=== PATIENT | female | born 1930 | race Caucasian/White ===

== ENCOUNTER 2016-08-14 09:23 | Inpatient (IN) | payer OTHER ==
--- NOTE | 2016-08-14 09:54 | PDOC ---
History of Present Illness - General History Source: Family, Old Records - History of Present Illness Initial Comments: 08/14/16 11:13 The patient is an 86 year old female, from home, with a significant past medical history of advanced alzheimer's, hypothyroidism, NIDDM, HLD, who is arrived to the Emergency Department along with her daughter via EMS with complaints of generalized weakness. Pt is non-verbal due to her advanced dementia so history is limited and provided through her daughter who is the primary day care center director. As per her daughter, the patient has been not herself since approximately 4: 30pm yesterday, she seemed more stiff and was not able to get out of bed even with assistance. She states that she called EMS this morning since the patient appeared to be very unsteady and stiff. She states that the patient usually walks slowly with assistance, but she had difficulty getting her to walk yesterday. She also reports mild cough, congestion, and 1 episode of loose stool this morning. She denies fever, chills, nausea, vomiting, SOB. She denies any fall or trauma. Pt lives at home with her daughter. PCP: Dr. Demetrice Lock <Darshana Dick - Last Filed: 08/14/16 11:46> <Alex Dorsey - Last Filed: 08/15/16 07:17> - General Chief Complaint: Weakness Stated Complaint: GENERALIZED WEAKNESS Time Seen by Provider: 08/14/16 09:31 Past History <Darshana Dick - Last Filed: 08/14/16 11:46> - Past Medical History Dementia: Yes Diabetes: Yes (NIDDM) Hypercholesterolemia: Yes Thyroid Disease: Yes - Psycho/Social/Smoking Cessation Hx Anxiety: No Suicidal Ideation: No Smoking Status: No Smoking History: Former smoker Have you smoked in the past 12 months: No Number of Cigarettes Smoked Daily: 0 Hx Alcohol Use: No Drug/Substance Use Hx: No Substance Use Type: None Hx Substance Use Treatment: No <Alex Dorsey - Last Filed: 08/15/16 07:17> - Past Medical History Allergies/Adverse Reactions: Allergies Allergy/AdvReac Type Severity Reaction Status Date / Time No Known Allergies Allergy Verified 04/07/16 17:50 Home Medications: Ambulatory Orders Memantine HCl [Namenda -] 10 mg PO DAILY 10/01/13 Levothyroxine [Synthroid -] 88 mcg PO DAILY 04/08/16 Review of Systems - Review of Systems Able to Perform ROS?: No Comments:: 08/14/16 11:14 Unable to obtain due to severe dementia. <Darshana Dick - Last Filed: 08/14/16 11:46> *Physical Exam - Vital Signs Last Vital Signs Temp Pulse Resp BP Pulse Ox 97.6 F 106 H 16 162/76 97 08/14/16 10:06 08/14/16 10:06 08/14/16 10:06 08/14/16 10:06 08/14/16 10:09 - Physical Exam Comments: 08/14/16 11:14 GENERAL:+ minimally reactive, cachtectic HEAD: Normocephalic, atraumatic. EYES: extraocular movements intact, sclera anicteric, conjunctiva clear. ENT: +dry mucous membranes . NECK: Normal range of motion, supple LUNGS: mild rales at L base HEART: Regular rate and rhythm, without murmur, rub or gallop. ABDOMEN: Soft, nontender, normoactive bowel sounds. No guarding, no rebound.No CVA tenderness EXTREMITIES: Normal range of motion, no edema. NEUROLOGICAL: No facial assymetry, PSYCH: unable to assess SKIN: + 2x3 cm stage 4 decubitus ulcer with stool present, no active discharge, sournding erythema without induration/fluctuance <Darshana Dick - Last Filed: 08/14/16 11:46> Heart Score/ECG Review - ECG Impressions Comment:: 08/14/16 09:54 Twelve-lead EKG was performed and reviewed by me. There is normal sinus rhythm with a normal rate. Rate of 99 The axis is normal. The intervals are normal. There is normal R wave progression There are no ST or T wave abnormalities. Impression: Normal twelve-lead EKG <Alex Dorsey - Last Filed: 08/15/16 07:17> ED Treatment Course - LABORATORY CBC & Chemistry Diagram: 08/14/16 09:39 08/14/16 09:39 - ADDITIONAL ORDERS Additional order review: Laboratory Results 08/14/16 08/14/16 08/14/16 10:22 09:40 09:39 INR Lactic Acid 1.548 Creatine Kinase 156 D CK-MB (CK-2) 1.683 Troponin I < 0.02 TSH Cancelled Urine Color Urine Appearance Urine pH Ur Specific [place] Urine Protein Urine Glucose (UA) Urine Ketones Urine Blood Urine Nitrite Urine Bilirubin Urine Urobilinogen Ur Leukocyte Esterase 08/14/16 08/14/16 09:39 09:25 INR 1.05 Lactic Acid Creatine Kinase CK-MB (CK-2) Troponin I TSH Urine Color Zaira Urine Appearance Cloudy Urine pH 8.0 D Ur Specific [place] 1.009 Urine Protein 2+ H Urine Glucose (UA) Negative Urine Ketones Negative Urine Blood 2+ H Urine Nitrite Negative Urine Bilirubin Negative Urine Urobilinogen Negative Ur Leukocyte Esterase 2+ H 08/14/16 09:39 RBC 3.48 L MCV 83.2 MCHC 32.9 RDW 14.5 MPV 7.0 L Neutrophils % 78.1 Lymphocytes % 13.9 Monocytes % 7.7 Eosinophils % 0.0 D Basophils % 0.3 - Medications Given in the ED: ED Medications Discontinued Medications Generic Name Dose Route Start Last Admin Trade Name Freq PRN Reason Stop Dose Admin Sodium Chloride 1,000 mls @ 1,000 mls/hr 08/14/16 09:59 08/14/16 09:55 Normal Saline - IV 08/14/16 10:58 1,000 mls/hr .Q1H ONE Administration <Darshana Dick - Last Filed: 08/14/16 11:46> - LABORATORY CBC & Chemistry Diagram: 08/14/16 09:39 08/14/16 09:39 <Alex Dorsey - Last Filed: 08/15/16 07:17> Medical Decision Making - Medical Decision Making 08/14/16 11:40 Case was discussed with Dr. Lock. <Darshana Dick - Last Filed: 08/14/16 11:46> - Medical Decision Making 08/14/16 11:39 86y F hx of advanced dementia, hypothyroidism, borought in by family for evaluation of generalized weakness differential includes occult infection, anemia, metabolic derangement will ck labs, ua, cxr, ekg will give fluisd for hydration will raessess 08/14/16 11:43 labs reviewed cr elevated to 4, with elevated BUN ua shows +protein, wbcs, - possible uti will treat with ctx will admit for further mangaement of dehydration/uti case d/w dr. Lock - agreed with mangement stable for med/surg A portion of this note was documented by scribe services under my direction. I have reviewed the details of the note, within reason, and agree with the documentation with the following case summary and management plan written by me Case discussed in detail with admitting physician including history, physical exam and ancillary studies. Admitting physician has assumed care for the patient, will follow all pending diagnostics and will complete the evaluation and treatment. <Alex Dorsey - Last Filed: 08/15/16 07:17> *DC/Admit/Observation/Transfer - Attestations Scribe Attestion: 08/14/16 11:15 Documentation prepared by Darshana Dick, acting as rn medical surgical for Alex Dorsye MD. <Darshana Dick - Last Filed: 08/14/16 11:46> - Discharge Dispostion Admit: Yes <Alex Dorsey - Last Filed: 08/15/16 07:17> Diagnosis at time of Disposition: Hyperkalemia UTI (urinary tract infection) Qualifiers: Urinary tract infection type: site unspecified Hematuria presence: with hematuria Qualified Code(s): N39.0 - Urinary tract infection, site not specified Acute renal failure Qualifiers: Acute renal failure type: unspecified Qualified Code(s): N17.9 - Acute kidney failure, unspecified - Referrals
[2016-08-14] MEDS ORDERED: SODIUM CHLORIDE 1,000 ML IV ONE (09:59)
[2016-08-14 10:09] VITALS: BMI 21.2
[2016-08-14 10:11] LABS: BASOPHIL 0.3 % (0-2.0); MCH 27.4 pg (25.7-33.7); MCHC 32.9 g/dl (32.0-36.0); MEAN CELL VOLUME 83.2 fl (80-96); NEUTROPHILS 78.1 % (42.8-82.8); PLATELET COUNT 303 K/MM3 (134-434); RDW 14.5 % (11.6-15.6)
[2016-08-14 10:30] LABS: INR 1.05 (0.82-1.09); PROTHROMBIN TIME (PATIENT) 11.6 SEC (9.98-11.88)
[2016-08-14 10:47] LABS: TROPONIN I < 0.02 ng/ml (0.00-0.05)
[2016-08-14 10:54] LABS: URINE APPEARANCE CLOUDY; URINE BILIRUBIN NEGATIVE (NEGATIVE); URINE COLOR AMBER; URINE GLUCOSE (UA) NEGATIVE (NEGATIVE); URINE KETONE NEGATIVE (NEGATIVE); URINE NITRITE NEGATIVE (NEGATIVE); URINE UROBILINOGEN NEGATIVE E.U./dl (0.2-1.0)
[2016-08-14 10:55] LABS: URINE BLOOD 2+ (NEGATIVE); URINE LEUK ESTERASE 2+ (NEGATIVE); URINE PROTEIN 2+ (NEGATIVE)
[2016-08-14 11:12] LABS: URINE BACTERIA FEW /hpf (NONE SEEN); URINE RBC 4 /hpf (0-3); URINE WBC 23 /hpf (3-5)
[2016-08-14 11:12] LABS: THYROID STIMULATING HORMONE 2.67 uIU/ml (0.358-3.74)
[2016-08-14 11:19] LABS: ANION GAP 14 (8-16); BILIRUBIN,TOTAL 0.5 mg/dL (0.2-1.0); CO2 18 mmol/L (21-32); CREATININE 4.3 mg/dL (0.55-1.02); GLUCOSE,RANDOM 126 mg/dL (74-106); SGOT/AST 39 U/L (15-37); SGPT/ALT 19 U/L (12-78)
[2016-08-14 11:28] LABS: ALK PHOS 130 U/L (45-117)
[2016-08-14] MEDS ORDERED: CEFTRIAXONE 1 GM in DEXTROSE 5%-WATER - 50 ML IVPB ONE (11:32)
[2016-08-14] MEDS ORDERED: CEFTRIAXONE 50 ML ONE (11:38)
[2016-08-14] MEDS: SODIUM CHLORIDE 1,000 ML IV SCH (16:10)
--- NOTE | 2016-08-14 17:15 | EKG ---
Test Reason : Blood Pressure : / mmHG Vent. Rate : 099 BPM Atrial Rate : 099 BPM P-R Int : 136 ms QRS Dur : 072 ms QT Int : 336 ms P-R-T Axes : 066 069 075 degrees QTc Int : 431 ms NORMAL SINUS RHYTHM NORMAL ECG WHEN COMPARED WITH ECG OF 07-APR-2016 19:38, NO SIGNIFICANT CHANGE WAS FOUND Confirmed by JONATHAN HALL MD ([id number]) on 08/14/2016 5:15:18 PM Referred By: Overread By: JONATHAN HALL MD
[2016-08-14] MEDS ORDERED: ACETAMINOPHEN 650 MG SUPP.RECT PR PRN (17:53)
--- NOTE | 2016-08-14 19:32 | HP ---
Admitting History and Physical - Primary Care Physician PCP: Demetrice Lock - Admission Chief Complaint: weakness, lethargy History of Present Illness: Family noted pt to get weaker since yesterday evening, this am, they were unable to get her out of bed, her knees would buckle under her. As baseline patient has advanced dementia, mostly non-verbal, able to walk with assistance. Needs help in all daily activities. 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 ...: No Endocrine: Yes: Diabetes Mellitus, Hypothyroidism - Advance Directives Advance Directives: Yes: Living Will, Health Care Proxy, DNR - Smoking History Smoking history: Never smoked Have you smoked in the past 12 months: No Aproximately how many cigarettes per day: 0 - Alcohol/Substance Use Hx Alcohol Use: No - Social History Usual Living Arrangement: Yes: With Child ADL: Family Assistance History of Recent Travel: No Home Medications - Allergies Allergies/Adverse Reactions: Allergies Allergy/AdvReac Type Severity Reaction Status Date / Time No Known Allergies Allergy Verified 04/07/16 17:50 - Home Medications Home Medications: Ambulatory Orders Memantine HCl [Namenda -] 10 mg PO DAILY 10/01/13 Levothyroxine [Synthroid -] 88 mcg PO DAILY 04/08/16 Family Disease History - Family Disease History Family History: Unable to Obtain Review of Systems Unable to obtain ROS, reason: dementia Physical Examination Vital Signs: Vital Signs Temperature 98.5 F 08/14/16 19:15 Pulse Rate 95 H 08/14/16 19:15 Respiratory Rate 18 08/14/16 19:15 Blood Pressure 138/95 08/14/16 19:15 O2 Sat by Pulse Oximetry (%) 95 08/14/16 16:44 Constitutional: Yes: Calm, Thin Eyes: Yes: Conjunctiva Clear HENT: Yes: Atraumatic, Normocephalic Neck: Yes: Trachea Midline Cardiovascular: Yes: Regular Rate and Rhythm Respiratory: Yes: CTA Bilaterally Gastrointestinal: Yes: Normal Bowel Sounds, Distention ...Rectal Exam: Yes: Deferred Breast(s): Yes: WNL Edema: No Integumentary: Yes: Other (unstageable sacral ulcer) Neurological: Yes: Other (keeps her eyes closed, appears slightly contracted in elbows and knees, does not follow commands) Labs: Laboratory Results - last 24 hr 08/14/16 08/14/16 08/14/16 09:25 09:39 09:39 WBC 8.0 RBC 3.48 L Hgb 9.5 L Hct 28.9 L MCV 83.2 MCHC 32.9 RDW 14.5 Plt Count 303 MPV 7.0 L Neutrophils % 78.1 Lymphocytes % 13.9 Monocytes % 7.7 Eosinophils % 0.0 D Basophils % 0.3 INR 1.05 Urine Color Zaira Urine Appearance Cloudy Urine pH 8.0 D Ur Specific [place] 1.009 Urine Protein 2+ H Urine Glucose (UA) Negative Urine Ketones Negative Urine Blood 2+ H Urine Nitrite Negative Urine Bilirubin Negative Urine Urobilinogen Negative Ur Leukocyte Esterase 2+ H Urine RBC 4 Urine WBC 23 Ur Epithelial Cells Rare Urine Bacteria Few 08/14/16 08/14/16 08/14/16 09:39 09:40 10:22 Sodium 129 L Potassium 5.2 H D Chloride 97 L Carbon Dioxide 18 L D Anion Gap 14 BUN 68 H D Creatinine 4.3 H D Creat Clearance w eGFR 9.79 Random Glucose 126 H Lactic Acid 1.548 Calcium 9.0 Total Bilirubin 0.5 D AST 39 H D ALT 19 Alkaline Phosphatase 130 H Creatine Kinase 156 D CK-MB (CK-2) 1.683 Troponin I < 0.02 Total Protein 8.0 Albumin 3.0 L TSH 2.67 D Cancelled Imaging - Results Chest X-ray: Report Reviewed Problem List - Problems (1) Acute renal failure Code(s): N17.9 - ACUTE KIDNEY FAILURE, UNSPECIFIED Qualifiers: Acute renal failure type: unspecified Qualified Code(s): N17.9 - Acute kidney failure, unspecified (2) Hyperkalemia Code(s): E87.5 - HYPERKALEMIA (3) UTI (urinary tract infection) Code(s): N39.0 - URINARY TRACT INFECTION, SITE NOT SPECIFIED Qualifiers: Urinary tract infection type: site unspecified Hematuria presence: with hematuria Qualified Code(s): N39.0 - Urinary tract infection, site not specified (4) Hyponatremia Code(s): E87.1 - HYPO-OSMOLALITY AND HYPONATREMIA (5) Alzheimer's dementia Code(s): G30.9 - ALZHEIMER'S DISEASE, UNSPECIFIED Qualifiers: Alzheimer's disease onset: unspecified onset Dementia behavioral disturbance: without behavioral disturbance Qualified Code(s): G30.9 - Alzheimer's disease, unspecified; F02.80 - Dementia in other diseases classified elsewhere without behavioral disturbance Assessment/Plan iv hydration will likely need Mccrary, however daughter does not want it placed, agreed to monitor overnight and re-evaluate in am iv abx for UTI wound care and swallow evaluation requested advanced directives d/w daughter/HCP Stephie well known to me-she requested DNR, hopes she will be able to take mom home, but to minimize suffering is her main goal at this point.
[2016-08-14] MEDS: COLLAGENASE CLOSTRIDIUM HIST. 30 GRAMS TUBE TP SCH (23:05)
[2016-08-15 07:24] LABS: BASOPHIL 0.3 % (0-2.0); MCH 27.6 pg (25.7-33.7); MEAN CELL VOLUME 83.4 fl (80-96); NEUTROPHILS 72.2 % (42.8-82.8); PLATELET COUNT 262 K/MM3 (134-434); RDW 14.3 % (11.6-15.6); WHITE BLOOD COUNT 5.9 K/mm3 (4.0-10.0)
[2016-08-15 07:47] LABS: ALBUMIN 2.4 g/dl (3.4-5.0); CALCIUM 8.1 mg/dL (8.5-10.1); CREATININE 3.4 mg/dL (0.55-1.02)
[2016-08-15 07:48] LABS: BILIRUBIN,TOTAL 0.3 mg/dL (0.2-1.0); TOT PROT 6.6 g/dl (6.4-8.2)
--- NOTE | 2016-08-15 08:24 | PN ---
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, Physician History of Present Illness: admitted for weakness due to UTI/Dehydration. - Current Medication List Current Medications: Active Medications Acetaminophen (Tylenol Suppository -) 650 mg [place] Q6H PRN PRN Reason: FEVER OR PAIN Collagenase (Santyl -) 1 applic TP BID [facility] Last Admin: 08/14/16 23:05 Dose: 1 applic Sodium Chloride (Normal Saline -) 1,000 mls @ 100 mls/hr IV ASDIR [facility] Last Admin: 08/14/16 16:10 Dose: 100 mls/hr Ceftriaxone Sodium (Rocephin 1gm Ivpb (Pre-Docked)) 50 mls @ 100 mls/hr IVPB DAILY [facility] Levothyroxine Sodium (Synthroid -) 88 mcg PO DAILY [facility] Memantine (Namenda -) 10 mg PO DAILY [facility] - Objective Vital Signs: Vital Signs Temperature 98.1 F 08/15/16 05:53 Pulse Rate 88 08/15/16 05:53 Respiratory Rate 18 08/15/16 05:53 Blood Pressure 125/58 08/15/16 05:53 O2 Sat by Pulse Oximetry (%) 95 08/14/16 16:44 Constitutional: Yes: Thin Eyes: Yes: EOM Intact HENT: Yes: Normocephalic, Other (dry oral mucosa) Neck: Yes: Trachea Midline Cardiovascular: Yes: Regular Rate and Rhythm Respiratory: Yes: CTA Bilaterally Gastrointestinal: Yes: Normal Bowel Sounds, Distention Edema: No Peripheral Pulses WNL: Yes Integumentary: Yes: Other (sacral ulcer) Neurological: Yes: Other (awake, looks at me, does not follow commands, but mumbles when spoken to. Contracted in knees and hips.) Labs: CBC, BMP 08/15/16 06:30 08/15/16 06:30 INR, PTT INR 1.05 (0.82-1.09) 08/14/16 09:39 Problem List - Problems (1) Acute renal failure Code(s): N17.9 - ACUTE KIDNEY FAILURE, UNSPECIFIED Qualifiers: Acute renal failure type: unspecified Qualified Code(s): N17.9 - Acute kidney failure, unspecified (2) Hyperkalemia Assessment/Plan: resolved Code(s): E87.5 - HYPERKALEMIA (3) UTI (urinary tract infection) Code(s): N39.0 - URINARY TRACT INFECTION, SITE NOT SPECIFIED Qualifiers: Urinary tract infection type: site unspecified Hematuria presence: with hematuria Qualified Code(s): N39.0 - Urinary tract infection, site not specified (4) Hyponatremia Code(s): E87.1 - HYPO-OSMOLALITY AND HYPONATREMIA (5) Alzheimer's dementia Code(s): G30.9 - ALZHEIMER'S DISEASE, UNSPECIFIED Qualifiers: Alzheimer's disease onset: unspecified onset Dementia behavioral disturbance: without behavioral disturbance Qualified Code(s): G30.9 - Alzheimer's disease, unspecified; F02.80 - Dementia in other diseases classified elsewhere without behavioral disturbance Assessment/Plan iv hydration iv abx for UTI f/up cultures US renal/bladder r/o obstruction with ARF wound care and swallow evaluation requested DNR
[2016-08-15] MEDS: LEVOTHYROXINE NA 88 MCG TABLET (FP) PO SCH (10:52)
[2016-08-15] MEDS: MEMANTINE HCL 10 MG TABLET (FP) PO SCH (10:52)
[2016-08-15] MEDS: CEFTRIAXONE 50 ML IVPB SCH (10:52)
[2016-08-15] MEDS: COLLAGENASE CLOSTRIDIUM HIST. 30 GRAMS TUBE TP SCH ×2 (11:00→23:50)
--- NOTE | 2016-08-15 11:20 | CONSULT ---
Admitting History and Physical - Primary Care Physician PCP: Marion Reich - Admission History of Present Illness: Per EMR: "08/14/16 11:13 The patient is an 86 year old female, from home, with a significant past medical history of advanced alzheimer's, hypothyroidism, NIDDM, HLD, who is arrived to the Emergency Department along with her daughter via EMS with complaints of generalized weakness. Pt is non-verbal due to her advanced dementia so history is limited and provided through her daughter who is the primary child care supervisor. As per her daughter, the patient has been not herself since approximately 4: 30pm yesterday, she seemed more stiff and was not able to get out of bed even with assistance. She states that she called EMS this morning since the patient appeared to be very unsteady and stiff. She states that the patient usually walks slowly with assistance, but she had difficulty getting her to walk yesterday. She also reports mild cough, congestion, and 1 episode of loose stool this morning. She denies fever, chills, nausea, vomiting, SOB. She denies any fall or trauma. Pt lives at home with her daughter. " History Source: Family Member (Per pt's son, pt receives "baby food" and thin liquid on a tsp at home. 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 ...: No Endocrine: Yes: Diabetes Mellitus, Hypothyroidism - Advance Directives Advance Directives: Yes: Living Will, Health Care Proxy, DNR - Smoking History Smoking history: Former smoker Have you smoked in the past 12 months: No Aproximately how many cigarettes per day: 0 - Alcohol/Substance Use Hx Alcohol Use: No - Social History ADL: Family Assistance History of Recent Travel: No History - Admission Reason For Visit: UTI,ARF,HYPERKALEMIA - Diagnostics X-ray: Report Reviewed - General Mental Status: Confused, Lethargic (slightly responsive, eyes remain closed, seems comfortable, respiration easy.Pt does not follow any commands.) Attention: Profound Impairment Ability to Follow Directions: Poor - Hearing Hearing: Normal Hearing Aide: No Speech Evaluation - Communication Primary Language: [place]IZ[place] Communication: Yes: Non-Communicable Oral Expression Ability: Yes: Non-Verbal, Non-Vocal - Language/Auditory Comprehension Observation: Able to respond to yes/no queries: No - Language/Verbal Expression Functional Communication Status: Yes: Severely Impaired - Memory/Perception custodial Memory: Yes: Severely Impaired Short Term Memory: Yes: Severely Impaired - Swallow Evaluation/Bedside Assessment Current Nutritional Intake: Dysphagia Pureed, Thin Liquids Dentition: Yes: Edentulous Facial Symmetry at Rest: Symmetrical Rate of Intake: Slow/Holding Labial Seal: WFL Timing of Swallow: Delayed Coughing/Throat Clear: No Recommendations - Speech Evaluation, Impression/Plan Impression: Pt with severe dementia, admitted with dehydration/UTI, with impaired ABEL. Lightens a little with tactile stimulation. Rare, very delayed swallow. Swallow itself fairly functional, if triggered. However, due to lethargy, risk of aspiration is present. - Disposition Discharge to: To be Determined - Dysphagia Impressions/Plan Swallowing Skills: Impaired Dysphagia Impressions: Risk of Aspiration *Silent aspiration: cannot be R/O at bedside Recommendations: Palliative Care (Pt's wishes), Other (Feed only if arousable. TELL pt to swallow and palpate larynx for reflex. NPO if not sufficiently responsive) - Recommendations Diet Consistency: Dysphagia Pureed Medication Administration: Crushed with applesauce Liquids: Refugio Thick (on tsp)
--- NOTE | 2016-08-15 15:34 | PN ---
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 (short form) - Note 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: Vascular surgery, wound consult Went to see patient with daughter at bedside. Patient has severe baseline dementia. Daughter refusing to have patient evaluated at this time because she had a "traumatic day". Daughter states she takes care of her mother's coccyx ulcer and states it is not infected, she changes the dressings, and gets her mother out of bed to chair. Daughter states the wound currently has Optifoam in place.
[2016-08-15] MEDS ORDERED: LORAZEPAM CARPU-JECT 2 MG/ML DISP.SYRIN IVPUSH ONE (17:04)
[2016-08-15] MEDS ORDERED: LORAZEPAM CARPU-JECT 2 MG/ML DISP.SYRIN ONE (17:07)
--- NOTE | 2016-08-15 17:29 | CONSULT ---
Consult - History of Present Illness History of Present Illness: 86 yo female admitted with weakness. Sono shows bilateral hydronephrosis secondary to a very distended bladder. Toribio could not be placed by nursing staff. Pt is contracted and has dementia. 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 ...: No Endocrine: Yes: Diabetes Mellitus, Hypothyroidism - Alcohol/Substance Use Hx Alcohol Use: No - Smoking History Smoking history: Former smoker Have you smoked in the past 12 months: No Aproximately how many cigarettes per day: 0 - Social History Usual Living Arrangement: With Child ADL: Family Assistance History of Recent Travel: No Home Medications - Allergies Allergies/Adverse Reactions: Allergies Allergy/AdvReac Type Severity Reaction Status Date / Time No Known Allergies Allergy Verified 04/07/16 17:50 - Home Medications Home Medications: Ambulatory Orders Memantine HCl [Namenda -] 10 mg PO DAILY 10/01/13 Levothyroxine [Synthroid -] 88 mcg PO DAILY 04/08/16 Physical Exam- Vital Signs: Vital Signs Temperature 98.1 F 08/15/16 15:00 Pulse Rate 78 08/15/16 15:00 Respiratory Rate 18 08/15/16 15:00 Blood Pressure 114/60 08/15/16 15:00 O2 Sat by Pulse Oximetry (%) 95 08/14/16 16:44 Labs: CBC, BMP 08/15/16 06:30 08/15/16 06:30 Imaging - Results Ultrasound: Report Reviewed Problem List - Problems (1) Urinary retention Assessment/Plan: 14 fr toribio placed at bedside with dark yellow urine retrieved. Would start flomax and urecholine. May remove toribio cath in 2-3 days when infection has resolved and renal function stabilized. Code(s): R33.9 - RETENTION OF URINE, UNSPECIFIED
[2016-08-15] MEDS: SODIUM CHLORIDE 1,000 ML IV SCH (17:40)
[2016-08-15] MEDS: BETHANECHOL CHLORIDE 25 MG TABLET PO SCH (23:50)
[2016-08-16] MEDS: BETHANECHOL CHLORIDE 25 MG TABLET PO SCH ×3 (05:58→21:54)
[2016-08-16 07:36] LABS: BASOPHIL 0.2 % (0-2.0); EOSINOPHIL 0.2 % (0-4.5); MCH 27.6 pg (25.7-33.7); MEAN CELL VOLUME 83.8 fl (80-96); NEUTROPHILS 71.9 % (42.8-82.8); PLATELET COUNT 252 K/MM3 (134-434); RDW 14.9 % (11.6-15.6)
[2016-08-16 08:14] LABS: ALBUMIN 2.3 g/dl (3.4-5.0); CALCIUM 7.9 mg/dL (8.5-10.1)
[2016-08-16 08:18] LABS: BILIRUBIN,TOTAL 0.6 mg/dL (0.2-1.0); CREATININE 3.1 mg/dL (0.55-1.02); TOT PROT 6.4 g/dl (6.4-8.2)
[2016-08-16] MEDS: TAMSULOSIN HCL 0.4 MG CAP.ER.24H (FP) PO SCH (12:09)
[2016-08-16] MEDS: COLLAGENASE CLOSTRIDIUM HIST. 30 GRAMS TUBE TP SCH ×2 (12:10→21:54)
[2016-08-16] MEDS: LEVOTHYROXINE NA 88 MCG TABLET (FP) PO SCH (12:10)
[2016-08-16] MEDS: MEMANTINE HCL 10 MG TABLET (FP) PO SCH (12:10)
[2016-08-16] MEDS: CEFTRIAXONE 50 ML IVPB SCH (12:43)
--- NOTE | 2016-08-16 15:38 | PN ---
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, Physician Chief Complaint: No new complaints - Current Medication List Current Medications: Active Medications Acetaminophen (Tylenol Suppository -) 650 mg [place] Q6H PRN PRN Reason: FEVER OR PAIN Last Admin: 08/16/16 00:14 Dose: 650 mg Bethanechol Chloride (Urecholine -) 25 mg PO TID [facility] Last Admin: 08/16/16 05:58 Dose: 25 mg Collagenase (Santyl -) 1 applic TP BID [facility] Last Admin: 08/16/16 12:10 Dose: 1 applic Sodium Chloride (Normal Saline -) 1,000 mls @ 100 mls/hr IV ASDIR [facility] Last Admin: 08/15/16 17:40 Dose: 100 mls/hr Ceftriaxone Sodium (Rocephin 1gm Ivpb (Pre-Docked)) 50 mls @ 100 mls/hr IVPB DAILY [facility] Last Admin: 08/16/16 12:43 Dose: 100 mls/hr Levothyroxine Sodium (Synthroid -) 88 mcg PO DAILY [facility] Last Admin: 08/16/16 12:10 Dose: Not Given Memantine (Namenda -) 10 mg PO DAILY [facility] Last Admin: 08/16/16 12:10 Dose: Not Given Tamsulosin HCl (Flomax -) 0.4 mg PO DAILY@0830 [facility] Last Admin: 08/16/16 12:09 Dose: Not Given - Objective Vital Signs: Vital Signs Temperature 98.5 F 08/16/16 06:55 Pulse Rate 108 H 08/15/16 18:00 Respiratory Rate 20 08/16/16 06:55 Blood Pressure 124/61 08/16/16 06:55 O2 Sat by Pulse Oximetry (%) 96 08/15/16 21:00 Constitutional: Yes: No Distress Neck: Yes: Supple, Tenderness Respiratory: Yes: CTA Bilaterally Gastrointestinal: Yes: Normal Bowel Sounds, Soft Neurological: Yes: Other (Does not respond to verbal commands but has spontaneous eye opening and eye contact, unchanged rom baseline). No: Loss of Sensation ...Motor Strength: WNL Labs: CBC, BMP 08/16/16 06:30 08/16/16 06:30 INR, PTT INR 1.05 (0.82-1.09) 08/14/16 09:39 Problem List - Problems (1) Alzheimer's dementia Assessment/Plan: Supportive care Code(s): G30.9 - ALZHEIMER'S DISEASE, UNSPECIFIED Qualifiers: Alzheimer's disease onset: unspecified onset Dementia behavioral disturbance: without behavioral disturbance Qualified Code(s): G30.9 - Alzheimer's disease, unspecified; F02.80 - Dementia in other diseases classified elsewhere without behavioral disturbance (2) UTI (urinary tract infection) Assessment/Plan: Abx Code(s): N39.0 - URINARY TRACT INFECTION, SITE NOT SPECIFIED Qualifiers: Urinary tract infection type: site unspecified Hematuria presence: with hematuria Qualified Code(s): N39.0 - Urinary tract infection, site not specified (3) Urinary retention Assessment/Plan: Seen by urology Mccrary placed, Cr improving Code(s): R33.9 - RETENTION OF URINE, UNSPECIFIED (4) Hyponatremia Assessment/Plan: Na normal today Code(s): E87.1 - HYPO-OSMOLALITY AND HYPONATREMIA
[2016-08-16] MEDS: SODIUM CHLORIDE 1,000 ML IV SCH ×2 (18:12→22:54)
[2016-08-17] MEDS: BETHANECHOL CHLORIDE 25 MG TABLET PO SCH ×3 (05:51→21:06)
[2016-08-17] MEDS: TAMSULOSIN HCL 0.4 MG CAP.ER.24H (FP) PO SCH (10:26)
[2016-08-17] MEDS: MEMANTINE HCL 10 MG TABLET (FP) PO SCH (10:26)
[2016-08-17] MEDS: LEVOTHYROXINE NA 88 MCG TABLET (FP) PO SCH (10:27)
[2016-08-17] MEDS: CEFTRIAXONE 50 ML IVPB SCH (10:28)
[2016-08-17] MEDS: COLLAGENASE CLOSTRIDIUM HIST. 30 GRAMS TUBE TP SCH ×2 (14:37→21:06)
--- NOTE | 2016-08-17 17:10 | PN ---
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, Physician Chief Complaint: No new complaints - Current Medication List Current Medications: Active Medications Acetaminophen (Tylenol Suppository -) 650 mg GA Q6H PRN PRN Reason: FEVER OR PAIN Last Admin: 08/16/16 00:14 Dose: 650 mg Bethanechol Chloride (Urecholine -) 25 mg PO TID [facility]ENDING S[facility] TO [facility] Last Admin: 08/17/16 14:46 Dose: 25 mg Collagenase (Santyl -) 1 applic TP BID [facility] TO [facility] Last Admin: 08/17/16 14:37 Dose: 1 applic Sodium Chloride (Normal Saline -) 1,000 mls @ 100 mls/hr IV ASDIR PENDING SALE TO [facility] Last Admin: 08/16/16 22:54 Dose: 100 mls/hr Ceftriaxone Sodium (Rocephin 1gm Ivpb (Pre-Docked)) 50 mls @ 100 mls/hr IVPB DAILY [facility] TO [facility] Last Admin: 08/17/16 10:28 Dose: 100 mls/hr Levothyroxine Sodium (Synthroid -) 88 mcg PO DAILY [facility] TO [facility] Last Admin: 08/17/16 10:27 Dose: 88 mcg Memantine (Namenda -) 10 mg PO DAILY [facility] Last Admin: 08/17/16 10:26 Dose: 10 mg Tamsulosin HCl (Flomax -) 0.4 mg PO DAILY@0830 [facility]END[facility] TO [facility] Last Admin: 08/17/16 10:26 Dose: 0.4 mg - Objective Vital Signs: Vital Signs Temperature 97.3 F L 08/17/16 14:14 Pulse Rate 107 H 08/17/16 14:14 Respiratory Rate 20 08/17/16 14:14 Blood Pressure 134/82 08/17/16 14:14 O2 Sat by Pulse Oximetry (%) 97 08/17/16 09:00 Constitutional: Yes: No Distress Neck: Yes: Supple Respiratory: Yes: CTA Bilaterally Gastrointestinal: Yes: Normal Bowel Sounds, Soft Neurological: Yes: Other (No change) Labs: CBC, BMP 08/16/16 06:30 08/16/16 06:30 INR, PTT INR 1.05 (0.82-1.09) 08/14/16 09:39 Problem List - Problems (1) Alzheimer's dementia Assessment/Plan: Supportive care Code(s): G30.9 - ALZHEIMER'S DISEASE, UNSPECIFIED Qualifiers: Alzheimer's disease onset: unspecified onset Dementia behavioral disturbance: without behavioral disturbance Qualified Code(s): G30.9 - Alzheimer's disease, unspecified; F02.80 - Dementia in other diseases classified elsewhere without behavioral disturbance (2) UTI (urinary tract infection) Assessment/Plan: Abx Code(s): N39.0 - URINARY TRACT INFECTION, SITE NOT SPECIFIED Qualifiers: Urinary tract infection type: site unspecified Hematuria presence: with hematuria Qualified Code(s): N39.0 - Urinary tract infection, site not specified
[2016-08-17] MEDS: SODIUM CHLORIDE 1,000 ML IV SCH (19:30)
[2016-08-18] MEDS: BETHANECHOL CHLORIDE 25 MG TABLET PO SCH ×3 (06:00→21:46)
[2016-08-18] MEDS: LEVOTHYROXINE NA 88 MCG TABLET (FP) PO SCH (10:40)
[2016-08-18] MEDS: CEFTRIAXONE 50 ML IVPB SCH (10:40)
[2016-08-18] MEDS: MEMANTINE HCL 10 MG TABLET (FP) PO SCH (10:40)
[2016-08-18] MEDS: TAMSULOSIN HCL 0.4 MG CAP.ER.24H (FP) PO SCH (10:40)
[2016-08-18] MEDS: SODIUM CHLORIDE 1,000 ML IV SCH (16:17)
--- NOTE | 2016-08-18 16:24 | PN ---
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, Physician Chief Complaint: No new complaints - Current Medication List Current Medications: Active Medications Acetaminophen (Tylenol Suppository -) 650 mg OK Q6H PRN PRN Reason: FEVER OR PAIN Last Admin: 08/16/16 00:14 Dose: 650 mg Bethanechol Chloride (Urecholine -) 25 mg PO TID [facility] Last Admin: 08/18/16 16:11 Dose: 25 mg Collagenase (Santyl -) 1 applic TP BID [facility] Last Admin: 08/17/16 21:06 Dose: 1 applic Sodium Chloride (Normal Saline -) 1,000 mls @ 100 mls/hr IV ASDIR [facility] Last Admin: 08/18/16 16:17 Dose: 100 mls/hr Ceftriaxone Sodium (Rocephin 1gm Ivpb (Pre-Docked)) 50 mls @ 100 mls/hr IVPB DAILY [facility] Last Admin: 08/18/16 10:40 Dose: 100 mls/hr Levothyroxine Sodium (Synthroid -) 88 mcg PO DAILY [facility] Last Admin: 08/18/16 10:40 Dose: 88 mcg Memantine (Namenda -) 10 mg PO DAILY [facility] Last Admin: 08/18/16 10:40 Dose: 10 mg Tamsulosin HCl (Flomax -) 0.4 mg PO DAILY@0830 [facility] Last Admin: 08/18/16 10:40 Dose: 0.4 mg - Objective Vital Signs: Vital Signs Temperature 97.9 F 08/18/16 15:07 Pulse Rate 87 08/18/16 15:07 Respiratory Rate 20 08/18/16 15:07 Blood Pressure 127/52 08/18/16 15:07 O2 Sat by Pulse Oximetry (%) 98 08/18/16 09:00 Constitutional: Yes: No Distress Neck: Yes: Supple Cardiovascular: Yes: Regular Rate and Rhythm Respiratory: Yes: CTA Bilaterally Gastrointestinal: Yes: Normal Bowel Sounds, Soft Neurological: Yes: Other (No chnage) Labs: CBC, BMP 08/16/16 06:30 08/16/16 06:30 INR, PTT INR 1.05 (0.82-1.09) 08/14/16 09:39 Problem List - Problems (1) Alzheimer's dementia Assessment/Plan: Supportive care Code(s): G30.9 - ALZHEIMER'S DISEASE, UNSPECIFIED Qualifiers: Alzheimer's disease onset: unspecified onset Dementia behavioral disturbance: without behavioral disturbance Qualified Code(s): G30.9 - Alzheimer's disease, unspecified; F02.80 - Dementia in other diseases classified elsewhere without behavioral disturbance (2) UTI (urinary tract infection) Assessment/Plan: Abx Code(s): N39.0 - URINARY TRACT INFECTION, SITE NOT SPECIFIED Qualifiers: Urinary tract infection type: site unspecified Hematuria presence: with hematuria Qualified Code(s): N39.0 - Urinary tract infection, site not specified
[2016-08-18] MEDS: COLLAGENASE CLOSTRIDIUM HIST. 30 GRAMS TUBE TP SCH ×2 (20:17→21:50)
[2016-08-19] MEDS: SODIUM CHLORIDE 1,000 ML IV SCH ×3 (04:05→18:17)
[2016-08-19] MEDS: BETHANECHOL CHLORIDE 25 MG TABLET PO SCH ×3 (05:39→22:11)
--- NOTE | 2016-08-19 08:19 | PN ---
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 (short form) - Note 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: No significant events over the weekend Vital Signs Period Temp Pulse Resp BP Sys/Correia Pulse Ox Last 24 Hr 97.9 F-98.7 F 70-95 20-20 119-133/52-71 98-98 S1S2 rrr Lugs cta Abd soft Mccrary draining clear urine Opens eyes, follows movements, but is non verbal Imp Dementia-advanced Severe dehydration DALJIT due to retention and dehydration UTI Urinary retention Plan dc Mccrary pending results PT for transfer Problem List - Problems (1) Acute renal failure Code(s): N17.9 - ACUTE KIDNEY FAILURE, UNSPECIFIED Qualifiers: Acute renal failure type: unspecified Qualified Code(s): N17.9 - Acute kidney failure, unspecified (2) Hyperkalemia Code(s): E87.5 - HYPERKALEMIA (3) UTI (urinary tract infection) Code(s): N39.0 - URINARY TRACT INFECTION, SITE NOT SPECIFIED Qualifiers: Urinary tract infection type: site unspecified Hematuria presence: with hematuria Qualified Code(s): N39.0 - Urinary tract infection, site not specified (4) Hyponatremia Code(s): E87.1 - HYPO-OSMOLALITY AND HYPONATREMIA (5) Alzheimer's dementia Code(s): G30.9 - ALZHEIMER'S DISEASE, UNSPECIFIED Qualifiers: Alzheimer's disease onset: unspecified onset Dementia behavioral disturbance: without behavioral disturbance Qualified Code(s): G30.9 - Alzheimer's disease, unspecified; F02.80 - Dementia in other diseases classified elsewhere without behavioral disturbance
[2016-08-19 08:30] LABS: BASOPHIL 0.3 % (0-2.0); EOSINOPHIL 0.6 % (0-4.5); MCH 27.2 pg (25.7-33.7); MEAN CELL VOLUME 85.1 fl (80-96); MEAN PLT VOLUME 7.3 fl (7.5-11.1); NEUTROPHILS 74.6 % (42.8-82.8); PLATELET COUNT 260 K/MM3 (134-434); RDW 15.2 % (11.6-15.6); WHITE BLOOD COUNT 7.1 K/mm3 (4.0-10.0)
[2016-08-19 08:56] LABS: BILIRUBIN,TOTAL 0.3 mg/dL (0.2-1.0); CALCIUM 7.5 mg/dL (8.5-10.1); TOT PROT 6.2 g/dl (6.4-8.2)
[2016-08-19] MEDS: LEVOTHYROXINE NA 88 MCG TABLET (FP) PO SCH (10:12)
[2016-08-19] MEDS: TAMSULOSIN HCL 0.4 MG CAP.ER.24H (FP) PO SCH (10:12)
[2016-08-19] MEDS: MEMANTINE HCL 10 MG TABLET (FP) PO SCH (10:12)
[2016-08-19] MEDS: CEFTRIAXONE 50 ML IVPB SCH (10:13)
[2016-08-19] MEDS: COLLAGENASE CLOSTRIDIUM HIST. 30 GRAMS TUBE TP SCH ×2 (10:13→22:11)
[2016-08-20] MEDS: BETHANECHOL CHLORIDE 25 MG TABLET PO SCH ×3 (05:04→22:09)
[2016-08-20 07:12] LABS: BASOPHIL 0.3 % (0-2.0); EOSINOPHIL 0.7 % (0-4.5); MCH 27.8 pg (25.7-33.7); MCHC 33.2 g/dl (32.0-36.0); MEAN CELL VOLUME 83.8 fl (80-96); MEAN PLT VOLUME 7.4 fl (7.5-11.1); NEUTROPHILS 80.4 % (42.8-82.8); PLATELET COUNT 305 K/MM3 (134-434); RDW 14.8 % (11.6-15.6); WHITE BLOOD COUNT 11.3 K/mm3 (4.0-10.0)
[2016-08-20 07:53] LABS: ALBUMIN 2.1 g/dl (3.4-5.0)
[2016-08-20 07:56] LABS: BILIRUBIN,TOTAL 0.8 mg/dL (0.2-1.0); CALCIUM 7.3 mg/dL (8.5-10.1); TOT PROT 6.3 g/dl (6.4-8.2)
--- NOTE | 2016-08-20 08:47 | PN ---
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 (short form) - Note 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: Received 2 U nits of PRBC yesterday CBC, BMP 08/20/16 06:00 08/20/16 06:00 Vital Signs Period Temp Pulse Resp BP Sys/Correia Pulse Ox Last 24 Hr 98.2 F-99 F 66-81 18-18 109-136/51-69 98-98 Intake & Output 08/17/16 08/18/16 08/19/16 08/20/16 23:59 23:59 23:59 23:59 Intake Total 4373 526 8672 900 Output Total 2100 1300 1200 400 Balance -463 -360 1962 500 S1S2 rrr Lugs cta Abd soft Mccrary draining clear urine Opens eyes, follows movements, but is non verbal ate ok yesterday Imp Dementia-advanced Severe dehydration DALJIT due to retention and dehydration UTI Urinary retention Plan dc Mccrary decrease iv fluids, change to 1/2 NS PT for transfer STR to [facility]? Problem List - Problems (1) Acute renal failure Code(s): N17.9 - ACUTE KIDNEY FAILURE, UNSPECIFIED Qualifiers: Acute renal failure type: unspecified Qualified Code(s): N17.9 - Acute kidney failure, unspecified (2) Hyperkalemia Code(s): E87.5 - HYPERKALEMIA (3) UTI (urinary tract infection) Code(s): N39.0 - URINARY TRACT INFECTION, SITE NOT SPECIFIED Qualifiers: Urinary tract infection type: site unspecified Hematuria presence: with hematuria Qualified Code(s): N39.0 - Urinary tract infection, site not specified (4) Hyponatremia Code(s): E87.1 - HYPO-OSMOLALITY AND HYPONATREMIA (5) Alzheimer's dementia Code(s): G30.9 - ALZHEIMER'S DISEASE, UNSPECIFIED Qualifiers: Alzheimer's disease onset: unspecified onset Dementia behavioral disturbance: without behavioral disturbance Qualified Code(s): G30.9 - Alzheimer's disease, unspecified; F02.80 - Dementia in other diseases classified elsewhere without behavioral disturbance
--- NOTE | 2016-08-20 09:38 | PN ---
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 (short form) - Note 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: Vascular surgery wound care consult for Dr. Zavala 86 yo F with dementia admitted for weakness. Patient seen and examined this morning for sacral wound. 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 Zavala
[2016-08-20] MEDS: LEVOTHYROXINE NA 88 MCG TABLET (FP) PO SCH (10:07)
[2016-08-20] MEDS: MEMANTINE HCL 10 MG TABLET (FP) PO SCH (10:07)
[2016-08-20] MEDS: CEFTRIAXONE 50 ML IVPB SCH (10:08)
[2016-08-20] MEDS: TAMSULOSIN HCL 0.4 MG CAP.ER.24H (FP) PO SCH (10:08)
[2016-08-20] MEDS: COLLAGENASE CLOSTRIDIUM HIST. 30 GRAMS TUBE TP SCH ×2 (10:40→22:08)
[2016-08-20] MEDS: POTASSIUM CHLORIDE 10 MEQ in SODIUM CHLORIDE 0.45% 1,000 ML IVPB SCH ×2 (10:44→22:09)
[2016-08-20] MEDS ORDERED: PT OWN MED DRAWER 7, Y5N ONE (21:22)
[2016-08-21] MEDS: BETHANECHOL CHLORIDE 25 MG TABLET PO SCH ×3 (06:00→23:23)
[2016-08-21 07:29] LABS: BASOPHIL 0.5 % (0-2.0); EOSINOPHIL 2.2 % (0-4.5); MCH 28.3 pg (25.7-33.7); MCHC 33.7 g/dl (32.0-36.0); MEAN CELL VOLUME 83.9 fl (80-96); MEAN PLT VOLUME 7.9 fl (7.5-11.1); NEUTROPHILS 77.1 % (42.8-82.8); PLATELET COUNT 338 K/MM3 (134-434); RDW 14.8 % (11.6-15.6); WHITE BLOOD COUNT 9.4 K/mm3 (4.0-10.0)
[2016-08-21 07:45] LABS: BILIRUBIN,TOTAL 0.6 mg/dL (0.2-1.0); CALCIUM 7.5 mg/dL (8.5-10.1); CREATININE 1.8 mg/dL (0.55-1.02); TOT PROT 6.4 g/dl (6.4-8.2)
[2016-08-21] MEDS: COLLAGENASE CLOSTRIDIUM HIST. 30 GRAMS TUBE TP SCH ×2 (10:25→23:23)
[2016-08-21] MEDS: TAMSULOSIN HCL 0.4 MG CAP.ER.24H (FP) PO SCH (10:29)
[2016-08-21] MEDS: CEFTRIAXONE 50 ML IVPB SCH (10:29)
[2016-08-21] MEDS: LEVOTHYROXINE NA 88 MCG TABLET (FP) PO SCH (10:29)
[2016-08-21] MEDS: MEMANTINE HCL 10 MG TABLET (FP) PO SCH (10:29)
--- NOTE | 2016-08-21 11:51 | PN ---
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 (short form) - Note 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: Demetra was dcd yesterday CBC, BMP 08/21/16 06:00 08/21/16 06:00 Vital Signs Period Temp Pulse Resp BP Sys/Correia Pulse Ox Last 24 Hr 98.2 F-98.5 F 76-88 19-20 143-145/67-72 98 S1S2 rrr Lugs cta-pt has wet cough Abd soft sitting at the side of the bed with her daughter looks alert non-verbal, does not follow commands Imp Dementia-advanced Severe dehydration DALJIT due to retention and dehydration UTI Urinary retention Plan repeat bladder scan may have to put toribio back PT to continue check CXR r/o fluid overload, aspiration continue iv fluids long discussion with daughter she does not want DNR for her mom anymore, though about it whole day yesterday " I want to keep her as long as possible" explained that successful resuscitation usually means that pt will be on respirator, daughter says she will cross that bridge when she gets there. ultimately wants to take her home Problem List - Problems (1) Acute renal failure Code(s): N17.9 - ACUTE KIDNEY FAILURE, UNSPECIFIED Qualifiers: Acute renal failure type: unspecified Qualified Code(s): N17.9 - Acute kidney failure, unspecified (2) Hyperkalemia Code(s): E87.5 - HYPERKALEMIA (3) UTI (urinary tract infection) Code(s): N39.0 - URINARY TRACT INFECTION, SITE NOT SPECIFIED Qualifiers: Urinary tract infection type: site unspecified Hematuria presence: with hematuria Qualified Code(s): N39.0 - Urinary tract infection, site not specified (4) Hyponatremia Code(s): E87.1 - HYPO-OSMOLALITY AND HYPONATREMIA (5) Alzheimer's dementia Code(s): G30.9 - ALZHEIMER'S DISEASE, UNSPECIFIED Qualifiers: Alzheimer's disease onset: unspecified onset Dementia behavioral disturbance: without behavioral disturbance Qualified Code(s): G30.9 - Alzheimer's disease, unspecified; F02.80 - Dementia in other diseases classified elsewhere without behavioral disturbance
[2016-08-21] MEDS: ACETAMINOPHEN 650 MG/20.3 ML ORAL SOLUTION (CUPS) PO PRN (13:07)
[2016-08-21] MEDS: POTASSIUM CHLORIDE 10 MEQ in SODIUM CHLORIDE 0.45% 1,000 ML IVPB SCH (14:07)
[2016-08-22] MEDS: POTASSIUM CHLORIDE 10 MEQ in SODIUM CHLORIDE 0.45% 1,000 ML IVPB SCH ×3 (01:06→19:00)
[2016-08-22] MEDS: BETHANECHOL CHLORIDE 25 MG TABLET PO SCH ×3 (06:00→22:59)
[2016-08-22 08:04] LABS: CALCIUM 7.6 mg/dL (8.5-10.1)
[2016-08-22 08:07] LABS: BILIRUBIN,TOTAL 0.5 mg/dL (0.2-1.0); CREATININE 1.8 mg/dL (0.55-1.02)
--- NOTE | 2016-08-22 08:23 | PN ---
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 (short form) - Note 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: CMP Sodium 145 mmol/L (136-145) 08/22/16 06:30 Potassium 4.2 mmol/L (3.5-5.1) 08/22/16 06:30 Chloride 117 mmol/L (98-107) H 08/22/16 06:30 Carbon Dioxide 23 mmol/L (21-32) 08/22/16 06:30 Anion Gap 5 (8-16) L 08/22/16 06:30 BUN 30 mg/dL (7-18) H 08/22/16 06:30 Creatinine 1.8 mg/dL (0.55-1.02) H 08/22/16 06:30 Creat Clearance w eGFR 26.74 (>60) 08/22/16 06:30 POC Glucometer 163 UNITS (()) 08/17/16 12:06 Random Glucose 105 mg/dL (74-106) 08/22/16 06:30 Lactic Acid 1.548 mmol/L (0.4-2.0) 08/14/16 09:40 Calcium 7.6 mg/dL (8.5-10.1) L 08/22/16 06:30 Total Bilirubin 0.5 mg/dL (0.2-1.0) 08/22/16 06:30 AST 41 U/L (15-37) H 08/22/16 06:30 ALT 41 U/L (12-78) 08/22/16 06:30 Alkaline Phosphatase 85 U/L (45-117) 08/22/16 06:30 Creatine Kinase 156 IU/L (26-192) D 08/14/16 09:39 CK-MB (CK-2) 1.683 ng/ml (0.5-3.6) 08/14/16 09:39 Troponin I < 0.02 ng/ml (0.00-0.05) 08/14/16 09:39 Total Protein 6.0 g/dl (6.4-8.2) L 08/22/16 06:30 Albumin 2.0 g/dl (3.4-5.0) L 08/22/16 06:30 TSH Cancelled 08/14/16 10:22 S1S2 rrr Lugs cta-pt has wet cough, no significant suctioning Abd soft, bladder distended No edema Opens eyes on command CXR no infiltrate Imp Dementia-advanced Severe dehydration DALJIT due to retention and dehydration slowly improving UTI-resolved Urinary retention again, will request Mccrary-tried at bedside unsuccessfully Plan PT to continue Mccrary decrease iv fluids full code Problem List - Problems (1) Acute renal failure Code(s): N17.9 - ACUTE KIDNEY FAILURE, UNSPECIFIED Qualifiers: Acute renal failure type: unspecified Qualified Code(s): N17.9 - Acute kidney failure, unspecified (2) Hyperkalemia Code(s): E87.5 - HYPERKALEMIA (3) UTI (urinary tract infection) Code(s): N39.0 - URINARY TRACT INFECTION, SITE NOT SPECIFIED Qualifiers: Urinary tract infection type: site unspecified Hematuria presence: with hematuria Qualified Code(s): N39.0 - Urinary tract infection, site not specified (4) Hyponatremia Code(s): E87.1 - HYPO-OSMOLALITY AND HYPONATREMIA (5) Alzheimer's dementia Code(s): G30.9 - ALZHEIMER'S DISEASE, UNSPECIFIED Qualifiers: Alzheimer's disease onset: unspecified onset Dementia behavioral disturbance: without behavioral disturbance Qualified Code(s): G30.9 - Alzheimer's disease, unspecified; F02.80 - Dementia in other diseases classified elsewhere without behavioral disturbance
[2016-08-22] MEDS: LEVOTHYROXINE NA 88 MCG TABLET (FP) PO SCH ×2 (13:00→13:10)
[2016-08-22] MEDS: ACETAMINOPHEN 650 MG/20.3 ML ORAL SOLUTION (CUPS) PO PRN (13:04)
[2016-08-22] MEDS: COLLAGENASE CLOSTRIDIUM HIST. 30 GRAMS TUBE TP SCH ×2 (13:10→22:00)
[2016-08-22] MEDS: TAMSULOSIN HCL 0.4 MG CAP.ER.24H (FP) PO SCH (13:10)
[2016-08-22] MEDS: MEMANTINE HCL 10 MG TABLET (FP) PO SCH (13:10)
--- NOTE | 2016-08-22 14:43 | PROC ---
Procedure Note Procedure: staff unable to pass a toribio bladder scan >999ml 16 micronesian toribio placed with clear urine return
[2016-08-23] MEDS: POTASSIUM CHLORIDE 10 MEQ in SODIUM CHLORIDE 0.45% 1,000 ML IVPB SCH ×2 (04:44→15:41)
[2016-08-23] MEDS: BETHANECHOL CHLORIDE 25 MG TABLET PO SCH ×3 (06:31→21:44)
[2016-08-23] MEDS: LEVOTHYROXINE NA 88 MCG TABLET (FP) PO SCH (06:32)
--- NOTE | 2016-08-23 08:13 | PN ---
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 (short form) - Note 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: Vital Signs Period Temp Pulse Resp BP Sys/Correia Pulse Ox Last 24 Hr 97.1 F-98.5 F 66-85 16-18 117-134/59-68 99-99 S1S2 rrr Lugs cta-pt has wet cough, able to expectorate Abd soft, bladder distended No edema Quite alert today, answering questions with mumbling and occasional yes, ok, good. Very rigid with tremors and shaking CXR no infiltrate Mccrary had to be reinserted with over 1000cc urinary retention. Imp Dementia-advanced Myoclonic jerks? Severe dehydration resolved DALJIT due to retention and dehydration improving UTI-resolved Urinary retention keep Mccrary Plan PT to continue Mccrary neurology requested for tremors, daughter concerned about anxiety?, dementia related full code Problem List - Problems (1) Acute renal failure Code(s): N17.9 - ACUTE KIDNEY FAILURE, UNSPECIFIED Qualifiers: Acute renal failure type: unspecified Qualified Code(s): N17.9 - Acute kidney failure, unspecified (2) Hyperkalemia Code(s): E87.5 - HYPERKALEMIA (3) UTI (urinary tract infection) Code(s): N39.0 - URINARY TRACT INFECTION, SITE NOT SPECIFIED Qualifiers: Urinary tract infection type: site unspecified Hematuria presence: with hematuria Qualified Code(s): N39.0 - Urinary tract infection, site not specified (4) Hyponatremia Code(s): E87.1 - HYPO-OSMOLALITY AND HYPONATREMIA (5) Alzheimer's dementia Code(s): G30.9 - ALZHEIMER'S DISEASE, UNSPECIFIED Qualifiers: Alzheimer's disease onset: unspecified onset Dementia behavioral disturbance: without behavioral disturbance Qualified Code(s): G30.9 - Alzheimer's disease, unspecified; F02.80 - Dementia in other diseases classified elsewhere without behavioral disturbance
[2016-08-23] MEDS: MEMANTINE HCL 10 MG TABLET (FP) PO SCH (11:27)
[2016-08-23] MEDS: TAMSULOSIN HCL 0.4 MG CAP.ER.24H (FP) PO SCH (11:27)
[2016-08-23] MEDS: COLLAGENASE CLOSTRIDIUM HIST. 30 GRAMS TUBE TP SCH ×2 (11:27→21:45)
[2016-08-23] MEDS: ACETAMINOPHEN 650 MG/20.3 ML ORAL SOLUTION (CUPS) PO PRN ×2 (11:30→21:45)
--- NOTE | 2016-08-23 14:21 | CONSULT ---
Consult Consult Specialty:: NEUROLOGY Reason for Consultation:: altered mental status, tremor - History of Present Illness History of Present Illness: 86 year old female, from home, with pmh.of advanced alzheimer's, hypothyroidism , NIDDM, HLD, was admitted few days ago for generalized weakness. Pt is non- verbal due to her advanced dementia. In the hospital she was found to have DALJIT , urinary retention, hyperkalemia, hyponatremia. The patient has altered mental status, increased lethargy and the family noticed tremor in her hands. - History Source History Provided By: Medical Record Limitations to Obtaining History: Dementia - Past Medical History PRODUCTION SCHEDULER: Yes: Alzheimer's, Dementia ...: No Endocrine: Yes: Diabetes Mellitus, Hypothyroidism - Alcohol/Substance Use Hx Alcohol Use: No - Smoking History Smoking history: Former smoker Have you smoked in the past 12 months: No Aproximately how many cigarettes per day: 0 - Social History Usual Living Arrangement: With Child ADL: Family Assistance History of Recent Travel: No Home Medications - Allergies Allergies/Adverse Reactions: Allergies Allergy/AdvReac Type Severity Reaction Status Date / Time No Known Allergies Allergy Verified 04/07/16 17:50 - Home Medications Home Medications: Ambulatory Orders Memantine HCl [Namenda -] 10 mg PO DAILY 10/01/13 Levothyroxine [Synthroid -] 88 mcg PO DAILY 04/08/16 Review of Systems - Review of Systems Constitutional: reports: No Symptoms Eyes: reports: No Symptoms HENT: reports: No Symptoms Neck: reports: No Symptoms Cardiovascular: reports: No Symptoms Respiratory: reports: No Symptoms Gastrointestinal: reports: No Symptoms Musculoskeletal: reports: No Symptoms Neurological: reports: Change in LOC, Change in Speech, Confusion, Pre-Existing Deficit, Unsteady Gait Hematology/Lymphatic: reports: No Symptoms Psychiatric: reports: No Symptoms Physical Exam-Neuro Vital Signs: Vital Signs Temperature 97.5 F L 08/23/16 05:56 Pulse Rate 66 08/23/16 05:56 Respiratory Rate 18 08/23/16 05:56 Blood Pressure 117/59 08/23/16 05:56 O2 Sat by Pulse Oximetry (%) 99 08/22/16 21:00 Constitutional: Yes: No Distress Neck: Yes: Supple, Trachea Midline Cardiovascular: Yes: Regular Rate and Rhythm, S1, S2 Respiratory: Yes: Regular, CTA Bilaterally Gastrointestinal: Yes: Normal Bowel Sounds, Soft Renal/: Yes: WNL Musculoskeletal: Yes: WNL, Joint Stiffness Edema: No Psychiatric: Yes: Alert (noninteligible sounds, follows intermittent commands. ) Labs: CBC, BMP 08/21/16 06:00 08/22/16 06:30 INR, PTT INR 1.05 (0.82-1.09) 08/14/16 09:39 - Neuro Exam Eyes: Yes: PERRLA Speech: Global Aphasia Cranial Nerves II-XII Intact: Yes Gag: Present DTR's: 1+ Left Bicep, 1+ Right Bicep, 1+ Left Tricep, 1+ Right Tricep, 1+ Left Brachioradialis, 1+ Right Brachioradialis, 1+ Left Achilles, 1+ Right Achilles Babinski: Absent Response to light touch: Normal Response to pain prick: Normal Response to temperature: Normal Movement Disorders: Asterixis, Dystonia, Spasticity Motor Strength: 3/5: Left Leg, Right Leg (spasticity and flexion LE bilaterally) , 5/5: Left Arm, Right Arm Gait: Deferred Problem List - Problems (1) Alzheimer's dementia Code(s): G30.9 - ALZHEIMER'S DISEASE, UNSPECIFIED Qualifiers: Alzheimer's disease onset: unspecified onset Dementia behavioral disturbance: without behavioral disturbance Qualified Code(s): G30.9 - Alzheimer's disease, unspecified; F02.80 - Dementia in other diseases classified elsewhere without behavioral disturbance (2) Hyperkalemia Code(s): E87.5 - HYPERKALEMIA (3) Acute renal failure Code(s): N17.9 - ACUTE KIDNEY FAILURE, UNSPECIFIED Qualifiers: Acute renal failure type: unspecified Qualified Code(s): N17.9 - Acute kidney failure, unspecified (4) Hyponatremia Code(s): E87.1 - HYPO-OSMOLALITY AND HYPONATREMIA (5) Spasticity Code(s): R25.2 - CRAMP AND SPASM (6) Parkinsonism Code(s): G20 - PARKINSON'S DISEASE Assessment/Plan 86 year old female, from home, with pmh.of advanced alzheimer's, hypothyroidism , NIDDM, HLD, was admitted few days ago for generalized weakness. Pt is non- verbal due to her advanced dementia . In the hospital she was found to have DALJIT , urinary retention, hyperkalemia, hyponatremia. The patient has altered mental status, increased lethargy and the family noticed tremor in her hands. Neurological exam: pt. makes some sounds, severe aphasia, spasticity and contractions /flexions in both legs. Repaus tremor in both hands + Rigidity. Impression: metabolic encephalopathy with worsening asterixis, tremor. severe dementia, asterixis. spasticity- LE weakness - this is chronic. parkinsonism Plan: - correct electrolytes and treat DALJIT per medical team. - EEG to rule out seizures- this can be done as outpatient. - correct hypothyroidism. - PT/OT evaluation. Thank you for this consult.
[2016-08-24] MEDS: POTASSIUM CHLORIDE 10 MEQ in SODIUM CHLORIDE 0.45% 1,000 ML IVPB SCH ×3 (00:58→23:01)
[2016-08-24] MEDS: ACETAMINOPHEN 650 MG/20.3 ML ORAL SOLUTION (CUPS) PO PRN ×2 (06:32→17:43)
[2016-08-24] MEDS: LEVOTHYROXINE NA 88 MCG TABLET (FP) PO SCH (06:32)
[2016-08-24] MEDS: BETHANECHOL CHLORIDE 25 MG TABLET PO SCH ×3 (06:32→23:02)
--- NOTE | 2016-08-24 07:28 | PN ---
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 (short form) - Note 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: Vital Signs Period Temp Pulse Resp BP Sys/Correia Pulse Ox Last 24 Hr 97.8 F-98.7 F 75-82 20-20 100-138/47-60 99-99 S1S2 rrr Lugs cta Abd soft, bladder distended No edema Quite alert today, answering questions as expected. Mccrary draining clear urine stage 4 sacral decubitus with some slough, no active infection Imp Dementia-advanced Severe dehydration resolved DALJIT due to retention and dehydration improving UTI-resolved Urinary retention keep Mccrary Plan PT to continue Mccrary dc planning tomorrow full code Problem List - Problems (1) Acute renal failure Code(s): N17.9 - ACUTE KIDNEY FAILURE, UNSPECIFIED Qualifiers: Acute renal failure type: unspecified Qualified Code(s): N17.9 - Acute kidney failure, unspecified (2) Hyperkalemia Code(s): E87.5 - HYPERKALEMIA (3) UTI (urinary tract infection) Code(s): N39.0 - URINARY TRACT INFECTION, SITE NOT SPECIFIED Qualifiers: Urinary tract infection type: site unspecified Hematuria presence: with hematuria Qualified Code(s): N39.0 - Urinary tract infection, site not specified (4) Hyponatremia Code(s): E87.1 - HYPO-OSMOLALITY AND HYPONATREMIA (5) Alzheimer's dementia Code(s): G30.9 - ALZHEIMER'S DISEASE, UNSPECIFIED Qualifiers: Alzheimer's disease onset: unspecified onset Dementia behavioral disturbance: without behavioral disturbance Qualified Code(s): G30.9 - Alzheimer's disease, unspecified; F02.80 - Dementia in other diseases classified elsewhere without behavioral disturbance
[2016-08-24] MEDS: COLLAGENASE CLOSTRIDIUM HIST. 30 GRAMS TUBE TP SCH ×2 (09:27→23:02)
[2016-08-24] MEDS: MEMANTINE HCL 10 MG TABLET (FP) PO SCH (09:27)
[2016-08-24] MEDS: TAMSULOSIN HCL 0.4 MG CAP.ER.24H (FP) PO SCH (09:27)
[2016-08-24] MEDS ORDERED: PT OWN MED DRAWER 7, Y5N ONE (21:48)
[2016-08-25] MEDS: BETHANECHOL CHLORIDE 25 MG TABLET PO SCH ×3 (06:16→22:12)
[2016-08-25] MEDS: LEVOTHYROXINE NA 88 MCG TABLET (FP) PO SCH (06:16)
[2016-08-25] MEDS: POTASSIUM CHLORIDE 10 MEQ in SODIUM CHLORIDE 0.45% 1,000 ML IVPB SCH (06:18)
--- NOTE | 2016-08-25 07:17 | PN ---
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 (short form) - Note 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: S1S2 rrr Lugs cta Abd soft, NT No edema Quite alert today, answering questions. Mccrary draining clear urine stage 4 sacral decubitus with some slough, no active infection Imp Dementia-advanced Severe dehydration resolved DALJIT due to retention and dehydration improving UTI-resolved Urinary retention keep Mccrary Sacral decubitus stage 4 Plan PT to continue Mccrary Wound care f/up requested dc planning tomorrow to [place] full code Problem List - Problems (1) Acute renal failure Code(s): N17.9 - ACUTE KIDNEY FAILURE, UNSPECIFIED Qualifiers: Acute renal failure type: unspecified Qualified Code(s): N17.9 - Acute kidney failure, unspecified (2) Hyperkalemia Code(s): E87.5 - HYPERKALEMIA (3) UTI (urinary tract infection) Code(s): N39.0 - URINARY TRACT INFECTION, SITE NOT SPECIFIED Qualifiers: Urinary tract infection type: site unspecified Hematuria presence: with hematuria Qualified Code(s): N39.0 - Urinary tract infection, site not specified (4) Hyponatremia Code(s): E87.1 - HYPO-OSMOLALITY AND HYPONATREMIA (5) Alzheimer's dementia Code(s): G30.9 - ALZHEIMER'S DISEASE, UNSPECIFIED Qualifiers: Alzheimer's disease onset: unspecified onset Dementia behavioral disturbance: without behavioral disturbance Qualified Code(s): G30.9 - Alzheimer's disease, unspecified; F02.80 - Dementia in other diseases classified elsewhere without behavioral disturbance
[2016-08-25 07:39] LABS: BASOPHIL 1.2 % (0-2.0); EOSINOPHIL 2.8 % (0-4.5); MCH 28.2 pg (25.7-33.7); MCHC 32.6 g/dl (32.0-36.0); MEAN CELL VOLUME 86.3 fl (80-96); MEAN PLT VOLUME 8.2 fl (7.5-11.1); PLATELET COUNT 409 K/MM3 (134-434); RDW 15.7 % (11.6-15.6); WHITE BLOOD COUNT 6.9 K/mm3 (4.0-10.0)
[2016-08-25 08:07] LABS: ALBUMIN 2.1 g/dl (3.4-5.0); BILIRUBIN,TOTAL 0.5 mg/dL (0.2-1.0); CALCIUM 7.8 mg/dL (8.5-10.1); CREATININE 1.5 mg/dL (0.55-1.02); TOT PROT 5.7 g/dl (6.4-8.2)
[2016-08-25] MEDS: TAMSULOSIN HCL 0.4 MG CAP.ER.24H (FP) PO SCH (09:40)
[2016-08-25] MEDS: MEMANTINE HCL 10 MG TABLET (FP) PO SCH (09:40)
[2016-08-25] MEDS: COLLAGENASE CLOSTRIDIUM HIST. 30 GRAMS TUBE TP SCH ×2 (09:40→22:12)
--- NOTE | 2016-08-25 15:44 | PN ---
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, LPN - Note 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: Selected Entries 08/23/16 08/23/16 08/24/16 12:32 14:46 10:39 Breakfast 75% 75% Diet Tolerated Fair Fair Fair Lunch 50% 08/24/16 08/25/16 08/25/16 15:16 12:05 14:48 Breakfast 25% Diet Tolerated Fair Poor Poor Lunch 25% 25% Laboratory Tests 08/25/16 06:20 WBC 6.9 On pureed diet.Pending d/c to [place].
[2016-08-25] MEDS: ACETAMINOPHEN 650 MG/20.3 ML ORAL SOLUTION (CUPS) PO PRN (22:35)
[2016-08-26] MEDS: BETHANECHOL CHLORIDE 25 MG TABLET PO SCH ×3 (06:05→21:57)
[2016-08-26] MEDS: LEVOTHYROXINE NA 88 MCG TABLET (FP) PO SCH (06:05)
[2016-08-26] MEDS: TAMSULOSIN HCL 0.4 MG CAP.ER.24H (FP) PO SCH (08:24)
--- NOTE | 2016-08-26 08:39 | PN ---
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 (short form) - Note 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: CBC, BMP 08/25/16 06:20 08/25/16 06:20 Vital Signs Period Temp Pulse Resp BP Sys/Correia Pulse Ox Last 24 Hr 97.3 F-98.6 F 70-84 18-18 114-134/52-75 97-97 S1S2 rrr Lugs cta Abd soft, NT No edema Asleep. Mccrary draining clear urine stage 4 sacral decubitus with some yellow slough Imp Dementia-advanced Severe dehydration resolved DALJIT due to retention and dehydration resolved UTI-resolved Urinary retention keep Mccrary Sacral decubitus stage 4 Plan Awaiting wound care f/up PT to continue Mccrary dc planning to [place] full code Problem List - Problems (1) Acute renal failure Code(s): N17.9 - ACUTE KIDNEY FAILURE, UNSPECIFIED Qualifiers: Acute renal failure type: unspecified Qualified Code(s): N17.9 - Acute kidney failure, unspecified (2) Hyperkalemia Code(s): E87.5 - HYPERKALEMIA (3) UTI (urinary tract infection) Code(s): N39.0 - URINARY TRACT INFECTION, SITE NOT SPECIFIED Qualifiers: Urinary tract infection type: site unspecified Hematuria presence: with hematuria Qualified Code(s): N39.0 - Urinary tract infection, site not specified (4) Hyponatremia Code(s): E87.1 - HYPO-OSMOLALITY AND HYPONATREMIA (5) Alzheimer's dementia Code(s): G30.9 - ALZHEIMER'S DISEASE, UNSPECIFIED Qualifiers: Alzheimer's disease onset: unspecified onset Dementia behavioral disturbance: without behavioral disturbance Qualified Code(s): G30.9 - Alzheimer's disease, unspecified; F02.80 - Dementia in other diseases classified elsewhere without behavioral disturbance
[2016-08-26] MEDS ORDERED: PT OWN MED DRAWER 7, Y5N ONE ×2 (10:27→20:49)
[2016-08-26] MEDS: MEMANTINE HCL 10 MG TABLET (FP) PO SCH (10:36)
--- NOTE | 2016-08-26 12:35 | PN ---
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 (short form) - Note 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: Vascular surgery Pt seen and examined. Sacral ulcer stage 3. Some slough on edges. Cont santyl daily. Turn and position. offload. No need for debridement right now. Juan Zavala DO
[2016-08-26] MEDS: COLLAGENASE CLOSTRIDIUM HIST. 30 GRAMS TUBE TP SCH ×2 (12:41→21:57)
--- NOTE | 2016-08-26 14:37 | PN ---
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, Physician History of Present Illness: Alert, smiling with unintelligible speech and moving all four extremities. - Current Medication List Current Medications: Active Medications Acetaminophen (Tylenol Suppository -) 650 mg HI Q6H PRN PRN Reason: FEVER OR PAIN Last Admin: 08/16/16 00:14 Dose: 650 mg Acetaminophen (Tylenol Oral Solution -) 650 mg PO Q4H PRN PRN Reason: FEVER OR PAIN Last Admin: 08/25/16 22:35 Dose: 650 mg Bethanechol Chloride (Urecholine -) 25 mg PO TID [facility] Last Admin: 08/26/16 06:05 Dose: 25 mg Collagenase (Santyl -) 1 applic TP BID [facility] Last Admin: 08/26/16 12:41 Dose: 1 applic Levothyroxine Sodium (Synthroid -) 88 mcg PO DAILY@0700 [facility] Last Admin: 08/26/16 06:05 Dose: 88 mcg Memantine (Namenda -) 10 mg PO DAILY [facility] Last Admin: 08/26/16 10:36 Dose: 10 mg Tamsulosin HCl (Flomax -) 0.4 mg PO DAILY@0830 [facility] Last Admin: 08/26/16 08:24 Dose: 0.4 mg - Objective Vital Signs: Vital Signs Temperature 97.4 F L 08/26/16 10:00 Pulse Rate 77 08/26/16 10:00 Respiratory Rate 20 08/26/16 10:00 Blood Pressure 134/69 08/26/16 10:00 O2 Sat by Pulse Oximetry (%) 98 08/26/16 09:00 Constitutional: Yes: Well Nourished, No Distress, Calm Eyes: Yes: EOM Intact, PERRL. No: Ptosis HENT: Yes: Atraumatic Neck: Yes: Supple Cardiovascular: Yes: Regular Rate and Rhythm Gastrointestinal: Yes: Soft Neurological: Yes: Alert, Aphasia, Cran Nerves II-XII Intact. No: Oriented, Facial Droop, Numbness, Seizure, Weakness Labs: CBC, BMP 08/25/16 06:20 08/25/16 06:20 INR, PTT INR 1.05 (0.82-1.09) 08/14/16 09:39 Assessment/Plan AMS improving with management of fluid and electrolyte with no evidence of focal neurological deficits and no observed clinical seizures since admission P: EEG pending.
[2016-08-27] MEDS: BETHANECHOL CHLORIDE 25 MG TABLET PO SCH ×2 (06:10→14:14)
[2016-08-27] MEDS: LEVOTHYROXINE NA 88 MCG TABLET (FP) PO SCH (06:10)
--- NOTE | 2016-08-27 08:33 | DS ---
Physical Examination Vital Signs: Vital Signs Temperature -97.6 F L 08/27/16 06:50 Pulse Rate 79 08/27/16 06:50 Respiratory Rate 18 08/27/16 06:50 Blood Pressure 115/49 08/27/16 06:50 O2 Sat by Pulse Oximetry (%) 99 08/26/16 21:00 Constitutional: Yes: No Distress Eyes: Yes: EOM Intact HENT: Yes: Normocephalic Neck: Yes: Trachea Midline Cardiovascular: Yes: Regular Rate and Rhythm Respiratory: Yes: CTA Bilaterally Gastrointestinal: Yes: Normal Bowel Sounds, Soft Edema: No Peripheral Pulses WNL: Yes Integumentary: Yes: Other (stage 4 sacral ulcer with some slough) Neurological: Yes: Other (no focal deficit, verbal this am) Labs: CBC, BMP 08/25/16 06:20 08/25/16 06:20 Discharge Summary Reason For Visit: UTI,ARF,HYPERKALEMIA Current Active Problems Acute renal failure (Acute) Alzheimer's dementia (Acute) Hyperkalemia (Acute) Parkinsonism (Acute) Spasticity (Acute) UTI (urinary tract infection) (Acute) Urinary retention (Acute) Hospital Course: Admitted for acute renal failure and severe dehydration, hypernatremia and urinary retention with mild UTI was given iv fluids, iv abx toribio was placed hospital stay was complicated by anemia, required 2 unit RBC transfusion toribio was removed but pt developed recurrent retention, currently has toribio to gravity medically stable to dc to rehab can consider removing toribio again in 1-2 weeks if she is mobilized, but may need permanent cath if fails again Condition: Guarded - Instructions Referrals: Demetrice Lock MD [Primary Care Provider] - Disposition: CARE HOME FACILITY - Home Medications Comprehensive Discharge Medication List: Ambulatory Orders Memantine HCl [Namenda -] 10 mg PO DAILY 10/01/13 Levothyroxine [Synthroid -] 88 mcg PO DAILY 04/08/16 Acetaminophen Suppository [Tylenol .Suppository -] [address] Q6H PRN #0 supp.rect 08/27/16 Bethanechol Chloride [Bethanechol Chloride -] 25 mg PO TID tablet 08/27/16 Collagenase Clostridium Hist. [Santyl -] 1 applic TP BID tube 08/27/16 Multivitamins [Multivit ([facility] Formulary)] 1 tab PO DAILY tab 08/27/16 Tamsulosin HCl [Flomax -] 0.4 mg PO DAILY@0830 cap.er.24h 08/27/16
[2016-08-27] MEDS: TAMSULOSIN HCL 0.4 MG CAP.ER.24H (FP) PO SCH (08:39)
[2016-08-27] MEDS ORDERED: MULTIVITAMINS (DAILY MVI) TABLET (FP) PO SCH (10:00)
[2016-08-27] MEDS: MEMANTINE HCL 10 MG TABLET (FP) PO SCH (10:52)
[2016-08-27] MEDS: ACETAMINOPHEN 650 MG/20.3 ML ORAL SOLUTION (CUPS) PO PRN (12:37)
[2016-08-27 15:09] VITALS: TEMP 97.7
[2016-08-27] MEDS: COLLAGENASE CLOSTRIDIUM HIST. 30 GRAMS TUBE TP SCH (16:30)
[2016-08-27 16:54] VITALS: BP 116/56; PULSE 81
[2016-08-27] MEDS ORDERED: PT OWN MED DRAWER 7, Y5N ONE (16:55)
== END 2016-08-27 18:12 | DRG 682 ==
LOC: JER 09:23 → JERBED 11:50 → J7W 14:53
PROVIDERS: ADMIT Internal Medicine; ATTEND Internal Medicine
PROC: 30233N1 Transfusion of Nonautologous Red Blood Cells into Peripheral Vein, Percutaneous Approach (ICD-10-PCS; principal; 2016-08-19)
PROC: 0T2BX0Z Change Drainage Device in Bladder, External Approach (ICD-10-PCS; 2016-08-22)
DX: N17.9 Acute kidney failure, unspecified (principal); G93.41 Metabolic encephalopathy; L89.154 Pressure ulcer of sacral region, stage 4; R64 Cachexia; N39.0 Urinary tract infection, site not specified; E87.1 Hypo-osmolality and hyponatremia; G30.8 Other Alzheimer's disease; N13.39 Other hydronephrosis; F02.80 Dementia in other diseases classified elsewhere, unspecified severity, without behavioral disturbance, psychotic disturbance, mood disturbance, and anxiety; E03.9 Hypothyroidism, unspecified; E11.9 Type 2 diabetes mellitus without complications; E78.5 Hyperlipidemia, unspecified; Z68.21 Body mass index [BMI] 21.0-21.9, adult; E87.5 Hyperkalemia; R33.9 Retention of urine, unspecified; N32.89 Other specified disorders of bladder; E86.0 Dehydration; R27.8 Other lack of coordination; G20 Parkinson's disease; Z87.891 Personal history of nicotine dependence
CPT/HCPCS: 36415; 36430; 71010-TC; 76775-TC; 76856-TC; 80053; 81003; 81015; 82550; 82553; 83605; 84443; 84484; 85025; 85027; 85610; 86850; 86900; 86901; 86922; 87040; 87070; 87077; 87086; 87186; 87205; 93005; 93010; 97001-GP; 97116-GP; 99285-25; P9058

== ENCOUNTER 2016-10-26 09:41 | Inpatient (IN) | payer OTHER ==
--- NOTE | 2016-10-26 10:15 | PDOC ---
History of Present Illness <Angela Holliday - Last Filed: 10/26/16 14:08> - History of Present Illness Initial Comments: 10/26/16 10:10 86-year-old female with a history of dementia, who is nonverbal, lives with her daughter She was recently admitted in August for acute renal failure and severe dehydration, hypernatremia, and urinary retention with mild UTI Her recent hospital stay was complicated by anemia requiring 2 units of PRBC transfusion The Mccrary was removed, but she developed recurrent retention, and the Mccrary was replaced She was discharged to rehabilitation Daughter states that she came home from rehabilitation about a month ago, initially she was doing well She was urinating on her own without difficulty, and continues to do so This week the daughter noted that she had a runny nose, and a little cold, as well as a cold sore, and seemed "off" The cough was nonproductive Yesterday, and she seemed a little more "off", and became progressively weak, and stopped eating Today she developed diarrhea, which was nonbloody, and not black or tarry She had a few episodes of diarrhea, and then tried to stand and became weak, and collapsed Her daughter lowered her to the floor and she did not bang her head There were no reports of fever The cough was nonproductive She is not eating or drinking She is continuing to pass her urine No further history or review of systems is available from the patient All history was obtained from the patient's daughter who accompanied her, and old records which were reviewed <Lili Durham - Last Filed: 10/27/16 17:51> - General Chief Complaint: Weakness Stated Complaint: WEAKNESS Time Seen by Provider: 10/26/16 09:44 Past History <Angela Holliday - Last Filed: 10/26/16 14:08> - Past Medical History Dementia: Yes Diabetes: Yes (NIDDM) Hypercholesterolemia: Yes Thyroid Disease: Yes - Psycho/Social/Smoking Cessation Hx Anxiety: No Suicidal Ideation: No Smoking Status: No Smoking History: Former smoker Have you smoked in the past 12 months: No Number of Cigarettes Smoked Daily: 0 Hx Alcohol Use: No Drug/Substance Use Hx: No Substance Use Type: None Hx Substance Use Treatment: No <Lili Durham - Last Filed: 10/27/16 17:51> - Past Medical History Allergies/Adverse Reactions: Allergies Allergy/AdvReac Type Severity Reaction Status Date / Time No Known Allergies Allergy Verified 10/26/16 10:30 Home Medications: Ambulatory Orders Memantine HCl [Namenda -] 10 mg PO DAILY 10/01/13 Levothyroxine [Synthroid -] 88 mcg PO DAILY 04/08/16 Review of Systems - Review of Systems Able to Perform ROS?: No (nonverbal) <Lili Durham - Last Filed: 10/27/16 17:51> *Physical Exam - Vital Signs Last Vital Signs Temp Pulse Resp BP Pulse Ox 84 18 92/56 88 L 10/26/16 10:12 10/26/16 10:12 10/26/16 10:12 10/26/16 10:12 <Angela Holliday - Last Filed: 10/26/16 14:08> - Physical Exam Comments: 10/26/16 10:14 Physical exam GENERAL: The patient is, but arousable to intermittently follow simple commands HEAD: Normal with no signs of trauma. EYES: Sclera anicteric ENT: Mucous membranes dry, the patient has a cold sore below her nose NECK: Normal range of motion, supple LUNGS: Breath sounds equal, clear to auscultation bilaterally. No wheezes, and no crackles. HEART: Regular rate and rhythm, normal S1 and S2 without murmur, rub or gallop. ABDOMEN: Soft, nontender, normoactive bowel sounds. No guarding, no rebound. No masses appreciated. BACK: There is a right sacral ulcer, with some drainage, but no surrounding cellulitis EXTREMITIES: Normal range of motion, no edema. No clubbing or cyanosis. No cords, erythema, or tenderness. NEUROLOGICAL: Has dementia, and is nonverbal, but spontaneously moves all extremities, and intermittently follow simple commands PSYCH: Normal mood, normal affect. SKIN: Warm, Dry, some bruising is noted diffusely, which daughter states is chronic Patient is not on any blood thinners <Lili Durham - Last Filed: 10/27/16 17:51> ED Treatment Course - LABORATORY CBC & Chemistry Diagram: 10/26/16 10:35 10/26/16 10:35 - ADDITIONAL ORDERS Additional order review: Laboratory Results 10/26/16 10/26/16 10:35 10:35 Sodium 130 L Potassium 6.4 H* D Chloride 93 L D Carbon Dioxide 16 L D Anion Gap 21 H BUN 167 H* D Creatinine 10.2 H* D Creat Clearance w eGFR 3.61 Random Glucose 266 H D Lactic Acid 3.815 H* Calcium 9.4 D Magnesium 4.2 H Total Bilirubin 0.4 AST 21 ALT 35 D Alkaline Phosphatase 171 H D Creatine Kinase 43 Troponin I < 0.02 B-Natriuretic Peptide 98120.35 H Total Protein 8.3 H D Albumin 2.9 L D Lipase 1736 H 10/26/16 10:35 Influenza Types A,B Antigen (JORGE) - Final Nasopharyngeal Swab - Final 10/26/16 10:35 RBC 3.39 L MCV 89.8 MCHC 32.8 RDW 16.1 H MPV 7.7 - RADIOLOGY Radiograph Interpretation: 10/26/16 12:39 EXAM: RAD/CHEST X-RAY PORTABLE IMPRESSION: A single view of the chest reveals slight change since 08/21/2016. There is rotation to the left, sclerotic knob, prominent left hilum and normal heart. There is no sign of infiltrate or failure at this time and the left base is now better aerated. There are some coarse base changes. The angles are sharp and the soft tissues are intact. An acute process is not seen. <Angela Holliday - Last Filed: 10/26/16 14:08> - LABORATORY CBC & Chemistry Diagram: 10/27/16 05:00 10/27/16 05:00 - RADIOLOGY Radiology Studies Ordered: Category Date Time Status HEAD CT WITHOUT CONTRAST [CT] Stat CT Scan 10/26/16 09:57 Ordered CHEST X-RAY PORTABLE* [RAD] Stat Radiology 10/26/16 09:58 Ordered <Lili Durham - Last Filed: 10/27/16 17:51> Medical Decision Making - Medical Decision Making 10/26/16 13:[address] Pierce. Dr. Lock front desk attendant. Case discussed with Dr. Lock 10/26/16 13:16 Page sent out to [facility], Dr. Kimball. Immediate connection. Spoke to Dr. Kimball. Case was discussed. 10/26/16 13:26 Spoke to [employer] [employer], Dr. Lin. Case was discussed. 10/26/16 14:[address] Gomez of ID. Left voicemail. 10/26/16 14:[address] Gomez of ID to his answering service. Immediate connection. Case was discussed. <Angela Holliday - Last Filed: 10/26/16 14:08> - Critical Care Time Total Critical Care Time (minutes): 45 Critical Care Statement: The care of this patient involved high complexity decision making to prevent further life threatening deterioration of the patient 's condition and/or to evalute & treat vital organ system(s) failure or risk of failure. - Medical Decision Making 10/26/16 10:31 EKG Normal sinus rhythm 80, normal axis Normal AV and IV conduction time Normal QTC T waves appear slightly peaked Essentially normal EKG Dehydration, altered mental status, rule out UTI, rule out pneumonia 10/26/16 12:40 EKG scan of the head without Generalized volume loss and chronic microvascular changes No gross acute intracranial pathology is seen Chest x-ray- No acute pathology Improvement in aeration at the left base Blood work is significant for a white count of 20.9 with a left shift Acute renal failure with a BUN of 162 and a creatinine of 10.2 Elevated anion gap Potassium 6.4 Lactic acid 3.8 Lipase 1736 All labwork reviewed Laboratory Results - last 24 hr 10/26/16 10/26/16 10/26/16 10:35 10:35 10:35 WBC 20.8 H D RBC 3.39 L Hgb 10.0 L D Hct 30.4 L MCV 89.8 MCHC 32.8 RDW 16.1 H Plt Count 633 H D MPV 7.7 Sodium 130 L Potassium 6.4 H* D Chloride 93 L D Carbon Dioxide 16 L D Anion Gap 21 H BUN 167 H* D Creatinine 10.2 H* D Creat Clearance w eGFR 3.61 Random Glucose 266 H D Lactic Acid 3.815 H* Calcium 9.4 D Magnesium 4.2 H Total Bilirubin 0.4 AST 21 ALT 35 D Alkaline Phosphatase 171 H D Creatine Kinase 43 Troponin I < 0.02 B-Natriuretic Peptide 74120.35 H Total Protein 8.3 H D Albumin 2.9 L D Lipase 1736 H EKG just shows very mildly peaked T waves, but otherwise normal EKG Mccrary inserted, with infected looking urine Will start with vancomycin and Zosyn Will give Kayexalate, but we'll hold off glucose insulin bicarbonate calcium because the EKG is essentially normal except for very mildly peaked T waves 10/26/16 13:[address] [id number]-pwtw admit case discussed with Dr. KimballBahhcfngyt-qmoknslnxfi-vpgnbhhd ICU bed Nephrology paged, 10/26/16 13:[address] Curtis-nephrology 10/26/16 14:[address] Gomez-infectious disease-agrees with initial antibiotic choice will also check CT scan of the abdomen due to elevated lipase 10/26/16 16:28 Repeat lactic acid 2.6 <Lili Durham - Last Filed: 10/27/16 17:51> *DC/Admit/Observation/Transfer - Attestations Scribe Attestion: 10/26/16 12:40 Documentation prepared by Angela Holliday, acting as medical device for Lili Durham MD. <Angela Holliday - Last Filed: 10/26/16 14:08> - Discharge Dispostion Admit: Yes <Lili Durham - Last Filed: 10/27/16 17:51> Diagnosis at time of Disposition: Sepsis syndrome, Acute hyperkalemia, Hyponatremia, Infected decubitus ulcer, Increased serum lipase level Acute renal failure Qualifiers: Acute renal failure type: unspecified Qualified Code(s): N17.9 - Acute kidney failure, unspecified UTI (urinary tract infection) Qualifiers: Urinary tract infection type: site unspecified Hematuria presence: without hematuria Qualified Code(s): N39.0 - Urinary tract infection, site not specified Diarrhea Qualifiers: Diarrhea type: unspecified type Qualified Code(s): R19.7 - Diarrhea, unspecified - Discharge Dispostion Condition at time of disposition: Guarded - Referrals
[2016-10-26 10:30] VITALS: BMI 20.3
[2016-10-26] MEDS: SODIUM CHLORIDE 1,000 ML IV SCH (11:02)
[2016-10-26 11:17] LABS: MCH 29.4 pg (25.7-33.7); MCHC 32.8 g/dl (32.0-36.0); MEAN CELL VOLUME 89.8 fl (80-96); MEAN PLT VOLUME 7.7 fl (7.5-11.1); PLATELET COUNT 633 K/MM3 (134-434); RDW 16.1 % (11.6-15.6); WHITE BLOOD COUNT 20.8 K/mm3 (4.0-10.0)
[2016-10-26 11:40] LABS: ALBUMIN 2.9 g/dl (3.4-5.0); ANION GAP 21 (8-16); BILIRUBIN,TOTAL 0.4 mg/dL (0.2-1.0); CALCIUM 9.4 mg/dL (8.5-10.1); CO2 16 mmol/L (21-32); GLUCOSE,RANDOM 266 mg/dL (74-106); MAGNESIUM 4.2 mg/dL (1.8-2.4); SGOT/AST 21 U/L (15-37); SGPT/ALT 35 U/L (12-78); TOT PROT 8.3 g/dl (6.4-8.2)
[2016-10-26 11:43] LABS: ALK PHOS 171 U/L (45-117); TROPONIN I < 0.02 ng/ml (0.00-0.05)
[2016-10-26 11:58] LABS: CREATININE 10.2 mg/dL (0.55-1.02)
[2016-10-26] MEDS ORDERED: SODIUM POLYSTYRENE SULFONATE 15 GM/60 ML BOTTLE PO ONE (12:44)
[2016-10-26] MEDS ORDERED: VANCOMYCIN 1,000 MG in DEXTROSE 5%-WATER - 250 ML IVPB ONE (12:51)
[2016-10-26] MEDS ORDERED: PIPERACILLIN/TAZOB 3.375 GM 3.375 GM in DEXTROSE 5%-WATER - 50 ML IVPB ONE (12:53)
[2016-10-26] MEDS ORDERED: SODIUM CHLORIDE 1,000 ML IV STA (12:54)
[2016-10-26 13:29] LABS: URINE APPEARANCE TURBID; URINE BILIRUBIN NEGATIVE (NEGATIVE); URINE GLUCOSE (UA) NEGATIVE (NEGATIVE); URINE KETONE NEGATIVE (NEGATIVE); URINE NITRITE NEGATIVE (NEGATIVE); URINE UROBILINOGEN NEGATIVE E.U./dl (0.2-1.0)
[2016-10-26 13:30] LABS: URINE BLOOD 3+ (NEGATIVE); URINE LEUK ESTERASE 3+ (NEGATIVE); URINE PROTEIN 3+ (NEGATIVE)
[2016-10-26 13:31] LABS: URINE COLOR AMBER
[2016-10-26 13:34] LABS: URINE BACTERIA MODERATE /hpf (NONE SEEN); URINE MUCUS MANY; URINE RBC 213 /hpf (0-3); URINE WBC 92 /hpf (3-5)
[2016-10-26] MEDS ORDERED: PIPERACILLIN/TAZOB 3.375 GM 50 ML IVPB ONE (13:34)
[2016-10-26] MEDS ORDERED: VANCOMYCIN 1 GRAM (PRE-DOCKED) 250 ML IVPB ONE (14:13)
[2016-10-26] MEDS ORDERED: SODIUM POLYSTYRENE SULFONATE 15 GM/60 ML BOTTLE ONE (14:13)
--- NOTE | 2016-10-26 14:58 | CON.NEP ---
Consult Consult Specialty:: nephrology Reason for Consultation:: daljit - History of Present Illness History of Present Illness: This is an 86 year old woman with a history alzheimers who was recently admitted with DALJIT and UTI. She did well with antibiotics and fluids and was discharged but she now presents with DALJIT and nephrology is called to evaluate. She was brought in by her daughter who cares for her. Apparently has been weak and almost fell today. She wears a diaper and has been making urine. Lost about 50 pounds in 6 months. 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 Endocrine: Yes: Diabetes Mellitus, Hypothyroidism - Alcohol/Substance Use Hx Alcohol Use: No - Smoking History Smoking history: Former smoker Have you smoked in the past 12 months: No Aproximately how many cigarettes per day: 0 - Social History Usual Living Arrangement: With Child ADL: Family Assistance History of Recent Travel: No Home Medications - Allergies Allergies/Adverse Reactions: Allergies Allergy/AdvReac Type Severity Reaction Status Date / Time No Known Allergies Allergy Verified 10/26/16 10:30 - Home Medications Home Medications: Ambulatory Orders Memantine HCl [Namenda -] 10 mg PO DAILY 10/01/13 Levothyroxine [Synthroid -] 88 mcg PO DAILY 04/08/16 Review of Systems Unable to obtain ROS, reason: altered mental status Nephrology Consult - Height Height: 5 ft 3 in - Weight Weight: 115 lb - BMI Body Mass Index (BMI): 20.3 - Lab Results CBC,BMP: CBC, BMP 10/26/16 10:35 10/26/16 10:35 Anion Gap: Anion Gap Anion Gap 21 (8-16) H 10/26/16 10:35 - Imaging Chest X-ray: Report Reviewed Cat Scan: Report Reviewed - Physical Examination Vital Signs: Vital Signs Temperature Pulse Rate 84 10/26/16 10:12 Respiratory Rate 18 10/26/16 10:12 Blood Pressure 92/56 10/26/16 10:12 O2 Sat by Pulse Oximetry (%) 88 L 10/26/16 10:12 Constitutional: Yes: Cachectic Eyes: Yes: Conjunctiva Clear HENT: Yes: Atraumatic, Normocephalic Neck: Yes: Supple, Trachea Midline Cardiovascular: Yes: Regular Rate and Rhythm. No: Rub Respiratory: Yes: Regular, CTA Bilaterally Gastrointestinal: Yes: Normal Bowel Sounds, Soft Renal/: Yes: Toribio Present. No: Bladder Distention Musculoskeletal: Yes: WNL Extremities: Yes: WNL Edema: No Neurological: Yes: Confusion, Lethargy Psychiatric: Yes: Other (pt is asleep and not responding) Assessment/Plan IMPRESSION Pt appears to have acute kidney injury in addition to ckd probable daljit from volume depletion in addition to urinary retention significant weight loss may be a uremic symptom though it can also be that she is very demented and is unable to handle food hyperkalemia from retention UTI PLAN admit hydrate antibiotics as ordered keep toribio in place follow urine culture agree with adonis but follow level I had a long discussion with her daughter. She does not want her mother to have hemodialysis will follow MV
--- NOTE | 2016-10-26 17:37 | CONSULT ---
Consult Consult Specialty:: infectious diseases Reason for Consultation:: sepsis - History of Present Illness Chief Complaint: weak and lethargic History of Present Illness: patient non verbal with severe alzimers, history taken from the daughter 86-year-old female with a history of dementia, who is nonverbal, lives with her daughter She was recently admitted in August for acute renal failure and severe dehydration, hypernatremia, and urinary retention with mild UTI Her recent hospital stay was complicated by anemia requiring 2 units of PRBC transfusion The Mccrary was removed, but she developed recurrent retention, and the Mccrary was replaced She was discharged to rehabilitation Daughter states that she came home from rehabilitation about a month ago, initially she was doing well She was urinating on her own without difficulty, and continues to do so This week the daughter noted that she had a runny nose, and a little cold, as well as a cold sore, and seemed "off" The cough was nonproductive Yesterday, and she seemed a little more "off", and became progressively weak, and stopped eating Today she developed diarrhea, which was nonbloody, and not black or tarry She had a few episodes of diarrhea, and then tried to stand and became weak, and collapsed Her daughter lowered her to the floor and she did not bang her head There were no reports of fever The cough was nonproductive She is not eating or drinking She is continuing to pass her urine No further history or review of systems is available from the patient All history was obtained from the patient's daughter who accompanied her, and old records which were reviewed the above was the hsitory taken from the daughter as patient cannot give history - History Source History Provided By: Family Member Limitations to Obtaining History: Clinical Condition - 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, 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 Endocrine: Yes: Diabetes Mellitus, Hypothyroidism - Alcohol/Substance Use Hx Alcohol Use: No - Smoking History Smoking history: Former smoker Have you smoked in the past 12 months: No Aproximately how many cigarettes per day: 0 - Social History Usual Living Arrangement: With Child ADL: Family Assistance History of Recent Travel: No Home Medications - Allergies Allergies/Adverse Reactions: Allergies Allergy/AdvReac Type Severity Reaction Status Date / Time No Known Allergies Allergy Verified 10/26/16 10:30 - Home Medications Home Medications: Ambulatory Orders Memantine HCl [Namenda -] 10 mg PO DAILY 10/01/13 Levothyroxine [Synthroid -] 88 mcg PO DAILY 04/08/16 Review of Systems Unable to obtain ROS, reason: unable to obtain Physical Exam Vital Signs: Vital Signs Temperature Pulse Rate 72 10/26/16 15:05 Respiratory Rate 18 10/26/16 15:05 Blood Pressure 116/67 10/26/16 15:05 O2 Sat by Pulse Oximetry (%) 100 10/26/16 15:05 Constitutional: Yes: Calm, Poor Hygeine Eyes: Yes: Conjunctiva Clear HENT: Yes: Atraumatic Neck: Yes: Supple Cardiovascular: Yes: Regular Rate and Rhythm Respiratory: Yes: Regular, Poor Air Entry Gastrointestinal: Yes: Soft, Hypoactive Bowel Sounds, Tenderness (mild) Neurological: Yes: Confusion, Lethargy, Other (non verbal) Psychiatric: Yes: Alert, Other Imaging - Results Chest X-ray: Report Reviewed, Image Reviewed Cat Scan: Image Reviewed Assessment/Plan patient evaluated ct scan of the abdomen and labs noted also labs noted from previously patient has probably couple of process going on one she looks like she is in chf,also in arf superimposed on crf also i see some changes in the pancreas and she has constipation associated with diverticuli i suspect she also might be having colitis because of her history of recent dirrhoea and he abd symptoms colitis pancreatitis dirrhoea leukocytosis arf lethargy chf sepsis plan npo hydration renal on board close monitoring abx started monitor for fevers await for official read on ct scan and await for cx re[port cc time 50 min
[2016-10-26] MEDS: PIPERACILLIN/TAZOB 2.25 GM/50 ML PRE-DOCKED BAG IVPB SCH (18:56)
--- NOTE | 2016-10-26 19:07 | EKG ---
Test Reason : Blood Pressure : / mmHG Vent. Rate : 080 BPM Atrial Rate : 080 BPM P-R Int : 196 ms QRS Dur : 088 ms QT Int : 378 ms P-R-T Axes : 080 052 073 degrees QTc Int : 435 ms NORMAL SINUS RHYTHM NORMAL ECG WHEN COMPARED WITH ECG OF 14-AUG-2016 09:41, NO SIGNIFICANT CHANGE WAS FOUND Confirmed by ROBERT KAMARA MD ([id number]) on 10/26/2016 7:06:59 PM Referred By: Confirmed By:ROBERT KAMARA MD
--- NOTE | 2016-10-26 20:13 | CONSULT ---
Consult Consult Specialty:: Pulm/CC - History of Present Illness History of Present Illness: Pt is an 86yr old woman with PMHx of CKD, dementia and hypothyroidism. Pt recently admitted for astrid secondary to hypovolemia and urinary retention. Pt presents to the ER with CC of nonbloody diarrhea, weakness and collapsed with denies head injury. In the ER found to have WBC 20.8, Na/Ch 130/93, BUN/Cr 167/ 10.2, lactic acid 3.815, K 6.4, BNP 80899, lipase 1736, Mag 4.2 and +UA. Web Content Specialist saw pt and per report, [place], daughter refuses HD. Pt admitted to the ICU for further management. Upon assessment is is awake, non verbal, contracted, hypotensive with MAP in 50s, red purulent urine in toribio. HR 70s, hypothermic to 92 on lavern hugger. 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, Dementia Endocrine: Yes: Diabetes Mellitus, Hypothyroidism - Alcohol/Substance Use Hx Alcohol Use: No - Smoking History Smoking history: Former smoker Have you smoked in the past 12 months: No Aproximately how many cigarettes per day: 0 - Social History Usual Living Arrangement: With Child ADL: Family Assistance History of Recent Travel: No Home Medications - Allergies Allergies/Adverse Reactions: Allergies Allergy/AdvReac Type Severity Reaction Status Date / Time No Known Allergies Allergy Verified 10/26/16 10:30 - Home Medications Home Medications: Ambulatory Orders Memantine HCl [Namenda -] 10 mg PO DAILY 10/01/13 Levothyroxine [Synthroid -] 88 mcg PO DAILY 04/08/16 Physical Exam Vital Signs: Vital Signs Period Temp Pulse Resp BP Sys/Correia Pulse Ox Last 24 Hr 92.0 F 71-84 18-19 92-116/52-67 88-100 Intake & Output 10/23/16 10/24/16 10/25/16 10/26/16 23:59 23:59 23:59 23:59 Intake Total 250 Output Total 500 Balance -250 Weight 115 lb Constitutional: Yes: Cachectic HENT: Yes: Atraumatic Cardiovascular: Yes: Pulse Irregular, S1, S2 Respiratory: Yes: Other (limited exam due to mental status, no adventitious breath sounds appreciated) Gastrointestinal: Yes: Normal Bowel Sounds ...Rectal Exam: Yes: Deferred Renal/: Yes: Toribio Present (deep red, purulent, viscious urine) Musculoskeletal: Yes: Other (contracted) Edema: No Peripheral Pulses WNL: (+1 bilateral pedal pulses) Integumentary: Yes: Tenting Neurological: Yes: Other (nonverbal, awake) Labs: Abnormal Lab Results 10/26/16 10/26/16 10/26/16 10:35 10:35 10:35 WBC 20.8 H D RBC 3.39 L Hgb 10.0 L D Hct 30.4 L RDW 16.1 H Plt Count 633 H D Sodium 130 L Potassium 6.4 H* D Chloride 93 L D Carbon Dioxide 16 L D Anion Gap 21 H BUN 167 H* D Creatinine 10.2 H* D Random Glucose 266 H D Lactic Acid 3.815 H* Magnesium 4.2 H Alkaline Phosphatase 171 H D B-Natriuretic Peptide 23388.35 H Total Protein 8.3 H D Albumin 2.9 L D Lipase 1736 H Urine Protein Urine Blood Ur Leukocyte Esterase 10/26/16 10/26/16 13:15 14:50 WBC RBC Hgb Hct RDW Plt Count Sodium Potassium Chloride Carbon Dioxide Anion Gap BUN Creatinine Random Glucose Lactic Acid 2.617 H* Magnesium Alkaline Phosphatase B-Natriuretic Peptide Total Protein Albumin Lipase Urine Protein 3+ H Urine Blood 3+ H Ur Leukocyte Esterase 3+ H Assessment/Plan Pt is an 86yr old woman with PMHx of CKD, dementia and hypothyroidism. Now in the ICU for management of acute on chronic renal failure in the setting of urosepsis. Pulm: -O2 support prn for sat >94% -f/u abg -Aspiration precautions ID: -ID following -Antibiotics per ID Renal -Nephrology following -IVF as tolerated -Monitor electrolytes -I/Os -Urine electrolytes/creatinine for FeNa -Consider renal ultrasound -Renal dose medication Cardiology -Pressors for MAP 65-75 Neuro -Pain management prn Endo: -Continue home synthroid, will convert to IV Prophylactic -Speech/swallow eval, npo for now -DVT
[2016-10-26] MEDS ORDERED: SODIUM CHLORIDE 500 ML IV STA ×3 (20:15→21:45)
[2016-10-26] MEDS ORDERED: SODIUM CHLORIDE 250 ML IV STA (20:33)
[2016-10-26] MEDS ORDERED: DOPAMINE 400 MG/D5W - 250 ML IVPB ONE (20:51)
[2016-10-26] MEDS: DOPAMINE 400 MG/D5W - 250 ML IVPB SCH (21:15)
[2016-10-26 21:34] LABS: MCH 29.4 pg (25.7-33.7); MCHC 32.9 g/dl (32.0-36.0); MEAN CELL VOLUME 89.2 fl (80-96); MEAN PLT VOLUME 7.4 fl (7.5-11.1); PLATELET COUNT 424 K/MM3 (134-434)
[2016-10-26 21:48] LABS: INR 1.12 (0.82-1.09); PROTHROMBIN TIME (PATIENT) 12.3 SEC (9.98-11.88)
[2016-10-26 21:51] LABS: ACTIVATED PTT 29.7 SECONDS (26.9-34.4)
[2016-10-26 21:57] LABS: AMYLASE 115 U/L (25-115)
[2016-10-26 22:00] LABS: ALBUMIN 2.3 g/dl (3.4-5.0); ANION GAP 18 (8-16); BILIRUBIN,TOTAL 0.4 mg/dL (0.2-1.0); CO2 15 mmol/L (21-32); GLUCOSE,RANDOM 154 mg/dL (74-106); MAGNESIUM 3.6 mg/dL (1.8-2.4); PHOSPHOROUS 4.2 mg/dL (2.5-4.9); SGOT/AST 16 U/L (15-37); SGPT/ALT 25 U/L (12-78); TOT PROT 6.4 g/dl (6.4-8.2)
[2016-10-26 22:02] LABS: ANISOCYTOSIS 1+; PLATELET ESTIMATE INCREASED (NORMAL)
[2016-10-26 22:03] LABS: HYPOCHROMIA 1+; TOXIC GRANULATION FEW
[2016-10-26 22:13] LABS: ALK PHOS 133 U/L (45-117)
[2016-10-26 22:14] LABS: CREATININE 8.8 mg/dL (0.55-1.02)
[2016-10-26] MEDS ORDERED: INSULIN REGULAR HUMAN 100 UNITS/ML *VIAL IVPUSH ONE (22:28)
[2016-10-26] MEDS ORDERED: DEXTROSE 50%-WATER 50 ML VIAL IVPUSH ONE (22:29)
[2016-10-26] MEDS ORDERED: DEXTROSE 50%-WATER 50 ML DISP.SYRIN ONE (22:43)
[2016-10-27] MEDS ORDERED: SODIUM CHLORIDE 1,000 ML IV STA
[2016-10-27 00:01] LABS: TROPONIN I < 0.02 ng/ml (0.00-0.05)
[2016-10-27] MEDS ORDERED: SODIUM CHLORIDE 500 ML IV STA ×2 (00:26→06:03)
[2016-10-27] MEDS: SODIUM CHLORIDE 1,000 ML IV SCH (01:02)
[2016-10-27] MEDS: PIPERACILLIN/TAZOB 2.25 GM/50 ML PRE-DOCKED BAG IVPB SCH ×3 (01:15→17:32)
[2016-10-27] MEDS ORDERED: LEVOTHYROXINE SODIUM 100 MCG VIAL IVPUSH ONE (02:00)
[2016-10-27] MEDS ORDERED: VASOPRESSIN 20 UNITS/ML VIAL IV ONE ×2 (02:24→16:57)
[2016-10-27] MEDS ORDERED: VASOPRESSIN 50 UNITS in SODIUM CHLORIDE 97.5 ML IVPB SCH (02:30)
[2016-10-27] MEDS ORDERED: SODIUM CHLORIDE 1,000 ML IV SCH (03:09)
[2016-10-27] MEDS: VASOPRESSIN 50 UNITS in SODIUM CHLORIDE 97.5 ML IVPB SCH ×2 (03:22→17:33)
[2016-10-27 06:12] LABS: BASOPHIL 0.1 % (0-2.0); EOSINOPHIL 0.2 % (0-4.5); MCH 30.2 pg (25.7-33.7); MCHC 33.6 g/dl (32.0-36.0); MEAN CELL VOLUME 89.7 fl (80-96); MEAN PLT VOLUME 7.2 fl (7.5-11.1); NEUTROPHILS 93.2 % (42.8-82.8); PLATELET COUNT 419 K/MM3 (134-434); RDW 15.4 % (11.6-15.6); WHITE BLOOD COUNT 15.3 K/mm3 (4.0-10.0)
[2016-10-27 06:32] LABS: CALCIUM 7.6 mg/dL (8.5-10.1); MAGNESIUM 3.1 mg/dL (1.8-2.4); PHOSPHOROUS 4.3 mg/dL (2.5-4.9)
[2016-10-27 06:38] LABS: BILIRUBIN,TOTAL 0.8 mg/dL (0.2-1.0); TOT PROT 5.7 g/dl (6.4-8.2)
[2016-10-27 08:08] LABS: CREATININE 7.7 mg/dL (0.55-1.02)
--- NOTE | 2016-10-27 09:05 | HP ---
Admitting History and Physical - Primary Care Physician PCP: Demetrice Lock - Admission Chief Complaint: weakness History of Present Illness: developed what sounds like acute uri earlier last week, seemed to be getting better, but over the weekend became more weak and lethargic, couldn't get up so daughter brought her in. last admission in July for UTI, dehydration and urinary retention, she went to rehab for two weeks afterwards and toribio was dcd there. she lives with family, able to walk with 1 assist as per daughter, incontinent, non-verbal, needs to be fed, but has decreased oral intake. 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 Renal/: Yes: Renal Inusuff (in past due to dehydration), UTI (recurrent) Endocrine: Yes: Diabetes Mellitus (diet controlled in past), Hypothyroidism - Smoking History Smoking history: Former smoker Have you smoked in the past 12 months: No Aproximately how many cigarettes per day: 0 - Alcohol/Substance Use Hx Alcohol Use: No - Social History ADL: Family Assistance History of Recent Travel: No Home Medications - Allergies Allergies/Adverse Reactions: Allergies Allergy/AdvReac Type Severity Reaction Status Date / Time No Known Allergies Allergy Verified 10/26/16 10:30 - Home Medications Home Medications: Ambulatory Orders Memantine HCl [Namenda -] 10 mg PO DAILY 10/01/13 Levothyroxine [Synthroid -] 88 mcg PO DAILY 04/08/16 Family Disease History - Family Disease History Family History: Unable to Obtain Review of Systems Unable to obtain ROS, reason: dementia Physical Examination Vital Signs: Vital Signs Temperature 97.9 F 10/27/16 08:00 Pulse Rate 83 10/27/16 08:00 Respiratory Rate 21 10/27/16 08:00 Blood Pressure 95/65 10/27/16 08:00 O2 Sat by Pulse Oximetry (%) 100 10/26/16 22:00 Constitutional: Yes: Calm, Cachectic Eyes: Yes: Conjunctiva Clear HENT: Yes: Atraumatic Neck: Yes: Trachea Midline Cardiovascular: Yes: Regular Rate and Rhythm Respiratory: Yes: CTA Bilaterally Gastrointestinal: Yes: Normal Bowel Sounds, Soft Musculoskeletal: Yes: Joint Stiffness (contracted at hips, knees, elbows) Edema: No Peripheral Pulses WNL: Yes Integumentary: Yes: Venous Stasis Changes (4 sacral decubitus, 3x5 cm with 5 cm tunneling, with purulent discharge right hip stage 2? decubitus 1cm), Other Neurological: Yes: Other (moves ext minimally, awake, follows with eyes to some degree, non-verbal, moans occasionally) Labs: CBC, BMP 10/27/16 05:00 10/27/16 05:00 Imaging - Results Chest X-ray: Report Reviewed Cat Scan: Report Reviewed Problem List - Problems (1) Acute hyperkalemia Code(s): E87.5 - HYPERKALEMIA (2) Acute renal failure Code(s): N17.9 - ACUTE KIDNEY FAILURE, UNSPECIFIED Qualifiers: Acute renal failure type: unspecified Qualified Code(s): N17.9 - Acute kidney failure, unspecified (3) Diarrhea Code(s): R19.7 - DIARRHEA, UNSPECIFIED Qualifiers: Diarrhea type: unspecified type Qualified Code(s): R19.7 - Diarrhea , unspecified (4) Sepsis syndrome Code(s): [id number] - (5) UTI (urinary tract infection) Code(s): N39.0 - URINARY TRACT INFECTION, SITE NOT SPECIFIED Qualifiers: Urinary tract infection type: site unspecified Hematuria presence: without hematuria Qualified Code(s): N39.0 - Urinary tract infection, site not specified (6) Alzheimer's dementia Code(s): G30.9 - ALZHEIMER'S DISEASE, UNSPECIFIED Qualifiers: Alzheimer's disease onset: unspecified onset Dementia behavioral disturbance: without behavioral disturbance Qualified Code(s): G30.9 - Alzheimer's disease, unspecified; F02.80 - Dementia in other diseases classified elsewhere without behavioral disturbance (7) Hypotension Code(s): I95.9 - HYPOTENSION, UNSPECIFIED Qualifiers: Hypotension type: other hypotension type Qualified Code(s): I95.89 - Other hypotension Assessment/Plan 86 y/o lady with h/o advanced dementia admitted for sepsis syndrome hypotension massive dehydration acute renal insufficiency UTI stage 4 sacral decubitus with 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 r/o C.diff plan iv fluids pressors iv abx consults appreciated wound eval DVT prophylaxis TLC for pressors d/w daughter Stephie at length-she is not ready to sign DNR, however does not want HD and she does want her mom to be comfortable above all explained that she is critically ill and very well may during this admission , she is hopeful that mom will get better will continue to talk to her.
--- NOTE | 2016-10-27 11:17 | EKG ---
Test Reason : Blood Pressure : / mmHG Vent. Rate : 081 BPM Atrial Rate : 081 BPM P-R Int : 158 ms QRS Dur : 074 ms QT Int : 402 ms P-R-T Axes : 080 069 075 degrees QTc Int : 466 ms POOR DATA QUALITY, INTERPRETATION MAY BE ADVERSELY AFFECTED SINUS RHYTHM WITH PREMATURE SUPRAVENTRICULAR COMPLEXES OTHERWISE NORMAL ECG WHEN COMPARED WITH ECG OF 26-OCT-2016 10:25, PREMATURE SUPRAVENTRICULAR COMPLEXES ARE NOW PRESENT Confirmed by LEOLA BRYANT MD ([id number]) on 10/27/2016 11:17:07 AM Referred By: Confirmed By:LEOLA BRYANT MD
[2016-10-27] MEDS: DOPAMINE 400 MG/D5W - 250 ML IVPB SCH (13:00)
--- NOTE | 2016-10-27 13:10 | PN ---
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, Physician History of Present Illness: Pt seen and examined at bedside. Pt remains lethargic and in ICU. She is hypotensive and requires pressor agents. - Current Medication List Current Medications: Active Medications Heparin Sodium (Porcine) (Heparin -) 5,000 unit SQ BID TAYE Dopamine HCl/Dextrose (Dopamine 400 Mg/D5w -) 250 mls @ 3.912 mls/hr IVPB TITR TAYE; 2 MCG/KG/MIN PRN Reason: Protocol Last Titration: 10/27/16 00:00 Dose: 10 mcg/kg/min Sodium Chloride (Normal Saline -) 1,000 mls @ 125 mls/hr IV ASDIR TAYE Last Admin: 10/27/16 03:22 Dose: 125 mls/hr Vasopressin 50 units/ Sodium (Chloride) 100 mls @ 6 mls/hr IVPB ASDIR TAYE PRN Reason: 3 UNITS/HR Last Admin: 10/27/16 03:22 Dose: 6 mls/hr Pantoprazole Sodium (Protonix 40mg Ivpb (Pre-Docked)) 100 mls @ 200 mls/hr IVPB DAILY TAYE Piperacillin Sod/Tazobactam Sod (Zosyn 2.25gm Ivpb (Pre-Docked)) 2.25 gm IVPB Q8H-IV TAYE Last Admin: 10/27/16 09:48 Dose: 2.25 gm - Objective Vital Signs: Vital Signs Temperature 96.9 F L 10/27/16 11:00 Pulse Rate 86 10/27/16 11:16 Respiratory Rate 16 10/27/16 11:00 Blood Pressure 100/73 10/27/16 11:00 O2 Sat by Pulse Oximetry (%) 100 10/27/16 11:16 Constitutional: Yes: Calm Eyes: Yes: Conjunctiva Clear HENT: Yes: Atraumatic Cardiovascular: Yes: S1, S2 Respiratory: Yes: On Nasal O2 Gastrointestinal: Yes: Soft Genitourinary: Yes: Mccrary Present Extremities: Yes: Other (contracted legs) Edema: No Neurological: Yes: Lethargy Labs: CBC, BMP 10/27/16 05:00 10/27/16 05:00 INR, PTT INR 1.12 (0.82-1.09) 10/26/16 21:00 - ....Imaging Chest X-ray: Report Reviewed Problem List - Problems (1) Acute hyperkalemia Code(s): E87.5 - HYPERKALEMIA (2) Acute renal failure Code(s): N17.9 - ACUTE KIDNEY FAILURE, UNSPECIFIED Qualifiers: Acute renal failure type: unspecified Qualified Code(s): N17.9 - Acute kidney failure, unspecified (3) UTI (urinary tract infection) Code(s): N39.0 - URINARY TRACT INFECTION, SITE NOT SPECIFIED Qualifiers: Urinary tract infection type: site unspecified Hematuria presence: without hematuria Qualified Code(s): N39.0 - Urinary tract infection, site not specified (4) Alzheimer's dementia Code(s): G30.9 - ALZHEIMER'S DISEASE, UNSPECIFIED Qualifiers: Alzheimer's disease onset: unspecified onset Dementia behavioral disturbance: without behavioral disturbance Qualified Code(s): G30.9 - Alzheimer's disease, unspecified; F02.80 - Dementia in other diseases classified elsewhere without behavioral disturbance Assessment/Plan Current Medications Generic Name Dose Route Start Last Admin Trade Name Freq PRN Reason Stop Dose Admin Heparin Sodium (Porcine) 5,000 unit 10/27/16 22:00 Heparin - SQ BID TAYE Dopamine HCl/Dextrose 250 mls @ 3.912 mls/hr 10/26/16 21:15 10/27/16 00:00 Dopamine 400 Mg/D5w - IVPB 10 mcg/kg/min TITR TAYE Titration Protocol 2 MCG/KG/MIN Sodium Chloride 1,000 mls @ 125 mls/hr 10/27/16 03:09 10/27/16 03:22 Normal Saline - IV 125 mls/hr ASDIR TAYE Administration Vasopressin 50 units/ Sodium 100 mls @ 6 mls/hr 10/27/16 03:16 10/27/16 03:22 Chloride IVPB 6 mls/hr ASDIR TAYE Administration 3 UNITS/HR Pantoprazole Sodium 100 mls @ 200 mls/hr 10/28/16 10:00 Protonix 40mg Ivpb (Pre-Docked) IVPB DAILY TAYE Piperacillin Sod/Tazobactam Sod 2.25 gm 10/26/16 18:00 10/27/16 09:48 Zosyn 2.25gm Ivpb (Pre-Docked) IVPB 2.25 gm Q8H-IV TAYE Administration chart reviewed labs reviewed meds reviewed Impression 1. DALJIT 2. hx CKD 3. metabolic acidosis 4. hyperkalemia 5. dementia 6. sepsis 7. UTI Plan - renal function is improving - will adjust fluids to 1/2ns with bicarb - HD was discussed yesterday with family however pt is recovering with medical management - cont current meds - monitor vanco levels - follow up cultures - cont pressors and monitor blood pressure - cont to monitor bloodwork - discussed with ICU team - monitor in ICU - will follow Dr Greene
[2016-10-27] MEDS: SODIUM CHLORIDE 0.45% 1,000 ML with SODIUM BICARBONATE 8.4% - 75 MEQ IV SCH ×2 (13:54→23:28)
--- NOTE | 2016-10-27 14:02 | PN ---
Teaching Attending Note Name of Resident: Celestino Zhu ATTENDING PHYSICIAN STATEMENT I saw and evaluated the patient. I reviewed the resident's note and discussed the case with the resident. I agree with the resident's findings and plan as documented. SUBJECTIVE: Pt seen and examined in the ICU. Remains on dopamine and vasopressin gtts. Pt nonverbal. Adequate urine output. OBJECTIVE: Last Vital Signs Temp Pulse Resp BP Pulse Ox 96.1 F L 86 21 96/79 100 10/27/16 13:00 10/27/16 13:00 10/27/16 13:00 10/27/16 13:00 10/27/16 11:16 Intake & Output 10/24/16 10/25/16 10/26/16 10/27/16 23:59 23:59 23:59 23:59 Intake Total 250 5691 Output Total 600 700 Balance -350 4991 Weight 115 lb 101 lb 6.602 oz Gen: mildly tachypneic at rest HEENT: dry mucous membranes Heart: RRR Lung: decreased breath sounds at the bases Abd: soft, nontender Ext: no edema CBC, BMP 10/27/16 05:00 10/27/16 05:00 Active Medications Heparin Sodium (Porcine) (Heparin -) 5,000 unit SQ BID TAYE Dopamine HCl/Dextrose (Dopamine 400 Mg/D5w -) 250 mls @ 3.912 mls/hr IVPB TITR TAYE; 2 MCG/KG/MIN PRN Reason: Protocol Last Admin: 10/27/16 13:00 Dose: 19.561 mls/hr Vasopressin 50 units/ Sodium (Chloride) 100 mls @ 6 mls/hr IVPB ASDIR TAYE PRN Reason: 3 UNITS/HR Last Admin: 10/27/16 03:22 Dose: 6 mls/hr Pantoprazole Sodium (Protonix 40mg Ivpb (Pre-Docked)) 100 mls @ 200 mls/hr IVPB DAILY TAYE Sodium Bicarbonate 75 meq/ (Sodium Chloride) 1,075 mls @ 100 mls/hr IV ASDIR TAYE Last Admin: 10/27/16 13:54 Dose: 100 mls/hr Piperacillin Sod/Tazobactam Sod (Zosyn 2.25gm Ivpb (Pre-Docked)) 2.25 gm IVPB Q8H-IV TAYE Last Admin: 10/27/16 09:48 Dose: 2.25 gm ASSESSMENT AND PLAN: UTI Septic Shock Hypernatremia/Dehydration Acute on Chronic Renal Failure Hyperkalemia Lactic Acidosis Hypothyroidism - continue antibiotics - f/u cultures - IVF - monitor urine output, creatinine - taper pressors to maintain MAP >65 - aspiration precautions - monitor lytes - DVT/GI prophylaxis - continue ICU monitoring
--- NOTE | 2016-10-27 14:16 | PN ---
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, Physician History of Present Illness: patient septic on 2 pressors hypothermic on warming blanket - Current Medication List Current Medications: Active Medications Heparin Sodium (Porcine) (Heparin -) 5,000 unit SQ BID TAYE Dopamine HCl/Dextrose (Dopamine 400 Mg/D5w -) 250 mls @ 3.912 mls/hr IVPB TITR TAYE; 2 MCG/KG/MIN PRN Reason: Protocol Last Admin: 10/27/16 13:00 Dose: 19.561 mls/hr Vasopressin 50 units/ Sodium (Chloride) 100 mls @ 6 mls/hr IVPB ASDIR TAYE PRN Reason: 3 UNITS/HR Last Admin: 10/27/16 03:22 Dose: 6 mls/hr Pantoprazole Sodium (Protonix 40mg Ivpb (Pre-Docked)) 100 mls @ 200 mls/hr IVPB DAILY TAYE Sodium Bicarbonate 75 meq/ (Sodium Chloride) 1,075 mls @ 100 mls/hr IV ASDIR TAYE Last Admin: 10/27/16 13:54 Dose: 100 mls/hr Metronidazole (Flagyl 500mg Premixed Ivpb -) 100 mls @ 100 mls/hr IVPB Q8H-IV TAYE Piperacillin Sod/Tazobactam Sod (Zosyn 2.25gm Ivpb (Pre-Docked)) 2.25 gm IVPB Q8H-IV TAYE Last Admin: 10/27/16 09:48 Dose: 2.25 gm - Objective Vital Signs: Vital Signs Temperature 96.1 F L 10/27/16 13:00 Pulse Rate 86 10/27/16 13:00 Respiratory Rate 21 10/27/16 13:00 Blood Pressure 96/79 10/27/16 13:00 O2 Sat by Pulse Oximetry (%) 100 10/27/16 11:16 Constitutional: Yes: Calm, Other Cardiovascular: Yes: Regular Rate and Rhythm, Other (hypotensive) Respiratory: Yes: Regular, Poor Air Entry, Rhonchi Gastrointestinal: Yes: Normal Bowel Sounds, Soft Extremities: Yes: Other (contracted) Wound/Incision: Yes: Other (stage 4 decubitus/unstagebale ulcer) Neurological: Yes: Other Labs: CBC, BMP 10/27/16 05:00 10/27/16 05:00 INR, PTT INR 1.12 (0.82-1.09) 10/26/16 21:00 Assessment/Plan Problem List - Problems (1) Acute hyperkalemia Code(s): E87.5 - HYPERKALEMIA (2) Acute renal failure Code(s): N17.9 - ACUTE KIDNEY FAILURE, UNSPECIFIED Qualifiers: Acute renal failure type: unspecified Qualified Code(s): N17.9 - Acute kidney failure, unspecified (3) UTI (urinary tract infection) Code(s): N39.0 - URINARY TRACT INFECTION, SITE NOT SPECIFIED Qualifiers: Urinary tract infection type: site unspecified Hematuria presence: without hematuria Qualified Code(s): N39.0 - Urinary tract infection, site not specified (4) Alzheimer's dementia Code(s): G30.9 - ALZHEIMER'S DISEASE, UNSPECIFIED Qualifiers: Alzheimer's disease onset: unspecified onset Dementia behavioral disturbance: without behavioral disturbance Qualified Code(s): G30.9 - Alzheimer's disease, unspecified; F02.80 - Dementia in other diseases classified elsewhere without behavioral disturbance leukocytosis colitis lactic acidosis sepsis patient has profuse dirrhoea,results of cdiff noted wbc trending down creatinine improving lactic acidosis resolved plan continue hydration as per renal added flagyl to abx regimen urine clearing up close monitoring pressors as required cc time 40 min
[2016-10-27 14:36] LABS: URINE CREATININE 25.1 mg/dL
[2016-10-27] MEDS: METRONIDAZOLE 500 MG PREMIXED 100 ML IVPB SCH ×2 (17:32)
--- NOTE | 2016-10-27 18:18 | PN ---
Physical Exam: SUBJECTIVE: Patient seen and examined at bedside in the ICU. She's non-verbal and does not follow command. Per nurse, patient remains hypotensive with good urine output overnight. OBJECTIVE: On Dopamine 10 mcg and vasopressin 3 mcg Vital Signs Period Temp Pulse Resp BP Sys/Correia Pulse Ox Last 24 Hr 92.0 F-97.9 F 70-93 11-22 62-116/27-100 100-100 GENERAL: non-verbal, awake, non-interactive does not follow command, responsive to pain stimuli. LUNGS: Decreased breath sounds HEART: RRR normal S1, S2 without murmur, rub or gallop. ABDOMEN: Soft, non-tender, normoactive bs, no rebound/guarding EXTREMITIES: no edema SKIN: Stage 1 decub. ulcer on L lateral hip, no erythema or draining; Stage 4 decub. ulcer posterior to occycx 3 by 5 cm, purulent discharge, foul smelling, tunneling CBCD WBC 15.3 K/mm3 (4.0-10.0) H 10/27/16 05:00 RBC 3.05 M/mm3 (3.60-5.2) L D 10/27/16 05:00 Hgb 9.2 GM/dL (10.7-15.3) L D 10/27/16 05:00 Hct 27.4 % (32.4-45.2) L D 10/27/16 05:00 MCV 89.7 fl (80-96) 10/27/16 05:00 MCHC 33.6 g/dl (32.0-36.0) 10/27/16 05:00 RDW 15.4 % (11.6-15.6) 10/27/16 05:00 Plt Count 419 K/MM3 (134-434) 10/27/16 05:00 MPV 7.2 fl (7.5-11.1) L 10/27/16 05:00 CMP Sodium 141 mmol/L (136-145) 10/27/16 05:00 Potassium 5.5 mmol/L (3.5-5.1) H 10/27/16 05:00 Chloride 112 mmol/L (98-107) H 10/27/16 05:00 Carbon Dioxide 13 mmol/L (21-32) L 10/27/16 05:00 Anion Gap 16 (8-16) 10/27/16 05:00 BUN 144 mg/dL (7-18) H* 10/27/16 05:00 Creatinine 7.7 mg/dL (0.55-1.02) H* 10/27/16 05:00 Creat Clearance w eGFR 5.00 (>60) 10/27/16 05:00 Calcium 7.6 mg/dL (8.5-10.1) L 10/27/16 05:00 Total Bilirubin 0.8 mg/dL (0.2-1.0) D 10/27/16 05:00 AST 24 U/L (15-37) D 10/27/16 05:00 ALT 27 U/L (12-78) 10/27/16 05:00 Alkaline Phosphatase 120 U/L (45-117) H 10/27/16 05:00 Total Protein 5.7 g/dl (6.4-8.2) L 10/27/16 05:00 Albumin 2.0 g/dl (3.4-5.0) L 10/27/16 05:00 Intake & Output 10/24/16 10/25/16 10/26/16 10/27/16 23:59 23:59 23:59 23:59 Intake Total 250 5751 Output Total 600 700 Balance -350 5051 Weight 52.163 kg 46 kg Urine Test Results Urine Color Zaira 10/26/16 13:15 Urine Appearance Turbid 10/26/16 13:15 Urine pH 8.0 (5.0-8.0) 10/26/16 13:15 Ur Specific [place] 1.013 (1.001-1.035) 10/26/16 13:15 Urine Protein 3+ (NEGATIVE) H 10/26/16 13:15 Urine Glucose (UA) Negative (NEGATIVE) 10/26/16 13:15 Urine Ketones Negative (NEGATIVE) 10/26/16 13:15 Urine Blood 3+ (NEGATIVE) H 10/26/16 13:15 Urine Nitrite Negative (NEGATIVE) 10/26/16 13:15 Urine Bilirubin Negative (NEGATIVE) 10/26/16 13:15 Ur Leukocyte Esterase 3+ (NEGATIVE) H 10/26/16 13:15 Urine RBC 213 /hpf (0-3) 10/26/16 13:15 Urine WBC 92 /hpf (3-5) 10/26/16 13:15 Ur Epithelial Cells Few /hpf (FEW) 10/26/16 13:15 Urine Bacteria Moderate /hpf (NONE SEEN) 10/26/16 13:15 Urine Mucus Many 10/26/16 13:15 Active Medications Generic Name Dose Route Start Last Admin Trade Name Abundioq PRN Reason Stop Dose Admin Heparin Sodium (Porcine) 5,000 unit 10/27/16 22:00 Heparin - SQ BID TAYE Dopamine HCl/Dextrose 250 mls @ 3.912 mls/hr 10/26/16 21:15 10/27/16 15:06 Dopamine 400 Mg/D5w - IVPB 12 mcg/kg/min TITR TAYE Titration Protocol 2 MCG/KG/MIN Vasopressin 50 units/ Sodium 100 mls @ 6 mls/hr 10/27/16 03:16 10/27/16 03:22 Chloride IVPB 6 mls/hr ASDIR TAYE Administration 3 UNITS/HR Pantoprazole Sodium 100 mls @ 200 mls/hr 10/28/16 10:00 Protonix 40mg Ivpb (Pre-Docked) IVPB DAILY ATYE Sodium Bicarbonate 75 meq/ 1,075 mls @ 100 mls/hr 10/27/16 13:15 10/27/16 13:54 Sodium Chloride IV 100 mls/hr ASDIR TAYE Administration Metronidazole 100 mls @ 100 mls/hr 10/27/16 15:15 Flagyl 500mg Premixed Ivpb - IVPB Q8H-IV TAYE Piperacillin Sod/Tazobactam Sod 2.25 gm 10/26/16 18:00 10/27/16 09:48 Zosyn 2.25gm Ivpb (Pre-Docked) IVPB 2.25 gm Q8H-IV TAYE Administration Microbiology 10/26/16 10:35 Nasopharyngeal Swab Respiratory Virus Panel - Preliminary 10/27/16 10:00 Stool Clostridium difficile Antigen (JORGE) - Final 10/27/16 10:00 Stool Clostridium difficile Toxin Assay - Final 10/26/16 10:08 Urine - Urine - Catheterized Urine Culture - Preliminary Non Lactose Fermenting Gnb 10/26/16 10:35 Blood - Peripheral Venous Blood Culture - Preliminary NO GROWTH OBTAINED AFTER 24 HOURS, INCUBATION TO CONTINUE FOR 4 DAYS. 10/26/16 10:35 Blood - Peripheral Venous Blood Culture - Preliminary NO GROWTH OBTAINED AFTER 24 HOURS, INCUBATION TO CONTINUE FOR 4 DAYS. Imaging CXR on 3/6: Since 10/26/2016, there is slight increase in central markings with prominent sclerotic knob, degenerative changes and prominent heart. Follow-up recommended. CT Abd and Pelvis on 10/26: Marked dilation of the rectum with rectal wall thickening up to 10 cm luminal distention with findings suspicious for stercoral colitis, no emphysematous change in the wall, perirectal fat infiltration Decubitus ulcer with subcutaneous emphysema and associated cellulitis with possible development of a small subcutaneous abscess up to 2 x 2 centimeters in the soft tissues posterior to the coccyx with suspicion of small area of cortical erosion raising suspicion for associated osteomyelitis at the level of the coccyx CT head on 10/26: Generalized volume loss with moderate ventricular dilatation and chronic microvascular ischemic changes. No gross acute intracranial pathology is identified. Correlate clinically to determine further evaluation and follow-up. ASSESSMENT/PLAN: 86 yo F h/o CKD, dementia and hypothyroidism admitted to the ICU for DALJIT on CKD and severe sepsis. Renal: DALJIT on CKD (Stage 5) - Baseline 1.5 to 4.3 since 12/2015 - Lactic acidosis improving - Await urine sodium for FeNa calculation - Cont. toribio, monitor I/O - Daughter refused HD - Dose all meds renally ID: Severe sepsis 2/2 UTI vs. Decub. ulcers vs. osteomyelitis - WBC trending down, afrebile, lactic acid normalized - Pending cultures - h/o UTI with positive urine cultures for group B and D strep, lactobacillus - h/o positive blood and wound cultures grew multiple organisms - (+) UA with 292 WBC - Stage 1 and stage 4 decub ulcers * wound care - CT abd shows possible osteomyelitis * Hip and pelvis X-ray * get ESR - On flagyl day 1 and zosyn day 2 Cardiac: hypotension - Taper pressors to maintain MAP > 65% Heme: Normacytic anemia, chronic in the setting of CKD - 2/2 CKD - HGB at baseline - Cont. monitor, transfuse if HGB < 7 Endo: Hypothyroidism - Cont. synthroid FEN - 1/2NS + bicarb - hyperkalemia with no EKG change, s/p D50+R-insulin, cont. to monitor - NPO, dietary and S&S consults Prophylaxis - DVT: Heparin 5000 units SQ - GI: PPI gtt Disposition - cont. to monitor in ICU Code status - Full code Visit type - Emergency Visit Emergency Visit: No - New Patient This patient is new to me today: Yes Date on this admission: 10/27/16 - Critical Care Critical Care patient: Yes Total Critical Care Time (in minutes): 45 Critical Care Statement: The care of this patient involved high complexity decision making to prevent further life threatening deterioration of the patient 's condition and/or to evalute & treat vital organ system(s) failure or risk of failure.
[2016-10-27] MEDS: HEPARIN NA (PORCINE) 5,000 UNITS/ML 1ML VIAL SQ SCH (22:13)
[2016-10-28] MEDS: PIPERACILLIN/TAZOB 2.25 GM/50 ML PRE-DOCKED BAG IVPB SCH ×3 (01:09→17:29)
[2016-10-28] MEDS: METRONIDAZOLE 500 MG PREMIXED 100 ML IVPB SCH ×3 (01:09→17:29)
[2016-10-28] MEDS: DOPAMINE 400 MG/D5W - 250 ML IVPB SCH (01:10)
[2016-10-28 06:36] LABS: MCH 29.7 pg (25.7-33.7); MEAN CELL VOLUME 89.9 fl (80-96); MEAN PLT VOLUME 7.2 fl (7.5-11.1); PLATELET COUNT 392 K/MM3 (134-434); RDW 16.3 % (11.6-15.6)
[2016-10-28 07:15] LABS: ALBUMIN 2.1 g/dl (3.4-5.0); CALCIUM 8.2 mg/dL (8.5-10.1); MAGNESIUM 3.2 mg/dL (1.8-2.4)
[2016-10-28 07:19] LABS: BILIRUBIN,TOTAL 0.5 mg/dL (0.2-1.0); CREATININE 7.3 mg/dL (0.55-1.02); PHOSPHOROUS 5.9 mg/dL (2.5-4.9)
[2016-10-28 08:34] LABS: PLATELET ESTIMATE ADEQUATE (NORMAL)
--- NOTE | 2016-10-28 08:35 | PN ---
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 (short form) - Note 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: C.diff Ag pos, toxin neg. with diarrhea -rectal tube inserted, on isolation on vasopressin/dopamine/NSbicarb/protonix/zosyn/metroniudazole/low dose heparin CBC, BMP 10/28/16 05:00 10/28/16 05:00 Vital Signs Period Temp Pulse Resp BP Sys/Correia Pulse Ox Last 24 Hr 95.6 F-97.5 F 79-99 10-22 81-139/43-107 100-100 Intake & Output 10/25/16 10/26/16 10/27/16 10/28/16 23:59 23:59 23:59 23:59 Intake Total 250 7518 1374 Output Total 600 1950 650 Balance -350 5568 724 Weight 115 lb 101 lb 6.602 oz 106 lb 0.677 oz S1S2 RRR lungs cta ant abd soft NT urine cloudy, toribio in place rectal tube dark liquid stool stage 4 sacral decub. stage 2 left hip decubitus awake, non-verbal, does not follow commands IMP sepsis/hypotension UTI C.diff possible sacral osteomyelitis acute renal failure due to dehydration chronic anemia advanced dementia Plan will try to taper off pressors fluids abx supportive care consults appreciated swallow eval prior to feeding attempt wound care GI/DVT prophylaxis Problem List - Problems (1) Acute hyperkalemia Code(s): E87.5 - HYPERKALEMIA (2) Acute renal failure Code(s): N17.9 - ACUTE KIDNEY FAILURE, UNSPECIFIED Qualifiers: Acute renal failure type: unspecified Qualified Code(s): N17.9 - Acute kidney failure, unspecified (3) Diarrhea Code(s): R19.7 - DIARRHEA, UNSPECIFIED Qualifiers: Diarrhea type: unspecified type Qualified Code(s): R19.7 - Diarrhea , unspecified (4) Sepsis syndrome Code(s): TFR9347 - (5) UTI (urinary tract infection) Code(s): N39.0 - URINARY TRACT INFECTION, SITE NOT SPECIFIED Qualifiers: Urinary tract infection type: site unspecified Hematuria presence: without hematuria Qualified Code(s): N39.0 - Urinary tract infection, site not specified (6) Alzheimer's dementia Code(s): G30.9 - ALZHEIMER'S DISEASE, UNSPECIFIED Qualifiers: Alzheimer's disease onset: unspecified onset Dementia behavioral disturbance: without behavioral disturbance Qualified Code(s): G30.9 - Alzheimer's disease, unspecified; F02.80 - Dementia in other diseases classified elsewhere without behavioral disturbance (7) Hypotension Code(s): I95.9 - HYPOTENSION, UNSPECIFIED Qualifiers: Hypotension type: other hypotension type Qualified Code(s): I95.89 - Other hypotension
--- NOTE | 2016-10-28 08:57 | CONSULT ---
- Consultation REQUESTING PROVIDER: Dr. Juan Zavala (Wound Care) CONSULT REQUEST: We have been asked to surgically evaluate this patient for sacral ulcer. Informed by pt's RN that she is C.diff Ag pos, toxin neg. A rectal tube was inserted. On isolation. PCP: Demetrice Lock History Source: Family Member and medical record HPI: Called to candis 86 yo female with PMHx noted below. Patient has multiple decubitus ulcers. PMHx: DM (diet controlled in past), Hypothyroidism, Renal Inusuff (in past due to dehydration), UTI (recurrent), Alzheimer's, Dementia PSHx: HOME MEDS: Memantine HCl [Namenda -] 10 mg PO DAILY 10/01/13 Levothyroxine [Synthroid -] 88 mcg PO DAILY 04/08/16 ALLERGY: NKDA ROS: Unable to obtain due to her medical condition (dementia). PE: GENERAL: Awake, alert, no acute distress. HEAD: Normal with no signs of trauma. EYES: PERRL, sclera anicteric, conjunctiva clear. NECK: Normal ROM, supple without lymphadenopathy, JVD, or masses. LUNGS: cta b/l anteriorly. HEART: rrr ABDOMEN: Soft, nontender, not distended BACK: Stage 4 sacral ulcer with signs of wound contracture. Bone exposed. Minimal undermining. No signs of infection. Left Hip with superficial abrasion. No signs of infection. Last Vital Signs Temp Pulse Resp BP Pulse Ox 97.4 F L 87 18 119/72 100 10/28/16 08:00 10/28/16 08:00 10/28/16 08:00 10/28/16 08:00 10/27/16 22:00 LABS CBC, BMP 10/28/16 05:00 10/28/16 05:00 Blood Type Blood Type A POSITIVE 10/26/16 23:20 INR, PTT INR 1.12 (0.82-1.09) 10/26/16 21:00 Microbiology 10/26/16 10:08 Urine - Urine - Catheterized Urine Culture - Preliminary Providencia Stuartii 10/26/16 10:35 Nasopharyngeal Swab Respiratory Virus Panel - Preliminary 10/27/16 10:00 Stool Clostridium difficile Antigen (JORGE) - Final C.Diff+ 10/27/16 10:00 Stool Clostridium difficile Toxin Assay - Final 10/26/16 10:35 Blood - Peripheral Venous Blood Culture - Preliminary NO GROWTH AFTER 24hrs, INCUBATION TO CONT FOR 4 DAYS. Problem List - Problems (1) Stage 4 skin ulcer of sacral region Assessment/Plan: No surgical intervention needed. Frequent repositioning. Offload all pressure sensitive areas. Optifoam to sacrum. Cont care per ICU Code(s): L89.154 - PRESSURE ULCER OF SACRAL REGION, STAGE 4 (2) Alzheimer's dementia Code(s): G30.9 - ALZHEIMER'S DISEASE, UNSPECIFIED Qualifiers: Alzheimer's disease onset: unspecified onset Dementia behavioral disturbance: without behavioral disturbance Qualified Code(s): G30.9 - Alzheimer's disease, unspecified; F02.80 - Dementia in other diseases classified elsewhere without behavioral disturbance Visit type - Case Type Case Type: ED Admission - Emergency Emergency Visit: Yes ED Registration Date: 10/26/16 Care time: The patient presented to the Emergency Department on the above date and was hospitalized for further evaluation of their emergent condition. - New patient This patient is new to me today: Yes Date on this admission: 10/28/16
[2016-10-28] MEDS: SODIUM CHLORIDE 0.45% 1,000 ML with SODIUM BICARBONATE 8.4% - 75 MEQ IV SCH ×2 (09:14→13:15)
[2016-10-28] MEDS: VASOPRESSIN 50 UNITS in SODIUM CHLORIDE 97.5 ML IVPB SCH ×2 (09:14→12:20)
[2016-10-28] MEDS: HEPARIN NA (PORCINE) 5,000 UNITS/ML 1ML VIAL SQ SCH ×2 (09:14→22:27)
[2016-10-28] MEDS: PANTOPRAZOLE SODIUM 100 ML IVPB SCH (09:20)
--- NOTE | 2016-10-28 09:54 | CONSULT ---
Admitting History and Physical - Primary Care Physician PCP: Marion Reich - Admission History of Present Illness: 86 yo F h/o CKD, dementia and hypothyroidism admitted to the ICU for severe sepsis. PER PMD emr note, "History of Present Illness: developed what sounds like acute uri earlier last week, seemed to be getting better, but over the weekend became more weak and lethargic, couldn't get up so daughter brought her in. Last admission in July for UTI, dehydration and urinary retention, she went to rehab for two weeks afterwards and toribio was dcd there. she lives with family, able to walk with 1 assist as per daughter, incontinent, non-verbal, needs to be fed, but has decreased oral intake." NPO pending swallowing evaluation. Known to me from previous admissions: "08/15/16 Sp path Recommendations - Speech Evaluation, Impression/Plan Impression: Pt with severe dementia, admitted with dehydration/UTI, with impaired ABEL. Lightens a little with tactile stimulation. Rare, very delayed swallow. Swallow itself fairly functional, if triggered. However, due to lethargy, risk of aspiration is present. - Disposition Discharge to: To be Determined - Dysphagia Impressions/Plan Swallowing Skills: Impaired Dysphagia Impressions: Risk of Aspiration *Silent aspiration: cannot be R/O at bedside Recommendations: Palliative Care (Pt's wishes), Other (Feed only if arousable. TELL pt to swallow and palpate larynx for reflex. NPO if not sufficiently responsive) - Recommendations Diet Consistency: Dysphagia Pureed Medication Administration: Crushed with applesauce Liquids: Jewett Thick (on tsp)" Pt actually looks better than previous admissions. Awake, establishes eye contact, nods yes to some questions, unintelligible jargon. 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: Alzheimer's, Dementia Renal/: Yes: Renal Inusuff (in past due to dehydration), UTI (recurrent) Endocrine: Yes: Diabetes Mellitus (diet controlled in past), Hypothyroidism - Smoking History Smoking history: Former smoker Have you smoked in the past 12 months: No Aproximately how many cigarettes per day: 0 - Alcohol/Substance Use Hx Alcohol Use: No - Social History ADL: Family Assistance History of Recent Travel: No History - Admission Reason For Visit: SEPSIS SYNDROME UTI RENAL FAILURE - Diagnostics X-ray: Report Reviewed CT Scan: Report Reviewed - General Mental Status: Awake and Alert, Confused Attention: Distractible, Mild Impairment Ability to Follow Directions: Poor Head/Neck Control: Needs Assist - Hearing Hearing: Normal Speech Evaluation - Communication Primary Language: MOLDOVAN Communication: Yes: Non-Communicable Oral Expression Ability: Yes: Severe Impairment ( unintelligible jargon.) - Speech Production Able to Make Needs Known: Yes: Severely Impaired Intelligibility: Yes: Severely Impaired - Speech Characteristics Voice Loudness: Moderately Soft/Quiet Voice Pitch: Yes: Normal Voice Phonatory-based Quality: Yes: Normal Speech Pattern: Impaired Nasal Resonance: Normal Articulation: Yes: Imprecise Rate of Speech: Too Fast - Language/Auditory Comprehension Observation: Able to respond to yes/no queries: Yes (some), Yes/No Confusion: Yes (likely), Benefits from Slow Speech: Yes, Benefits from Repetiton: Yes - Language/Verbal Expression Able to Respond to Simple Queries: Yes: Severely Impaired Able to Communicate Wants and Needs: Yes: Severely Impaired Functional Communication Status: Yes: Severely Impaired - Memory/Perception FCI Memory: Yes: Severely Impaired Short Term Memory: Yes: Severely Impaired - Swallow Evaluation/Bedside Assessment Current Nutritional Intake: NPO Oral Secretions: Yes: WFL Dentition: Yes: Adequate Facial Symmetry at Rest: Symmetrical Velopharyngeal Movement: Normal Laryngeal Movement: Labored,delay initiation, Reduced Velocity Rate of Intake: Slow/Holding (Delayed bolus formation, transfer with lingual pumping) Labial Seal: Impaired Bilaterally (Open mouth posture. Poor ability to strip food off of spoon or close mouth when swallowing) Oral Prep Time: Increased A-P Transit: Impaired Timing of Swallow: Delayed Coughing/Throat Clear: No Change in Voice: No Recommendations - Speech Evaluation, Impression/Plan Impression: Alert. Aphasic. confused. Unintelligible jargon. Y/N confusion suspected. Nods head when offered food.Open mouth posture. Poor ability to strip food off of spoon or close mouth when swallowing. Swallow is delayed, with reduced excursion with risk of aspiration. Can likely tolerate Po with modified diet, with compensatory swallowing techniques used. - Dysphagia Impressions/Plan Dysphagia Impressions: Mild Impairment, Moderate Impairment *Silent aspiration: cannot be R/O at bedside Dysphagia Treatment Plan: Small Bites, Chin Tuck/Down, Clear Pocket Food, Safe Rate, 1/2 tsp. at a time, Elevate HOB during feed - Recommendations Diet Consistency: Dysphagia Pureed, Other (Magic cup to provide increased density of nutritional intake.) Medication Administration: Crushed with applesauce Liquids: Honey Thick (on a tsp)
--- NOTE | 2016-10-28 12:04 | PN ---
Teaching Attending Note Name of Resident: Celestino Zhu ATTENDING PHYSICIAN STATEMENT I saw and evaluated the patient. I reviewed the resident's note and discussed the case with the resident. I agree with the resident's findings and plan as documented. SUBJECTIVE: Pt seen and examined in the ICU. Remains on dopamine gtt, vasopressin gtt tapered off. Family discussions ongoing regarding goals of care. Pt nonverbal. OBJECTIVE: Last Vital Signs Temp Pulse Resp BP Pulse Ox 97.9 F 94 H 18 100/73 97 10/28/16 10:00 10/28/16 10:00 10/28/16 10:00 10/28/16 10:00 10/28/16 08:00 Intake & Output 10/25/16 10/26/16 10/27/16 10/28/16 23:59 23:59 23:59 23:59 Intake Total 250 7518 1374 Output Total 600 1950 650 Balance -350 5568 724 Weight 115 lb 101 lb 6.602 oz 106 lb 0.677 oz Gen: mildly tachypneic at rest Heart: RRR Lung: scattered rhonchi Abd: soft, nontender Ext: no edema CBC, BMP 10/28/16 05:00 10/28/16 05:00 Active Medications Heparin Sodium (Porcine) (Heparin -) 5,000 unit SQ BID TAYE Last Admin: 10/28/16 09:14 Dose: Not Given Dopamine HCl/Dextrose (Dopamine 400 Mg/D5w -) 250 mls @ 3.912 mls/hr IVPB TITR TAYE; 2 MCG/KG/MIN PRN Reason: Protocol Last Titration: 10/28/16 02:00 Dose: 9 mcg/kg/min Vasopressin 50 units/ Sodium (Chloride) 100 mls @ 6 mls/hr IVPB ASDIR TAYE PRN Reason: 3 UNITS/HR Last Admin: 10/28/16 09:14 Dose: Not Given Pantoprazole Sodium (Protonix 40mg Ivpb (Pre-Docked)) 100 mls @ 200 mls/hr IVPB DAILY [facility] Last Admin: 10/28/16 09:20 Dose: 200 mls/hr Sodium Bicarbonate 75 meq/ (Sodium Chloride) 1,075 mls @ 100 mls/hr IV ASDIR TAYE Last Admin: 10/28/16 09:14 Dose: 100 mls/hr Metronidazole (Flagyl 500mg Premixed Ivpb -) 100 mls @ 100 mls/hr IVPB Q8H-IV TAYE Last Admin: 10/28/16 09:13 Dose: 100 mls/hr Piperacillin Sod/Tazobactam Sod (Zosyn 2.25gm Ivpb (Pre-Docked)) 2.25 gm IVPB Q8H-IV TAYE Last Admin: 10/28/16 09:13 Dose: 2.25 gm ASSESSMENT AND PLAN: UTI Septic Shock Hypernatremia/Dehydration Acute on Chronic Renal Failure Hyperkalemia Lactic Acidosis Hypothyroidism - continue antibiotics - IVF with bicarb - monitor urine output, creatinine - taper pressors to maintain MAP >65 - aspiration precautions - monitor lytes - start pureed PO diet - DVT/GI prophylaxis - continue discussions regarding advanced directives and goals of care - continue ICU monitoring
[2016-10-28] MEDS ORDERED: ACETAMINOPHEN 1000 MG/100 ML VIAL (NON FORMULARY) IVPB ONE (12:09)
[2016-10-28] MEDS ORDERED: VASOPRESSIN 20 UNITS/ML VIAL IV ONE (12:22)
--- NOTE | 2016-10-28 13:01 | PN ---
Physical Exam: SUBJECTIVE: Patient seen and examined at bedside in the ICU. She's non-verbal and does not follow command, however, responsive to pain stimuli. Per nurse, MAP remains >65 % with good urine output overnight. OBJECTIVE: On Dopamine 9 mcg and vasopressin 2 mcg Vital Signs Period Temp Pulse Resp BP Sys/Correia Pulse Ox Last 24 Hr 95.6 F-97.9 F 78-99 10-22 81-139/33-107 97-100 GENERAL: non-verbal, awake, open eyes, tracks objects, but non-interactive and does not follow command, responsive to pain stimuli. LUNGS: Decreased breath sounds HEART: RRR normal S1, S2 without murmur, rub or gallop. ABDOMEN: Soft, non-tender, normoactive bs, no rebound/guarding EXTREMITIES: no edema SKIN: Stage 1 decub. ulcer on L lateral hip, no erythema or draining; Stage 4 decub. ulcer posterior to occycx 3 by 5 cm, purulent discharge, foul smelling, tunneling CBCD WBC 21.0 K/mm3 (4.0-10.0) H D 10/28/16 05:00 RBC 2.95 M/mm3 (3.60-5.2) L 10/28/16 05:00 Hgb 8.8 GM/dL (10.7-15.3) L 10/28/16 05:00 Hct 26.6 % (32.4-45.2) L 10/28/16 05:00 MCV 89.9 fl (80-96) 10/28/16 05:00 MCHC 33.0 g/dl (32.0-36.0) 10/28/16 05:00 RDW 16.3 % (11.6-15.6) H 10/28/16 05:00 Plt Count 392 K/MM3 (134-434) 10/28/16 05:00 MPV 7.2 fl (7.5-11.1) L 10/28/16 05:00 CMP Sodium 147 mmol/L (136-145) H 10/28/16 05:00 Potassium 5.2 mmol/L (3.5-5.1) H 10/28/16 05:00 Chloride 116 mmol/L (98-107) H 10/28/16 05:00 Carbon Dioxide 11 mmol/L (21-32) L 10/28/16 05:00 Anion Gap 20 (8-16) H 10/28/16 05:00 BUN 123 mg/dL (7-18) H* 10/28/16 05:00 Creatinine 7.3 mg/dL (0.55-1.02) H 10/28/16 05:00 Creat Clearance w eGFR 5.31 (>60) 10/28/16 05:00 Calcium 8.2 mg/dL (8.5-10.1) L 10/28/16 05:00 Total Bilirubin 0.5 mg/dL (0.2-1.0) D 10/28/16 05:00 AST 19 U/L (15-37) D 10/28/16 05:00 ALT 25 U/L (12-78) 10/28/16 05:00 Alkaline Phosphatase 111 U/L (45-117) 10/28/16 05:00 Total Protein 6.0 g/dl (6.4-8.2) L 10/28/16 05:00 Albumin 2.1 g/dl (3.4-5.0) L 10/28/16 05:00 Intake & Output 10/25/16 10/26/16 10/27/16 10/28/16 23:59 23:59 23:59 23:59 Intake Total 250 7518 1374 Output Total 600 1950 650 Balance -350 5568 724 Weight 52.163 kg 46 kg 48.1 kg Active Medications Generic Name Dose Route Start Last Admin Trade Name Freq PRN Reason Stop Dose Admin Heparin Sodium (Porcine) 5,000 unit 10/27/16 22:00 10/28/16 09:14 Heparin - SQ Not Given BID TAYE Dopamine HCl/Dextrose 250 mls @ 3.912 mls/hr 10/26/16 21:15 10/28/16 02:00 Dopamine 400 Mg/D5w - IVPB 9 mcg/kg/min TITR TAYE Titration Protocol 2 MCG/KG/MIN Vasopressin 50 units/ Sodium 100 mls @ 6 mls/hr 10/27/16 03:16 10/28/16 12:20 Chloride IVPB 6 mls/hr ASDIR TAYE Administration 3 UNITS/HR Pantoprazole Sodium 100 mls @ 200 mls/hr 10/28/16 10:00 03/07/17 09:20 Protonix 40mg Ivpb (Pre-Docked) IVPB 200 mls/hr DAILY TAYE Administration Sodium Bicarbonate 75 meq/ 1,075 mls @ 100 mls/hr 10/27/16 13:15 10/28/16 09:14 Sodium Chloride IV 100 mls/hr ASDIR TAYE Administration Metronidazole 100 mls @ 100 mls/hr 10/27/16 15:15 10/28/16 09:13 Flagyl 500mg Premixed Ivpb - IVPB 100 mls/hr Q8H-IV TAYE Administration Piperacillin Sod/Tazobactam Sod 2.25 gm 10/26/16 18:00 10/28/16 09:13 Zosyn 2.25gm Ivpb (Pre-Docked) IVPB 2.25 gm Q8H-IV TAYE Administration Microbiology 10/26/16 10:08 Urine - Urine - Catheterized Urine Culture - Preliminary Providencia Stuartii Imaging CXR of hip 10/27: Osteomyelitits not mentioned in report CXR on 10/28: No acute infiltrate CXR on 10/27: Since 10/26/2016, there is slight increase in central markings with prominent sclerotic knob, degenerative changes and prominent heart. Follow-up recommended. CT Abd and Pelvis on 10/26: Marked dilation of the rectum with rectal wall thickening up to 10 cm luminal distention with findings suspicious for stercoral colitis, no emphysematous change in the wall, perirectal fat infiltration Decubitus ulcer with subcutaneous emphysema and associated cellulitis with possible development of a small subcutaneous abscess up to 2 x 2 centimeters in the soft tissues posterior to the coccyx with suspicion of small area of cortical erosion raising suspicion for associated osteomyelitis at the level of the coccyx CT head on 10/26: Generalized volume loss with moderate ventricular dilatation and chronic microvascular ischemic changes. No gross acute intracranial pathology is identified. Correlate clinically to determine further evaluation and follow-up. ASSESSMENT/PLAN: 86 yo F h/o CKD, dementia and hypothyroidism admitted to the ICU for DALJIT on CKD and severe sepsis. Renal: DALJIT on CKD (Stage 5) - Baseline 1.5 to 4.3 since 12/2015 - BUN/Cr improving with good urine output overnight - Cont. toribio, monitor I/O - Daughter refused HD - Dose all meds renally ID: Severe sepsis 2/2 UTI vs. Decub. ulcers vs. osteomyelitis - WBC went up, afrebile, lactic acid normal - Urine culture grew Providencia sturatii sensitive to zosyn - h/o UTI with positive urine cultures for group B and D strep, lactobacillus - h/o positive blood and wound cultures grew multiple organisms - (+) UA with 292 WBC - Stage 1 and stage 4 decub ulcers * wound care * no surgical intervention per surgery - CT abd shows possible osteomyelitis * Hip and pelvis X-ray -ve - On flagyl day 2 and zosyn day 3 Cardiac: hypotension - Taper pressors to maintain MAP > 65% Heme: Normacytic anemia, chronic in the setting of CKD - 2/2 CKD - HGB at baseline - Cont. monitor, transfuse if HGB < 7 Endo: Hypothyroidism - Cont. synthroid FEN - 1/2NS + bicarb - hyperkalemia, hypernatremia with no EKG change, cont. to hydrate and monitor - Puree with magic cup Prophylaxis - DVT: Heparin held due to dark stool - GI: PPI gtt Disposition - cont. to monitor in ICU Code status - Full code Visit type - Emergency Visit Emergency Visit: No - New Patient This patient is new to me today: No - Critical Care Critical Care patient: Yes Total Critical Care Time (in minutes): 45 Critical Care Statement: The care of this patient involved high complexity decision making to prevent further life threatening deterioration of the patient 's condition and/or to evalute & treat vital organ system(s) failure or risk of failure.
--- NOTE | 2016-10-28 14:22 | PN ---
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, Physician History of Present Illness: patient still on pressors vaso had to be readded non verbal temp maintaining with bear hugger - Current Medication List Current Medications: Active Medications Heparin Sodium (Porcine) (Heparin -) 5,000 unit SQ BID [facility] Last Admin: 10/28/16 09:14 Dose: Not Given Dopamine HCl/Dextrose (Dopamine 400 Mg/D5w -) 250 mls @ 3.912 mls/hr IVPB TITR TAYE; 2 MCG/KG/MIN PRN Reason: Protocol Last Titration: 10/28/16 02:00 Dose: 9 mcg/kg/min Vasopressin 50 units/ Sodium (Chloride) 100 mls @ 6 mls/hr IVPB ASDIR TAYE PRN Reason: 3 UNITS/HR Last Admin: 10/28/16 12:20 Dose: 6 mls/hr Pantoprazole Sodium (Protonix 40mg Ivpb (Pre-Docked)) 100 mls @ 200 mls/hr IVPB DAILY [facility] Last Admin: 10/28/16 09:20 Dose: 200 mls/hr Sodium Bicarbonate 75 meq/ (Sodium Chloride) 1,075 mls @ 100 mls/hr IV ASDIR TAYE Last Admin: 10/28/16 09:14 Dose: 100 mls/hr Metronidazole (Flagyl 500mg Premixed Ivpb -) 100 mls @ 100 mls/hr IVPB Q8H-IV [facility] Last Admin: 10/28/16 09:13 Dose: 100 mls/hr Piperacillin Sod/Tazobactam Sod (Zosyn 2.25gm Ivpb (Pre-Docked)) 2.25 gm IVPB Q8H-IV TAYE Last Admin: 10/28/16 09:13 Dose: 2.25 gm - Objective Vital Signs: Vital Signs Temperature 97.6 F 10/28/16 14:00 Pulse Rate 77 10/28/16 14:00 Respiratory Rate 18 10/28/16 14:00 Blood Pressure 131/60 10/28/16 14:00 O2 Sat by Pulse Oximetry (%) 97 10/28/16 08:00 Constitutional: Yes: No Distress, Calm Cardiovascular: Yes: Regular Rate and Rhythm, Other (on pressors) Respiratory: Yes: Regular, On Nasal O2, Poor Air Entry Gastrointestinal: Yes: Normal Bowel Sounds, Soft Musculoskeletal: Yes: Other Extremities: Yes: Other Wound/Incision: Yes: Other (decubitus ulcer) Neurological: Yes: Confusion, Lethargy, Other Psychiatric: Yes: Alert Labs: CBC, BMP 10/28/16 05:00 10/28/16 05:00 INR, PTT INR 1.12 (0.82-1.09) 10/26/16 21:00 - ....Imaging Chest X-ray: Report Reviewed, Image Reviewed Assessment/Plan Problem List - Problems (1) Acute hyperkalemia Code(s): E87.5 - HYPERKALEMIA (2) Acute renal failure Code(s): N17.9 - ACUTE KIDNEY FAILURE, UNSPECIFIED Qualifiers: Acute renal failure type: unspecified Qualified Code(s): N17.9 - Acute kidney failure, unspecified (3) UTI (urinary tract infection) Code(s): N39.0 - URINARY TRACT INFECTION, SITE NOT SPECIFIED Qualifiers: Urinary tract infection type: site unspecified Hematuria presence: without hematuria Qualified Code(s): N39.0 - Urinary tract infection, site not specified (4) Alzheimer's dementia Code(s): G30.9 - ALZHEIMER'S DISEASE, UNSPECIFIED Qualifiers: Alzheimer's disease onset: unspecified onset Dementia behavioral disturbance: without behavioral disturbance Qualified Code(s): G30.9 - Alzheimer's disease, unspecified; F02.80 - Dementia in other diseases classified elsewhere without behavioral disturbance leukocytosis colitis lactic acidosis sepsis patient has profuse dirrhoea,results of cdiff noted wbc trending down creatinine improving plan continue hydration as per renal continue current abx urine clearing up close monitoring pressors as required vanco orally cc time 40 min
[2016-10-28] MEDS ORDERED: SODIUM BICARBONATE 8.4% 50 MEQ/50 ML VIAL ONE (14:50)
[2016-10-28] MEDS: DEXTROSE 5%-WATER - 1,000 ML with SODIUM BICARBONATE 8.4% - 100 MEQ IV SCH (15:00)
[2016-10-28] MEDS: VANCOMYCIN 250 MG/5 ML ORAL SOLUTION PO SCH ×2 (15:00→17:44)
[2016-10-28] MEDS ORDERED: SODIUM BICARBONATE IV ONE (15:15)
[2016-10-28] MEDS ORDERED: WATER IV ONE (15:15)
[2016-10-28] MEDS ORDERED: DEXTROSE IV ONE (15:15)
[2016-10-28] MEDS ORDERED: SODIUM BICARBONATE 8.4% - 50 ML ONE (15:16)
--- NOTE | 2016-10-28 15:56 | PN ---
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, Physician History of Present Illness: Pt seen and examined at bedside. She remains in the ICU. Pt remains on pressor agents. - Current Medication List Current Medications: Active Medications Heparin Sodium (Porcine) (Heparin -) 5,000 unit SQ BID [facility] Last Admin: 10/28/16 09:14 Dose: Not Given Dopamine HCl/Dextrose (Dopamine 400 Mg/D5w -) 250 mls @ 3.912 mls/hr IVPB TITR TAYE; 2 MCG/KG/MIN PRN Reason: Protocol Last Titration: 10/28/16 02:00 Dose: 9 mcg/kg/min Vasopressin 50 units/ Sodium (Chloride) 100 mls @ 6 mls/hr IVPB ASDIR TAYE PRN Reason: 3 UNITS/HR Last Admin: 10/28/16 12:20 Dose: 6 mls/hr Pantoprazole Sodium (Protonix 40mg Ivpb (Pre-Docked)) 100 mls @ 200 mls/hr IVPB DAILY TAYE Last Admin: 10/28/16 09:20 Dose: 200 mls/hr Metronidazole (Flagyl 500mg Premixed Ivpb -) 100 mls @ 100 mls/hr IVPB Q8H-IV TAYE Last Admin: 10/28/16 09:13 Dose: 100 mls/hr Sodium Bicarbonate 100 meq/ (Dextrose) 1,100 mls @ 83 mls/hr IV Q13H [facility] Last Admin: 10/28/16 15:00 Dose: 83 mls/hr Sodium Bicarbonate 50 meq/ (Dextrose) 300 mls @ 250 mls/hr IV .[id number] [facility] Piperacillin Sod/Tazobactam Sod (Zosyn 2.25gm Ivpb (Pre-Docked)) 2.25 gm IVPB Q8H-IV TAYE Last Admin: 10/28/16 09:13 Dose: 2.25 gm Vancomycin HCl (Vancomycin Oral Solution) 125 mg PO Q6HPO [facility] Last Admin: 10/28/16 15:00 Dose: Not Given - Objective Vital Signs: Vital Signs Temperature 97.6 F 10/28/16 14:00 Pulse Rate 77 10/28/16 14:00 Respiratory Rate 18 10/28/16 14:00 Blood Pressure 131/60 10/28/16 14:00 O2 Sat by Pulse Oximetry (%) 97 10/28/16 08:00 Constitutional: Yes: Calm Eyes: Yes: Conjunctiva Clear HENT: Yes: Atraumatic Neck: Yes: Supple Cardiovascular: Yes: S1, S2 Respiratory: Yes: On Nasal O2 Gastrointestinal: Yes: Soft Genitourinary: Yes: Mccrary Present Musculoskeletal: Yes: Muscle Weakness Edema: No Neurological: Yes: Lethargy Labs: CBC, BMP 10/28/16 05:00 10/28/16 05:00 INR, PTT INR 1.12 (0.82-1.09) 10/26/16 21:00 - ....Imaging Chest X-ray: Report Reviewed Problem List - Problems (1) Acute hyperkalemia Code(s): E87.5 - HYPERKALEMIA (2) Acute renal failure Code(s): N17.9 - ACUTE KIDNEY FAILURE, UNSPECIFIED Qualifiers: Acute renal failure type: unspecified Qualified Code(s): N17.9 - Acute kidney failure, unspecified (3) UTI (urinary tract infection) Code(s): N39.0 - URINARY TRACT INFECTION, SITE NOT SPECIFIED Qualifiers: Urinary tract infection type: site unspecified Hematuria presence: without hematuria Qualified Code(s): N39.0 - Urinary tract infection, site not specified (4) Alzheimer's dementia Code(s): G30.9 - ALZHEIMER'S DISEASE, UNSPECIFIED Qualifiers: Alzheimer's disease onset: unspecified onset Dementia behavioral disturbance: without behavioral disturbance Qualified Code(s): G30.9 - Alzheimer's disease, unspecified; F02.80 - Dementia in other diseases classified elsewhere without behavioral disturbance Assessment/Plan Current Medications Generic Name Dose Route Start Last Admin Trade Name Freq PRN Reason Stop Dose Admin Heparin Sodium (Porcine) 5,000 unit 10/27/16 22:00 10/28/16 09:14 Heparin - SQ Not Given BID TAYE Dopamine HCl/Dextrose 250 mls @ 3.912 mls/hr 10/26/16 21:15 10/28/16 02:00 Dopamine 400 Mg/D5w - IVPB 9 mcg/kg/min TITR TAYE Titration Protocol 2 MCG/KG/MIN Vasopressin 50 units/ Sodium 100 mls @ 6 mls/hr 10/27/16 03:16 10/28/16 12:20 Chloride IVPB 6 mls/hr ASDIR TAYE Administration 3 UNITS/HR Pantoprazole Sodium 100 mls @ 200 mls/hr 10/28/16 10:00 10/28/16 09:20 Protonix 40mg Ivpb (Pre-Docked) IVPB 200 mls/hr DAILY TAYE Administration Metronidazole 100 mls @ 100 mls/hr 10/27/16 15:15 10/28/16 09:13 Flagyl 500mg Premixed Ivpb - IVPB 100 mls/hr Q8H-IV TAYE Administration Sodium Bicarbonate 100 meq/ 1,100 mls @ 83 mls/hr 10/28/16 14:45 10/28/16 15:00 Dextrose IV 83 mls/hr Q13H TAYE Administration Sodium Bicarbonate 50 meq/ 300 mls @ 250 mls/hr 10/28/16 15:15 Dextrose IV .[id number] TAYE Piperacillin Sod/Tazobactam Sod 2.25 gm 10/26/16 18:00 10/28/16 09:13 Zosyn 2.25gm Ivpb (Pre-Docked) IVPB 2.25 gm Q8H-IV TAYE Administration Vancomycin HCl 125 mg 10/28/16 15:00 10/28/16 15:00 Vancomycin Oral Solution PO Not Given Q6HPO TAYE Laboratory Tests 10/27/16 05:00 Random Vancomycin 12.046 chart reviewed labs reviewed meds reviewed Impression 1. DALJIT 2. hx CKD 3. metabolic acidosis 4. hyperkalemia 5. dementia 6. sepsis 7. UTI 8. hypernatremia Plan - renal function continues to improve - fluids were adjusted yesterday however she did not get any bicarb - will give am amb of bicarb now and start d5w with 2 amps of bicarb - monitor renal function and potassium - consider checking an ABG - pt still requires pressors - discussed with ICU resident - discussed with ICU nursing staff - follow up cultures - cont pressors and monitor blood pressure - cont to monitor bloodwork - monitor in ICU - prognosis guarded - keep on tele monitor until lytes improve further - will give hypotonic fluids as pt is hypernatremic - speech and swallow eval - will follow Dr Greene
[2016-10-29] MEDS: PIPERACILLIN/TAZOB 2.25 GM/50 ML PRE-DOCKED BAG IVPB SCH ×3 (01:16→17:16)
[2016-10-29] MEDS: DOPAMINE 400 MG/D5W - 250 ML IVPB SCH ×3 (01:16→21:33)
[2016-10-29] MEDS: METRONIDAZOLE 500 MG PREMIXED 100 ML IVPB SCH ×3 (01:16→17:16)
[2016-10-29] MEDS: VANCOMYCIN 250 MG/5 ML ORAL SOLUTION PO SCH ×4 (01:16→17:11)
[2016-10-29] MEDS ORDERED: SODIUM BICARBONATE 8.4% 50 MEQ/50 ML VIAL ONE (05:06)
[2016-10-29 06:00] LABS: MCH 29.3 pg (25.7-33.7); MCHC 32.7 g/dl (32.0-36.0); MEAN CELL VOLUME 89.6 fl (80-96); MEAN PLT VOLUME 6.9 fl (7.5-11.1); PLATELET COUNT 285 K/MM3 (134-434); RDW 16.3 % (11.6-15.6); WHITE BLOOD COUNT 19.6 K/mm3 (4.0-10.0)
[2016-10-29] MEDS ORDERED: PT OWN MED DRAWER 7, Y5N ONE (06:01)
[2016-10-29] MEDS: DEXTROSE 5%-WATER - 1,000 ML with SODIUM BICARBONATE 8.4% - 100 MEQ IV SCH ×3 (07:01→18:07)
[2016-10-29] MEDS: VASOPRESSIN 50 UNITS in SODIUM CHLORIDE 97.5 ML IVPB SCH (07:01)
[2016-10-29 07:05] LABS: ALBUMIN 1.8 g/dl (3.4-5.0); CALCIUM 7.7 mg/dL (8.5-10.1); MAGNESIUM 2.6 mg/dL (1.8-2.4)
[2016-10-29 07:08] LABS: BILIRUBIN,TOTAL 0.4 mg/dL (0.2-1.0); CREATININE 6.8 mg/dL (0.55-1.02); PHOSPHOROUS 4.4 mg/dL (2.5-4.9); TOT PROT 5.3 g/dl (6.4-8.2)
--- NOTE | 2016-10-29 08:40 | PN ---
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 (short form) - Note 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: Vasopressin was stopped this am CXR with congestion CBC, BMP 10/29/16 05:15 10/29/16 05:15 Vital Signs Period Temp Pulse Resp BP Sys/Correia Pulse Ox Last 24 Hr 96.6 F-98.1 F 57-94 16-18 67-144/33-77 100 S1S2 RRR lungs cta ant abd soft NT urine cloudy, toribio in place rectal tube dark liquid stool opens eyes on tactile stimuli IMP sepsis/hypotension UTI C.diff possible sacral osteomyelitis acute renal failure due to dehydration chronic anemia advanced dementia Plan taper dopamine fluids abx supportive care consults appreciated hold heparin with renal failure and anemia feeding cautiously wound care GI/DVT prophylaxis Problem List - Problems (1) Acute hyperkalemia Code(s): E87.5 - HYPERKALEMIA (2) Acute renal failure Code(s): N17.9 - ACUTE KIDNEY FAILURE, UNSPECIFIED Qualifiers: Acute renal failure type: unspecified Qualified Code(s): N17.9 - Acute kidney failure, unspecified (3) Diarrhea Code(s): R19.7 - DIARRHEA, UNSPECIFIED Qualifiers: Diarrhea type: unspecified type Qualified Code(s): R19.7 - Diarrhea , unspecified (4) Sepsis syndrome Code(s): [id number] - (5) UTI (urinary tract infection) Code(s): N39.0 - URINARY TRACT INFECTION, SITE NOT SPECIFIED Qualifiers: Urinary tract infection type: site unspecified Hematuria presence: without hematuria Qualified Code(s): N39.0 - Urinary tract infection, site not specified (6) Alzheimer's dementia Code(s): G30.9 - ALZHEIMER'S DISEASE, UNSPECIFIED Qualifiers: Alzheimer's disease onset: unspecified onset Dementia behavioral disturbance: without behavioral disturbance Qualified Code(s): G30.9 - Alzheimer's disease, unspecified; F02.80 - Dementia in other diseases classified elsewhere without behavioral disturbance (7) Hypotension Code(s): I95.9 - HYPOTENSION, UNSPECIFIED Qualifiers: Hypotension type: other hypotension type Qualified Code(s): I95.89 - Other hypotension
[2016-10-29] MEDS ORDERED: ACETAMINOPHEN 1000 MG/100 ML VIAL (NON FORMULARY) IVPB ONE (09:35)
[2016-10-29] MEDS: PANTOPRAZOLE SODIUM 100 ML IVPB SCH (12:08)
--- NOTE | 2016-10-29 12:25 | PN ---
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: Selected Entries 10/28/16 10/28/16 10/28/16 00:00 01:00 02:00 Breakfast Temperature 96.6 F L 96.5 F L Pulse Rate 99 H 86 88 10/28/16 10/28/16 10/28/16 03:00 04:00 05:00 Breakfast Temperature 96.8 F L 96.5 F L 96.6 F L Pulse Rate 85 80 82 10/28/16 10/28/16 10/28/16 06:00 08:00 10:00 Breakfast NPO Temperature 95.6 F L 97.4 F L 97.9 F Pulse Rate 82 87 94 H 10/28/16 10/28/16 10/28/16 12:00 12:20 14:00 Breakfast Temperature 97.2 F L 97.6 F Pulse Rate 94 H 78 77 10/28/16 10/28/16 10/28/16 16:00 18:00 20:00 Breakfast Temperature 98.1 F 96.6 F L Pulse Rate 57 L 60 68 10/28/16 10/29/16 10/29/16 21:24 00:00 02:00 Breakfast Temperature 97.3 F L Pulse Rate 63 59 L 59 L 10/29/16 10/29/16 10/29/16 04:00 06:00 08:00 Breakfast Temperature 95.5 F L Pulse Rate 61 68 94 H 10/29/16 10/29/16 11:06 11:17 Breakfast Temperature 97.5 F L Pulse Rate 75 Laboratory Tests 10/27/16 10/28/16 10/29/16 05:00 05:00 05:15 WBC 15.3 H 21.0 H D 19.6 H Pt too lethargic for PO trials today. Daughter counseled on swallowing function and lethargy.
--- NOTE | 2016-10-29 12:39 | PN ---
Teaching Attending Note Name of Resident: Celestino Zhu ATTENDING PHYSICIAN STATEMENT I saw and evaluated the patient. I reviewed the resident's note and discussed the case with the resident. I agree with the resident's findings and plan as documented. SUBJECTIVE: Pt seen and examined in the ICU. Lethargic but arousable. Remains on dopamine gtt. Family still undecided on goals of care. OBJECTIVE: Last Vital Signs Temp Pulse Resp BP Pulse Ox 97.5 F L 75 78 H 132/73 95 10/29/16 11:17 10/29/16 11:06 10/29/16 11:17 10/29/16 11:17 10/29/16 09:00 Intake & Output 10/26/16 10/27/16 10/28/16 10/29/16 23:59 23:59 23:59 23:59 Intake Total 250 7518 3334.4 1128 Output Total 600 1950 1950 500 Balance -350 5568 1384.4 628 Weight 115 lb 101 lb 6.602 oz 106 lb 0.677 oz 103 lb Gen: lethargic Heart: RRR Lung: scattered rhonchi Abd: soft, nontender Ext: trace edema CBC, BMP 10/29/16 05:15 10/29/16 05:15 Active Medications Dopamine HCl/Dextrose (Dopamine 400 Mg/D5w -) 250 mls @ 3.912 mls/hr IVPB TITR TAYE; 2 MCG/KG/MIN PRN Reason: Protocol Last Titration: 10/29/16 11:06 Dose: 7 mcg/kg/min Vasopressin 50 units/ Sodium (Chloride) 100 mls @ 6 mls/hr IVPB ASDIR TAYE PRN Reason: 3 UNITS/HR Last Admin: 10/29/16 07:01 Dose: Not Given Pantoprazole Sodium (Protonix 40mg Ivpb (Pre-Docked)) 100 mls @ 200 mls/hr IVPB DAILY [facility] Last Admin: 10/29/16 12:08 Dose: 200 mls/hr Metronidazole (Flagyl 500mg Premixed Ivpb -) 100 mls @ 100 mls/hr IVPB Q8H-IV [facility] Last Admin: 10/29/16 10:53 Dose: 100 mls/hr Sodium Bicarbonate 100 meq/ (Dextrose) 1,100 mls @ 83 mls/hr IV Q13H [facility] Last Admin: 10/29/16 07:01 Dose: 83 mls/hr Insulin Aspart (Novolog Vial Sliding Scale -) 1 vial SQ BIDAC [facility] PRN Reason: Protocol Piperacillin Sod/Tazobactam Sod (Zosyn 2.25gm Ivpb (Pre-Docked)) 2.25 gm IVPB Q8H-IV [facility] Last Admin: 10/29/16 09:47 Dose: 2.25 gm Vancomycin HCl (Vancomycin Oral Solution) 125 mg PO Q6HPO [facility] Last Admin: 10/29/16 12:07 Dose: Not Given ASSESSMENT AND PLAN: UTI Septic Shock Hypernatremia/Dehydration Acute on Chronic Renal Failure Hyperkalemia Lactic Acidosis Hypothyroidism - continue antibiotics - IVF with bicarb - monitor urine output, creatinine - taper pressors to maintain MAP >65 - aspiration precautions - replete lytes - PO as tolerated - DVT/GI prophylaxis - continue discussions regarding advanced directives and goals of care - continue ICU monitoring
--- NOTE | 2016-10-29 14:58 | PN ---
Physical Exam: SUBJECTIVE: Patient seen and examined at bedside in the ICU. She's rousable today but does not respond to verbal command, remains lethargic. OBJECTIVE: On Dopamine 9 mcg and vasopressin 2 mcg Vital Signs Period Temp Pulse Resp BP Sys/Correia Pulse Ox Last 24 Hr 95.5 F-98.1 F 57-94 16-78 67-144/42-77 95-100 GENERAL: non-verbal, sleeping, open eyes when called, tracks objects, but non- interactive and appears sleepy LUNGS: Decreased breath sounds HEART: RRR normal S1, S2 without murmur, rub or gallop. EXTREMITIES: no edema SKIN: decub ulcers not examined CBCD WBC 19.6 K/mm3 (4.0-10.0) H 10/29/16 05:15 RBC 2.85 M/mm3 (3.60-5.2) L 10/29/16 05:15 Hgb 8.3 GM/dL (10.7-15.3) L 10/29/16 05:15 Hct 25.5 % (32.4-45.2) L 10/29/16 05:15 MCV 89.6 fl (80-96) 10/29/16 05:15 MCHC 32.7 g/dl (32.0-36.0) 10/29/16 05:15 RDW 16.3 % (11.6-15.6) H 10/29/16 05:15 Plt Count 285 K/MM3 (134-434) D 10/29/16 05:15 MPV 6.9 fl (7.5-11.1) L 10/29/16 05:15 CMP Sodium 146 mmol/L (136-145) H 10/29/16 05:15 Potassium 3.3 mmol/L (3.5-5.1) L D 10/29/16 05:15 Chloride 113 mmol/L (98-107) H 10/29/16 05:15 Carbon Dioxide 18 mmol/L (21-32) L D 10/29/16 05:15 Anion Gap 15 (8-16) 10/29/16 05:15 BUN 117 mg/dL (7-18) H* 10/29/16 05:15 Creatinine 6.8 mg/dL (0.55-1.02) H 10/29/16 05:15 Creat Clearance w eGFR 5.77 (>60) 10/29/16 05:15 Calcium 7.7 mg/dL (8.5-10.1) L 10/29/16 05:15 Total Bilirubin 0.4 mg/dL (0.2-1.0) 10/29/16 05:15 AST 16 U/L (15-37) 10/29/16 05:15 ALT 20 U/L (12-78) 10/29/16 05:15 Alkaline Phosphatase 99 U/L (45-117) 10/29/16 05:15 Total Protein 5.3 g/dl (6.4-8.2) L 10/29/16 05:15 Albumin 1.8 g/dl (3.4-5.0) L 10/29/16 05:15 Intake & Output 10/26/16 10/27/16 10/28/16 10/29/16 23:59 23:59 23:59 23:59 Intake Total 250 7518 3334.4 1128 Output Total 600 1950 1950 500 Balance -350 5568 1384.4 628 Weight 52.163 kg 46 kg 48.1 kg 46.72 kg Active Medications Generic Name Dose Route Start Last Admin Trade Name Freq PRN Reason Stop Dose Admin Dopamine HCl/Dextrose 250 mls @ 3.912 mls/hr 10/26/16 21:15 10/29/16 11:06 Dopamine 400 Mg/D5w - IVPB 7 mcg/kg/min TITR TAYE Titration Protocol 2 MCG/KG/MIN Vasopressin 50 units/ Sodium 100 mls @ 6 mls/hr 10/27/16 03:16 10/29/16 07:01 Chloride IVPB Not Given ASDIR TAYE 3 UNITS/HR Pantoprazole Sodium 100 mls @ 200 mls/hr 10/28/16 10:00 10/29/16 12:08 Protonix 40mg Ivpb (Pre-Docked) IVPB 200 mls/hr DAILY TAYE Administration Metronidazole 100 mls @ 100 mls/hr 10/27/16 15:15 10/29/16 10:53 Flagyl 500mg Premixed Ivpb - IVPB 100 mls/hr Q8H-IV TAYE Administration Sodium Bicarbonate 100 meq/ 1,100 mls @ 83 mls/hr 10/28/16 14:45 10/29/16 07:01 Dextrose IV 83 mls/hr Q13H TAYE Administration Insulin Aspart 1 vial 10/29/16 16:30 Novolog Vial Sliding Scale - SQ BIDAC [facility] Protocol Piperacillin Sod/Tazobactam Sod 2.25 gm 10/26/16 18:00 10/29/16 09:47 Zosyn 2.25gm Ivpb (Pre-Docked) IVPB 2.25 gm Q8H-IV TAYE Administration Vancomycin HCl 125 mg 10/28/16 15:00 10/29/16 12:07 Vancomycin Oral Solution PO Not Given Q6HPO [facility] Microbiology 10/26/16 10:08 Urine - Urine - Catheterized Urine Culture - Preliminary Providencia Stuartii Imaging CXR of hip 10/27: Osteomyelitits not mentioned in report CXR on 10/29: Congestive changes CXR on 10/28: No acute infiltrate CXR on 10/27: Since 10/26/2016, there is slight increase in central markings with prominent sclerotic knob, degenerative changes and prominent heart. Follow-up recommended. CT Abd and Pelvis on 10/26: Marked dilation of the rectum with rectal wall thickening up to 10 cm luminal distention with findings suspicious for stercoral colitis, no emphysematous change in the wall, perirectal fat infiltration Decubitus ulcer with subcutaneous emphysema and associated cellulitis with possible development of a small subcutaneous abscess up to 2 x 2 centimeters in the soft tissues posterior to the coccyx with suspicion of small area of cortical erosion raising suspicion for associated osteomyelitis at the level of the coccyx CT head on 10/26: Generalized volume loss with moderate ventricular dilatation and chronic microvascular ischemic changes. No gross acute intracranial pathology is identified. Correlate clinically to determine further evaluation and follow-up. ASSESSMENT/PLAN: 86 yo F h/o CKD, dementia and hypothyroidism admitted to the ICU for DALJIT on CKD and severe sepsis. 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 to improve with good urine output overnight - Acidosis improving - Cont. toribio, monitor I/O - Dose all meds renally ID: Severe sepsis 2/2 UTI - WBC remains same, afrebile, lactic acid normal - Urine culture grew Providencia sturatii sensitive to zosyn - Stage 1 and stage 4 decub ulcers * wound care * no surgical intervention per surgery - On flagyl day 3 and zosyn day 4 - Started vanco oral solution to day 2 Cardiac: hypotension - Taper pressors to maintain MAP > 65% Heme: Normacytic anemia, chronic in the setting of CKD - 2/2 CKD - HGB at baseline - Cont. monitor, transfuse if HGB < 7 Endo: Hypothyroidism - Cont. synthroid FEN - D5 + bicarb - slight hypokalemia, hypernatremia, replete as needed and cont. to hydrate and monitor - Puree with magic cup Prophylaxis - DVT: Heparin held - GI: PPI gtt Disposition - cont. to monitor in ICU Code status - Full code Visit type - Emergency Visit Emergency Visit: No - New Patient This patient is new to me today: No - Critical Care Critical Care patient: Yes Total Critical Care Time (in minutes): 35 Critical Care Statement: The care of this patient involved high complexity decision making to prevent further life threatening deterioration of the patient 's condition and/or to evalute & treat vital organ system(s) failure or risk of failure.
--- NOTE | 2016-10-29 15:29 | PN ---
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, Physician History of Present Illness: patient stable no new issues blood pressure still labile - Current Medication List Current Medications: Active Medications Dopamine HCl/Dextrose (Dopamine 400 Mg/D5w -) 250 mls @ 3.912 mls/hr IVPB TITR TAYE; 2 MCG/KG/MIN PRN Reason: Protocol Last Titration: 10/29/16 15:09 Dose: 9 mcg/kg/min Vasopressin 50 units/ Sodium (Chloride) 100 mls @ 6 mls/hr IVPB ASDIR TAYE PRN Reason: 3 UNITS/HR Last Admin: 10/29/16 07:01 Dose: Not Given Pantoprazole Sodium (Protonix 40mg Ivpb (Pre-Docked)) 100 mls @ 200 mls/hr IVPB DAILY TAYE Last Admin: 10/29/16 12:08 Dose: 200 mls/hr Metronidazole (Flagyl 500mg Premixed Ivpb -) 100 mls @ 100 mls/hr IVPB Q8H-IV TAYE Last Admin: 10/29/16 10:53 Dose: 100 mls/hr Sodium Bicarbonate 100 meq/ (Dextrose) 1,100 mls @ 83 mls/hr IV Q13H TAYE Last Admin: 10/29/16 07:01 Dose: 83 mls/hr Insulin Aspart (Novolog Vial Sliding Scale -) 1 vial SQ BIDAC TAYE PRN Reason: Protocol Piperacillin Sod/Tazobactam Sod (Zosyn 2.25gm Ivpb (Pre-Docked)) 2.25 gm IVPB Q8H-IV TAYE Last Admin: 10/29/16 09:47 Dose: 2.25 gm Vancomycin HCl (Vancomycin Oral Solution) 125 mg PO Q6HPO [facility] Last Admin: 10/29/16 12:07 Dose: Not Given - Objective Vital Signs: Vital Signs Temperature 97.6 F 10/29/16 14:15 Pulse Rate 72 10/29/16 15:14 Respiratory Rate 14 10/29/16 15:14 Blood Pressure 94/45 10/29/16 15:14 O2 Sat by Pulse Oximetry (%) 95 10/29/16 09:00 Constitutional: Yes: No Distress, Calm Respiratory: Yes: Regular, Poor Air Entry, Rhonchi Gastrointestinal: Yes: Soft Musculoskeletal: Yes: Other Integumentary: Yes: WNL Neurological: Yes: Confusion, Lethargy, Other Psychiatric: Yes: Other Labs: CBC, BMP 03/08/17 05:15 10/29/16 05:15 INR, PTT INR 1.12 (0.82-1.09) 10/26/16 21:00 Assessment/Plan Problem List - Problems (1) Acute hyperkalemia Code(s): E87.5 - HYPERKALEMIA (2) Acute renal failure Code(s): N17.9 - ACUTE KIDNEY FAILURE, UNSPECIFIED Qualifiers: Acute renal failure type: unspecified Qualified Code(s): N17.9 - Acute kidney failure, unspecified (3) UTI (urinary tract infection) Code(s): N39.0 - URINARY TRACT INFECTION, SITE NOT SPECIFIED Qualifiers: Urinary tract infection type: site unspecified Hematuria presence: without hematuria Qualified Code(s): N39.0 - Urinary tract infection, site not specified (4) Alzheimer's dementia Code(s): G30.9 - ALZHEIMER'S DISEASE, UNSPECIFIED Qualifiers: Alzheimer's disease onset: unspecified onset Dementia behavioral disturbance: without behavioral disturbance Qualified Code(s): G30.9 - Alzheimer's disease, unspecified; F02.80 - Dementia in other diseases classified elsewhere without behavioral disturbance leukocytosis colitis lactic acidosis sepsis wbc trending down no gross changes patient only on dopamine now plan continue hydration as per renal continue current abx urine clearing up close monitoring pressors as required vanco orally cc time 40 min
[2016-10-29] MEDS: INSULIN SLIDING SCALE (NOVOLOG) 1 VIAL SQ SCH (17:27)
--- NOTE | 2016-10-29 19:34 | PN ---
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, Physician History of Present Illness: Pt seen and examined at bedside. She remains in the ICU. She remains lethargic. - Current Medication List Current Medications: Active Medications Dopamine HCl/Dextrose (Dopamine 400 Mg/D5w -) 250 mls @ 3.912 mls/hr IVPB TITR TAYE; 2 MCG/KG/MIN PRN Reason: Protocol Last Admin: 10/29/16 18:08 Dose: 17.605 mls/hr Vasopressin 50 units/ Sodium (Chloride) 100 mls @ 6 mls/hr IVPB ASDIR TAYE PRN Reason: 3 UNITS/HR Last Admin: 10/29/16 07:01 Dose: Not Given Pantoprazole Sodium (Protonix 40mg Ivpb (Pre-Docked)) 100 mls @ 200 mls/hr IVPB DAILY TAYE Last Admin: 10/29/16 12:08 Dose: 200 mls/hr Metronidazole (Flagyl 500mg Premixed Ivpb -) 100 mls @ 100 mls/hr IVPB Q8H-IV TAYE Last Admin: 10/29/16 17:16 Dose: 100 mls/hr Sodium Bicarbonate 100 meq/ (Dextrose) 1,100 mls @ 83 mls/hr IV Q13H TAYE Last Admin: 10/29/16 18:07 Dose: 83 mls/hr Insulin Aspart (Novolog Vial Sliding Scale -) 1 vial SQ BIDAC TAYE PRN Reason: Protocol Last Admin: 10/29/16 17:27 Dose: 2 units Piperacillin Sod/Tazobactam Sod (Zosyn 2.25gm Ivpb (Pre-Docked)) 2.25 gm IVPB Q8H-IV TAYE Last Admin: 10/29/16 17:16 Dose: 2.25 gm Vancomycin HCl (Vancomycin Oral Solution) 125 mg PO Q6HPO TAYE Last Admin: 10/29/16 17:11 Dose: Not Given - Objective Vital Signs: Vital Signs Temperature 97.6 F 10/29/16 14:15 Pulse Rate 65 10/29/16 18:08 Respiratory Rate 14 10/29/16 15:14 Blood Pressure 103/56 10/29/16 18:08 O2 Sat by Pulse Oximetry (%) 95 10/29/16 09:00 Constitutional: Yes: Calm Eyes: Yes: Conjunctiva Clear HENT: Yes: Atraumatic Neck: Yes: Supple Cardiovascular: Yes: S1, S2 Respiratory: Yes: On Nasal O2 Gastrointestinal: Yes: Soft Genitourinary: Yes: Mccrary Present Musculoskeletal: Yes: Muscle Weakness, Other (contracted) Edema: No Neurological: Yes: Pre-Existing Deficit Labs: CBC, BMP 10/29/16 05:15 10/29/16 05:15 INR, PTT INR 1.12 (0.82-1.09) 10/26/16 21:00 - ....Imaging Chest X-ray: Report Reviewed Problem List - Problems (1) Acute hyperkalemia Code(s): E87.5 - HYPERKALEMIA (2) Acute renal failure Code(s): N17.9 - ACUTE KIDNEY FAILURE, UNSPECIFIED Qualifiers: Acute renal failure type: unspecified Qualified Code(s): N17.9 - Acute kidney failure, unspecified (3) UTI (urinary tract infection) Code(s): N39.0 - URINARY TRACT INFECTION, SITE NOT SPECIFIED Qualifiers: Urinary tract infection type: site unspecified Hematuria presence: without hematuria Qualified Code(s): N39.0 - Urinary tract infection, site not specified (4) Alzheimer's dementia Code(s): G30.9 - ALZHEIMER'S DISEASE, UNSPECIFIED Qualifiers: Alzheimer's disease onset: unspecified onset Dementia behavioral disturbance: without behavioral disturbance Qualified Code(s): G30.9 - Alzheimer's disease, unspecified; F02.80 - Dementia in other diseases classified elsewhere without behavioral disturbance Assessment/Plan Current Medications Generic Name Dose Route Start Last Admin Trade Name Freq PRN Reason Stop Dose Admin Dopamine HCl/Dextrose 250 mls @ 3.912 mls/hr 10/26/16 21:15 10/29/16 18:08 Dopamine 400 Mg/D5w - IVPB 17.605 mls/hr TITR TAYE Administration Protocol 2 MCG/KG/MIN Vasopressin 50 units/ Sodium 100 mls @ 6 mls/hr 10/27/16 03:16 10/29/16 07:01 Chloride IVPB Not Given ASDIR TAYE 3 UNITS/HR Pantoprazole Sodium 100 mls @ 200 mls/hr 10/28/16 10:00 10/29/16 12:08 Protonix 40mg Ivpb (Pre-Docked) IVPB 200 mls/hr DAILY TAYE Administration Metronidazole 100 mls @ 100 mls/hr 10/27/16 15:15 10/29/16 17:16 Flagyl 500mg Premixed Ivpb - IVPB 100 mls/hr Q8H-IV TAYE Administration Sodium Bicarbonate 100 meq/ 1,100 mls @ 83 mls/hr 10/28/16 14:45 10/29/16 18:07 Dextrose IV 83 mls/hr Q13H TAYE Administration Insulin Aspart 1 vial 10/29/16 16:30 10/29/16 17:27 Novolog Vial Sliding Scale - SQ 2 units BIDAC TAYE Administration Protocol Piperacillin Sod/Tazobactam Sod 2.25 gm 10/26/16 18:00 10/29/16 17:16 Zosyn 2.25gm Ivpb (Pre-Docked) IVPB 2.25 gm Q8H-IV TAYE Administration Vancomycin HCl 125 mg 10/28/16 15:00 10/29/16 17:11 Vancomycin Oral Solution PO Not Given Q6HPO TAYE chart reviewed labs reviewed meds reviewed Impression 1. DALJIT 2. hx CKD 3. metabolic acidosis 4. hyperkalemia 5. dementia 6. sepsis 7. UTI 8. hypernatremia Plan - will decrease rate of fluids - will decrease amount of bicarb in fluids - pressor requirements are improved - renal function is improved - cont to monitor bloodwork - monitor in ICU - prognosis guarded - speech and swallow eval - will follow Dr Greene
[2016-10-29] MEDS ORDERED: POTASSIUM CHLORIDE TABS 10 MEQ TABLET.ER (FP) PO ONE (20:00)
[2016-10-29] MEDS: DEXTROSE 5%-WATER - 1,000 ML with SODIUM BICARBONATE 8.4% - 75 MEQ IV SCH (21:32)
[2016-10-30] MEDS: PIPERACILLIN/TAZOB 2.25 GM/50 ML PRE-DOCKED BAG IVPB SCH ×3 (02:00→17:30)
[2016-10-30] MEDS: METRONIDAZOLE 500 MG PREMIXED 100 ML IVPB SCH ×3 (02:00→17:31)
[2016-10-30 06:20] LABS: BASOPHIL 0.2 % (0-2.0); EOSINOPHIL 1.3 % (0-4.5); MCH 28.6 pg (25.7-33.7); MCHC 32.7 g/dl (32.0-36.0); MEAN CELL VOLUME 87.5 fl (80-96); NEUTROPHILS 88.1 % (42.8-82.8); PLATELET COUNT 294 K/MM3 (134-434); WHITE BLOOD COUNT 19.9 K/mm3 (4.0-10.0)
[2016-10-30] MEDS: VANCOMYCIN 250 MG/5 ML ORAL SOLUTION PO SCH ×4 (06:42→17:38)
[2016-10-30] MEDS: VASOPRESSIN 50 UNITS in SODIUM CHLORIDE 97.5 ML IVPB SCH (06:45)
[2016-10-30] MEDS: INSULIN SLIDING SCALE (NOVOLOG) 1 VIAL SQ SCH ×2 (06:45→18:01)
[2016-10-30 06:46] LABS: ALBUMIN 1.7 g/dl (3.4-5.0); BILIRUBIN,TOTAL 0.6 mg/dL (0.2-1.0); CALCIUM 7.5 mg/dL (8.5-10.1); CREATININE 6.1 mg/dL (0.55-1.02); MAGNESIUM 2.1 mg/dL (1.8-2.4); PHOSPHOROUS 3.8 mg/dL (2.5-4.9); TOT PROT 5.2 g/dl (6.4-8.2)
[2016-10-30 07:29] LABS: ARTERIAL BLD GAS O2 SATURATION 99.3 % (90-98.9); ARTERIAL BLOOD GAS BASE EXCESS -2.5 meq/l (-2-2); ARTERIAL BLOOD GAS HCO3 20.4 meq/L (22-26); ARTERIAL BLOOD GAS pH 7.44 (7.35-7.45)
[2016-10-30 07:30] LABS: ALLENS TEST POSITIVE; ART PUNCT SITE RIGHT RADIAL; LPM/O2% 3 LPM; PT. ON O2? YES; TYPE OF O2 NASAL CANNULA
[2016-10-30] MEDS ORDERED: POTASSIUM CHLORIDE 20 MEQ PREMIX IVPB 100 ML IVPB ONE (07:57)
[2016-10-30] MEDS ORDERED: POTASSIUM ACETATE IVPB ONE (07:59)
[2016-10-30] MEDS ORDERED: DEXTROSE 5% IVPB ONE (07:59)
[2016-10-30] MEDS ORDERED: WATER IVPB ONE (07:59)
[2016-10-30] MEDS: DOPAMINE 400 MG/D5W - 250 ML IVPB SCH (08:00)
--- NOTE | 2016-10-30 08:56 | PN ---
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 (short form) - Note 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: CBC, BMP 10/30/16 05:20 10/30/16 05:20 Intake & Output 10/27/16 10/28/16 10/29/16 10/30/16 23:59 23:59 23:59 23:59 Intake Total 7518 3334.4 2561 1141 Output Total 1950 1950 800 Balance 5568 1384.4 1761 1141 Weight 101 lb 6.602 oz 106 lb 0.677 oz 103 lb 98 lb Vital Signs Period Temp Pulse Resp BP Sys/Correia Pulse Ox Last 24 Hr 95.3 F-97.6 F 60-115 11-78 70-144/35-78 95-100 S1S2 RRR lungs cta ant abd soft NT urine clearer, toribio in place rectal tube dark liquid stool not responsive to stimuli other than grimacing ++ pedal edema IMP sepsis/hypotension-still on dopamine, higher dose than yesterday UTI C.diff possible sacral osteomyelitis acute renal failure due to dehydration slowly resolving chronic anemia advanced dementia Plan still on dopamine TLC? fluids abx supportive care keep NPO for now with mentation GI/DVT prophylaxis Did talk to daughter Stephie this am, Mrs Pool overall is not improving, in fact on higher dose of dopamine and overall has a poor prognosis. She is not ready to sign DNR, and also does not want palliative care yet-has had a very bad experience with her father dying on hospice. Will come in today to spend time with her and think over the goals of care. Problem List - Problems (1) Acute hyperkalemia Code(s): E87.5 - HYPERKALEMIA (2) Acute renal failure Code(s): N17.9 - ACUTE KIDNEY FAILURE, UNSPECIFIED Qualifiers: Acute renal failure type: unspecified Qualified Code(s): N17.9 - Acute kidney failure, unspecified (3) Diarrhea Code(s): R19.7 - DIARRHEA, UNSPECIFIED Qualifiers: Diarrhea type: unspecified type Qualified Code(s): R19.7 - Diarrhea , unspecified (4) Sepsis syndrome Code(s): [id number] - (5) UTI (urinary tract infection) Code(s): N39.0 - URINARY TRACT INFECTION, SITE NOT SPECIFIED Qualifiers: Urinary tract infection type: site unspecified Hematuria presence: without hematuria Qualified Code(s): N39.0 - Urinary tract infection, site not specified (6) Alzheimer's dementia Code(s): G30.9 - ALZHEIMER'S DISEASE, UNSPECIFIED Qualifiers: Alzheimer's disease onset: unspecified onset Dementia behavioral disturbance: without behavioral disturbance Qualified Code(s): G30.9 - Alzheimer's disease, unspecified; F02.80 - Dementia in other diseases classified elsewhere without behavioral disturbance (7) Hypotension Code(s): I95.9 - HYPOTENSION, UNSPECIFIED Qualifiers: Hypotension type: other hypotension type Qualified Code(s): I95.89 - Other hypotension
[2016-10-30] MEDS: PANTOPRAZOLE SODIUM 100 ML IVPB SCH (10:09)
[2016-10-30] MEDS ORDERED: POTASSIUM CHLORIDE IVPB SCH (11:15)
[2016-10-30] MEDS ORDERED: SODIUM CHLORIDE 0.45%/POT 1,000 ML IV SCH (11:15)
[2016-10-30] MEDS ORDERED: [UNRECOGNIZED DRUG - OTHER] IVPB SCH (11:15)
[2016-10-30] MEDS ORDERED: SODIUM CHLORIDE IVPB SCH (11:15)
[2016-10-30] MEDS ORDERED: D5-NS + 40 MEQ KCL - 1,000 ML IV SCH (11:30)
--- NOTE | 2016-10-30 11:54 | PN ---
Teaching Attending Note Name of Resident: Celestino Zhu ATTENDING PHYSICIAN STATEMENT I saw and evaluated the patient. I reviewed the resident's note and discussed the case with the resident. I agree with the resident's findings and plan as documented. SUBJECTIVE: Pt seen and examined in the ICU. Lethargic. Remains on dopamine gtt. OBJECTIVE: Last Vital Signs Temp Pulse Resp BP Pulse Ox 96.8 F L 82 11 L 77/35 100 10/30/16 07:00 10/30/16 11:05 10/30/16 08:36 10/30/16 08:00 10/30/16 11:05 Intake & Output 10/27/16 10/28/16 10/29/16 10/30/16 23:59 23:59 23:59 23:59 Intake Total 7518 3334.4 2561 1141 Output Total 1950 1950 800 Balance 5568 1384.4 1761 1141 Weight 101 lb 6.602 oz 106 lb 0.677 oz 103 lb 98 lb Gen: lethargic, breathing nonlabored Heart: RRR Lung: decreased breath sounds at the bases Abd: soft, nontender Ext: + edema CBC, BMP 10/30/16 05:20 10/30/16 05:20 Active Medications Dopamine HCl/Dextrose (Dopamine 400 Mg/D5w -) 250 mls @ 3.912 mls/hr IVPB TITR TAYE; 2 MCG/KG/MIN PRN Reason: Protocol Last Admin: 10/30/16 08:00 Dose: 23.473 mls/hr Pantoprazole Sodium (Protonix 40mg Ivpb (Pre-Docked)) 100 mls @ 200 mls/hr IVPB DAILY TAYE Last Admin: 10/30/16 10:09 Dose: 200 mls/hr Metronidazole (Flagyl 500mg Premixed Ivpb -) 100 mls @ 100 mls/hr IVPB Q8H-IV TAYE Last Admin: 10/30/16 10:10 Dose: 100 mls/hr Potassium Chloride (Potassium Chloride 10 Meq Premix Ivpb -) 100 mls @ 100 mls/ hr IVPB Q60M TAYE Stop: 10/30/16 14:29 Dextrose/Sodium Chloride (Dextrose 5%-Normal Saline+40 Meq Kcl -) 1,000 mls @ 75 mls/hr IV ASDIR TAYE Insulin Aspart (Novolog Vial Sliding Scale -) 1 vial SQ BIDAC TAYE PRN Reason: Protocol Last Admin: 10/30/16 06:45 Dose: Not Given Piperacillin Sod/Tazobactam Sod (Zosyn 2.25gm Ivpb (Pre-Docked)) 2.25 gm IVPB Q8H-IV [facility] Last Admin: 10/30/16 10:09 Dose: 2.25 gm Vancomycin HCl (Vancomycin Oral Solution) 125 mg PO Q6HPO [facility] Last Admin: 10/30/16 06:42 Dose: Not Given ASSESSMENT AND PLAN: UTI Septic Shock Hypernatremia/Dehydration Acute on Chronic Renal Failure Hyperkalemia Lactic Acidosis Hypothyroidism - continue antibiotics - change IVF to 1/2NS with 40mEq KCl - monitor urine output, creatinine - taper pressors to maintain MAP >65 - aspiration precautions - replete lytes - PO as tolerated - DVT/GI prophylaxis - family to discuss advanced directives and goals of care - continue ICU monitoring for now
--- NOTE | 2016-10-30 11:56 | PN ---
Physical Exam: SUBJECTIVE: Patient seen and examined at bedside in the ICU. She's unarousable, not responsive to pain stimuli, very lethargic. Per nurse, dopamine had to be titrated up into the 20s to maintain her BP. However, no fever, chills, or any cardiopulm. distress. OBJECTIVE: On Dopamine 15 mcg Vital Signs Period Temp Pulse Resp BP Sys/Correia Pulse Ox Last 24 Hr 96.7 F-97.6 F 65-115 11-17 72-144/35-78 100-100 GENERAL: non-verbal, sleeping, not arousable LUNGS: Decreased breath sounds HEART: RRR normal S1, S2 without murmur, rub or gallop. EXTREMITIES: no edema CBCD WBC 19.9 K/mm3 (4.0-10.0) H 10/30/16 05:20 RBC 3.35 M/mm3 (3.60-5.2) L 10/30/16 05:20 Hgb 9.6 GM/dL (10.7-15.3) L D 10/30/16 05:20 Hct 29.3 % (32.4-45.2) L 10/30/16 05:20 MCV 87.5 fl (80-96) 10/30/16 05:20 MCHC 32.7 g/dl (32.0-36.0) 10/30/16 05:20 RDW 16.0 % (11.6-15.6) H 10/30/16 05:20 Plt Count 294 K/MM3 (134-434) 10/30/16 05:20 MPV 7.0 fl (7.5-11.1) L 10/30/16 05:20 CMP Sodium 144 mmol/L (136-145) 10/30/16 05:20 Potassium 2.9 mmol/L (3.5-5.1) L* 10/30/16 05:20 Chloride 108 mmol/L (98-107) H 10/30/16 05:20 Carbon Dioxide 22 mmol/L (21-32) D 10/30/16 05:20 Anion Gap 14 (8-16) 10/30/16 05:20 BUN 102 mg/dL (7-18) H 10/30/16 05:20 Creatinine 6.1 mg/dL (0.55-1.02) H 10/30/16 05:20 Creat Clearance w eGFR 6.54 (>60) 10/30/16 05:20 Calcium 7.5 mg/dL (8.5-10.1) L 10/30/16 05:20 Total Bilirubin 0.6 mg/dL (0.2-1.0) D 10/30/16 05:20 AST 17 U/L (15-37) 10/30/16 05:20 ALT 19 U/L (12-78) 10/30/16 05:20 Alkaline Phosphatase 99 U/L (45-117) 10/30/16 05:20 Total Protein 5.2 g/dl (6.4-8.2) L 10/30/16 05:20 Albumin 1.7 g/dl (3.4-5.0) L 10/30/16 05:20 Intake & Output 10/27/16 10/28/16 10/29/16 10/30/16 23:59 23:59 23:59 23:59 Intake Total 7518 3334.4 2561 1141 Output Total 1950 1950 800 Balance 5568 1384.4 1761 1141 Weight 46 kg 48.1 kg 46.72 kg 44.452 kg ABG Results ABG pH 7.44 (7.35-7.45) 10/30/16 07:20 ABG pCO2 at Pt Temp 30.2 mmHg (35-45) L 10/30/16 07:20 ABG pO2 at Pt Temp 152.0 mmHg (68-100) H* 10/30/16 07:20 ABG HCO3 20.4 meq/L (22-26) L 10/30/16 07:20 ABG O2 Sat (Measured) 99.3 % (90-98.9) H 10/30/16 07:20 ABG O2 Content 14.7 % vol (15-22) L 10/30/16 07:20 ABG Base Excess -2.5 meq/l (-2-2) L 10/30/16 07:20 Active Medications Generic Name Dose Route Start Last Admin Trade Name Freq PRN Reason Stop Dose Admin Dopamine HCl/Dextrose 250 mls @ 3.912 mls/hr 10/26/16 21:15 10/30/16 08:00 Dopamine 400 Mg/D5w - IVPB 23.473 mls/hr TITR TAYE Administration Protocol 2 MCG/KG/MIN Pantoprazole Sodium 100 mls @ 200 mls/hr 10/28/16 10:00 10/30/16 10:09 Protonix 40mg Ivpb (Pre-Docked) IVPB 200 mls/hr DAILY TAYE Administration Metronidazole 100 mls @ 100 mls/hr 10/27/16 15:15 10/30/16 10:10 Flagyl 500mg Premixed Ivpb - IVPB 100 mls/hr Q8H-IV TAYE Administration Potassium Chloride 100 mls @ 100 mls/hr 10/30/16 11:30 Potassium Chloride 10 Meq Premix Ivpb - IVPB 10/30/16 14:29 Q60M TAYE Dextrose/Sodium Chloride 1,000 mls @ 75 mls/hr 10/30/16 11:30 Dextrose 5%-Normal Saline+40 Meq Kcl - IV ASDIR TAYE Insulin Aspart 1 vial 10/29/16 16:30 10/30/16 06:45 Novolog Vial Sliding Scale - SQ Not Given BIDAC [facility] Protocol Piperacillin Sod/Tazobactam Sod 2.25 gm 10/26/16 18:00 10/30/16 10:09 Zosyn 2.25gm Ivpb (Pre-Docked) IVPB 2.25 gm Q8H-IV TAYE Administration Vancomycin HCl 125 mg 10/28/16 15:00 10/30/16 06:42 Vancomycin Oral Solution PO Not Given Q6HPO TAYE ASSESSMENT/PLAN: 86 yo F h/o CKD, dementia and hypothyroidism admitted to the ICU for DALJIT on CKD and severe sepsis. 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 improved marginally - Slight alkalemia per ABG * will d/c Na bicarb - Cont. toribio, monitor I/O - Dose all meds renally ID: Severe sepsis 2/2 UTI - WBC remains same, afrebile - Urine culture grew Providencia sturatii sensitive to zosyn - Stage 1 and stage 4 decub ulcers * wound care * no surgical intervention per surgery - On flagyl day 4 and zosyn day 5 - Started vanco oral solution to day 3 Cardiac: hypotension - Taper pressors to maintain MAP > 65% Heme: Normacytic anemia, chronic in the setting of CKD - 2/2 CKD - HGB at baseline - Cont. monitor, transfuse if HGB < 7 Endo: Hypothyroidism - Cont. synthroid FEN - D5 + NS @ 75ml/hr - Hypokalemia, replete with 3 runs of KCl and 40 mEq KCl added to fluid - NPO for now Prophylaxis - DVT: Heparin held - GI: PPI gtt Disposition - Dr. Reich talked to pt's daughter and family still wants to cont. supportive care and not ready to sign DNR - Cont. to monitor in ICU Visit type - Emergency Visit Emergency Visit: No - New Patient This patient is new to me today: No - Critical Care Critical Care patient: Yes Total Critical Care Time (in minutes): 35 Critical Care Statement: The care of this patient involved high complexity decision making to prevent further life threatening deterioration of the patient 's condition and/or to evalute & treat vital organ system(s) failure or risk of failure.
[2016-10-30] MEDS: KCL 10 MEQ IVPB 100 ML IVPB SCH ×3 (13:41→16:28)
[2016-10-30] MEDS ORDERED: D5-1/2NS+40 MEQ KCL - 1,000 ML IV SCH (14:00)
[2016-10-30] MEDS: D5-1/2NS+20 MEQ KCL - 1,000 ML IV SCH (14:00)
--- NOTE | 2016-10-30 15:38 | PN ---
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, Physician History of Present Illness: Pt seen and examined at bedside. She remains lethargic. - Current Medication List Current Medications: Active Medications Dopamine HCl/Dextrose (Dopamine 400 Mg/D5w -) 250 mls @ 3.912 mls/hr IVPB TITR TAYE; 2 MCG/KG/MIN PRN Reason: Protocol Last Admin: 10/30/16 08:00 Dose: 23.473 mls/hr Pantoprazole Sodium (Protonix 40mg Ivpb (Pre-Docked)) 100 mls @ 200 mls/hr IVPB DAILY TAYE Last Admin: 10/30/16 10:09 Dose: 200 mls/hr Metronidazole (Flagyl 500mg Premixed Ivpb -) 100 mls @ 100 mls/hr IVPB Q8H-IV TAYE Last Admin: 10/30/16 10:10 Dose: 100 mls/hr Potassium Chloride/Dextrose/Sod Cl (D5-1/2ns+20 Meq Kcl -) 1,000 mls @ 75 mls/ hr IV ASDIR TAYE Insulin Aspart (Novolog Vial Sliding Scale -) 1 vial SQ BIDAC TAYE PRN Reason: Protocol Last Admin: 10/30/16 06:45 Dose: Not Given Piperacillin Sod/Tazobactam Sod (Zosyn 2.25gm Ivpb (Pre-Docked)) 2.25 gm IVPB Q8H-IV TAYE Last Admin: 10/30/16 10:09 Dose: 2.25 gm Vancomycin HCl (Vancomycin Oral Solution) 125 mg PO Q6HPO TAYE Last Admin: 10/30/16 06:42 Dose: Not Given - Objective Vital Signs: Vital Signs Temperature 98.7 F 10/30/16 13:00 Pulse Rate 72 10/30/16 13:00 Respiratory Rate 16 10/30/16 13:00 Blood Pressure 65/35 10/30/16 13:00 O2 Sat by Pulse Oximetry (%) 100 10/30/16 11:05 Constitutional: Yes: Calm Eyes: Yes: Conjunctiva Clear HENT: Yes: Atraumatic Neck: Yes: Supple Cardiovascular: Yes: S1, S2 Respiratory: Yes: On Nasal O2 Gastrointestinal: Yes: Soft Genitourinary: Yes: WNL Musculoskeletal: Yes: Other (contracted) Edema: No Neurological: Yes: Lethargy Labs: CBC, BMP 10/30/16 05:20 10/30/16 05:20 INR, PTT INR 1.12 (0.82-1.09) 10/26/16 21:00 Problem List - Problems (1) Acute hyperkalemia Code(s): E87.5 - HYPERKALEMIA (2) Acute renal failure Code(s): N17.9 - ACUTE KIDNEY FAILURE, UNSPECIFIED Qualifiers: Acute renal failure type: unspecified Qualified Code(s): N17.9 - Acute kidney failure, unspecified (3) UTI (urinary tract infection) Code(s): N39.0 - URINARY TRACT INFECTION, SITE NOT SPECIFIED Qualifiers: Urinary tract infection type: site unspecified Hematuria presence: without hematuria Qualified Code(s): N39.0 - Urinary tract infection, site not specified (4) Alzheimer's dementia Code(s): G30.9 - ALZHEIMER'S DISEASE, UNSPECIFIED Qualifiers: Alzheimer's disease onset: unspecified onset Dementia behavioral disturbance: without behavioral disturbance Qualified Code(s): G30.9 - Alzheimer's disease, unspecified; F02.80 - Dementia in other diseases classified elsewhere without behavioral disturbance Assessment/Plan Current Medications Generic Name Dose Route Start Last Admin Trade Name Freq PRN Reason Stop Dose Admin Dopamine HCl/Dextrose 250 mls @ 3.912 mls/hr 10/26/16 21:15 10/30/16 08:00 Dopamine 400 Mg/D5w - IVPB 23.473 mls/hr TITR TAYE Administration Protocol 2 MCG/KG/MIN Pantoprazole Sodium 100 mls @ 200 mls/hr 10/28/16 10:00 10/30/16 10:09 Protonix 40mg Ivpb (Pre-Docked) IVPB 200 mls/hr DAILY TAYE Administration Metronidazole 100 mls @ 100 mls/hr 10/27/16 15:15 10/30/16 10:10 Flagyl 500mg Premixed Ivpb - IVPB 100 mls/hr Q8H-IV TAYE Administration Potassium Chloride/Dextrose/Sod Cl 1,000 mls @ 75 mls/hr 10/30/16 14:00 D5-1/2ns+20 Meq Kcl - IV ASDIR TAYE Insulin Aspart 1 vial 10/29/16 16:30 10/30/16 06:45 Novolog Vial Sliding Scale - SQ Not Given BIDAC TAYE Protocol Piperacillin Sod/Tazobactam Sod 2.25 gm 03/05/17 18:00 10/30/16 10:09 Zosyn 2.25gm Ivpb (Pre-Docked) IVPB 2.25 gm Q8H-IV TAYE Administration Vancomycin HCl 125 mg 10/28/16 15:00 10/30/16 06:42 Vancomycin Oral Solution PO Not Given Q6HPO TAYE chart reviewed labs reviewed meds reviewed Impression 1. DALJIT 2. hx CKD 3. metabolic acidosis 4. hyperkalemia 5. dementia 6. sepsis 7. UTI 8. hypernatremia Plan - discussed with ICU team, fluids adjusted to 1/2ns - replace potassium - monitor lytes - renal function improving - wean off pressors as tolerated - monitor in ICU - prognosis guarded - will follow Dr Greene
--- NOTE | 2016-10-30 16:46 | PN ---
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, Physician History of Present Illness: patient stable no events continues to be on dopamine in low doses patient maintaining bp on the lower side - Current Medication List Current Medications: Active Medications Dopamine HCl/Dextrose (Dopamine 400 Mg/D5w -) 250 mls @ 3.912 mls/hr IVPB TITR TAYE; 2 MCG/KG/MIN PRN Reason: Protocol Last Admin: 10/30/16 08:00 Dose: 23.473 mls/hr Pantoprazole Sodium (Protonix 40mg Ivpb (Pre-Docked)) 100 mls @ 200 mls/hr IVPB DAILY [facility] Last Admin: 10/30/16 10:09 Dose: 200 mls/hr Metronidazole (Flagyl 500mg Premixed Ivpb -) 100 mls @ 100 mls/hr IVPB Q8H-IV [facility] Last Admin: 10/30/16 10:10 Dose: 100 mls/hr Potassium Chloride/Dextrose/Sod Cl (D5-1/2ns+20 Meq Kcl -) 1,000 mls @ 75 mls/ hr IV ASDIR [facility] Last Admin: 10/30/16 14:00 Dose: 75 mls/hr Insulin Aspart (Novolog Vial Sliding Scale -) 1 vial SQ BIDAC TAYE PRN Reason: Protocol Last Admin: 10/30/16 06:45 Dose: Not Given Piperacillin Sod/Tazobactam Sod (Zosyn 2.25gm Ivpb (Pre-Docked)) 2.25 gm IVPB Q8H-IV TAYE Last Admin: 10/30/16 10:09 Dose: 2.25 gm Vancomycin HCl (Vancomycin Oral Solution) 125 mg PO Q6HPO [facility] Last Admin: 10/30/16 16:24 Dose: Not Given - Objective Vital Signs: Vital Signs Temperature 98.7 F 10/30/16 13:00 Pulse Rate 80 10/30/16 15:00 Respiratory Rate 16 10/30/16 15:00 Blood Pressure 86/48 10/30/16 15:00 O2 Sat by Pulse Oximetry (%) 100 10/30/16 11:05 Constitutional: Yes: No Distress, Calm Cardiovascular: Yes: Regular Rate and Rhythm Respiratory: Yes: Regular, Poor Air Entry Gastrointestinal: Yes: Normal Bowel Sounds, Soft Genitourinary: Yes: Mccrary Present, Other (urine still looking muddy) Musculoskeletal: Yes: Other Extremities: Yes: Other (contracted) Wound/Incision: Yes: Other (decubitus ulcer) Neurological: Yes: Alert, Other Labs: CBC, BMP 10/30/16 05:20 10/30/16 05:20 INR, PTT INR 1.12 (0.82-1.09) 10/26/16 21:00 - ....Imaging Chest X-ray: Report Reviewed, Image Reviewed Assessment/Plan Problem List - Problems (1) Acute hyperkalemia Code(s): E87.5 - HYPERKALEMIA (2) Acute renal failure Code(s): N17.9 - ACUTE KIDNEY FAILURE, UNSPECIFIED Qualifiers: Acute renal failure type: unspecified Qualified Code(s): N17.9 - Acute kidney failure, unspecified (3) UTI (urinary tract infection) Code(s): N39.0 - URINARY TRACT INFECTION, SITE NOT SPECIFIED Qualifiers: Urinary tract infection type: site unspecified Hematuria presence: without hematuria Qualified Code(s): N39.0 - Urinary tract infection, site not specified (4) Alzheimer's dementia Code(s): G30.9 - ALZHEIMER'S DISEASE, UNSPECIFIED Qualifiers: Alzheimer's disease onset: unspecified onset Dementia behavioral disturbance: without behavioral disturbance Qualified Code(s): G30.9 - Alzheimer's disease, unspecified; F02.80 - Dementia in other diseases classified elsewhere without behavioral disturbance leukocytosis colitis lactic acidosis sepsis wbc still on higher side creatinine trending down no gross changes patient still on dopamine dirrhoea has improved a lot plan continue hydration as per renal continue current abx creatinine trending down close monitoring pressors as required vanco orally cc time 40 min
[2016-10-30] MEDS ORDERED: PT OWN MED DRAWER 7, Y5N ONE (17:33)
[2016-10-30 18:29] LABS: CALCIUM 7.5 mg/dL (8.5-10.1); CREATININE 5.9 mg/dL (0.55-1.02)
[2016-10-31] MEDS: PIPERACILLIN/TAZOB 2.25 GM/50 ML PRE-DOCKED BAG IVPB SCH ×3 (02:09→17:12)
[2016-10-31] MEDS: METRONIDAZOLE 500 MG PREMIXED 100 ML IVPB SCH ×3 (02:10→17:00)
[2016-10-31] MEDS: DOPAMINE 400 MG/D5W - 250 ML IVPB SCH ×2 (02:11→22:00)
[2016-10-31 05:50] LABS: MCH 29.6 pg (25.7-33.7); MCHC 33.8 g/dl (32.0-36.0); MEAN CELL VOLUME 87.7 fl (80-96); PLATELET COUNT 274 K/MM3 (134-434); RDW 15.8 % (11.6-15.6)
[2016-10-31 06:15] LABS: ALBUMIN 1.8 g/dl (3.4-5.0); BILIRUBIN,TOTAL 0.7 mg/dL (0.2-1.0); CREATININE 5.6 mg/dL (0.55-1.02); TOT PROT 5.5 g/dl (6.4-8.2)
[2016-10-31] MEDS: VANCOMYCIN 250 MG/5 ML ORAL SOLUTION PO SCH ×4 (06:29→18:18)
[2016-10-31] MEDS: INSULIN SLIDING SCALE (NOVOLOG) 1 VIAL SQ SCH ×2 (06:29→17:00)
--- NOTE | 2016-10-31 08:44 | PN ---
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 (short form) - Note 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: CBC, BMP 10/31/16 05:00 10/31/16 05:00 Vital Signs Period Temp Pulse Resp BP Sys/Correia Pulse Ox Last 24 Hr 97.0 F-98.7 F 72-102 10-19 65-130/35-78 100-100 S1S2 RRR lungs basal rales abd soft NT urine clearing, toribio in place rectal tube continuous liquid stool not responsive to stimuli other than grimacing becoming edematous eyes closed chewing on her fingers contracted, stiff IMP sepsis/hypotension-still on dopamine, will continue to try to taper UTI C.diff possible sacral osteomyelitis acute renal failure due to dehydration slowly resolving chronic anemia advanced dementia Plan dopamine taper fluids abx supportive care feeding trials if mentation allows GI/DVT prophylaxis daughter is not ready to discuss further advanced care Problem List - Problems (1) Acute hyperkalemia Code(s): E87.5 - HYPERKALEMIA (2) Acute renal failure Code(s): N17.9 - ACUTE KIDNEY FAILURE, UNSPECIFIED Qualifiers: Acute renal failure type: unspecified Qualified Code(s): N17.9 - Acute kidney failure, unspecified (3) Diarrhea Code(s): R19.7 - DIARRHEA, UNSPECIFIED Qualifiers: Diarrhea type: unspecified type Qualified Code(s): R19.7 - Diarrhea , unspecified (4) Sepsis syndrome Code(s): [id number] - (5) UTI (urinary tract infection) Code(s): N39.0 - URINARY TRACT INFECTION, SITE NOT SPECIFIED Qualifiers: Urinary tract infection type: site unspecified Hematuria presence: without hematuria Qualified Code(s): N39.0 - Urinary tract infection, site not specified (6) Alzheimer's dementia Code(s): G30.9 - ALZHEIMER'S DISEASE, UNSPECIFIED Qualifiers: Alzheimer's disease onset: unspecified onset Dementia behavioral disturbance: without behavioral disturbance Qualified Code(s): G30.9 - Alzheimer's disease, unspecified; F02.80 - Dementia in other diseases classified elsewhere without behavioral disturbance (7) Hypotension Code(s): I95.9 - HYPOTENSION, UNSPECIFIED Qualifiers: Hypotension type: other hypotension type Qualified Code(s): I95.89 - Other hypotension
[2016-10-31] MEDS: PANTOPRAZOLE SODIUM 100 ML IVPB SCH (09:15)
--- NOTE | 2016-10-31 11:51 | PN ---
Teaching Attending Note Name of Resident: Celestino Zhu ATTENDING PHYSICIAN STATEMENT I saw and evaluated the patient. I reviewed the resident's note and discussed the case with the resident. I agree with the resident's findings and plan as documented. SUBJECTIVE: Patient seen and examined in the ICU. Lethargic and poorly arousable. Remains on dopamine drip. No acute events overnight. OBJECTIVE: Intake & Output 10/28/16 10/29/16 10/30/16 10/31/16 23:59 23:59 23:59 23:59 Intake Total 3334.4 2561 1961 150 Output Total 1174 977 7092 1250 Balance 1384.4 1761 -39 -1100 Weight 106 lb 0.677 oz 103 lb 98 lb 100 lb 12.02 oz Last Vital Signs Temp Pulse Resp BP Pulse Ox 97.5 F L 80 17 128/88 99 10/31/16 10:00 10/31/16 10:00 10/31/16 10:00 10/31/16 10:00 10/31/16 08:00 Active Medications Dopamine HCl/Dextrose (Dopamine 400 Mg/D5w -) 250 mls @ 3.912 mls/hr IVPB TITR TAYE; 2 MCG/KG/MIN PRN Reason: Protocol Last Titration: 10/31/16 09:16 Dose: 7 mcg/kg/min Pantoprazole Sodium (Protonix 40mg Ivpb (Pre-Docked)) 100 mls @ 200 mls/hr IVPB DAILY TAYE Last Admin: 10/31/16 09:15 Dose: 200 mls/hr Metronidazole (Flagyl 500mg Premixed Ivpb -) 100 mls @ 100 mls/hr IVPB Q8H-IV TAYE Last Admin: 10/31/16 09:15 Dose: 100 mls/hr Potassium Chloride/Dextrose/Sod Cl (D5-1/2ns+20 Meq Kcl -) 1,000 mls @ 75 mls/ hr IV ASDIR TAYE Last Admin: 10/30/16 14:00 Dose: 75 mls/hr Insulin Aspart (Novolog Vial Sliding Scale -) 1 vial SQ BIDAC TAYE PRN Reason: Protocol Last Admin: 10/31/16 06:29 Dose: Not Given Piperacillin Sod/Tazobactam Sod (Zosyn 2.25gm Ivpb (Pre-Docked)) 2.25 gm IVPB Q8H-IV TAYE Last Admin: 10/31/16 09:15 Dose: 2.25 gm Vancomycin HCl (Vancomycin Oral Solution) 125 mg PO Q6HPO [facility] Last Admin: 10/31/16 06:29 Dose: Not Given Gen: lethargic, breathing nonlabored Heart: RRR Lung: decreased breath sounds at the bases Abd: soft, nontender Ext: + edema Laboratory Results - last 24 hr 10/30/16 10/30/16 10/30/16 06:10 17:15 17:57 WBC RBC Hgb Hct MCV MCHC RDW Plt Count MPV Sodium 143 Potassium 3.4 L Chloride 108 H Carbon Dioxide 21 Anion Gap 14 BUN 94 H Creatinine 5.9 H Creat Clearance w eGFR POC Glucometer 180.20442 209.90712 Random Glucose 174 H Calcium 7.5 L Total Bilirubin AST ALT Alkaline Phosphatase Total Protein Albumin 10/31/16 10/31/16 10/31/16 05:00 05:00 05:30 WBC 16.0 H RBC 3.36 L Hgb 9.9 L Hct 29.4 L MCV 87.7 MCHC 33.8 RDW 15.8 H Plt Count 274 MPV 7.0 L Sodium 144 Potassium 3.9 Chloride 109 H Carbon Dioxide 23 Anion Gap 12 BUN 92 H Creatinine 5.6 H Creat Clearance w eGFR 7.22 POC Glucometer [phone] Random Glucose 141 H Calcium 8.0 L Total Bilirubin 0.7 AST 21 D ALT 19 Alkaline Phosphatase 99 Total Protein 5.5 L Albumin 1.8 L ASSESSMENT AND PLAN: UTI Septic Shock Hypernatremia/Dehydration Acute on Chronic Renal Failure Hyperkalemia Lactic Acidosis Hypothyroidism - ABX - Continue IVF - Apparently the family has deferred aggressive care such as HD - monitor urine output, creatinine - taper pressors to maintain MAP >65 - aspiration precautions - replete lytes - PO as tolerated - DVT/GI prophylaxis - family to discuss advanced directives and goals of care - Floor once off pressors Dr Kimball CCTime 35"
[2016-10-31] MEDS: D5-1/2NS+20 MEQ KCL - 1,000 ML IV SCH ×2 (14:00→15:05)
--- NOTE | 2016-10-31 14:05 | PN ---
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, Physician History of Present Illness: Pt seen and examined at bedside. She is sitting up in bed today. She is awake but not very interactive. - Current Medication List Current Medications: Active Medications Dopamine HCl/Dextrose (Dopamine 400 Mg/D5w -) 250 mls @ 3.912 mls/hr IVPB TITR TAYE; 2 MCG/KG/MIN PRN Reason: Protocol Last Titration: 10/31/16 09:16 Dose: 7 mcg/kg/min Pantoprazole Sodium (Protonix 40mg Ivpb (Pre-Docked)) 100 mls @ 200 mls/hr IVPB DAILY TAYE Last Admin: 10/31/16 09:15 Dose: 200 mls/hr Metronidazole (Flagyl 500mg Premixed Ivpb -) 100 mls @ 100 mls/hr IVPB Q8H-IV TAYE Last Admin: 10/31/16 09:15 Dose: 100 mls/hr Potassium Chloride/Dextrose/Sod Cl (D5-1/2ns+20 Meq Kcl -) 1,000 mls @ 75 mls/ hr IV ASDIR TAYE Last Admin: 10/30/16 14:00 Dose: 75 mls/hr Insulin Aspart (Novolog Vial Sliding Scale -) 1 vial SQ BIDAC TAYE PRN Reason: Protocol Last Admin: 10/31/16 06:29 Dose: Not Given Piperacillin Sod/Tazobactam Sod (Zosyn 2.25gm Ivpb (Pre-Docked)) 2.25 gm IVPB Q8H-IV TAYE Last Admin: 10/31/16 09:15 Dose: 2.25 gm Vancomycin HCl (Vancomycin Oral Solution) 125 mg PO Q6HPO TAYE Last Admin: 10/31/16 12:00 Dose: Not Given - Objective Vital Signs: Vital Signs Temperature 97.4 F L 10/31/16 12:00 Pulse Rate 85 10/31/16 12:00 Respiratory Rate 17 10/31/16 12:00 Blood Pressure 81/46 10/31/16 12:00 O2 Sat by Pulse Oximetry (%) 99 10/31/16 08:00 Constitutional: Yes: Calm Eyes: Yes: Conjunctiva Clear HENT: Yes: Atraumatic Neck: Yes: Supple Cardiovascular: Yes: S1, S2 Respiratory: Yes: CTA Bilaterally, On Nasal O2 Gastrointestinal: Yes: Soft Genitourinary: Yes: Mccrary Present Edema: No Neurological: Yes: Pre-Existing Deficit Labs: CBC, BMP 10/31/16 05:00 10/31/16 05:00 INR, PTT INR 1.12 (0.82-1.09) 10/26/16 21:00 Problem List - Problems (1) Acute hyperkalemia Code(s): E87.5 - HYPERKALEMIA (2) Acute renal failure Code(s): N17.9 - ACUTE KIDNEY FAILURE, UNSPECIFIED Qualifiers: Acute renal failure type: unspecified Qualified Code(s): N17.9 - Acute kidney failure, unspecified (3) UTI (urinary tract infection) Code(s): N39.0 - URINARY TRACT INFECTION, SITE NOT SPECIFIED Qualifiers: Urinary tract infection type: site unspecified Hematuria presence: without hematuria Qualified Code(s): N39.0 - Urinary tract infection, site not specified (4) Alzheimer's dementia Code(s): G30.9 - ALZHEIMER'S DISEASE, UNSPECIFIED Qualifiers: Alzheimer's disease onset: unspecified onset Dementia behavioral disturbance: without behavioral disturbance Qualified Code(s): G30.9 - Alzheimer's disease, unspecified; F02.80 - Dementia in other diseases classified elsewhere without behavioral disturbance Assessment/Plan Current Medications Generic Name Dose Route Start Last Admin Trade Name Freq PRN Reason Stop Dose Admin Dopamine HCl/Dextrose 250 mls @ 3.912 mls/hr 10/26/16 21:15 10/31/16 09:16 Dopamine 400 Mg/D5w - IVPB 7 mcg/kg/min TITR TAYE Titration Protocol 2 MCG/KG/MIN Pantoprazole Sodium 100 mls @ 200 mls/hr 10/28/16 10:00 10/31/16 09:15 Protonix 40mg Ivpb (Pre-Docked) IVPB 200 mls/hr DAILY TAYE Administration Metronidazole 100 mls @ 100 mls/hr 10/27/16 15:15 10/31/16 09:15 Flagyl 500mg Premixed Ivpb - IVPB 100 mls/hr Q8H-IV TAYE Administration Potassium Chloride/Dextrose/Sod Cl 1,000 mls @ 75 mls/hr 10/30/16 14:00 14:00 D5-1/2ns+20 Meq Kcl - IV 75 mls/hr ASDIR TAYE Administration Insulin Aspart 1 vial 10/29/16 16:30 10/31/16 06:29 Novolog Vial Sliding Scale - SQ Not Given BIDAC [facility] Protocol Piperacillin Sod/Tazobactam Sod 2.25 gm 10/26/16 18:00 10/31/16 09:15 Zosyn 2.25gm Ivpb (Pre-Docked) IVPB 2.25 gm Q8H-IV TAYE Administration Vancomycin HCl 125 mg 10/28/16 15:00 10/31/16 12:00 Vancomycin Oral Solution PO Not Given Q6HPO [facility] Impression 1. DALJIT 2. hx CKD 3. metabolic acidosis 4. hyperkalemia 5. dementia 6. sepsis 7. UTI 8. hypernatremia Plan - cont fluids - mental status appears better today - renal function is improving - monitor labs daily - recall speech and swallow - wean off pressors as tolerated, pt is still on dopamine - will follow Dr Greene
--- NOTE | 2016-10-31 14:17 | PN ---
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, Physician History of Present Illness: patient looking much more awake and alert much more calmer still on pressors but blood pressure stabilizing - Current Medication List Current Medications: Active Medications Dopamine HCl/Dextrose (Dopamine 400 Mg/D5w -) 250 mls @ 3.912 mls/hr IVPB TITR TAYE; 2 MCG/KG/MIN PRN Reason: Protocol Last Titration: 10/31/16 09:16 Dose: 7 mcg/kg/min Pantoprazole Sodium (Protonix 40mg Ivpb (Pre-Docked)) 100 mls @ 200 mls/hr IVPB DAILY [facility] Last Admin: 10/31/16 09:15 Dose: 200 mls/hr Metronidazole (Flagyl 500mg Premixed Ivpb -) 100 mls @ 100 mls/hr IVPB Q8H-IV [facility] Last Admin: 10/31/16 09:15 Dose: 100 mls/hr Potassium Chloride/Dextrose/Sod Cl (D5-1/2ns+20 Meq Kcl -) 1,000 mls @ 75 mls/ hr IV ASDIR [facility] Last Admin: 10/30/16 14:00 Dose: 75 mls/hr Insulin Aspart (Novolog Vial Sliding Scale -) 1 vial SQ BIDAC TAYE PRN Reason: Protocol Last Admin: 10/31/16 06:29 Dose: Not Given Piperacillin Sod/Tazobactam Sod (Zosyn 2.25gm Ivpb (Pre-Docked)) 2.25 gm IVPB Q8H-IV [facility] Last Admin: 10/31/16 09:15 Dose: 2.25 gm Vancomycin HCl (Vancomycin Oral Solution) 125 mg PO Q6HPO [facility] Last Admin: 10/31/16 12:00 Dose: Not Given - Objective Vital Signs: Vital Signs Temperature 97.2 F L 10/31/16 14:00 Pulse Rate 85 10/31/16 14:00 Respiratory Rate 14 10/31/16 14:00 Blood Pressure 101/51 10/31/16 14:00 O2 Sat by Pulse Oximetry (%) 99 10/31/16 08:00 Constitutional: Yes: No Distress, Calm Cardiovascular: Yes: Regular Rate and Rhythm Respiratory: Yes: Regular, Poor Air Entry Gastrointestinal: Yes: Normal Bowel Sounds, Soft Musculoskeletal: Yes: WNL Neurological: Yes: Alert, Confusion Psychiatric: Yes: Alert Labs: CBC, BMP 10/31/16 05:00 10/31/16 05:00 INR, PTT INR 1.12 (0.82-1.09) 10/26/16 21:00 - ....Imaging Chest X-ray: Report Reviewed, Image Reviewed Assessment/Plan Problem List - Problems (1) Acute hyperkalemia Code(s): E87.5 - HYPERKALEMIA (2) Acute renal failure Code(s): N17.9 - ACUTE KIDNEY FAILURE, UNSPECIFIED Qualifiers: Acute renal failure type: unspecified Qualified Code(s): N17.9 - Acute kidney failure, unspecified (3) UTI (urinary tract infection) Code(s): N39.0 - URINARY TRACT INFECTION, SITE NOT SPECIFIED Qualifiers: Urinary tract infection type: site unspecified Hematuria presence: without hematuria Qualified Code(s): N39.0 - Urinary tract infection, site not specified (4) Alzheimer's dementia Code(s): G30.9 - ALZHEIMER'S DISEASE, UNSPECIFIED Qualifiers: Alzheimer's disease onset: unspecified onset Dementia behavioral disturbance: without behavioral disturbance Qualified Code(s): G30.9 - Alzheimer's disease, unspecified; F02.80 - Dementia in other diseases classified elsewhere without behavioral disturbance leukocytosis colitis lactic acidosis sepsis wbc still on higher side creatinine trending down no gross changes patient still on dopamine dirrhoea resolving plan continue hydration as per renal continue current abx creatinine trending down close monitoring pressors as required vanco orally cc time 40 min
--- NOTE | 2016-10-31 14:56 | PN ---
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, BLOG WRITER - Note 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: Pt seen on 10/30, lethargic, PO held. Pt work up later for daughter and pt gave her applesauce. Selected Entries 10/29/16 10/29/16 10/29/16 02:00 08:00 09:15 Temperature 97.3 F L 95.5 F L 95.3 F L 10/29/16 10/29/16 10/29/16 10:00 11:00 11:17 Temperature 97 F L 97 F L 97.5 F L 10/29/16 10/29/16 10/29/16 12:00 14:00 14:15 Temperature 97.6 F 97.6 F 97.6 F 10/29/16 10/29/16 10/29/16 16:00 17:00 18:00 Temperature 97.2 F L 97.2 F L 97 F L 10/30/16 10/30/16 10/30/16 03:00 05:00 07:00 Temperature 96.7 F L 96.7 F L 96.8 F L 10/30/16 10/30/16 10/30/16 13:00 19:00 20:00 Temperature 98.7 F 97.0 F L 97.1 F L 10/31/16 10/31/16 10/31/16 00:00 04:00 06:00 Temperature 97.1 F L 97.1 F L 97.6 F 10/31/16 10/31/16 10/31/16 08:00 10:00 12:00 Temperature 97.5 F L 97.5 F L 97.4 F L 10/31/16 14:00 Temperature 97.2 F L Laboratory Tests 10/29/16 10/30/16 10/31/16 05:15 05:20 05:00 WBC 19.6 H 19.9 H 16.0 H On a/b tx. Today, pt was fed magic cup by daughter with RN observing with good tolerance. Continue trial of magic cup and ensure compact on a tsp. HOB fully elevated. Feed only when alert. Remind pt to "swallow" Consider clinimix, if not medically contraindicated.
--- NOTE | 2016-10-31 18:20 | PN ---
Physical Exam: SUBJECTIVE: Patient seen and examined at bedside in the ICU. She's still unarousable, but responded to pain stimuli, still lethargic, non-interactive, did not tolerate pressor weaning. OBJECTIVE: On Dopamine 7 mcg Vital Signs Period Temp Pulse Resp BP Sys/Correia Pulse Ox Last 24 Hr 97.0 F-97.8 F 80-91 10-19 80-130/40-88 99-100 GENERAL: non-verbal, lethargic, confused, not arousable LUNGS: Decreased breath sounds HEART: RRR normal S1, S2 without murmur, rub or gallop. EXTREMITIES: no edema CBCD WBC 16.0 K/mm3 (4.0-10.0) H 10/31/16 05:00 RBC 3.36 M/mm3 (3.60-5.2) L 10/31/16 05:00 Hgb 9.9 GM/dL (10.7-15.3) L 10/31/16 05:00 Hct 29.4 % (32.4-45.2) L 10/31/16 05:00 MCV 87.7 fl (80-96) 10/31/16 05:00 MCHC 33.8 g/dl (32.0-36.0) 10/31/16 05:00 RDW 15.8 % (11.6-15.6) H 10/31/16 05:00 Plt Count 274 K/MM3 (134-434) 10/31/16 05:00 MPV 7.0 fl (7.5-11.1) L 10/31/16 05:00 CMP Sodium 144 mmol/L (136-145) 10/31/16 05:00 Potassium 3.9 mmol/L (3.5-5.1) 10/31/16 05:00 Chloride 109 mmol/L (98-107) H 10/31/16 05:00 Carbon Dioxide 23 mmol/L (21-32) 10/31/16 05:00 Anion Gap 12 (8-16) 10/31/16 05:00 BUN 92 mg/dL (7-18) H 10/31/16 05:00 Creatinine 5.6 mg/dL (0.55-1.02) H 10/31/16 05:00 Creat Clearance w eGFR 7.22 (>60) 10/31/16 05:00 Calcium 8.0 mg/dL (8.5-10.1) L 10/31/16 05:00 Total Bilirubin 0.7 mg/dL (0.2-1.0) 10/31/16 05:00 AST 21 U/L (15-37) D 10/31/16 05:00 ALT 19 U/L (12-78) 10/31/16 05:00 Alkaline Phosphatase 99 U/L (45-117) 10/31/16 05:00 Total Protein 5.5 g/dl (6.4-8.2) L 10/31/16 05:00 Albumin 1.8 g/dl (3.4-5.0) L 10/31/16 05:00 Intake & Output 10/28/16 10/29/16 10/30/16 10/31/16 23:59 23:59 23:59 23:59 Intake Total 3334.4 2561 1961 1468.8 Output Total 3526 533 4918 1500 Balance 1384.4 1761 -39 -31.2 Weight 48.1 kg 46.72 kg 44.452 kg 45.7 kg Active Medications Generic Name Dose Route Start Last Admin Trade Name Freq PRN Reason Stop Dose Admin Dopamine HCl/Dextrose 250 mls @ 3.912 mls/hr 10/26/16 21:15 10/31/16 09:16 Dopamine 400 Mg/D5w - IVPB 7 mcg/kg/min TITR TAYE Titration Protocol 2 MCG/KG/MIN Pantoprazole Sodium 100 mls @ 200 mls/hr 10/28/16 10:00 10/31/16 09:15 Protonix 40mg Ivpb (Pre-Docked) IVPB 200 mls/hr DAILY TAYE Administration Metronidazole 100 mls @ 100 mls/hr 10/27/16 15:15 10/31/16 17:00 Flagyl 500mg Premixed Ivpb - IVPB 100 mls/hr Q8H-IV TAYE Administration Potassium Chloride/Dextrose/Sod Cl 1,000 mls @ 50 mls/hr 10/31/16 15:01 15:05 D5-1/2ns+20 Meq Kcl - IV 50 mls/hr ASDIR TAYE Administration Insulin Aspart 1 vial 10/29/16 16:30 10/31/16 17:00 Novolog Vial Sliding Scale - SQ 2 units BIDAC TAYE Administration Protocol Piperacillin Sod/Tazobactam Sod 2.25 gm 10/26/16 18:00 10/31/16 17:12 Zosyn 2.25gm Ivpb (Pre-Docked) IVPB 2.25 gm Q8H-IV TAYE Administration Vancomycin HCl 125 mg 10/28/16 15:00 10/31/16 12:00 Vancomycin Oral Solution PO Not Given Q6HPO TAYE ASSESSMENT/PLAN: 86 yo F h/o CKD, dementia and hypothyroidism admitted to the ICU for DALJIT on CKD and severe sepsis. 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 to improve - Cont. toribio, monitor I/O - Dose all meds renally ID: Severe sepsis 2/2 UTI - WBC slowly improving, afrebile - Stage 1 and stage 4 decub ulcers * wound care * no surgical intervention per surgery - On flagyl day 5 and zosyn day 6 - On vanco oral solution to day 4 Cardiac: hypotension - Cont. to taper pressors to maintain MAP > 65% Heme: Normacytic anemia, chronic in the setting of CKD - 2/2 CKD - HGB at baseline - Cont. monitor, transfuse if HGB < 7 Endo: Hypothyroidism - Cont. synthroid FEN - D5 + 1/2NS + 20 Meq KCl @ 50ml/hr - Cont. to monitor lytes - Puree diet with magic cup Prophylaxis - DVT: Heparin held - GI: PPI gtt Disposition - Still in active discussion with daughter regarding goal of care and DNR status - May need PICC line for pressor because TLC unable to be placed - Cont. to monitor in ICU Visit type - Emergency Visit Emergency Visit: No - New Patient This patient is new to me today: No - Critical Care Critical Care patient: Yes Total Critical Care Time (in minutes): 45 Critical Care Statement: The care of this patient involved high complexity decision making to prevent further life threatening deterioration of the patient 's condition and/or to evalute & treat vital organ system(s) failure or risk of failure.
[2016-11-01] MEDS: PIPERACILLIN/TAZOB 2.25 GM/50 ML PRE-DOCKED BAG IVPB SCH ×3 (02:00→17:20)
[2016-11-01] MEDS: METRONIDAZOLE 500 MG PREMIXED 100 ML IVPB SCH ×3 (02:00→18:05)
[2016-11-01 06:27] LABS: MCH 29.9 pg (25.7-33.7); MCHC 33.4 g/dl (32.0-36.0); MEAN CELL VOLUME 89.5 fl (80-96); MEAN PLT VOLUME 7.5 fl (7.5-11.1); PLATELET COUNT 189 K/MM3 (134-434); WHITE BLOOD COUNT 11.8 K/mm3 (4.0-10.0)
[2016-11-01 06:39] LABS: CALCIUM 7.3 mg/dL (8.5-10.1); CREATININE 5.1 mg/dL (0.55-1.02); MAGNESIUM 1.6 mg/dL (1.8-2.4); PHOSPHOROUS 2.9 mg/dL (2.5-4.9)
--- NOTE | 2016-11-01 06:49 | PN ---
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 (short form) - Note 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: PULM/CRITICAL CARE MEDICINE PROGRESS NOTE: Pt seen and examined in the ICU Events: remains on Dopamine but at lower dose (9 --> 6), mental status better, afebrile, adequate UOP Current Medications Dopamine HCl/Dextrose (Dopamine 400 Mg/D5w -) 250 mls @ 3.912 mls/hr IVPB TITR TAYE; 2 MCG/KG/MIN PRN Reason: Protocol Last Titration: 10/31/16 09:16 Dose: 7 mcg/kg/min Pantoprazole Sodium (Protonix 40mg Ivpb (Pre-Docked)) 100 mls @ 200 mls/hr IVPB DAILY TAYE Last Admin: 10/31/16 09:15 Dose: 200 mls/hr Metronidazole (Flagyl 500mg Premixed Ivpb -) 100 mls @ 100 mls/hr IVPB Q8H-IV TAYE Last Admin: 10/31/16 17:00 Dose: 100 mls/hr Potassium Chloride/Dextrose/Sod Cl (D5-1/2ns+20 Meq Kcl -) 1,000 mls @ 50 mls/ hr IV ASDIR TAYE Last Admin: 10/31/16 15:05 Dose: 50 mls/hr Insulin Aspart (Novolog Vial Sliding Scale -) 1 vial SQ BIDAC TAYE PRN Reason: Protocol Last Admin: 10/31/16 17:00 Dose: 2 units Piperacillin Sod/Tazobactam Sod (Zosyn 2.25gm Ivpb (Pre-Docked)) 2.25 gm IVPB Q8H-IV TAYE Last Admin: 10/31/16 17:12 Dose: 2.25 gm Vancomycin HCl (Vancomycin Oral Solution) 125 mg PO Q6HPO TAYE Last Admin: 10/31/16 18:18 Dose: Not Given Vital Signs Temp 98.1 F 11/01/16 04:00 Pulse 71 11/01/16 06:00 Resp 9 L 11/01/16 06:00 BP 103/54 11/01/16 06:00 Pulse Ox 100 10/31/16 20:31 Intake & Output 10/31/16 10/31/16 11/01/16 06:59 18:59 06:59 Intake Total 150 1318.8 962 Output Total 4099 379 4661 Balance -1100 1068.8 -713 Weight 45.7 kg Intake: IV 918.8 712 Dopamine 400 mg/D5w - 250 118.8 98 ml @ 2 MCG/KG/MIN 3.912 mls/hr IVPB TITR [facility] Rx#: [id number] D5-1/2Ns+20 Meq KCl - 1, 600 000 ml @ 75 mls/hr IV ASDIR TAYE Rx#:[id number] D5-1/2Ns+20 Meq KCl - 1, 200 614 000 ml @ 50 mls/hr IV ASDIR TAYE Rx#:[id number] IVPB 150 400 150 Oral 0 100 Output: Drainage 500 RECTAL TUBE 500 Urine 9622 212 0613 Mccrary 9461 278 6804 Other: Voiding Method Indwelling Catheter Indwelling Catheter Indwelling Catheter Bowel Movement Yes Yes Yes Weight Measurement Method [facility] Gen: awake, comfortable, does not follow Heart: RRR Lung: decreased breath sounds at the bases Abd: soft, nontender Ext: + edema CBC, BMP 11/01/16 05:20 11/01/16 05:20 ASSESSMENT AND PLAN: UTI Septic Shock Hypernatremia/Dehydration Acute on Chronic Renal Failure Hyperkalemia Lactic Acidosis Hypothyroidism - ABX - Continue IVF - Apparently the family has deferred aggressive care such as HD - monitor urine output, creatinine - taper pressors to maintain MAP >65 - aspiration precautions - replete lytes - PO as tolerated - DVT/GI prophylaxis - family to discuss advanced directives and goals of care - Floor once off pressors Sergio Giraldo Pulm/Critical Care FILLING SEPARATOR CCTime 35"
[2016-11-01] MEDS: VANCOMYCIN 250 MG/5 ML ORAL SOLUTION PO SCH ×4 (06:50→17:21)
[2016-11-01] MEDS: INSULIN SLIDING SCALE (NOVOLOG) 1 VIAL SQ SCH ×2 (06:52→17:20)
--- NOTE | 2016-11-01 07:48 | PN ---
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 (short form) - Note 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: CBC, BMP 11/01/16 05:20 11/01/16 05:20 Vital Signs Period Temp Pulse Resp BP Sys/Correia Pulse Ox Last 24 Hr 97.2 F-98.5 F 71-105 9-23 80-128/40-88 99-100 S1S2 RRR lungs basal rales abd soft NT urine clear rectal tube less liquid stool tracks movements with eyes, stiff joints, contracted hips and knees IMP sepsis/hypotension UTI C.diff possible sacral osteomyelitis acute renal failure due to dehydration slowly resolving chronic anemia advanced dementia Plan dopamine taper further fluids until po is established-doubt will ever be sufficient abx supportive care feeding trials as mentation allows can transfer to floor once off of dopamine replete K GI/DVT prophylaxis daughter is not ready to discuss further advanced care Problem List - Problems (1) Acute hyperkalemia Code(s): E87.5 - HYPERKALEMIA (2) Acute renal failure Code(s): N17.9 - ACUTE KIDNEY FAILURE, UNSPECIFIED Qualifiers: Acute renal failure type: unspecified Qualified Code(s): N17.9 - Acute kidney failure, unspecified (3) Diarrhea Code(s): R19.7 - DIARRHEA, UNSPECIFIED Qualifiers: Diarrhea type: unspecified type Qualified Code(s): R19.7 - Diarrhea , unspecified (4) Sepsis syndrome Code(s): [id number] - (5) UTI (urinary tract infection) Code(s): N39.0 - URINARY TRACT INFECTION, SITE NOT SPECIFIED Qualifiers: Urinary tract infection type: site unspecified Hematuria presence: without hematuria Qualified Code(s): N39.0 - Urinary tract infection, site not specified (6) Alzheimer's dementia Code(s): G30.9 - ALZHEIMER'S DISEASE, UNSPECIFIED Qualifiers: Alzheimer's disease onset: unspecified onset Dementia behavioral disturbance: without behavioral disturbance Qualified Code(s): G30.9 - Alzheimer's disease, unspecified; F02.80 - Dementia in other diseases classified elsewhere without behavioral disturbance (7) Hypotension Code(s): I95.9 - HYPOTENSION, UNSPECIFIED Qualifiers: Hypotension type: other hypotension type Qualified Code(s): I95.89 - Other hypotension
[2016-11-01] MEDS: POTASSIUM CHLORIDE 40 MEQ/30 ML UNIT DOSE CUP PO SCH (09:02)
[2016-11-01] MEDS: PANTOPRAZOLE SODIUM 100 ML IVPB SCH (09:52)
--- NOTE | 2016-11-01 13:35 | PN ---
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, Physician History of Present Illness: patient looks much better today talking mental status looks like at baseline blood pressure still on the lower side - Current Medication List Current Medications: Active Medications Dopamine HCl/Dextrose (Dopamine 400 Mg/D5w -) 250 mls @ 3.912 mls/hr IVPB TITR TAYE; 2 MCG/KG/MIN PRN Reason: Protocol Last Admin: 10/31/16 22:00 Dose: 9.781 mls/hr Pantoprazole Sodium (Protonix 40mg Ivpb (Pre-Docked)) 100 mls @ 200 mls/hr IVPB DAILY TAYE Last Admin: 11/01/16 09:52 Dose: 200 mls/hr Metronidazole (Flagyl 500mg Premixed Ivpb -) 100 mls @ 100 mls/hr IVPB Q8H-IV TAYE Last Admin: 11/01/16 11:00 Dose: 100 mls/hr Potassium Chloride/Dextrose/Sod Cl (D5-1/2ns+20 Meq Kcl -) 1,000 mls @ 50 mls/ hr IV ASDIR [facility] Last Admin: 10/31/16 15:05 Dose: 50 mls/hr Insulin Aspart (Novolog Vial Sliding Scale -) 1 vial SQ BIDAC TAYE PRN Reason: Protocol Last Admin: 11/01/16 06:52 Dose: Not Given Piperacillin Sod/Tazobactam Sod (Zosyn 2.25gm Ivpb (Pre-Docked)) 2.25 gm IVPB Q8H-IV TAYE Last Admin: 11/01/16 09:03 Dose: 2.25 gm Potassium Chloride (Kcl Oral Solution -) 20 meq PO DAILY [facility] Last Admin: 11/01/16 09:02 Dose: 20 meq Vancomycin HCl (Vancomycin Oral Solution) 125 mg PO Q6HPO [facility] Last Admin: 11/01/16 11:21 Dose: 125 mg - Objective Vital Signs: Vital Signs Temperature 97.6 F 11/01/16 11:00 Pulse Rate 72 11/01/16 12:00 Respiratory Rate 18 11/01/16 12:00 Blood Pressure 90/48 11/01/16 12:00 O2 Sat by Pulse Oximetry (%) 94 L 11/01/16 09:00 Constitutional: Yes: No Distress, Calm Cardiovascular: Yes: Regular Rate and Rhythm Respiratory: Yes: Regular, CTA Bilaterally Gastrointestinal: Yes: Normal Bowel Sounds, Soft Musculoskeletal: Yes: Other Extremities: Yes: Other Neurological: Yes: Alert, Confusion Psychiatric: Yes: Alert Labs: CBC, BMP 11/01/16 05:20 11/01/16 05:20 INR, PTT INR 1.12 (0.82-1.09) 10/26/16 21:00 - ....Imaging Chest X-ray: Report Reviewed, Image Reviewed Assessment/Plan Problem List - Problems (1) Acute hyperkalemia Code(s): E87.5 - HYPERKALEMIA (2) Acute renal failure Code(s): N17.9 - ACUTE KIDNEY FAILURE, UNSPECIFIED Qualifiers: Acute renal failure type: unspecified Qualified Code(s): N17.9 - Acute kidney failure, unspecified (3) UTI (urinary tract infection) Code(s): N39.0 - URINARY TRACT INFECTION, SITE NOT SPECIFIED Qualifiers: Urinary tract infection type: site unspecified Hematuria presence: without hematuria Qualified Code(s): N39.0 - Urinary tract infection, site not specified (4) Alzheimer's dementia Code(s): G30.9 - ALZHEIMER'S DISEASE, UNSPECIFIED Qualifiers: Alzheimer's disease onset: unspecified onset Dementia behavioral disturbance: without behavioral disturbance Qualified Code(s): G30.9 - Alzheimer's disease, unspecified; F02.80 - Dementia in other diseases classified elsewhere without behavioral disturbance leukocytosis colitis lactic acidosis sepsis wbc trending towards normal creatinine trending down no gross changes plan continue hydration as per renal continue current abx creatinine trending down close monitoring pressors as required vanco orally will stop abx probably tomorrow cc time 40 min
[2016-11-01] MEDS ORDERED: POTASSIUM CHLORIDE TABS 20 MEQ TABLET.ER (FP) PO ONE (16:59)
[2016-11-01] MEDS ORDERED: MAGNESIUM SULF 50% (8.12 MEQ/2 ML-1 GM VIAL) IVPB ONE (16:59)
[2016-11-01] MEDS: D5-1/2NS+20 MEQ KCL - 1,000 ML IV SCH (17:02)
--- NOTE | 2016-11-01 17:05 | PN ---
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, Physician History of Present Illness: Pt seen and examined at bedside. She is more awake and alert. Appetite is improving. - Current Medication List Current Medications: Active Medications Dopamine HCl/Dextrose (Dopamine 400 Mg/D5w -) 250 mls @ 3.912 mls/hr IVPB TITR TAYE; 2 MCG/KG/MIN PRN Reason: Protocol Last Titration: 11/01/16 14:00 Dose: 4 mcg/kg/min Pantoprazole Sodium (Protonix 40mg Ivpb (Pre-Docked)) 100 mls @ 200 mls/hr IVPB DAILY TAYE Last Admin: 11/01/16 09:52 Dose: 200 mls/hr Metronidazole (Flagyl 500mg Premixed Ivpb -) 100 mls @ 100 mls/hr IVPB Q8H-IV TAYE Last Admin: 11/01/16 11:00 Dose: 100 mls/hr Potassium Chloride/Dextrose/Sod Cl (D5-1/2ns+20 Meq Kcl -) 1,000 mls @ 50 mls/ hr IV ASDIR TAYE Last Admin: 10/31/16 15:05 Dose: 50 mls/hr Insulin Aspart (Novolog Vial Sliding Scale -) 1 vial SQ BIDAC TAYE PRN Reason: Protocol Last Admin: 11/01/16 06:52 Dose: Not Given Piperacillin Sod/Tazobactam Sod (Zosyn 2.25gm Ivpb (Pre-Docked)) 2.25 gm IVPB Q8H-IV TAYE Last Admin: 11/01/16 09:03 Dose: 2.25 gm Potassium Chloride (Kcl Oral Solution -) 20 meq PO DAILY TAYE Last Admin: 11/01/16 09:02 Dose: 20 meq Vancomycin HCl (Vancomycin Oral Solution) 125 mg PO Q6HPO TAYE Last Admin: 11/01/16 11:21 Dose: 125 mg - Objective Vital Signs: Vital Signs Temperature 97.5 F L 11/01/16 15:00 Pulse Rate 65 11/01/16 15:00 Respiratory Rate 19 11/01/16 15:00 Blood Pressure 99/50 11/01/16 15:00 O2 Sat by Pulse Oximetry (%) 94 L 11/01/16 09:00 Constitutional: Yes: Calm Eyes: Yes: Conjunctiva Clear HENT: Yes: Atraumatic Neck: Yes: Supple Cardiovascular: Yes: S1, S2 Respiratory: Yes: CTA Bilaterally, On Nasal O2 Gastrointestinal: Yes: Soft Genitourinary: Yes: Mccrary Present Musculoskeletal: Yes: Muscle Weakness Edema: No Neurological: Yes: Confusion Labs: CBC, BMP 11/01/16 05:20 11/01/16 05:20 INR, PTT INR 1.12 (0.82-1.09) 10/26/16 21:00 Problem List - Problems (1) Acute hyperkalemia Code(s): E87.5 - HYPERKALEMIA (2) Acute renal failure Code(s): N17.9 - ACUTE KIDNEY FAILURE, UNSPECIFIED Qualifiers: Acute renal failure type: unspecified Qualified Code(s): N17.9 - Acute kidney failure, unspecified (3) UTI (urinary tract infection) Code(s): N39.0 - URINARY TRACT INFECTION, SITE NOT SPECIFIED Qualifiers: Urinary tract infection type: site unspecified Hematuria presence: without hematuria Qualified Code(s): N39.0 - Urinary tract infection, site not specified (4) Alzheimer's dementia Code(s): G30.9 - ALZHEIMER'S DISEASE, UNSPECIFIED Qualifiers: Alzheimer's disease onset: unspecified onset Dementia behavioral disturbance: without behavioral disturbance Qualified Code(s): G30.9 - Alzheimer's disease, unspecified; F02.80 - Dementia in other diseases classified elsewhere without behavioral disturbance Assessment/Plan Current Medications Generic Name Dose Route Start Last Admin Trade Name Freq PRN Reason Stop Dose Admin Dopamine HCl/Dextrose 250 mls @ 3.912 mls/hr 10/26/16 21:15 11/01/16 14:00 Dopamine 400 Mg/D5w - IVPB 4 mcg/kg/min TITR TAYE Titration Protocol 2 MCG/KG/MIN Pantoprazole Sodium 100 mls @ 200 mls/hr 10/28/16 10:00 11/01/16 09:52 Protonix 40mg Ivpb (Pre-Docked) IVPB 200 mls/hr DAILY TAYE Administration Metronidazole 100 mls @ 100 mls/hr 10/27/16 15:15 11/01/16 11:00 Flagyl 500mg Premixed Ivpb - IVPB 100 mls/hr Q8H-IV TAYE Administration Potassium Chloride/Dextrose/Sod Cl 1,000 mls @ 50 mls/hr 10/31/16 15:01 17:02 D5-1/2ns+20 Meq Kcl - IV 50 mls/hr ASDIR TAYE Administration Insulin Aspart 1 vial 10/29/16 16:30 11/01/16 06:52 Novolog Vial Sliding Scale - SQ Not Given BIDAC TAYE Protocol Magnesium Sulfate 2 gm 11/01/16 16:59 Magnesium Sulfate IVPB 11/01/16 17:00 ONCE ONE Piperacillin Sod/Tazobactam Sod 2.25 gm 10/26/16 18:00 11/01/16 09:03 Zosyn 2.25gm Ivpb (Pre-Docked) IVPB 2.25 gm Q8H-IV TAYE Administration Potassium Chloride 20 meq 11/01/16 10:00 11/01/16 09:02 Kcl Oral Solution - PO 20 meq DAILY TAYE Administration Potassium Chloride 40 meq 11/01/16 16:59 K-Dur - PO 11/01/16 17:00 ONCE ONE Vancomycin HCl 125 mg 10/28/16 15:00 11/01/16 11:21 Vancomycin Oral Solution PO 125 mg Q6HPO TAYE Administration Impression 1. DALJIT 2. hx CKD 3. metabolic acidosis 4. hyperkalemia 5. dementia 6. sepsis 7. UTI 8. hypernatremia Plan - will remove dextrose from fluids - replace potassium and mag - repeat labs in am - mental status appears better today - renal function is improving - pt is still on dopamine - will follow Dr Greene
[2016-11-01] MEDS ORDERED: SODIUM CHLORIDE 0.45%/POT 1,000 ML IV SCH (17:15)
[2016-11-01] MEDS ORDERED: POTASSIUM CHLORIDE 40 MEQ/30 ML UNIT DOSE CUP PO ONE (18:15)
[2016-11-01] MEDS: DEXTROSE 5%-WATER - 1,000 ML with SODIUM BICARBONATE 8.4% - 75 MEQ IV SCH (19:21)
[2016-11-01] MEDS: DOPAMINE 400 MG/D5W - 250 ML IVPB SCH (21:48)
[2016-11-02] MEDS: VANCOMYCIN 250 MG/5 ML ORAL SOLUTION PO SCH ×4 (00:39→17:37)
[2016-11-02] MEDS: METRONIDAZOLE 500 MG PREMIXED 100 ML IVPB SCH ×3 (01:31→17:37)
[2016-11-02] MEDS: PIPERACILLIN/TAZOB 2.25 GM/50 ML PRE-DOCKED BAG IVPB SCH ×3 (03:31→17:37)
[2016-11-02] MEDS: LEVOTHYROXINE NA 88 MCG TABLET (FP) PO SCH (06:12)
[2016-11-02] MEDS: INSULIN SLIDING SCALE (NOVOLOG) 1 VIAL SQ SCH ×2 (06:15→17:38)
[2016-11-02 08:26] LABS: MCH 29.3 pg (25.7-33.7); MCHC 32.9 g/dl (32.0-36.0); MEAN CELL VOLUME 89.1 fl (80-96); MEAN PLT VOLUME 7.3 fl (7.5-11.1); PLATELET COUNT 182 K/MM3 (134-434); RDW 16.4 % (11.6-15.6); WHITE BLOOD COUNT 12.2 K/mm3 (4.0-10.0)
[2016-11-02 09:01] LABS: ALBUMIN 1.6 g/dl (3.4-5.0); BILIRUBIN,TOTAL 0.6 mg/dL (0.2-1.0); CALCIUM 7.6 mg/dL (8.5-10.1); CREATININE 4.5 mg/dL (0.55-1.02); TOT PROT 5.1 g/dl (6.4-8.2)
--- NOTE | 2016-11-02 09:20 | PN ---
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 (short form) - Note 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: CBC, BMP 11/02/16 08:20 11/02/16 08:20 Vital Signs Period Temp Pulse Resp BP Sys/Correia Pulse Ox Last 24 Hr 97 F-98.1 F 60-81 11-19 90-120/42-83 94-97 Intake & Output 10/30/16 10/31/16 11/01/16 11/03/16 23:59 23:59 23:59 00:59 Intake Total 1960 1568.8 3044 686 Output Total 1999 2250 2175 1250 Balance -39 -681.2 869 -564 Weight 98 lb 100 lb 12.02 oz 104 lb 0.931 oz 106 lb S1S2 RRR lungs cta ant abd soft NT urine clear rectal tube with stool awake, responds to greeting with hi and nodding, fidgeting with bedsheets IMP improving sepsis/hypotension UTI C.diff possible sacral osteomyelitis acute renal failure due to dehydration slowly resolving chronic anemia advanced dementia Plan dopamine taper to dc fluids to decrease abx supportive care oral nutrition can transfer to floor once off of dopamine GI/DVT prophylaxis daughter is not ready to discuss further advanced care, hopeful of recovery Problem List - Problems (1) Acute hyperkalemia Code(s): E87.5 - HYPERKALEMIA (2) Acute renal failure Code(s): N17.9 - ACUTE KIDNEY FAILURE, UNSPECIFIED Qualifiers: Acute renal failure type: unspecified Qualified Code(s): N17.9 - Acute kidney failure, unspecified (3) Diarrhea Code(s): R19.7 - DIARRHEA, UNSPECIFIED Qualifiers: Diarrhea type: unspecified type Qualified Code(s): R19.7 - Diarrhea , unspecified (4) Sepsis syndrome Code(s): [id number] - (5) UTI (urinary tract infection) Code(s): N39.0 - URINARY TRACT INFECTION, SITE NOT SPECIFIED Qualifiers: Urinary tract infection type: site unspecified Hematuria presence: without hematuria Qualified Code(s): N39.0 - Urinary tract infection, site not specified (6) Alzheimer's dementia Code(s): G30.9 - ALZHEIMER'S DISEASE, UNSPECIFIED Qualifiers: Alzheimer's disease onset: unspecified onset Dementia behavioral disturbance: without behavioral disturbance Qualified Code(s): G30.9 - Alzheimer's disease, unspecified; F02.80 - Dementia in other diseases classified elsewhere without behavioral disturbance (7) Hypotension Code(s): I95.9 - HYPOTENSION, UNSPECIFIED Qualifiers: Hypotension type: other hypotension type Qualified Code(s): I95.89 - Other hypotension
[2016-11-02] MEDS: POTASSIUM CHLORIDE 40 MEQ/30 ML UNIT DOSE CUP PO SCH (09:27)
[2016-11-02] MEDS: PANTOPRAZOLE SODIUM 100 ML IVPB SCH (09:28)
[2016-11-02] MEDS: MULTIVITAMINS (DAILY MVI) TABLET (FP) PO SCH (09:33)
--- NOTE | 2016-11-02 09:58 | PN ---
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 (short form) - Note 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: PULM/CRITICAL CARE MEDICINE PROGRESS NOTE: Pt seen and examined in the ICU Events: Cr downtrending slightly Dopamine being weaned, albeit slowly Stable resp status Active Medications Dopamine HCl/Dextrose (Dopamine 400 Mg/D5w -) 250 mls @ 3.912 mls/hr IVPB TITR TAYE; 2 MCG/KG/MIN PRN Reason: Protocol Last Titration: 11/01/16 21:48 Dose: 5 mcg/kg/min Pantoprazole Sodium (Protonix 40mg Ivpb (Pre-Docked)) 100 mls @ 200 mls/hr IVPB DAILY TAYE Last Admin: 11/02/16 09:28 Dose: 200 mls/hr Metronidazole (Flagyl 500mg Premixed Ivpb -) 100 mls @ 100 mls/hr IVPB Q8H-IV TAYE Last Admin: 11/02/16 09:27 Dose: 100 mls/hr Insulin Aspart (Novolog Vial Sliding Scale -) 1 vial SQ BIDAC TAYE PRN Reason: Protocol Last Admin: 11/02/16 06:15 Dose: 2 units Levothyroxine Sodium (Synthroid -) 88 mcg PO DAILY@0700 TAYE Last Admin: 11/02/16 06:12 Dose: 88 mcg Memantine (Namenda -) 10 mg PO DAILY [facility] Multivitamins/Minerals/Vitamin C (Tab-A-Vit -) 1 tab PO DAILY [facility] Last Admin: 11/02/16 09:33 Dose: 1 tab Piperacillin Sod/Tazobactam Sod (Zosyn 2.25gm Ivpb (Pre-Docked)) 2.25 gm IVPB Q8H-IV TAYE Last Admin: 11/02/16 09:28 Dose: 2.25 gm Potassium Chloride (Kcl Oral Solution -) 20 meq PO DAILY [facility]E Last Admin: 11/02/16 09:27 Dose: 20 meq Vancomycin HCl (Vancomycin Oral Solution) 125 mg PO Q6HPO TAYE Last Admin: 11/02/16 06:12 Dose: 125 mg Vital Signs Temp 97.9 F 11/02/16 03:00 Pulse 60 11/02/16 07:00 Resp 18 11/02/16 07:00 BP 120/66 11/02/16 07:00 Pulse Ox 94 L 11/02/16 08:45 Intake & Output 11/01/16 11/01/16 11/02/16 11:59 23:59 12:59 Intake Total 1492 1552 686 Output Total 925 1250 1250 Balance 567 302 -564 Weight 47.2 kg 48.081 kg Intake: IV 712 682 536 Dopamine 400 mg/D5w - 250 98 98 116 ml @ 2 MCG/KG/MIN 3.912 mls/hr IVPB TITR TAYE Rx#: [id number] D5-1/2Ns+20 Meq KCl - 1, 614 500 000 ml @ 50 mls/hr IV ASDIR [facility] Rx#:[id number] 1/2Ns+20Meq KCl 1,000 ml 84 420 @ 42 mls/hr IV ASDIR [facility]E Rx#:[id number] IVPB 430 280 150 Oral 350 590 Output: Drainage 500 800 RECTAL TUBE 500 800 Urine 425 1250 450 Toribio 425 1250 450 Other: Voiding Method Indwelling Catheter Indwelling Catheter Indwelling Catheter Bowel Movement Yes Weight Measurement Method [facility] Gen: awake, comfortable, does not follow but tracks and nods Heart: RRR Lung: decreased breath sounds at the bases Abd: soft, nontender Ext: + edema rectal toribio with loose water CBC, BMP 11/02/16 08:20 11/02/16 08:20 ASSESSMENT AND PLAN: UTI Septic Shock Hypernatremia/Dehydration Acute on Chronic Renal Failure Hyperkalemia Lactic Acidosis Hypothyroidism C.diff - ABX for provendencia - stopping IVF - Apparently the family has deferred aggressive care such as HD - monitor urine output, creatinine - taper pressors to maintain MAP >65 - aspiration precautions - replete lytes - PO as tolerated - DVT/GI prophylaxis - family to discuss advanced directives and goals of care - Floor once off pressors Danny Mccarthy ACNP Pulm/Critical Care CCTime 35"
[2016-11-02] MEDS: SODIUM CHLORIDE 0.45%/POT 1,000 ML IV SCH (10:56)
[2016-11-02] MEDS: MEMANTINE HCL 10 MG TABLET (FP) PO SCH (10:57)
--- NOTE | 2016-11-02 15:16 | PN ---
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, Physician History of Present Illness: stable on very low of dopamine - Current Medication List Current Medications: Active Medications Dopamine HCl/Dextrose (Dopamine 400 Mg/D5w -) 250 mls @ 3.912 mls/hr IVPB TITR TAYE; 2 MCG/KG/MIN PRN Reason: Protocol Last Titration: 11/01/16 21:48 Dose: 5 mcg/kg/min Pantoprazole Sodium (Protonix 40mg Ivpb (Pre-Docked)) 100 mls @ 200 mls/hr IVPB DAILY TAYE Last Admin: 11/02/16 09:28 Dose: 200 mls/hr Metronidazole (Flagyl 500mg Premixed Ivpb -) 100 mls @ 100 mls/hr IVPB Q8H-IV TAYE Last Admin: 11/02/16 09:27 Dose: 100 mls/hr Potassium Chloride/Sodium Chloride (1/2ns+20meq Kcl) 1,000 mls @ 42 mls/hr IV ASDIR TAYE Last Admin: 11/02/16 10:56 Dose: 42 mls/hr Insulin Aspart (Novolog Vial Sliding Scale -) 1 vial SQ BIDAC TAYE PRN Reason: Protocol Last Admin: 11/02/16 06:15 Dose: 2 units Levothyroxine Sodium (Synthroid -) 88 mcg PO DAILY@0700 [facility] Last Admin: 11/02/16 06:12 Dose: 88 mcg Memantine (Namenda -) 10 mg PO DAILY [facility] Last Admin: 11/02/16 10:57 Dose: 10 mg Multivitamins/Minerals/Vitamin C (Tab-A-Vit -) 1 tab PO DAILY [facility] Last Admin: 11/02/16 09:33 Dose: 1 tab Piperacillin Sod/Tazobactam Sod (Zosyn 2.25gm Ivpb (Pre-Docked)) 2.25 gm IVPB Q8H-IV TAYE Last Admin: 11/02/16 09:28 Dose: 2.25 gm Potassium Chloride (Kcl Oral Solution -) 20 meq PO DAILY [facility] Last Admin: 11/02/16 09:27 Dose: 20 meq Vancomycin HCl (Vancomycin Oral Solution) 125 mg PO Q6HPO [facility] Last Admin: 11/02/16 11:01 Dose: 125 mg - Objective Vital Signs: Vital Signs Temperature 98.1 F 11/02/16 13:00 Pulse Rate 79 03/12/17 15:00 Respiratory Rate 16 11/02/16 15:00 Blood Pressure 111/55 11/02/16 15:00 O2 Sat by Pulse Oximetry (%) 95 11/02/16 10:15 Constitutional: Yes: No Distress, Calm Cardiovascular: Yes: Regular Rate and Rhythm Respiratory: Yes: Regular, CTA Bilaterally Gastrointestinal: Yes: Normal Bowel Sounds, Soft Genitourinary: Yes: Mccrary Present Musculoskeletal: Yes: Other Extremities: Yes: Other Neurological: Yes: Alert, Other Psychiatric: Yes: Alert Labs: CBC, BMP 11/02/16 08:20 11/02/16 08:20 INR, PTT INR 1.12 (0.82-1.09) 10/26/16 21:00 Assessment/Plan Problem List - Problems (1) Acute hyperkalemia Code(s): E87.5 - HYPERKALEMIA (2) Acute renal failure Code(s): N17.9 - ACUTE KIDNEY FAILURE, UNSPECIFIED Qualifiers: Acute renal failure type: unspecified Qualified Code(s): N17.9 - Acute kidney failure, unspecified (3) UTI (urinary tract infection) Code(s): N39.0 - URINARY TRACT INFECTION, SITE NOT SPECIFIED Qualifiers: Urinary tract infection type: site unspecified Hematuria presence: without hematuria Qualified Code(s): N39.0 - Urinary tract infection, site not specified (4) Alzheimer's dementia Code(s): G30.9 - ALZHEIMER'S DISEASE, UNSPECIFIED Qualifiers: Alzheimer's disease onset: unspecified onset Dementia behavioral disturbance: without behavioral disturbance Qualified Code(s): G30.9 - Alzheimer's disease, unspecified; F02.80 - Dementia in other diseases classified elsewhere without behavioral disturbance leukocytosis colitis lactic acidosis sepsis wbc trending towards normal creatinine trending down no gross changes plan continue hydration as per renal continue current abx creatinine trending down close monitoring pressors as required vanco orally will stop abx cc time 40 min
--- NOTE | 2016-11-02 16:44 | PN ---
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, Physician History of Present Illness: Pt seen and examined at bedside. Her appetite is improved. She was taken off dopamine a few hours ago. - Current Medication List Current Medications: Active Medications Dopamine HCl/Dextrose (Dopamine 400 Mg/D5w -) 250 mls @ 3.912 mls/hr IVPB TITR TAYE; 2 MCG/KG/MIN PRN Reason: Protocol Last Titration: 11/01/16 21:48 Dose: 5 mcg/kg/min Pantoprazole Sodium (Protonix 40mg Ivpb (Pre-Docked)) 100 mls @ 200 mls/hr IVPB DAILY TAYE Last Admin: 11/02/16 09:28 Dose: 200 mls/hr Metronidazole (Flagyl 500mg Premixed Ivpb -) 100 mls @ 100 mls/hr IVPB Q8H-IV TAYE Last Admin: 11/02/16 09:27 Dose: 100 mls/hr Potassium Chloride/Sodium Chloride (1/2ns+20meq Kcl) 1,000 mls @ 42 mls/hr IV ASDIR TAYE Last Admin: 11/02/16 10:56 Dose: 42 mls/hr Insulin Aspart (Novolog Vial Sliding Scale -) 1 vial SQ BIDAC TAYE PRN Reason: Protocol Last Admin: 11/02/16 06:15 Dose: 2 units Levothyroxine Sodium (Synthroid -) 88 mcg PO DAILY@0700 [facility] Last Admin: 11/02/16 06:12 Dose: 88 mcg Memantine (Namenda -) 10 mg PO DAILY [facility]AYE Last Admin: 11/02/16 10:57 Dose: 10 mg Multivitamins/Minerals/Vitamin C (Tab-A-Vit -) 1 tab PO DAILY TAYE Last Admin: 11/02/16 09:33 Dose: 1 tab Piperacillin Sod/Tazobactam Sod (Zosyn 2.25gm Ivpb (Pre-Docked)) 2.25 gm IVPB Q8H-IV TAYE Last Admin: 11/02/16 09:28 Dose: 2.25 gm Potassium Chloride (Kcl Oral Solution -) 20 meq PO DAILY TAYE Last Admin: 11/02/16 09:27 Dose: 20 meq Vancomycin HCl (Vancomycin Oral Solution) 125 mg PO Q6HPO TAYE Last Admin: 11/02/16 11:01 Dose: 125 mg - Objective Vital Signs: Vital Signs Temperature 98.1 F 11/02/16 13:00 Pulse Rate 79 11/02/16 15:00 Respiratory Rate 16 11/02/16 15:00 Blood Pressure 111/55 11/02/16 15:00 O2 Sat by Pulse Oximetry (%) 95 11/02/16 10:15 Constitutional: Yes: Calm Eyes: Yes: Conjunctiva Clear HENT: Yes: Atraumatic Neck: Yes: Supple Cardiovascular: Yes: S1, S2 Respiratory: Yes: On Nasal O2 Gastrointestinal: Yes: Soft Genitourinary: Yes: Mccrary Present Musculoskeletal: Yes: Muscle Weakness Edema: Yes Neurological: Yes: Confusion Labs: CBC, BMP 11/02/16 08:20 11/02/16 08:20 INR, PTT INR 1.12 (0.82-1.09) 10/26/16 21:00 Problem List - Problems (1) Acute hyperkalemia Code(s): E87.5 - HYPERKALEMIA (2) Acute renal failure Code(s): N17.9 - ACUTE KIDNEY FAILURE, UNSPECIFIED Qualifiers: Acute renal failure type: unspecified Qualified Code(s): N17.9 - Acute kidney failure, unspecified (3) UTI (urinary tract infection) Code(s): N39.0 - URINARY TRACT INFECTION, SITE NOT SPECIFIED Qualifiers: Urinary tract infection type: site unspecified Hematuria presence: without hematuria Qualified Code(s): N39.0 - Urinary tract infection, site not specified (4) Alzheimer's dementia Code(s): G30.9 - ALZHEIMER'S DISEASE, UNSPECIFIED Qualifiers: Alzheimer's disease onset: unspecified onset Dementia behavioral disturbance: without behavioral disturbance Qualified Code(s): G30.9 - Alzheimer's disease, unspecified; F02.80 - Dementia in other diseases classified elsewhere without behavioral disturbance Assessment/Plan Current Medications Generic Name Dose Route Start Last Admin Trade Name Freq PRN Reason Stop Dose Admin Dopamine HCl/Dextrose 250 mls @ 3.912 mls/hr 10/26/16 21:15 11/01/16 21:48 Dopamine 400 Mg/D5w - IVPB 5 mcg/kg/min TITR TAYE Titration Protocol 2 MCG/KG/MIN Pantoprazole Sodium 100 mls @ 200 mls/hr 10/28/16 10:00 11/02/16 09:28 Protonix 40mg Ivpb (Pre-Docked) IVPB 200 mls/hr DAILY TAYE Administration Metronidazole 100 mls @ 100 mls/hr 10/27/16 15:15 11/02/16 09:27 Flagyl 500mg Premixed Ivpb - IVPB 100 mls/hr Q8H-IV TAYE Administration Potassium Chloride/Sodium Chloride 1,000 mls @ 42 mls/hr 11/02/16 10:00 10:56 1/2ns+20meq Kcl IV 42 mls/hr ASDIR TAYE Administration Insulin Aspart 1 vial 10/29/16 16:30 11/02/16 06:15 Novolog Vial Sliding Scale - SQ 2 units BIDAC TAYE Administration Protocol Levothyroxine Sodium 88 mcg 11/02/16 07:00 11/02/16 06:12 Synthroid - PO 88 mcg DAILY@0700 TAYE Administration Memantine 10 mg 11/02/16 10:00 11/02/16 10:57 Namenda - PO 10 mg DAILY TAYE Administration Multivitamins/Minerals/Vitamin C 1 tab 11/02/16 10:00 11/02/16 09:33 Tab-A-Vit - PO 1 tab DAILY TAYE Administration Piperacillin Sod/Tazobactam Sod 2.25 gm 10/26/16 18:00 11/02/16 09:28 Zosyn 2.25gm Ivpb (Pre-Docked) IVPB 2.25 gm Q8H-IV TAYE Administration Potassium Chloride 20 meq 11/01/16 10:00 11/02/16 09:27 Kcl Oral Solution - PO 20 meq DAILY TAYE Administration Vancomycin HCl 125 mg 10/28/16 15:00 11/02/16 11:01 Vancomycin Oral Solution PO 125 mg Q6HPO TAYE Administration Impression 1. DALJIT 2. hx CKD 3. metabolic acidosis 4. hyperkalemia 5. dementia 6. sepsis 7. UTI 8. hypernatremia Plan - renal function stabilizing - cont fluids for now - dopamine just stopped - repeat labs in am - encourage PO intake - will follow Dr Greene
[2016-11-02] MEDS: DOPAMINE 400 MG/D5W - 250 ML IVPB SCH (22:32)
[2016-11-03] MEDS: VANCOMYCIN 250 MG/5 ML ORAL SOLUTION PO SCH ×4 (00:01→17:22)
[2016-11-03] MEDS: SODIUM CHLORIDE 0.45%/POT 1,000 ML IV SCH ×2 (00:02→10:00)
[2016-11-03] MEDS: PIPERACILLIN/TAZOB 2.25 GM/50 ML PRE-DOCKED BAG IVPB SCH ×2 (02:52→09:03)
[2016-11-03] MEDS: METRONIDAZOLE 500 MG PREMIXED 100 ML IVPB SCH ×2 (02:53→09:02)
[2016-11-03] MEDS: LEVOTHYROXINE NA 88 MCG TABLET (FP) PO SCH (06:29)
[2016-11-03] MEDS: INSULIN SLIDING SCALE (NOVOLOG) 1 VIAL SQ SCH ×2 (06:31→17:21)
--- NOTE | 2016-11-03 08:52 | PN ---
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 acute renal failure due to dehydration slowly resolving chronic anemia advanced dementia Plan fluids to decrease abx supportive care oral nutrition can transfer to floor GI/DVT prophylaxis Problem List - Problems (1) Acute hyperkalemia Code(s): E87.5 - HYPERKALEMIA (2) Acute renal failure Code(s): N17.9 - ACUTE KIDNEY FAILURE, UNSPECIFIED Qualifiers: Acute renal failure type: unspecified Qualified Code(s): N17.9 - Acute kidney failure, unspecified (3) Diarrhea Code(s): R19.7 - DIARRHEA, UNSPECIFIED Qualifiers: Diarrhea type: unspecified type Qualified Code(s): R19.7 - Diarrhea , unspecified (4) Sepsis syndrome Code(s): [id number] - (5) UTI (urinary tract infection) Code(s): N39.0 - URINARY TRACT INFECTION, SITE NOT SPECIFIED Qualifiers: Urinary tract infection type: site unspecified Hematuria presence: without hematuria Qualified Code(s): N39.0 - Urinary tract infection, site not specified (6) Alzheimer's dementia Code(s): G30.9 - ALZHEIMER'S DISEASE, UNSPECIFIED Qualifiers: Alzheimer's disease onset: unspecified onset Dementia behavioral disturbance: without behavioral disturbance Qualified Code(s): G30.9 - Alzheimer's disease, unspecified; F02.80 - Dementia in other diseases classified elsewhere without behavioral disturbance (7) Hypotension Code(s): I95.9 - HYPOTENSION, UNSPECIFIED Qualifiers: Hypotension type: other hypotension type Qualified Code(s): I95.89 - Other hypotension
[2016-11-03] MEDS: MULTIVITAMINS (DAILY MVI) TABLET (FP) PO SCH (09:03)
[2016-11-03] MEDS: POTASSIUM CHLORIDE 40 MEQ/30 ML UNIT DOSE CUP PO SCH (09:03)
[2016-11-03] MEDS: PANTOPRAZOLE SODIUM 100 ML IVPB SCH (09:03)
[2016-11-03] MEDS: MEMANTINE HCL 10 MG TABLET (FP) PO SCH (09:04)
[2016-11-03 09:50] LABS: CALCIUM 7.5 mg/dL (8.5-10.1); MAGNESIUM 1.8 mg/dL (1.8-2.4); PHOSPHOROUS 2.3 mg/dL (2.5-4.9)
[2016-11-03 09:56] LABS: MCH 29.4 pg (25.7-33.7); MCHC 32.9 g/dl (32.0-36.0); MEAN CELL VOLUME 89.3 fl (80-96); MEAN PLT VOLUME 7.5 fl (7.5-11.1); PLATELET COUNT 202 K/MM3 (134-434); RDW 16.3 % (11.6-15.6); WHITE BLOOD COUNT 11.5 K/mm3 (4.0-10.0)
--- NOTE | 2016-11-03 10:35 | PN ---
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 Simple responses. Reassessed swallowing. Pt overtly tolerating puree and thin liquid. Swallow is delayed with risk of aspiration on thin liquid. Monitor tolerance. If increased congestion, nectar thick and mbs.
--- NOTE | 2016-11-03 11:55 | PN ---
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, Physician History of Present Illness: Pt seen and examined at bedside. She is more awake and alert today. She denies shortness of breath. - Current Medication List Current Medications: Active Medications Dopamine HCl/Dextrose (Dopamine 400 Mg/D5w -) 250 mls @ 3.912 mls/hr IVPB TITR TAYE; 2 MCG/KG/MIN PRN Reason: Protocol Last Admin: 11/02/16 22:32 Dose: Not Given Pantoprazole Sodium (Protonix 40mg Ivpb (Pre-Docked)) 100 mls @ 200 mls/hr IVPB DAILY TAYE Last Admin: 11/03/16 09:03 Dose: 200 mls/hr Metronidazole (Flagyl 500mg Premixed Ivpb -) 100 mls @ 100 mls/hr IVPB Q8H-IV TAYE Last Admin: 11/03/16 09:02 Dose: 100 mls/hr Potassium Chloride/Sodium Chloride (1/2ns+20meq Kcl) 1,000 mls @ 42 mls/hr IV ASDIR TAYE Last Admin: 11/03/16 00:02 Dose: 42 mls/hr Insulin Aspart (Novolog Vial Sliding Scale -) 1 vial SQ BIDAC TAYE PRN Reason: Protocol Last Admin: 11/03/16 06:31 Dose: Not Given Levothyroxine Sodium (Synthroid -) 88 mcg PO DAILY@0700 [facility] Last Admin: 11/03/16 06:29 Dose: 88 mcg Memantine (Namenda -) 10 mg PO DAILY [facility] Last Admin: 11/03/16 09:04 Dose: 10 mg Multivitamins/Minerals/Vitamin C (Tab-A-Vit -) 1 tab PO DAILY TAYE Last Admin: 11/03/16 09:03 Dose: 1 tab Piperacillin Sod/Tazobactam Sod (Zosyn 2.25gm Ivpb (Pre-Docked)) 2.25 gm IVPB Q8H-IV TAYE Last Admin: 11/03/16 09:03 Dose: 2.25 gm Potassium Chloride (Kcl Oral Solution -) 20 meq PO DAILY TAYE Last Admin: 11/03/16 09:03 Dose: 20 meq Vancomycin HCl (Vancomycin Oral Solution) 125 mg PO Q6HPO TAYE Last Admin: 11/03/16 06:30 Dose: 125 mg - Objective Vital Signs: Vital Signs Temperature 97.7 F 11/03/16 08:00 Pulse Rate 83 03/13/17 09:44 Respiratory Rate 18 11/03/16 08:00 Blood Pressure 102/57 11/03/16 08:00 O2 Sat by Pulse Oximetry (%) 97 11/03/16 09:44 Constitutional: Yes: Calm Eyes: Yes: Conjunctiva Clear HENT: Yes: Atraumatic Neck: Yes: Supple Cardiovascular: Yes: S1, S2 Respiratory: Yes: CTA Bilaterally Gastrointestinal: Yes: Soft Genitourinary: Yes: Toribio Present Musculoskeletal: Yes: Muscle Weakness Edema: No Neurological: Yes: Other (awake and more alert than yesterday) Labs: CBC, BMP 11/03/16 09:05 11/03/16 09:05 INR, PTT INR 1.12 (0.82-1.09) 10/26/16 21:00 Problem List - Problems (1) Acute hyperkalemia Code(s): E87.5 - HYPERKALEMIA (2) Acute renal failure Code(s): N17.9 - ACUTE KIDNEY FAILURE, UNSPECIFIED Qualifiers: Acute renal failure type: unspecified Qualified Code(s): N17.9 - Acute kidney failure, unspecified (3) UTI (urinary tract infection) Code(s): N39.0 - URINARY TRACT INFECTION, SITE NOT SPECIFIED Qualifiers: Urinary tract infection type: site unspecified Hematuria presence: without hematuria Qualified Code(s): N39.0 - Urinary tract infection, site not specified (4) Alzheimer's dementia Code(s): G30.9 - ALZHEIMER'S DISEASE, UNSPECIFIED Qualifiers: Alzheimer's disease onset: unspecified onset Dementia behavioral disturbance: without behavioral disturbance Qualified Code(s): G30.9 - Alzheimer's disease, unspecified; F02.80 - Dementia in other diseases classified elsewhere without behavioral disturbance Assessment/Plan Current Medications Generic Name Dose Route Start Last Admin Trade Name Freq PRN Reason Stop Dose Admin Dopamine HCl/Dextrose 250 mls @ 3.912 mls/hr 10/26/16 21:15 11/02/16 22:32 Dopamine 400 Mg/D5w - IVPB Not Given TITR TAYE Protocol 2 MCG/KG/MIN Pantoprazole Sodium 100 mls @ 200 mls/hr 10/28/16 10:00 11/03/16 09:03 Protonix 40mg Ivpb (Pre-Docked) IVPB 200 mls/hr DAILY TAYE Administration Metronidazole 100 mls @ 100 mls/hr 10/27/16 15:15 11/03/16 09:02 Flagyl 500mg Premixed Ivpb - IVPB 100 mls/hr Q8H-IV TAYE Administration Potassium Chloride/Sodium Chloride 1,000 mls @ 42 mls/hr 11/02/16 10:00 00:02 1/2ns+20meq Kcl IV 42 mls/hr ASDIR TAYE Administration Insulin Aspart 1 vial 10/29/16 16:30 11/03/16 06:31 Novolog Vial Sliding Scale - SQ Not Given BIDAC [facility] Protocol Levothyroxine Sodium 88 mcg 11/02/16 07:00 11/03/16 06:29 Synthroid - PO 88 mcg DAILY@0700 TAYE Administration Memantine 10 mg 11/02/16 10:00 11/03/16 09:04 Namenda - PO 10 mg DAILY TAYE Administration Multivitamins/Minerals/Vitamin C 1 tab 11/02/16 10:00 11/03/16 09:03 Tab-A-Vit - PO 1 tab DAILY TAYE Administration Piperacillin Sod/Tazobactam Sod 2.25 gm 10/26/16 18:00 11/03/16 09:03 Zosyn 2.25gm Ivpb (Pre-Docked) IVPB 2.25 gm Q8H-IV TAYE Administration Potassium Chloride 20 meq 11/01/16 10:00 11/03/16 09:03 Kcl Oral Solution - PO 20 meq DAILY TAYE Administration Vancomycin HCl 125 mg 10/28/16 15:00 11/03/16 06:30 Vancomycin Oral Solution PO 125 mg Q6HPO TAYE Administration Impression 1. DALJIT 2. hx CKD 3. metabolic acidosis 4. hyperkalemia 5. dementia 6. sepsis 7. UTI 8. hypernatremia Plan - creatinine is improving - sodium is rising, change fluids to d5w - discussed with ICU team - can remove toribio - blood pressure stabilizing - repeat labs in am - encourage PO intake - will follow Dr Greene
[2016-11-03] MEDS: DEXTROSE 5%-WATER - 1,000 ML IV SCH ×2 (12:00→23:52)
--- NOTE | 2016-11-03 12:50 | PN ---
Teaching Attending Note Name of Resident: Celestino Zhu ATTENDING PHYSICIAN STATEMENT I saw and evaluated the patient. I reviewed the resident's note and discussed the case with the resident. I agree with the resident's findings and plan as documented. SUBJECTIVE: Patient seen and examined in the ICU. Awake and interactive but confused. Not able to answer any questions appropriately. Currently off pressors. Still with diarrhea Intake & Output 10/31/16 11/01/16 11/02/16 11/03/16 22:59 22:59 23:59 23:59 Intake Total 1054 Output Total 500 Balance 554 Weight 95 lb 4 oz Last Vital Signs Temp Pulse Resp BP Pulse Ox 97.9 F 87 16 98/48 97 11/03/16 12:00 11/03/16 12:00 11/03/16 12:00 11/03/16 12:00 11/03/16 09:44 Active Medications Dopamine HCl/Dextrose (Dopamine 400 Mg/D5w -) 250 mls @ 3.912 mls/hr IVPB TITR TAYE; 2 MCG/KG/MIN PRN Reason: Protocol Last Admin: 11/02/16 22:32 Dose: Not Given Pantoprazole Sodium (Protonix 40mg Ivpb (Pre-Docked)) 100 mls @ 200 mls/hr IVPB DAILY [facility] Last Admin: 11/03/16 09:03 Dose: 200 mls/hr Metronidazole (Flagyl 500mg Premixed Ivpb -) 100 mls @ 100 mls/hr IVPB Q8H-IV TAYE Last Admin: 11/03/16 09:02 Dose: 100 mls/hr Dextrose (D5w -) 1,000 mls @ 42 mls/hr IV ASDIR TAYE Last Admin: 11/03/16 12:00 Dose: 42 mls/hr Insulin Aspart (Novolog Vial Sliding Scale -) 1 vial SQ BIDAC TAYE PRN Reason: Protocol Last Admin: 11/03/16 06:31 Dose: Not Given Levothyroxine Sodium (Synthroid -) 88 mcg PO DAILY@0700 [facility] Last Admin: 11/03/16 06:29 Dose: 88 mcg Memantine (Namenda -) 10 mg PO DAILY [facility] Last Admin: 11/03/16 09:04 Dose: 10 mg Multivitamins/Minerals/Vitamin C (Tab-A-Vit -) 1 tab PO DAILY [facility] Last Admin: 11/03/16 09:03 Dose: 1 tab Piperacillin Sod/Tazobactam Sod (Zosyn 2.25gm Ivpb (Pre-Docked)) 2.25 gm IVPB Q8H-IV TAYE Last Admin: 11/03/16 09:03 Dose: 2.25 gm Potassium Chloride (Kcl Oral Solution -) 20 meq PO DAILY TAYE Last Admin: 11/03/16 09:03 Dose: 20 meq Vancomycin HCl (Vancomycin Oral Solution) 125 mg PO Q6HPO TAYE Last Admin: 11/03/16 12:24 Dose: 125 mg Gen: awake, NAD, confused Heart: RRR Lung: decreased breath sounds at the bases Abd: soft, nontender Ext: (+) edema Laboratory Results - last 24 hr 11/03/16 11/03/16 09:05 09:05 WBC 11.5 H RBC 2.95 L Hgb 8.7 L Hct 26.4 L MCV 89.3 MCHC 32.9 RDW 16.3 H Plt Count 202 MPV 7.5 Sodium 149 H Potassium 4.4 D Chloride 121 H Carbon Dioxide 19 L Anion Gap 9 BUN 65 H Creatinine 4.0 H Random Glucose 139 H Calcium 7.5 L Phosphorus 2.3 L D Magnesium 1.8 ASSESSMENT AND PLAN: UTI Septic Shock Hypernatremia/Dehydration Acute on Chronic Renal Failure Hyperkalemia Lactic Acidosis Hypothyroidism C.diff - ABX for provendencia - Apparently the family has deferred aggressive care such as HD - monitor urine output, creatinine - aspiration precautions - PO as tolerated - DVT/GI prophylaxis - family to discuss further advanced directives and goals of care Dr Kimball CCTime 35"
--- NOTE | 2016-11-03 14:30 | PN ---
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, Physician History of Present Illness: patient doing much better no complaints looks like she is at baseline off of pressors and marinating bp no fevers - Current Medication List Current Medications: Active Medications Dopamine HCl/Dextrose (Dopamine 400 Mg/D5w -) 250 mls @ 3.912 mls/hr IVPB TITR TAYE; 2 MCG/KG/MIN PRN Reason: Protocol Last Admin: 11/02/16 22:32 Dose: Not Given Pantoprazole Sodium (Protonix 40mg Ivpb (Pre-Docked)) 100 mls @ 200 mls/hr IVPB DAILY [facility] Last Admin: 11/03/16 09:03 Dose: 200 mls/hr Metronidazole (Flagyl 500mg Premixed Ivpb -) 100 mls @ 100 mls/hr IVPB Q8H-IV [facility] Last Admin: 11/03/16 09:02 Dose: 100 mls/hr Dextrose (D5w -) 1,000 mls @ 42 mls/hr IV ASDIR [facility] Last Admin: 11/03/16 12:00 Dose: 42 mls/hr Insulin Aspart (Novolog Vial Sliding Scale -) 1 vial SQ BIDAC TAYE PRN Reason: Protocol Last Admin: 11/03/16 06:31 Dose: Not Given Levothyroxine Sodium (Synthroid -) 88 mcg PO DAILY@0700 [facility] Last Admin: 11/03/16 06:29 Dose: 88 mcg Memantine (Namenda -) 10 mg PO DAILY [facility] Last Admin: 11/03/16 09:04 Dose: 10 mg Multivitamins/Minerals/Vitamin C (Tab-A-Vit -) 1 tab PO DAILY [facility] Last Admin: 11/03/16 09:03 Dose: 1 tab Piperacillin Sod/Tazobactam Sod (Zosyn 2.25gm Ivpb (Pre-Docked)) 2.25 gm IVPB Q8H-IV [facility] Last Admin: 11/03/16 09:03 Dose: 2.25 gm Potassium Chloride (Kcl Oral Solution -) 20 meq PO DAILY [facility] Last Admin: 11/03/16 09:03 Dose: 20 meq Vancomycin HCl (Vancomycin Oral Solution) 125 mg PO Q6HPO [facility] Last Admin: 11/03/16 12:24 Dose: 125 mg - Objective Vital Signs: Vital Signs Temperature 97.9 F 11/03/16 12:00 Pulse Rate 87 11/03/16 12:00 Respiratory Rate 16 11/03/16 12:00 Blood Pressure 98/48 11/03/16 12:00 O2 Sat by Pulse Oximetry (%) 97 11/03/16 09:44 Constitutional: Yes: No Distress, Calm Cardiovascular: Yes: Regular Rate and Rhythm Respiratory: Yes: Regular, CTA Bilaterally Gastrointestinal: Yes: Normal Bowel Sounds, Soft Musculoskeletal: Yes: Other Extremities: Yes: Other Neurological: Yes: Alert, Other Psychiatric: Yes: Alert Labs: CBC, BMP 11/03/16 09:05 11/03/16 09:05 INR, PTT INR 1.12 (0.82-1.09) 10/26/16 21:00 Assessment/Plan Problem List - Problems (1) Acute hyperkalemia Code(s): E87.5 - HYPERKALEMIA (2) Acute renal failure Code(s): N17.9 - ACUTE KIDNEY FAILURE, UNSPECIFIED Qualifiers: Acute renal failure type: unspecified Qualified Code(s): N17.9 - Acute kidney failure, unspecified (3) UTI (urinary tract infection) Code(s): N39.0 - URINARY TRACT INFECTION, SITE NOT SPECIFIED Qualifiers: Urinary tract infection type: site unspecified Hematuria presence: without hematuria Qualified Code(s): N39.0 - Urinary tract infection, site not specified (4) Alzheimer's dementia Code(s): G30.9 - ALZHEIMER'S DISEASE, UNSPECIFIED Qualifiers: Alzheimer's disease onset: unspecified onset Dementia behavioral disturbance: without behavioral disturbance Qualified Code(s): G30.9 - Alzheimer's disease, unspecified; F02.80 - Dementia in other diseases classified elsewhere without behavioral disturbance leukocytosis colitis lactic acidosis sepsis wbc trending towards normal creatinine trending down no gross changes plan continue hydration as per renal will stop abx except oral vanco patient much more awake and alert continue to monitor cc time 40 min
--- NOTE | 2016-11-03 14:36 | PN ---
Physical Exam: SUBJECTIVE: Patient seen and examined at bedside in the ICU. She's appearing much better, follows commands, interactive, nearly back to her baseline. Per nurse, her MAP has been in 70s since off pressor on Thursday. OBJECTIVE: Vital Signs Period Temp Pulse Resp BP Sys/Correia Pulse Ox Last 24 Hr 97.6 F-98.5 F 64-98 14-20 83-137/44-71 95-97 GENERAL: awake alert, demented at baseline, interactive, answer some simple questions LUNGS: Decreased breath sounds HEART: RRR normal S1, S2 without murmur, rub or gallop. EXTREMITIES: no edema Laboratory Results - last 24 hr 11/03/16 11/03/16 09:05 09:05 WBC 11.5 H RBC 2.95 L Hgb 8.7 L Hct 26.4 L MCV 89.3 MCHC 32.9 RDW 16.3 H Plt Count 202 MPV 7.5 Sodium 149 H Potassium 4.4 D Chloride 121 H Carbon Dioxide 19 L Anion Gap 9 BUN 65 H Creatinine 4.0 H Random Glucose 139 H Calcium 7.5 L Phosphorus 2.3 L D Magnesium 1.8 Active Medications Generic Name Dose Route Start Last Admin Trade Name Freq PRN Reason Stop Dose Admin Dopamine HCl/Dextrose 250 mls @ 3.912 mls/hr 10/26/16 21:15 11/02/16 22:32 Dopamine 400 Mg/D5w - IVPB Not Given TITR TAYE Protocol 2 MCG/KG/MIN Pantoprazole Sodium 100 mls @ 200 mls/hr 10/28/16 10:00 11/03/16 09:03 Protonix 40mg Ivpb (Pre-Docked) IVPB 200 mls/hr DAILY TAYE Administration Metronidazole 100 mls @ 100 mls/hr 10/27/16 15:15 11/03/16 09:02 Flagyl 500mg Premixed Ivpb - IVPB 100 mls/hr Q8H-IV TAYE Administration Dextrose 1,000 mls @ 42 mls/hr 11/03/16 12:00 11/03/16 12:00 D5w - IV 42 mls/hr ASDIR TAYE Administration Insulin Aspart 1 vial 10/29/16 16:30 11/03/16 06:31 Novolog Vial Sliding Scale - SQ Not Given BIDAC TAYE Protocol Levothyroxine Sodium 88 mcg 11/02/16 07:00 11/03/16 06:29 Synthroid - PO 88 mcg DAILY@0700 TAYE Administration Memantine 10 mg 11/02/16 10:00 11/03/16 09:04 Namenda - PO 10 mg DAILY TAYE Administration Multivitamins/Minerals/Vitamin C 1 tab 11/02/16 10:00 11/03/16 09:03 Tab-A-Vit - PO 1 tab DAILY TAYE Administration Piperacillin Sod/Tazobactam Sod 2.25 gm 10/26/16 18:00 11/03/16 09:03 Zosyn 2.25gm Ivpb (Pre-Docked) IVPB 2.25 gm Q8H-IV TAYE Administration Potassium Chloride 20 meq 11/01/16 10:00 11/03/16 09:03 Kcl Oral Solution - PO 20 meq DAILY TAYE Administration Vancomycin HCl 125 mg 10/28/16 15:00 11/03/16 12:24 Vancomycin Oral Solution PO 125 mg Q6HPO TAYE Administration ASSESSMENT/PLAN: 86 yo F h/o CKD, dementia and hypothyroidism admitted to the ICU for DALJIT on CKD and severe sepsis. 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 to improve - Cont. toribio, monitor I/O - Dose all meds renally ID: Severe sepsis 2/2 UTI - WBC slowly improving, afrebile - Stage 1 and stage 4 decub ulcers * wound care * no surgical intervention per surgery - Completed flagyl and zosyn - On vanco oral solution only Cardiac: hypotension - Cont. to taper pressors to maintain MAP > 65% Heme: Normacytic anemia, chronic in the setting of CKD - 2/2 CKD - HGB at baseline - Cont. monitor, transfuse if HGB < 7 Endo: Hypothyroidism - Cont. synthroid FEN - D5 @42ml/hr - Hypernatremia, encourage free water intake, Cont. to monitor lytes - Puree diet with magic cup Prophylaxis - DVT: Heparin held - GI: PPI gtt Disposition - Transfer [facility]-surg Visit type - Emergency Visit Emergency Visit: No - New Patient This patient is new to me today: No - Critical Care Critical Care patient: Yes Total Critical Care Time (in minutes): 35 Critical Care Statement: The care of this patient involved high complexity decision making to prevent further life threatening deterioration of the patient 's condition and/or to evalute & treat vital organ system(s) failure or risk of failure.
[2016-11-03] MEDS ORDERED: INSULIN (NOVOLOG) ASPART 100 UNITS/ML 10ML VIAL ONE (17:19)
[2016-11-03] MEDS ORDERED: ACETAMINOPHEN 1000 MG/100 ML VIAL (NON FORMULARY) IVPB ONE (17:25)
[2016-11-03] MEDS ORDERED: ACETAMINOPHEN 1000 MG/100 ML VIAL (NON FORMULARY) IVPB PRN (17:25)
[2016-11-03] MEDS: DOPAMINE 400 MG/D5W - 250 ML IVPB SCH (18:10)
[2016-11-04] MEDS: VANCOMYCIN 250 MG/5 ML ORAL SOLUTION PO SCH ×4 (00:17→18:28)
[2016-11-04] MEDS: LEVOTHYROXINE NA 88 MCG TABLET (FP) PO SCH (06:31)
[2016-11-04 06:48] LABS: MCH 29.7 pg (25.7-33.7); MCHC 33.1 g/dl (32.0-36.0); MEAN CELL VOLUME 89.7 fl (80-96); MEAN PLT VOLUME 8.2 fl (7.5-11.1); PLATELET COUNT 239 K/MM3 (134-434); RDW 16.7 % (11.6-15.6); WHITE BLOOD COUNT 10.5 K/mm3 (4.0-10.0)
[2016-11-04] MEDS: INSULIN SLIDING SCALE (NOVOLOG) 1 VIAL SQ SCH ×2 (06:50→18:35)
[2016-11-04 07:06] LABS: CALCIUM 7.6 mg/dL (8.5-10.1); CREATININE 3.9 mg/dL (0.55-1.02); MAGNESIUM 1.7 mg/dL (1.8-2.4); PHOSPHOROUS 2.5 mg/dL (2.5-4.9)
--- NOTE | 2016-11-04 08:19 | PN ---
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, Physician History of Present Illness: Pt seen and examined at bedside. She is awake and appears comfortable. - Current Medication List Current Medications: Active Medications Dextrose (D5w -) 1,000 mls @ 42 mls/hr IV ASDIR [facility] Last Admin: 11/03/16 23:52 Dose: 42 mls/hr Dopamine HCl/Dextrose (Dopamine 400 Mg/D5w -) 250 mls @ 3.912 mls/hr IVPB TITR TAYE; 2 MCG/KG/MIN PRN Reason: Protocol Last Admin: 11/03/16 18:10 Dose: Not Given Pantoprazole Sodium (Protonix 40mg Ivpb (Pre-Docked)) 100 mls @ 200 mls/hr IVPB DAILY TAYE Insulin Aspart (Novolog Vial Sliding Scale -) 1 vial SQ BIDAC TAYE PRN Reason: Protocol Last Admin: 11/04/16 06:50 Dose: Not Given Levothyroxine Sodium (Synthroid -) 88 mcg PO DAILY@0700 [facility] Last Admin: 11/04/16 06:31 Dose: 88 mcg Memantine (Namenda -) 10 mg PO DAILY [facility] Multivitamins/Minerals/Vitamin C (Tab-A-Vit -) 1 tab PO DAILY TAYE Potassium Chloride (Kcl Oral Solution -) 20 meq PO DAILY TAYE Vancomycin HCl (Vancomycin Oral Solution) 125 mg PO Q6HPO [facility] Last Admin: 11/04/16 06:31 Dose: 125 mg - Objective Vital Signs: Vital Signs Temperature 97.8 F 11/04/16 06:00 Pulse Rate 93 H 11/04/16 06:00 Respiratory Rate 18 11/04/16 06:00 Blood Pressure 123/52 11/04/16 06:00 O2 Sat by Pulse Oximetry (%) 97 11/03/16 19:42 Constitutional: Yes: Calm Eyes: Yes: Conjunctiva Clear HENT: Yes: Atraumatic Neck: Yes: Supple Cardiovascular: Yes: S1, S2 Respiratory: Yes: CTA Bilaterally Gastrointestinal: Yes: Soft Musculoskeletal: Yes: Muscle Weakness Edema: No Neurological: Yes: Confusion Labs: CBC, BMP 11/04/16 05:05 11/04/16 05:05 INR, PTT INR 1.12 (0.82-1.09) 10/26/16 21:00 Problem List - Problems (1) Acute hyperkalemia Code(s): E87.5 - HYPERKALEMIA (2) Acute renal failure Code(s): N17.9 - ACUTE KIDNEY FAILURE, UNSPECIFIED Qualifiers: Acute renal failure type: unspecified Qualified Code(s): N17.9 - Acute kidney failure, unspecified (3) UTI (urinary tract infection) Code(s): N39.0 - URINARY TRACT INFECTION, SITE NOT SPECIFIED Qualifiers: Urinary tract infection type: site unspecified Hematuria presence: without hematuria Qualified Code(s): N39.0 - Urinary tract infection, site not specified (4) Alzheimer's dementia Code(s): G30.9 - ALZHEIMER'S DISEASE, UNSPECIFIED Qualifiers: Alzheimer's disease onset: unspecified onset Dementia behavioral disturbance: without behavioral disturbance Qualified Code(s): G30.9 - Alzheimer's disease, unspecified; F02.80 - Dementia in other diseases classified elsewhere without behavioral disturbance Assessment/Plan Current Medications Generic Name Dose Route Start Last Admin Trade Name Freq PRN Reason Stop Dose Admin Dextrose 1,000 mls @ 42 mls/hr 11/03/16 12:00 11/03/16 23:52 D5w - IV 42 mls/hr ASDIR TAYE Administration Dopamine HCl/Dextrose 250 mls @ 3.912 mls/hr 11/03/16 18:09 11/03/16 18:10 Dopamine 400 Mg/D5w - IVPB Not Given TITR TAYE Protocol 2 MCG/KG/MIN Pantoprazole Sodium 100 mls @ 200 mls/hr 11/04/16 10:00 Protonix 40mg Ivpb (Pre-Docked) IVPB DAILY TAYE Insulin Aspart 1 vial 11/04/16 07:00 11/04/16 06:50 Novolog Vial Sliding Scale - SQ Not Given BIDAC TAYE Protocol Levothyroxine Sodium 88 mcg 11/04/16 07:00 11/04/16 06:31 Synthroid - PO 88 mcg DAILY@0700 TAYE Administration Memantine 10 mg 11/04/16 10:00 Namenda - PO DAILY [facility] Multivitamins/Minerals/Vitamin C 1 tab 11/04/16 10:00 Tab-A-Vit - PO DAILY [facility] Potassium Chloride 20 meq 11/04/16 10:00 Kcl Oral Solution - PO DAILY TAYE Vancomycin HCl 125 mg 11/04/16 00:00 11/04/16 06:31 Vancomycin Oral Solution PO 125 mg Q6HPO TAYE Administration Impression 1. DALJIT 2. hx CKD 3. metabolic acidosis 4. hyperkalemia 5. dementia 6. sepsis 7. UTI 8. hypernatremia Plan - cont current fluids - replace magnesium - monitor sodium - encourage PO intake - renal function is improving - discussed with ICU team - repeat labs in am - will follow Dr Greene
[2016-11-04] MEDS ORDERED: MAGNESIUM SULF 50% (8.12 MEQ/2 ML-1 GM VIAL) IVPB ONE (09:30)
[2016-11-04] MEDS ORDERED: PT OWN MED DRAWER 7, Y5N ONE (09:36)
[2016-11-04] MEDS ORDERED: PANTOPRAZOLE SODIUM 100 ML IVPB SCH (10:00)
[2016-11-04] MEDS: MEMANTINE HCL 10 MG TABLET (FP) PO SCH (10:10)
[2016-11-04] MEDS: MULTIVITAMINS (DAILY MVI) TABLET (FP) PO SCH (10:10)
[2016-11-04] MEDS: POTASSIUM CHLORIDE 40 MEQ/30 ML UNIT DOSE CUP PO SCH (10:10)
[2016-11-04] MEDS ORDERED: LOPERAMIDE HCL 1 MG/5 ML UNIT DOSE CUP PO ONE (11:03)
--- NOTE | 2016-11-04 12:31 | PN ---
Teaching Attending Note Name of Resident: Celestino Zhu ATTENDING PHYSICIAN STATEMENT I saw and evaluated the patient. I reviewed the resident's note and discussed the case with the resident. I agree with the resident's findings and plan as documented. SUBJECTIVE: Patient seen and examined in the ICU. Remains awake and interactive but still confused. Not able to answer any questions appropriately. Remains off pressors. Still with liquid stools. Intake & Output 11/01/16 11/02/16 11/03/16 11/04/16 22:59 23:59 23:59 23:59 Intake Total 1908 604 Output Total 1250 800 Balance 658 -196 Weight 95 lb 4 oz 97 lb 2 oz Last Vital Signs Temp Pulse Resp BP Pulse Ox 97.8 F 69 18 123/52 98 11/04/16 06:00 11/04/16 09:32 11/04/16 06:00 11/04/16 06:00 11/04/16 09:32 Active Medications Dextrose (D5w -) 1,000 mls @ 42 mls/hr IV ASDIR [facility] Last Admin: 11/03/16 23:52 Dose: 42 mls/hr Dopamine HCl/Dextrose (Dopamine 400 Mg/D5w -) 250 mls @ 3.912 mls/hr IVPB TITR TAYE; 2 MCG/KG/MIN PRN Reason: Protocol Last Admin: 11/03/16 18:10 Dose: Not Given Pantoprazole Sodium (Protonix 40mg Ivpb (Pre-Docked)) 100 mls @ 200 mls/hr IVPB DAILY [facility] Last Admin: 11/04/16 10:11 Dose: 200 mls/hr Insulin Aspart (Novolog Vial Sliding Scale -) 1 vial SQ BIDAC TAYE PRN Reason: Protocol Last Admin: 11/04/16 06:50 Dose: Not Given Levothyroxine Sodium (Synthroid -) 88 mcg PO DAILY@0700 [facility] Last Admin: 11/04/16 06:31 Dose: 88 mcg Memantine (Namenda -) 10 mg PO DAILY [facility] Last Admin: 11/04/16 10:10 Dose: 10 mg Multivitamins/Minerals/Vitamin C (Tab-A-Vit -) 1 tab PO DAILY [facility] Last Admin: 11/04/16 10:10 Dose: 1 tab Potassium Chloride (Kcl Oral Solution -) 20 meq PO DAILY [facility] Last Admin: 11/04/16 10:10 Dose: 20 meq Vancomycin HCl (Vancomycin Oral Solution) 125 mg PO Q6HPO TAYE Last Admin: 11/04/16 06:31 Dose: 125 mg Gen: awake, NAD, confused Heart: RRR Lung: decreased breath sounds at the bases Abd: soft, nontender Ext: (+) edema Laboratory Results - last 24 hr 11/02/16 11/03/16 11/03/16 17:30 05:41 16:34 WBC RBC Hgb Hct MCV MCHC RDW Plt Count MPV Sodium Potassium Chloride Carbon Dioxide Anion Gap BUN Creatinine POC Glucometer 225.02314 124.13045 [phone] Random Glucose Calcium Phosphorus Magnesium 11/04/16 11/04/16 11/04/16 05:04 05:05 05:05 WBC 10.5 H RBC 2.85 L Hgb 8.5 L Hct 25.6 L MCV 89.7 MCHC 33.1 RDW 16.7 H Plt Count 239 MPV 8.2 Sodium 146 H Potassium 4.3 Chloride 118 H Carbon Dioxide 17 L Anion Gap 11 BUN 59 H Creatinine 3.9 H POC Glucometer [phone] Random Glucose 161 H Calcium 7.6 L Phosphorus 2.5 Magnesium 1.7 L ASSESSMENT AND PLAN: UTI Septic Shock Hypernatremia/Dehydration Acute on Chronic Renal Failure Hyperkalemia Lactic Acidosis Hypothyroidism C.diff - ABX for provendencia - monitor urine output, creatinine - Rectal tube in place for persistent liquid stool -> Trial of Immodium - Aspiration precautions - PO as tolerated - DVT/GI prophylaxis - Floor - Family to discuss further advanced directives and goals of care Dr Kimball CCTime 35"
[2016-11-04] MEDS: DEXTROSE 5%-WATER - 1,000 ML IV SCH (12:41)
[2016-11-04] MEDS: BANATROL PLUS POWDER PACKET PO SCH ×2 (13:38→22:52)
--- NOTE | 2016-11-04 14:55 | PN ---
Physical Exam: SUBJECTIVE: Patient seen and examined at bedside in the ICU. She's at baseline mental status and has no complaints. Per nurse, she's sating well overnight and MAP maintained at > 70 off pressor. OBJECTIVE: Vital Signs Period Temp Pulse Resp BP Sys/Correia Pulse Ox Last 24 Hr 97.8 F-98.7 F 69-98 12-18 93-123/50-82 97-98 GENERAL: awake alert, demented at baseline, interactive, answer some simple questions LUNGS: Decreased breath sounds HEART: RRR normal S1, S2 without murmur, rub or gallop. EXTREMITIES: no edema Laboratory Results - last 24 hr 11/02/16 11/03/16 11/03/16 17:30 05:41 16:34 WBC RBC Hgb Hct MCV MCHC RDW Plt Count MPV Sodium Potassium Chloride Carbon Dioxide Anion Gap BUN Creatinine POC Glucometer 225.54121 124.84426 274.35280 Random Glucose Calcium Phosphorus Magnesium 11/04/16 11/04/16 11/04/16 05:04 05:05 05:05 WBC 10.5 H RBC 2.85 L Hgb 8.5 L Hct 25.6 L MCV 89.7 MCHC 33.1 RDW 16.7 H Plt Count 239 MPV 8.2 Sodium 146 H Potassium 4.3 Chloride 118 H Carbon Dioxide 17 L Anion Gap 11 BUN 59 H Creatinine 3.9 H POC Glucometer [phone] Random Glucose 161 H Calcium 7.6 L Phosphorus 2.5 Magnesium 1.7 L Active Medications Generic Name Dose Route Start Last Admin Trade Name Freq PRN Reason Stop Dose Admin Dextrose 1,000 mls @ 42 mls/hr 11/03/16 12:00 11/04/16 12:41 D5w - IV 42 mls/hr ASDIR TAYE Administration Dopamine HCl/Dextrose 250 mls @ 3.912 mls/hr 11/03/16 18:09 11/03/16 18:10 Dopamine 400 Mg/D5w - IVPB Not Given TITR TAYE Protocol 2 MCG/KG/MIN Pantoprazole Sodium 100 mls @ 200 mls/hr 11/04/16 10:00 11/04/16 10:11 Protonix 40mg Ivpb (Pre-Docked) IVPB 200 mls/hr DAILY TAYE Administration Insulin Aspart 1 vial 11/04/16 07:00 11/04/16 06:50 Novolog Vial Sliding Scale - SQ Not Given BIDAC [facility] Protocol Levothyroxine Sodium 88 mcg 11/04/16 07:00 11/04/16 06:31 Synthroid - PO 88 mcg DAILY@0700 TAYE Administration Memantine 10 mg 11/04/16 10:00 11/04/16 10:10 Namenda - PO 10 mg DAILY TAYE Administration Multivitamins/Minerals/Vitamin C 1 tab 11/04/16 10:00 11/04/16 10:10 Tab-A-Vit - PO 1 tab DAILY TAYE Administration Potassium Chloride 20 meq 11/04/16 10:00 11/04/16 10:10 Kcl Oral Solution - PO 20 meq DAILY TAYE Administration Vancomycin HCl 125 mg 11/04/16 00:00 11/04/16 12:40 Vancomycin Oral Solution PO 125 mg Q6HPO TAYE Administration ASSESSMENT/PLAN: 86 yo F h/o CKD, dementia and hypothyroidism admitted to the ICU for DALJIT on CKD and severe sepsis. 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 to improve - Cont. toribio, monitor I/O - Dose all meds renally GI: Watery diarrhea - C. diff ag positive but toxin negative - Added banana flakes to increase fiber intake - Start imodium - Maintain rectal tube and toribio till diarrhea resolves ID: Severe sepsis 2/2 UTI - WBC slowly going down, afrebile - Stage 1 and stage 4 decub ulcers * wound care * no surgical intervention per surgery - Completed flagyl and zosyn - On vanco oral solution only Cardiac: hypotension - Cont. to taper pressors to maintain MAP > 65% Heme: Normacytic anemia, chronic in the setting of CKD - 2/2 CKD - HGB at baseline - Cont. monitor, transfuse if HGB < 7 Endo: Hypothyroidism - Cont. synthroid FEN - D5 @42ml/hr - Hypernatremia, encourage free water intake, Cont. to monitor lytes - HypoMg2+, repleted with MgSO4 - Puree diet with magic cup + banana flakes Prophylaxis - DVT: Heparin held - GI: PPI gtt Disposition - Transfer to [facility]urg Visit type - Emergency Visit Emergency Visit: No - New Patient This patient is new to me today: No - Critical Care Critical Care patient: Yes Total Critical Care Time (in minutes): 45 Critical Care Statement: The care of this patient involved high complexity decision making to prevent further life threatening deterioration of the patient 's condition and/or to evalute & treat vital organ system(s) failure or risk of failure.
[2016-11-04] MEDS: DOPAMINE 400 MG/D5W - 250 ML IVPB SCH (18:29)
[2016-11-05] MEDS: VANCOMYCIN 250 MG/5 ML ORAL SOLUTION PO SCH ×4 (01:03→18:30)
[2016-11-05] MEDS: BANATROL PLUS POWDER PACKET PO SCH ×3 (06:48→22:21)
[2016-11-05] MEDS: LEVOTHYROXINE NA 88 MCG TABLET (FP) PO SCH (06:48)
[2016-11-05] MEDS: INSULIN SLIDING SCALE (NOVOLOG) 1 VIAL SQ SCH (06:57)
--- NOTE | 2016-11-05 08:47 | PN ---
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 (short form) - Note 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: Vital Signs Period Temp Pulse Resp BP Sys/Correia Pulse Ox Last 24 Hr 97.6 F-98.4 F 69-87 16-22 105-133/58-77 98-100 S1S2 RRR lungs cta ant abd soft NT urine clear awake, alert, mumbling IMP improving sepsis/hypotension resolved UTI C.diff stage 4 sacral decubitus acute renal failure due to dehydration slowly resolving chronic anemia advanced dementia Plan fluids to decrease oral vanco supportive care oral nutrition GI/DVT prophylaxis PT dc planning Problem List - Problems (1) Acute hyperkalemia Code(s): E87.5 - HYPERKALEMIA (2) Acute renal failure Code(s): N17.9 - ACUTE KIDNEY FAILURE, UNSPECIFIED Qualifiers: Acute renal failure type: unspecified Qualified Code(s): N17.9 - Acute kidney failure, unspecified (3) Diarrhea Code(s): R19.7 - DIARRHEA, UNSPECIFIED Qualifiers: Diarrhea type: unspecified type Qualified Code(s): R19.7 - Diarrhea , unspecified (4) Sepsis syndrome Code(s): [id number] - (5) UTI (urinary tract infection) Code(s): N39.0 - URINARY TRACT INFECTION, SITE NOT SPECIFIED Qualifiers: Urinary tract infection type: site unspecified Hematuria presence: without hematuria Qualified Code(s): N39.0 - Urinary tract infection, site not specified (6) Alzheimer's dementia Code(s): G30.9 - ALZHEIMER'S DISEASE, UNSPECIFIED Qualifiers: Alzheimer's disease onset: unspecified onset Dementia behavioral disturbance: without behavioral disturbance Qualified Code(s): G30.9 - Alzheimer's disease, unspecified; F02.80 - Dementia in other diseases classified elsewhere without behavioral disturbance (7) Hypotension Code(s): I95.9 - HYPOTENSION, UNSPECIFIED Qualifiers: Hypotension type: other hypotension type Qualified Code(s): I95.89 - Other hypotension
--- NOTE | 2016-11-05 11:41 | PN ---
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, [employer] - Note 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: Selected Entries 11/04/16 11/04/16 11/04/16 02:00 06:00 10:00 Breakfast Diet Tolerated Temperature 98.1 F 97.8 F 97.8 F 11/04/16 11/04/16 11/04/16 14:00 19:59 21:00 Breakfast Diet Tolerated Temperature 97.6 F 98.1 F 98.2 F 11/05/16 11/05/16 11/05/16 02:03 07:00 10:24 Breakfast 50% Diet Tolerated Fair Temperature 98.2 F 98.4 F Laboratory Tests 11/01/16 11/02/16 11/03/16 05:20 08:20 09:05 WBC 11.8 H 12.2 H 11.5 H 11/04/16 05:05 WBC 10.5 H On puree and thin liquid. Monitor tolerance. Supplements b/n meals.
--- NOTE | 2016-11-05 12:20 | PN ---
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, Physician History of Present Illness: stable no new issues - Current Medication List Current Medications: Active Medications Dextrose (D5w -) 1,000 mls @ 42 mls/hr IV ASDIR [facility] Last Admin: 11/04/16 12:41 Dose: 42 mls/hr Levothyroxine Sodium (Synthroid -) 88 mcg PO DAILY@0700 [facility] Last Admin: 11/05/16 06:48 Dose: 88 mcg Memantine (Namenda -) 10 mg PO DAILY [facility] Last Admin: 11/04/16 10:10 Dose: 10 mg Multivitamins/Minerals/Vitamin C (Tab-A-Vit -) 1 tab PO DAILY [facility] Last Admin: 11/04/16 10:10 Dose: 1 tab Potassium Chloride (Kcl Oral Solution -) 20 meq PO DAILY [facility] Last Admin: 11/04/16 10:10 Dose: 20 meq Ranitidine HCl (Zantac Oral Solution -) 150 mg PO DAILY [facility] Vancomycin HCl (Vancomycin Oral Solution) 125 mg PO Q6HPO [facility] Last Admin: 11/05/16 06:48 Dose: 125 mg - Objective Vital Signs: Vital Signs Temperature 98.4 F 11/05/16 07:00 Pulse Rate 83 11/05/16 07:00 Respiratory Rate 20 11/05/16 07:00 Blood Pressure 114/58 11/05/16 07:00 O2 Sat by Pulse Oximetry (%) 100 11/04/16 21:00 Constitutional: Yes: No Distress, Calm Cardiovascular: Yes: Regular Rate and Rhythm Respiratory: Yes: Regular, CTA Bilaterally Gastrointestinal: Yes: Normal Bowel Sounds, Soft Musculoskeletal: Yes: WNL Extremities: Yes: Other Neurological: Yes: Alert, Other Labs: CBC, BMP 11/04/16 05:05 11/04/16 05:05 INR, PTT INR 1.12 (0.82-1.09) 10/26/16 21:00 Assessment/Plan Problem List - Problems (1) Acute hyperkalemia Code(s): E87.5 - HYPERKALEMIA (2) Acute renal failure Code(s): N17.9 - ACUTE KIDNEY FAILURE, UNSPECIFIED Qualifiers: Acute renal failure type: unspecified Qualified Code(s): N17.9 - Acute kidney failure, unspecified (3) UTI (urinary tract infection) Code(s): N39.0 - URINARY TRACT INFECTION, SITE NOT SPECIFIED Qualifiers: Urinary tract infection type: site unspecified Hematuria presence: without hematuria Qualified Code(s): N39.0 - Urinary tract infection, site not specified (4) Alzheimer's dementia Code(s): G30.9 - ALZHEIMER'S DISEASE, UNSPECIFIED Qualifiers: Alzheimer's disease onset: unspecified onset Dementia behavioral disturbance: without behavioral disturbance Qualified Code(s): G30.9 - Alzheimer's disease, unspecified; F02.80 - Dementia in other diseases classified elsewhere without behavioral disturbance leukocytosis colitis lactic acidosis sepsis wbc trending towards normal creatinine trending down no gross changes plan stable off of iv abx continue oral vanco rest as per the team
[2016-11-05] MEDS: MEMANTINE HCL 10 MG TABLET (FP) PO SCH (12:52)
[2016-11-05] MEDS: MULTIVITAMINS (DAILY MVI) TABLET (FP) PO SCH (12:52)
[2016-11-05] MEDS: RANITIDINE HCL 150 MG/10 ML UNIT-DOSE CUP PO SCH (12:52)
[2016-11-05] MEDS: POTASSIUM CHLORIDE 40 MEQ/30 ML UNIT DOSE CUP PO SCH (12:52)
[2016-11-05] MEDS: DEXTROSE 5%-WATER - 1,000 ML IV SCH ×2 (12:53→16:22)
--- NOTE | 2016-11-05 14:59 | PN ---
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, Physician History of Present Illness: Pt seen and examined at bedside. She is awake and appears comfortable. - Current Medication List Current Medications: Active Medications Dextrose (D5w -) 1,000 mls @ 42 mls/hr IV ASDIR [facility] Last Admin: 11/05/16 12:53 Dose: Not Given Levothyroxine Sodium (Synthroid -) 88 mcg PO DAILY@0700 [facility] Last Admin: 11/05/16 06:48 Dose: 88 mcg Memantine (Namenda -) 10 mg PO DAILY [facility] Last Admin: 11/05/16 12:52 Dose: 10 mg Multivitamins/Minerals/Vitamin C (Tab-A-Vit -) 1 tab PO DAILY [facility] Last Admin: 11/05/16 12:52 Dose: 1 tab Potassium Chloride (Kcl Oral Solution -) 20 meq PO DAILY [facility] Last Admin: 11/05/16 12:52 Dose: 20 meq Ranitidine HCl (Zantac Oral Solution -) 150 mg PO DAILY [facility] Last Admin: 11/05/16 12:52 Dose: 150 mg Vancomycin HCl (Vancomycin Oral Solution) 125 mg PO Q6HPO [facility] Last Admin: 11/05/16 12:52 Dose: 125 mg - Objective Vital Signs: Vital Signs Temperature 98.4 F 11/05/16 14:00 Pulse Rate 105 H 11/05/16 14:00 Respiratory Rate 20 11/05/16 14:00 Blood Pressure 137/78 11/05/16 14:00 O2 Sat by Pulse Oximetry (%) 100 11/04/16 21:00 Constitutional: Yes: Calm Eyes: Yes: Conjunctiva Clear HENT: Yes: Atraumatic Neck: Yes: Supple Cardiovascular: Yes: S1, S2 Respiratory: Yes: CTA Bilaterally, On Nasal O2 Gastrointestinal: Yes: Soft Genitourinary: Yes: Toribio Present Musculoskeletal: Yes: Muscle Weakness Edema: No Neurological: Yes: Confusion Labs: CBC, BMP 11/04/16 05:05 11/04/16 05:05 INR, PTT INR 1.12 (0.82-1.09) 10/26/16 21:00 Problem List - Problems (1) Acute hyperkalemia Code(s): E87.5 - HYPERKALEMIA (2) Acute renal failure Code(s): N17.9 - ACUTE KIDNEY FAILURE, UNSPECIFIED Qualifiers: Acute renal failure type: unspecified Qualified Code(s): N17.9 - Acute kidney failure, unspecified (3) UTI (urinary tract infection) Code(s): N39.0 - URINARY TRACT INFECTION, SITE NOT SPECIFIED Qualifiers: Urinary tract infection type: site unspecified Hematuria presence: without hematuria Qualified Code(s): N39.0 - Urinary tract infection, site not specified (4) Alzheimer's dementia Code(s): G30.9 - ALZHEIMER'S DISEASE, UNSPECIFIED Qualifiers: Alzheimer's disease onset: unspecified onset Dementia behavioral disturbance: without behavioral disturbance Qualified Code(s): G30.9 - Alzheimer's disease, unspecified; F02.80 - Dementia in other diseases classified elsewhere without behavioral disturbance Assessment/Plan Current Medications Generic Name Dose Route Start Last Admin Trade Name Lulú PRN Reason Stop Dose Admin Dextrose 1,000 mls @ 42 mls/hr 11/03/16 12:00 11/05/16 12:53 D5w - IV Not Given ASDIR TAYE Levothyroxine Sodium 88 mcg 11/04/16 07:00 11/05/16 06:48 Synthroid - PO 88 mcg DAILY@0700 TAYE Administration Memantine 10 mg 11/04/16 10:00 11/05/16 12:52 Namenda - PO 10 mg DAILY [facility]AYE Administration Multivitamins/Minerals/Vitamin C 1 tab 11/04/16 10:00 11/05/16 12:52 Tab-A-Vit - PO 1 tab DAILY [facility] Administration Potassium Chloride 20 meq 11/04/16 10:00 11/05/16 12:52 Kcl Oral Solution - PO 20 meq DAILY TAYE Administration Ranitidine HCl 150 mg 11/05/16 10:00 11/05/16 12:52 Zantac Oral Solution - PO 150 mg DAILY TAYE Administration Vancomycin HCl 125 mg 11/04/16 00:00 11/05/16 12:52 Vancomycin Oral Solution PO 125 mg Q6HPO TAYE Administration Impression 1. DALJIT 2. hx CKD 3. metabolic acidosis 4. hyperkalemia 5. dementia 6. sepsis 7. UTI 8. hypernatremia Plan - check bmp - cont fluids - can d/c toribio - repeat labs in am - encourage PO intake - renal function has been improving - will follow Dr Greene
[2016-11-05 16:36] LABS: CALCIUM 7.6 mg/dL (8.5-10.1); CREATININE 3.6 mg/dL (0.55-1.02)
[2016-11-06] MEDS: VANCOMYCIN 250 MG/5 ML ORAL SOLUTION PO SCH ×4 (00:55→18:38)
[2016-11-06] MEDS: LEVOTHYROXINE NA 88 MCG TABLET (FP) PO SCH (06:22)
[2016-11-06] MEDS: BANATROL PLUS POWDER PACKET PO SCH ×3 (06:22→21:44)
[2016-11-06 08:19] LABS: CALCIUM 7.7 mg/dL (8.5-10.1); CREATININE 3.4 mg/dL (0.55-1.02)
--- NOTE | 2016-11-06 09:54 | PN ---
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 (short form) - Note 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: CBC, BMP 11/04/16 05:05 11/06/16 06:00 Vital Signs Period Temp Pulse Resp BP Sys/Correia Pulse Ox Last 24 Hr 97.5 F-98.8 F 67-128 16-20 107-137/50-78 96 S1S2 RRR lungs cta ant abd soft NT awake, stiff, appears contracted stage 4 decubitus, essentially unchanged IMP sepsis/hypotension resolved UTI C.diff stage 4 sacral decubitus acute renal failure due to dehydration slowly resolving chronic anemia advanced dementia Plan fluids to decrease oral vanco supportive care oral nutrition GI/DVT prophylaxis PT dc planning Problem List - Problems (1) Acute hyperkalemia Code(s): E87.5 - HYPERKALEMIA (2) Acute renal failure Code(s): N17.9 - ACUTE KIDNEY FAILURE, UNSPECIFIED Qualifiers: Acute renal failure type: unspecified Qualified Code(s): N17.9 - Acute kidney failure, unspecified (3) Diarrhea Code(s): R19.7 - DIARRHEA, UNSPECIFIED Qualifiers: Diarrhea type: unspecified type Qualified Code(s): R19.7 - Diarrhea , unspecified (4) Sepsis syndrome Code(s): [id number] - (5) UTI (urinary tract infection) Code(s): N39.0 - URINARY TRACT INFECTION, SITE NOT SPECIFIED Qualifiers: Urinary tract infection type: site unspecified Hematuria presence: without hematuria Qualified Code(s): N39.0 - Urinary tract infection, site not specified (6) Alzheimer's dementia Code(s): G30.9 - ALZHEIMER'S DISEASE, UNSPECIFIED Qualifiers: Alzheimer's disease onset: unspecified onset Dementia behavioral disturbance: without behavioral disturbance Qualified Code(s): G30.9 - Alzheimer's disease, unspecified; F02.80 - Dementia in other diseases classified elsewhere without behavioral disturbance (7) Hypotension Code(s): I95.9 - HYPOTENSION, UNSPECIFIED Qualifiers: Hypotension type: other hypotension type Qualified Code(s): I95.89 - Other hypotension
--- NOTE | 2016-11-06 10:18 | PN ---
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 (short form) - Note 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: RENAL Pt is asleep does not respond Last Vital Signs Temp Pulse Resp BP Pulse Ox 97.5 F L 86 16 119/53 96 11/06/16 09:13 11/06/16 09:13 11/06/16 09:13 11/06/16 09:13 11/05/16 21:00 lungs clear cvs s1s2 rr abd soft ext no edema neuro demented, not responding Current Medications Generic Name Dose Route Start Last Admin Trade Name Lulú PRN Reason Stop Dose Admin Dextrose 1,000 mls @ 42 mls/hr 11/03/16 12:00 11/05/16 16:22 D5w - IV 42 mls/hr ASDIR TAYE Administration Levothyroxine Sodium 88 mcg 11/04/16 07:00 11/06/16 06:22 Synthroid - PO 88 mcg DAILY@0700 TAYE Administration Memantine 10 mg 11/04/16 10:00 11/05/16 12:52 Namenda - PO 10 mg DAILY TAYE Administration Multivitamins/Minerals/Vitamin C 1 tab 11/04/16 10:00 11/05/16 12:52 Tab-A-Vit - PO 1 tab DAILY TAYE Administration Potassium Chloride 20 meq 11/04/16 10:00 11/05/16 12:52 Kcl Oral Solution - PO 20 meq DAILY TAYE Administration Ranitidine HCl 150 mg 11/05/16 10:00 11/05/16 12:52 Zantac Oral Solution - PO 150 mg DAILY TAYE Administration Vancomycin HCl 125 mg 11/04/16 00:00 11/06/16 06:23 Vancomycin Oral Solution PO 125 mg Q6HPO TAYE Administration CBC, BMP 11/04/16 05:05 11/06/16 06:00 Impression 1. DALJIT probably from sepsis and urinary retention- improving 2. hx CKD 3. metabolic acidosis 4. hyperkalemia 5. dementia 6. sepsis 7. UTI 8. hypernatremia Plan - cont fluids - repeat labs in am - encourage PO intake - renal function has been improving -dc daily potassium MV MV
--- NOTE | 2016-11-06 11:12 | PN ---
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, FILLING LAYER UP - Note 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: Selected Entries 11/05/16 11/05/16 11/05/16 02:03 07:00 10:24 Breakfast 50% Lunch Supper Temperature 98.2 F 98.4 F 11/05/16 11/05/16 11/05/16 14:00 18:14 18:54 Breakfast Lunch 25% Supper 25% Temperature 98.4 F 98.4 F 11/05/16 11/06/16 11/06/16 22:00 06:00 09:13 Breakfast Lunch Supper Temperature 98.8 F 98.5 F 97.5 F L Laboratory Tests 11/03/16 11/04/16 09:05 05:05 WBC 11.5 H 10.5 H Pt receiving thin liquid and pureed diet. No overt cough or signs of aspiration demonstrated. Pt closes her mouth, with limited po intake sec to confusion. Reviewed with [employer], to try mixing puree into liquid, to drink items if limited PO acceptance. Continue to encourage supplements. rec: Add ensure b/n meals.
--- NOTE | 2016-11-06 11:25 | PN ---
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 (short form) - Note 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: PULMONARY Somnolent, appear comfortable. Last Vital Signs Temp Pulse Resp BP Pulse Ox 97.5 F L 86 16 119/53 96 11/06/16 09:13 11/06/16 09:13 11/06/16 09:13 11/06/16 09:13 11/05/16 21:00 Gen: breathing nonlabored Heart: RRR Lung: decreased breath sounds at the bases Abd: soft, nontender Ext: no edema CBC, BMP 11/04/16 05:05 11/06/16 06:00 Active Medications Dextrose (D5w -) 1,000 mls @ 42 mls/hr IV ASDIR [facility] Last Admin: 11/05/16 16:22 Dose: 42 mls/hr Levothyroxine Sodium (Synthroid -) 88 mcg PO DAILY@0700 [facility] Last Admin: 11/06/16 06:22 Dose: 88 mcg Memantine (Namenda -) 10 mg PO DAILY [facility] Last Admin: 11/05/16 12:52 Dose: 10 mg Multivitamins/Minerals/Vitamin C (Tab-A-Vit -) 1 tab PO DAILY [facility] Last Admin: 11/05/16 12:52 Dose: 1 tab Ranitidine HCl (Zantac Oral Solution -) 150 mg PO DAILY [facility] Last Admin: 11/05/16 12:52 Dose: 150 mg Vancomycin HCl (Vancomycin Oral Solution) 125 mg PO Q6HPO [facility] Last Admin: 11/06/16 06:23 Dose: 125 mg A/P UTI +C diff Ag Septic Shock resolving Hypernatremia/Dehydration Acute on Chronic Renal Failure Hyperkalemia improved Lactic Acidosis resolved Hypothyroidism - continue antibiotics per ID - monitor urine output, creatinine - aspiration precautions - PO as tolerated - DVT/GI prophylaxis
[2016-11-06] MEDS: MEMANTINE HCL 10 MG TABLET (FP) PO SCH (12:46)
[2016-11-06] MEDS: MULTIVITAMINS (DAILY MVI) TABLET (FP) PO SCH (12:46)
[2016-11-06] MEDS: DEXTROSE 5%-WATER - 1,000 ML IV SCH ×2 (12:46→15:32)
[2016-11-06] MEDS: RANITIDINE HCL 150 MG/10 ML UNIT-DOSE CUP PO SCH (12:46)
[2016-11-06] MEDS: POTASSIUM CHLORIDE 40 MEQ/30 ML UNIT DOSE CUP PO SCH (12:53)
--- NOTE | 2016-11-06 15:01 | PN ---
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, Physician History of Present Illness: patient doing well no issues daughter in room - Current Medication List Current Medications: Active Medications Dextrose (D5w -) 1,000 mls @ 42 mls/hr IV ASDIR [facility] Last Admin: 11/06/16 12:46 Dose: Not Given Levothyroxine Sodium (Synthroid -) 88 mcg PO DAILY@0700 [facility] Last Admin: 11/06/16 06:22 Dose: 88 mcg Memantine (Namenda -) 10 mg PO DAILY [facility] Last Admin: 11/06/16 12:46 Dose: 10 mg Multivitamins/Minerals/Vitamin C (Tab-A-Vit -) 1 tab PO DAILY [facility] Last Admin: 11/06/16 12:46 Dose: 1 tab Ranitidine HCl (Zantac Oral Solution -) 150 mg PO DAILY [facility] Last Admin: 11/06/16 12:46 Dose: 150 mg Vancomycin HCl (Vancomycin Oral Solution) 125 mg PO Q6HPO [facility] Last Admin: 11/06/16 12:52 Dose: 125 mg - Objective Vital Signs: Vital Signs Temperature 97.8 F 11/06/16 14:15 Pulse Rate 97 H 11/06/16 14:15 Respiratory Rate 20 11/06/16 14:15 Blood Pressure 103/54 11/06/16 14:15 O2 Sat by Pulse Oximetry (%) 96 11/05/16 21:00 Constitutional: Yes: No Distress, Calm HENT: Yes: Atraumatic Neck: Yes: Supple, Trachea Midline Respiratory: Yes: Regular, CTA Bilaterally Gastrointestinal: Yes: Normal Bowel Sounds, Soft Musculoskeletal: Yes: WNL Extremities: Yes: Other (contracted) Integumentary: Yes: Other Neurological: Yes: Alert, Other Psychiatric: Yes: Alert Labs: CBC, BMP 11/04/16 05:05 11/06/16 06:00 INR, PTT INR 1.12 (0.82-1.09) 10/26/16 21:00 Assessment/Plan Problem List - Problems (1) Acute hyperkalemia Code(s): E87.5 - HYPERKALEMIA (2) Acute renal failure Code(s): N17.9 - ACUTE KIDNEY FAILURE, UNSPECIFIED Qualifiers: Acute renal failure type: unspecified Qualified Code(s): N17.9 - Acute kidney failure, unspecified (3) UTI (urinary tract infection) Code(s): N39.0 - URINARY TRACT INFECTION, SITE NOT SPECIFIED Qualifiers: Urinary tract infection type: site unspecified Hematuria presence: without hematuria Qualified Code(s): N39.0 - Urinary tract infection, site not specified (4) Alzheimer's dementia Code(s): G30.9 - ALZHEIMER'S DISEASE, UNSPECIFIED Qualifiers: Alzheimer's disease onset: unspecified onset Dementia behavioral disturbance: without behavioral disturbance Qualified Code(s): G30.9 - Alzheimer's disease, unspecified; F02.80 - Dementia in other diseases classified elsewhere without behavioral disturbance leukocytosis colitis lactic acidosis sepsis doing well plan continue oral vanco for a total of 10 days
[2016-11-07] MEDS: VANCOMYCIN 250 MG/5 ML ORAL SOLUTION PO SCH ×3 (00:55→12:00)
[2016-11-07] MEDS: BANATROL PLUS POWDER PACKET PO SCH ×3 (05:26→22:44)
[2016-11-07] MEDS: LEVOTHYROXINE NA 88 MCG TABLET (FP) PO SCH (06:16)
--- NOTE | 2016-11-07 09:00 | PN ---
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 (short form) - Note 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: Vital Signs Period Temp Pulse Resp BP Sys/Correia Pulse Ox Last 24 Hr 97.5 F-98.1 F 81-97 16-20 95-120/52-67 100 S1S2 RRR lungs cta ant abd soft NT awake, stiff, appears contracted Mccrary replaced due to retention IMP sepsis/hypotension resolved UTI C.diff stage 4 sacral decubitus acute renal failure due to dehydration slowly resolving chronic anemia advanced dementia urinary retention Plan fluids as per renal oral vanco-consistently administered since 11.01.16-so would finish 11.11.16 pm supportive care oral nutrition GI/DVT prophylaxis PT dc planning once off of iv fluids Problem List - Problems (1) Acute hyperkalemia Code(s): E87.5 - HYPERKALEMIA (2) Acute renal failure Code(s): N17.9 - ACUTE KIDNEY FAILURE, UNSPECIFIED Qualifiers: Acute renal failure type: unspecified Qualified Code(s): N17.9 - Acute kidney failure, unspecified (3) Diarrhea Code(s): R19.7 - DIARRHEA, UNSPECIFIED Qualifiers: Diarrhea type: unspecified type Qualified Code(s): R19.7 - Diarrhea , unspecified (4) Sepsis syndrome Code(s): [id number] - (5) UTI (urinary tract infection) Code(s): N39.0 - URINARY TRACT INFECTION, SITE NOT SPECIFIED Qualifiers: Urinary tract infection type: site unspecified Hematuria presence: without hematuria Qualified Code(s): N39.0 - Urinary tract infection, site not specified (6) Alzheimer's dementia Code(s): G30.9 - ALZHEIMER'S DISEASE, UNSPECIFIED Qualifiers: Alzheimer's disease onset: unspecified onset Dementia behavioral disturbance: without behavioral disturbance Qualified Code(s): G30.9 - Alzheimer's disease, unspecified; F02.80 - Dementia in other diseases classified elsewhere without behavioral disturbance (7) Hypotension Code(s): I95.9 - HYPOTENSION, UNSPECIFIED Qualifiers: Hypotension type: other hypotension type Qualified Code(s): I95.89 - Other hypotension
[2016-11-07] MEDS ORDERED: PT OWN MED DRAWER 7, Y5N ONE ×2 (09:25→17:45)
[2016-11-07] MEDS: RANITIDINE HCL 150 MG/10 ML UNIT-DOSE CUP PO SCH (09:42)
[2016-11-07] MEDS: MEMANTINE HCL 10 MG TABLET (FP) PO SCH (09:42)
[2016-11-07] MEDS: MULTIVITAMINS (DAILY MVI) TABLET (FP) PO SCH (09:42)
--- NOTE | 2016-11-07 12:27 | PN ---
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 (short form) - Note 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: RENAL appears comfortable resists eye opening Last Vital Signs Temp Pulse Resp BP Pulse Ox 97.8 F 84 18 95/52 100 11/07/16 06:00 11/07/16 06:00 11/07/16 06:00 11/07/16 06:00 11/06/16 20:33 lungs clear cvs s1s2 rr abd soft ext no edema neuro demented, not responding Current Medications Generic Name Dose Route Start Last Admin Trade Name Lulú PRN Reason Stop Dose Admin Dextrose 1,000 mls @ 42 mls/hr 11/03/16 12:00 11/06/16 15:32 D5w - IV 42 mls/hr ASDIR TAYE Administration Levothyroxine Sodium 88 mcg 11/04/16 07:00 11/07/16 06:16 Synthroid - PO 88 mcg DAILY@0700 TAYE Administration Memantine 10 mg 11/04/16 10:00 11/07/16 09:42 Namenda - PO 10 mg DAILY TAYE Administration Multivitamins/Minerals/Vitamin C 1 tab 11/04/16 10:00 11/07/16 09:42 Tab-A-Vit - PO 1 tab DAILY TAYE Administration Ranitidine HCl 150 mg 11/05/16 10:00 11/07/16 09:42 Zantac Oral Solution - PO 150 mg DAILY TAYE Administration Vancomycin HCl 125 mg 11/04/16 00:00 11/07/16 05:27 Vancomycin Oral Solution PO 125 mg Q6HPO TAYE Administration CBC, BMP 11/04/16 05:05 11/06/16 06:00 Impression 1. DALJIT probably from sepsis and urinary retention- improving 2. hx CKD 3. metabolic acidosis 4. hyperkalemia 5. dementia 6. sepsis 7. UTI 8. hypernatremia Plan - cont fluids. Will change to d5 1/2 ns - repeat labs in am - encourage PO intake - renal function has been improving - agree with supportive care given advanced dementia MV
--- NOTE | 2016-11-07 14:17 | PN ---
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, Physician History of Present Illness: stable doing well - Current Medication List Current Medications: Active Medications Acetaminophen (Tylenol Oral Solution -) 650 mg PO Q6H PRN PRN Reason: FEVER OR PAIN Dextrose/Sodium Chloride (D5-1/2ns -) 1,000 mls @ 42 mls/hr IV ASDIR [facility] Levothyroxine Sodium (Synthroid -) 88 mcg PO DAILY@0700 [facility] Last Admin: 11/07/16 06:16 Dose: 88 mcg Memantine (Namenda -) 10 mg PO DAILY [facility] Last Admin: 11/07/16 09:42 Dose: 10 mg Multivitamins/Minerals/Vitamin C (Tab-A-Vit -) 1 tab PO DAILY [facility] Last Admin: 11/07/16 09:42 Dose: 1 tab Ranitidine HCl (Zantac Oral Solution -) 150 mg PO DAILY [facility] Last Admin: 11/07/16 09:42 Dose: 150 mg Vancomycin HCl (Vancomycin Oral Solution) 125 mg PO Q6HPO [facility] Last Admin: 11/07/16 05:27 Dose: 125 mg - Objective Vital Signs: Vital Signs Temperature 97.8 F 11/07/16 06:00 Pulse Rate 84 11/07/16 06:00 Respiratory Rate 18 11/07/16 06:00 Blood Pressure 95/52 11/07/16 06:00 O2 Sat by Pulse Oximetry (%) 100 11/06/16 20:33 Constitutional: Yes: No Distress, Calm Cardiovascular: Yes: Regular Rate and Rhythm Respiratory: Yes: Regular, CTA Bilaterally Gastrointestinal: Yes: Normal Bowel Sounds, Soft Extremities: Yes: Other Neurological: Yes: Alert, Other Labs: CBC, BMP 11/04/16 05:05 11/06/16 06:00 INR, PTT INR 1.12 (0.82-1.09) 10/26/16 21:00 Assessment/Plan Problem List - Problems (1) Acute hyperkalemia Code(s): E87.5 - HYPERKALEMIA (2) Acute renal failure Code(s): N17.9 - ACUTE KIDNEY FAILURE, UNSPECIFIED Qualifiers: Acute renal failure type: unspecified Qualified Code(s): N17.9 - Acute kidney failure, unspecified (3) UTI (urinary tract infection) Code(s): N39.0 - URINARY TRACT INFECTION, SITE NOT SPECIFIED Qualifiers: Urinary tract infection type: site unspecified Hematuria presence: without hematuria Qualified Code(s): N39.0 - Urinary tract infection, site not specified (4) Alzheimer's dementia Code(s): G30.9 - ALZHEIMER'S DISEASE, UNSPECIFIED Qualifiers: Alzheimer's disease onset: unspecified onset Dementia behavioral disturbance: without behavioral disturbance Qualified Code(s): G30.9 - Alzheimer's disease, unspecified; F02.80 - Dementia in other diseases classified elsewhere without behavioral disturbance leukocytosis colitis lactic acidosis sepsis cdiff doing well plan stable continue oral vanco for a total of 10 days
[2016-11-07] MEDS: DEXTROSE 5%-0.45% SALINE 1,000 ML IV SCH (16:34)
[2016-11-07] MEDS: ACETAMINOPHEN 650 MG/20.3 ML ORAL SOLUTION (CUPS) PO PRN (16:34)
[2016-11-08] MEDS: VANCOMYCIN 250 MG/5 ML ORAL SOLUTION PO SCH ×4 (00:48→18:03)
[2016-11-08] MEDS: LEVOTHYROXINE NA 88 MCG TABLET (FP) PO SCH (06:46)
[2016-11-08] MEDS: BANATROL PLUS POWDER PACKET PO SCH ×3 (06:46→22:08)
[2016-11-08 07:25] LABS: BASOPHIL 1.4 % (0-2.0); EOSINOPHIL 2.5 % (0-4.5); MCH 29.7 pg (25.7-33.7); MEAN CELL VOLUME 90.1 fl (80-96); NEUTROPHILS 64.1 % (42.8-82.8); PLATELET COUNT 208 K/MM3 (134-434); RDW 16.2 % (11.6-15.6); WHITE BLOOD COUNT 5.2 K/mm3 (4.0-10.0)
[2016-11-08 09:43] LABS: CALCIUM 7.7 mg/dL (8.5-10.1); CREATININE 3.1 mg/dL (0.55-1.02)
--- NOTE | 2016-11-08 11:47 | PN ---
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, Physician History of Present Illness: patient stable no new issues - Current Medication List Current Medications: Active Medications Acetaminophen (Tylenol Oral Solution -) 650 mg PO Q6H PRN PRN Reason: FEVER OR PAIN Last Admin: 11/07/16 16:34 Dose: 650 mg Dextrose/Sodium Chloride (D5-1/2ns -) 1,000 mls @ 42 mls/hr IV ASDIR [facility] Last Admin: 11/07/16 16:34 Dose: 42 mls/hr Levothyroxine Sodium (Synthroid -) 88 mcg PO DAILY@0700 [facility] Last Admin: 11/08/16 06:46 Dose: 88 mcg Memantine (Namenda -) 10 mg PO DAILY [facility] Last Admin: 11/07/16 09:42 Dose: 10 mg Multivitamins/Minerals/Vitamin C (Tab-A-Vit -) 1 tab PO DAILY [facility] Last Admin: 11/07/16 09:42 Dose: 1 tab Ranitidine HCl (Zantac Oral Solution -) 150 mg PO DAILY [facility] Last Admin: 11/07/16 09:42 Dose: 150 mg Vancomycin HCl (Vancomycin Oral Solution) 125 mg PO Q6HPO [facility] Last Admin: 11/08/16 06:46 Dose: 125 mg - Objective Vital Signs: Vital Signs Temperature 97.4 F L 11/08/16 06:00 Pulse Rate 86 11/08/16 06:00 Respiratory Rate 18 11/08/16 06:00 Blood Pressure 125/54 11/08/16 06:00 O2 Sat by Pulse Oximetry (%) 98 11/07/16 21:00 Constitutional: Yes: No Distress, Calm HENT: Yes: Atraumatic Cardiovascular: Yes: Regular Rate and Rhythm Respiratory: Yes: Regular, CTA Bilaterally Gastrointestinal: Yes: Normal Bowel Sounds, Soft Genitourinary: Yes: Mccrary Present Musculoskeletal: Yes: Other Extremities: Yes: Other Neurological: Yes: Alert, Other Psychiatric: Yes: Alert, Other Labs: CBC, BMP 11/08/16 06:00 11/08/16 06:00 INR, PTT INR 1.12 (0.82-1.09) 10/26/16 21:00 Assessment/Plan Problem List - Problems (1) Acute hyperkalemia Code(s): E87.5 - HYPERKALEMIA (2) Acute renal failure Code(s): N17.9 - ACUTE KIDNEY FAILURE, UNSPECIFIED Qualifiers: Acute renal failure type: unspecified Qualified Code(s): N17.9 - Acute kidney failure, unspecified (3) UTI (urinary tract infection) Code(s): N39.0 - URINARY TRACT INFECTION, SITE NOT SPECIFIED Qualifiers: Urinary tract infection type: site unspecified Hematuria presence: without hematuria Qualified Code(s): N39.0 - Urinary tract infection, site not specified (4) Alzheimer's dementia Code(s): G30.9 - ALZHEIMER'S DISEASE, UNSPECIFIED Qualifiers: Alzheimer's disease onset: unspecified onset Dementia behavioral disturbance: without behavioral disturbance Qualified Code(s): G30.9 - Alzheimer's disease, unspecified; F02.80 - Dementia in other diseases classified elsewhere without behavioral disturbance leukocytosis colitis lactic acidosis sepsis cdiff doing well wbc has normalized plan stable continue oral vanco for a total of 10 days
[2016-11-08] MEDS ORDERED: PT OWN MED DRAWER 7, Y5N ONE (11:59)
[2016-11-08] MEDS: MEMANTINE HCL 10 MG TABLET (FP) PO SCH (12:10)
[2016-11-08] MEDS: MULTIVITAMINS (DAILY MVI) TABLET (FP) PO SCH (12:11)
[2016-11-08] MEDS: RANITIDINE HCL 150 MG/10 ML UNIT-DOSE CUP PO SCH (12:12)
[2016-11-08] MEDS: ACETAMINOPHEN 650 MG/20.3 ML ORAL SOLUTION (CUPS) PO PRN (13:37)
[2016-11-08] MEDS: DEXTROSE 5%-0.45% SALINE 1,000 ML IV SCH (13:44)
--- NOTE | 2016-11-08 15:23 | PN ---
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, Physician History of Present Illness: Renal F/U Patient in no distress lying flat in bed - Current Medication List Current Medications: Active Medications Acetaminophen (Tylenol Oral Solution -) 650 mg PO Q6H PRN PRN Reason: FEVER OR PAIN Last Admin: 11/08/16 13:37 Dose: 650 mg Dextrose/Sodium Chloride (D5-1/2ns -) 1,000 mls @ 42 mls/hr IV ASDIR [facility] Last Admin: 11/08/16 13:44 Dose: 42 mls/hr Levothyroxine Sodium (Synthroid -) 88 mcg PO DAILY@0700 [facility] Last Admin: 11/08/16 06:46 Dose: 88 mcg Memantine (Namenda -) 10 mg PO DAILY [facility] Last Admin: 11/08/16 12:10 Dose: 10 mg Multivitamins/Minerals/Vitamin C (Tab-A-Vit -) 1 tab PO DAILY [facility] Last Admin: 11/08/16 12:11 Dose: 1 tab Ranitidine HCl (Zantac Oral Solution -) 150 mg PO DAILY [facility] Last Admin: 11/08/16 12:12 Dose: 150 mg Vancomycin HCl (Vancomycin Oral Solution) 125 mg PO Q6HPO [facility] Last Admin: 11/08/16 12:11 Dose: 125 mg - Objective Vital Signs: Vital Signs Temperature 97.7 F 11/08/16 15:10 Pulse Rate 88 11/08/16 15:10 Respiratory Rate 18 11/08/16 15:10 Blood Pressure 125/54 11/08/16 06:00 O2 Sat by Pulse Oximetry (%) 98 11/07/16 21:00 Constitutional: Yes: No Distress, Calm Cardiovascular: Yes: S1, S2. No: JVD Respiratory: Yes: CTA Bilaterally Gastrointestinal: Yes: Soft. No: Tenderness, Rebound Edema: No Labs: CBC, BMP 11/08/16 06:00 11/08/16 06:00 INR, PTT INR 1.12 (0.82-1.09) 10/26/16 21:00 Assessment/Plan Impression 1. DALJIT resolving and probably from sepsis and urinary retention 2. hx CKD 3. metabolic acidosis 4. S/P hyperkalemia and hypernatremia 5. dementia 6. sepsis 7. UTI 8. hypernatremia Plan Continue with D5 1/2 NS Repeat labs in am Dr Mobley
--- NOTE | 2016-11-08 17:29 | PN ---
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 (short form) - Note 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: no change vs Vital Signs Period Temp Pulse Resp BP Sys/Correia Pulse Ox Last 24 Hr 97.4 F-98.1 F 86-89 18-18 94-125/52-59 98 1S2 RRR lungs cta ant abd soft NT awake, stiff, appears contracted Mccrayr replaced due to retention CBC, BMP 11/08/16 06:00 11/08/16 06:00 a/p sepsis UTI C.diff stage 4 sacral decubitus acute renal failure due to dehydration slowly resolving chronic anemia advanced dementia urinary retention Plan fluids as per renal oral vanco supportive care oral nutrition
[2016-11-09] MEDS: VANCOMYCIN 250 MG/5 ML ORAL SOLUTION PO SCH ×6 (00:37→23:31)
[2016-11-09] MEDS ORDERED: PT OWN MED DRAWER 7, Y5N ONE ×3 (04:15→16:37)
[2016-11-09] MEDS: LEVOTHYROXINE NA 88 MCG TABLET (FP) PO SCH (06:20)
[2016-11-09] MEDS: BANATROL PLUS POWDER PACKET PO SCH ×3 (06:20→23:36)
[2016-11-09 07:54] LABS: CALCIUM 7.4 mg/dL (8.5-10.1)
[2016-11-09] MEDS: RANITIDINE HCL 150 MG/10 ML UNIT-DOSE CUP PO SCH (11:07)
[2016-11-09] MEDS: MULTIVITAMINS (DAILY MVI) TABLET (FP) PO SCH (11:08)
[2016-11-09] MEDS: MEMANTINE HCL 10 MG TABLET (FP) PO SCH (11:08)
--- NOTE | 2016-11-09 11:32 | PN ---
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 (short form) - Note 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: no change vs Vital Signs CBC, BMP 11/08/16 06:00 11/09/16 06:00 Vital Signs Period Temp Pulse Resp BP Sys/Correia Pulse Ox Last 24 Hr 97.7 F-99 F 87-91 18-18 100-110/48-68 97 lungs cta ant abd soft NT awake, stiff, appears contracted Mccrary replaced due to retention a/p sepsis UTI C.diff stage 4 sacral decubitus acute renal failure due to dehydration slowly resolving chronic anemia advanced dementia urinary retention Plan fluids as per renal oral vanco supportive care oral nutrition
--- NOTE | 2016-11-09 13:44 | PN ---
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, Physician History of Present Illness: Renal F/U Patient in no distress lying flat in bed - Current Medication List Current Medications: Active Medications Acetaminophen (Tylenol Oral Solution -) 650 mg PO Q6H PRN PRN Reason: FEVER OR PAIN Last Admin: 11/08/16 13:37 Dose: 650 mg Dextrose/Sodium Chloride (D5-1/2ns -) 1,000 mls @ 42 mls/hr IV ASDIR [facility] Last Admin: 11/08/16 13:44 Dose: 42 mls/hr Levothyroxine Sodium (Synthroid -) 88 mcg PO DAILY@0700 [facility] Last Admin: 11/09/16 06:20 Dose: 88 mcg Memantine (Namenda -) 10 mg PO DAILY [facility] Last Admin: 11/09/16 11:08 Dose: 10 mg Multivitamins/Minerals/Vitamin C (Tab-A-Vit -) 1 tab PO DAILY [facility] Last Admin: 11/09/16 11:08 Dose: 1 tab Ranitidine HCl (Zantac Oral Solution -) 150 mg PO DAILY [facility] Last Admin: 11/09/16 11:07 Dose: 150 mg Vancomycin HCl (Vancomycin Oral Solution) 125 mg PO Q6HPO [facility] Last Admin: 11/09/16 11:10 Dose: 125 mg - Objective Vital Signs: Vital Signs Temperature 98.7 F 11/09/16 06:00 Pulse Rate 91 H 11/09/16 06:00 Respiratory Rate 18 11/09/16 06:00 Blood Pressure 103/49 11/09/16 06:00 O2 Sat by Pulse Oximetry (%) 97 11/08/16 21:00 Constitutional: Yes: No Distress, Calm Cardiovascular: Yes: S1, S2 Respiratory: Yes: CTA Bilaterally Gastrointestinal: Yes: Soft. No: Distention, Tenderness, Rebound Edema: No Labs: CBC, BMP 11/08/16 06:00 11/09/16 06:00 INR, PTT INR 1.12 (0.82-1.09) 10/26/16 21:00 Assessment/Plan Impression 1. DALJIT slowly resolving and probably from sepsis and urinary retention 2. hx CKD 3. metabolic acidosis 4. S/P hyperkalemia and hypernatremia 5. dementia 6. sepsis 7. UTI 8. hypernatremia 9. Anemia Plan No change in the IVF Repeat labs in am including the BMP and CBC Dr Mobley
--- NOTE | 2016-11-09 17:10 | PN ---
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, Physician History of Present Illness: patient stable no new issues looks like patient is at [facility] baseline - Current Medication List Current Medications: Active Medications Acetaminophen (Tylenol Oral Solution -) 650 mg PO Q6H PRN PRN Reason: FEVER OR PAIN Last Admin: 11/08/16 13:37 Dose: 650 mg Dextrose/Sodium Chloride (D5-1/2ns -) 1,000 mls @ 42 mls/hr IV ASDIR [facility] Last Admin: 11/08/16 13:44 Dose: 42 mls/hr Levothyroxine Sodium (Synthroid -) 88 mcg PO DAILY@0700 [facility] Last Admin: 11/09/16 06:20 Dose: 88 mcg Memantine (Namenda -) 10 mg PO DAILY [facility] Last Admin: 11/09/16 11:08 Dose: 10 mg Multivitamins/Minerals/Vitamin C (Tab-A-Vit -) 1 tab PO DAILY [facility] Last Admin: 11/09/16 11:08 Dose: 1 tab Ranitidine HCl (Zantac Oral Solution -) 150 mg PO DAILY [facility] Last Admin: 11/09/16 11:07 Dose: 150 mg Vancomycin HCl (Vancomycin Oral Solution) 125 mg PO Q6HPO [facility] Last Admin: 11/09/16 11:10 Dose: 125 mg - Objective Vital Signs: Vital Signs Temperature 97.7 F 11/09/16 10:00 Pulse Rate 91 H 11/09/16 10:00 Respiratory Rate 20 11/09/16 10:00 Blood Pressure 106/52 11/09/16 10:00 O2 Sat by Pulse Oximetry (%) 96 11/09/16 09:00 Constitutional: Yes: No Distress, Calm Cardiovascular: Yes: Regular Rate and Rhythm Respiratory: Yes: Regular, CTA Bilaterally Musculoskeletal: Yes: WNL Extremities: Yes: Other Neurological: Yes: Alert, Other Psychiatric: Yes: Alert Labs: CBC, BMP 11/08/16 06:00 11/09/16 06:00 INR, PTT INR 1.12 (0.82-1.09) 10/26/16 21:00 Assessment/Plan Problem List - Problems (1) Acute hyperkalemia Code(s): E87.5 - HYPERKALEMIA (2) Acute renal failure Code(s): N17.9 - ACUTE KIDNEY FAILURE, UNSPECIFIED Qualifiers: Acute renal failure type: unspecified Qualified Code(s): N17.9 - Acute kidney failure, unspecified (3) UTI (urinary tract infection) Code(s): N39.0 - URINARY TRACT INFECTION, SITE NOT SPECIFIED Qualifiers: Urinary tract infection type: site unspecified Hematuria presence: without hematuria Qualified Code(s): N39.0 - Urinary tract infection, site not specified (4) Alzheimer's dementia Code(s): G30.9 - ALZHEIMER'S DISEASE, UNSPECIFIED Qualifiers: Alzheimer's disease onset: unspecified onset Dementia behavioral disturbance: without behavioral disturbance Qualified Code(s): G30.9 - Alzheimer's disease, unspecified; F02.80 - Dementia in other diseases classified elsewhere without behavioral disturbance leukocytosis colitis lactic acidosis sepsis cdiff doing well wbc has normalized plan stable no new events continue oral vanco finish a total of 10 days
[2016-11-09] MEDS: DEXTROSE 5%-0.45% SALINE 1,000 ML IV SCH (18:23)
[2016-11-10] MEDS: VANCOMYCIN 250 MG/5 ML ORAL SOLUTION PO SCH ×4 (05:51→23:03)
[2016-11-10] MEDS: BANATROL PLUS POWDER PACKET PO SCH ×3 (05:56→22:55)
[2016-11-10] MEDS: LEVOTHYROXINE NA 88 MCG TABLET (FP) PO SCH (06:00)
[2016-11-10 08:12] LABS: BASOPHIL 1.2 % (0-2.0); EOSINOPHIL 2.3 % (0-4.5); MCH 29.8 pg (25.7-33.7); MCHC 32.7 g/dl (32.0-36.0); MEAN CELL VOLUME 91.1 fl (80-96); MEAN PLT VOLUME 8.2 fl (7.5-11.1); NEUTROPHILS 64.5 % (42.8-82.8); PLATELET COUNT 259 K/MM3 (134-434); RDW 16.6 % (11.6-15.6); WHITE BLOOD COUNT 5.8 K/mm3 (4.0-10.0)
[2016-11-10 08:34] LABS: CALCIUM 7.9 mg/dL (8.5-10.1)
[2016-11-10 08:36] LABS: CREATININE 2.9 mg/dL (0.55-1.02)
--- NOTE | 2016-11-10 09:23 | PN ---
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 (short form) - Note 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: CBC, BMP 11/10/16 06:30 11/10/16 06:30 Urine Test Results Urine Color Zaira 10/26/16 13:15 Urine Appearance Turbid 10/26/16 13:15 Urine pH 8.0 (5.0-8.0) 10/26/16 13:15 Ur Specific [place] 1.013 (1.001-1.035) 10/26/16 13:15 Urine Protein 3+ (NEGATIVE) H 10/26/16 13:15 Urine Glucose (UA) Negative (NEGATIVE) 10/26/16 13:15 Urine Ketones Negative (NEGATIVE) 10/26/16 13:15 Urine Blood 3+ (NEGATIVE) H 10/26/16 13:15 Urine Nitrite Negative (NEGATIVE) 10/26/16 13:15 Urine Bilirubin Negative (NEGATIVE) 10/26/16 13:15 Ur Leukocyte Esterase 3+ (NEGATIVE) H 10/26/16 13:15 Urine RBC 213 /hpf (0-3) 10/26/16 13:15 Urine WBC 92 /hpf (3-5) 10/26/16 13:15 Ur Epithelial Cells Few /hpf (FEW) 10/26/16 13:15 Urine Bacteria Moderate /hpf (NONE SEEN) 10/26/16 13:15 Urine Mucus Many 10/26/16 13:15 S1S2 RRR lungs cta ant abd soft NT awake, stiff, appears contracted eating well with aid IMP sepsis/hypotension resolved UTI C.diff stage 4 sacral decubitus acute renal failure due to dehydration slowly resolving chronic anemia advanced dementia urinary retention Plan fluids as per renal oral vanco-consistently administered since 11.01.16-so would finish 11.11.16 pm supportive care oral nutrition GI/DVT prophylaxis PT dc planning depending on iv fluids Problem List - Problems (1) Acute hyperkalemia Code(s): E87.5 - HYPERKALEMIA (2) Acute renal failure Code(s): N17.9 - ACUTE KIDNEY FAILURE, UNSPECIFIED Qualifiers: Acute renal failure type: unspecified Qualified Code(s): N17.9 - Acute kidney failure, unspecified (3) Diarrhea Code(s): R19.7 - DIARRHEA, UNSPECIFIED Qualifiers: Diarrhea type: unspecified type Qualified Code(s): R19.7 - Diarrhea , unspecified (4) Sepsis syndrome Code(s): [id number] - (5) UTI (urinary tract infection) Code(s): N39.0 - URINARY TRACT INFECTION, SITE NOT SPECIFIED Qualifiers: Urinary tract infection type: site unspecified Hematuria presence: without hematuria Qualified Code(s): N39.0 - Urinary tract infection, site not specified (6) Alzheimer's dementia Code(s): G30.9 - ALZHEIMER'S DISEASE, UNSPECIFIED Qualifiers: Alzheimer's disease onset: unspecified onset Dementia behavioral disturbance: without behavioral disturbance Qualified Code(s): G30.9 - Alzheimer's disease, unspecified; F02.80 - Dementia in other diseases classified elsewhere without behavioral disturbance (7) Hypotension Code(s): I95.9 - HYPOTENSION, UNSPECIFIED Qualifiers: Hypotension type: other hypotension type Qualified Code(s): I95.89 - Other hypotension
[2016-11-10] MEDS: RANITIDINE HCL 150 MG/10 ML UNIT-DOSE CUP PO SCH (10:45)
[2016-11-10] MEDS: MEMANTINE HCL 10 MG TABLET (FP) PO SCH (10:45)
[2016-11-10] MEDS: MULTIVITAMINS (DAILY MVI) TABLET (FP) PO SCH (10:55)
--- NOTE | 2016-11-10 13:29 | PN ---
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, Physician History of Present Illness: patient stable no new findings - Current Medication List Current Medications: Active Medications Acetaminophen (Tylenol Oral Solution -) 650 mg PO Q6H PRN PRN Reason: FEVER OR PAIN Last Admin: 11/08/16 13:37 Dose: 650 mg Dextrose/Sodium Chloride (D5-1/2ns -) 1,000 mls @ 42 mls/hr IV ASDIR [facility] Last Admin: 11/09/16 18:23 Dose: 42 mls/hr Levothyroxine Sodium (Synthroid -) 88 mcg PO DAILY@0700 [facility] Last Admin: 11/10/16 06:00 Dose: 88 mcg Memantine (Namenda -) 10 mg PO DAILY [facility] Last Admin: 11/10/16 10:45 Dose: 10 mg Multivitamins/Minerals/Vitamin C (Tab-A-Vit -) 1 tab PO DAILY [facility] Last Admin: 11/10/16 10:55 Dose: 1 tab Ranitidine HCl (Zantac Oral Solution -) 150 mg PO DAILY [facility] Last Admin: 11/10/16 10:45 Dose: 150 mg Vancomycin HCl (Vancomycin Oral Solution) 125 mg PO Q6HPO [facility] Last Admin: 11/10/16 05:51 Dose: 125 mg - Objective Vital Signs: Vital Signs Temperature 98.2 F 11/10/16 06:00 Pulse Rate 91 H 11/10/16 06:00 Respiratory Rate 18 11/10/16 06:00 Blood Pressure 129/68 11/10/16 06:00 O2 Sat by Pulse Oximetry (%) 98 11/09/16 22:30 Constitutional: Yes: No Distress, Calm Cardiovascular: Yes: Regular Rate and Rhythm Respiratory: Yes: Regular, CTA Bilaterally Gastrointestinal: Yes: Normal Bowel Sounds, Soft Genitourinary: Yes: Mccrary Present Extremities: Yes: Other Neurological: Yes: Alert Psychiatric: Yes: Alert Labs: CBC, BMP 11/10/16 06:30 11/10/16 06:30 INR, PTT INR 1.12 (0.82-1.09) 10/26/16 21:00 Assessment/Plan Problem List - Problems (1) Acute hyperkalemia Code(s): E87.5 - HYPERKALEMIA (2) Acute renal failure Code(s): N17.9 - ACUTE KIDNEY FAILURE, UNSPECIFIED Qualifiers: Acute renal failure type: unspecified Qualified Code(s): N17.9 - Acute kidney failure, unspecified (3) UTI (urinary tract infection) Code(s): N39.0 - URINARY TRACT INFECTION, SITE NOT SPECIFIED Qualifiers: Urinary tract infection type: site unspecified Hematuria presence: without hematuria Qualified Code(s): N39.0 - Urinary tract infection, site not specified (4) Alzheimer's dementia Code(s): G30.9 - ALZHEIMER'S DISEASE, UNSPECIFIED Qualifiers: Alzheimer's disease onset: unspecified onset Dementia behavioral disturbance: without behavioral disturbance Qualified Code(s): G30.9 - Alzheimer's disease, unspecified; F02.80 - Dementia in other diseases classified elsewhere without behavioral disturbance leukocytosis colitis lactic acidosis sepsis cdiff sacral decubitus plan stable no new events continue oral vanco finish a total of 10 days continue iv fluids as per primary team
[2016-11-10] MEDS ORDERED: PT OWN MED DRAWER 7, Y5N ONE ×3 (14:06→18:15)
--- NOTE | 2016-11-10 14:08 | PN ---
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, Physician History of Present Illness: Pt seen and examined at bedside. She is awake and appears comfortable. She denies shortness of breath. - Current Medication List Current Medications: Active Medications Acetaminophen (Tylenol Oral Solution -) 650 mg PO Q6H PRN PRN Reason: FEVER OR PAIN Last Admin: 11/08/16 13:37 Dose: 650 mg Dextrose/Sodium Chloride (D5-1/2ns -) 1,000 mls @ 42 mls/hr IV ASDIR [facility] Last Admin: 11/09/16 18:23 Dose: 42 mls/hr Levothyroxine Sodium (Synthroid -) 88 mcg PO DAILY@0700 [facility] Last Admin: 11/10/16 06:00 Dose: 88 mcg Memantine (Namenda -) 10 mg PO DAILY [facility] Last Admin: 11/10/16 10:45 Dose: 10 mg Multivitamins/Minerals/Vitamin C (Tab-A-Vit -) 1 tab PO DAILY [facility] Last Admin: 11/10/16 10:55 Dose: 1 tab Ranitidine HCl (Zantac Oral Solution -) 150 mg PO DAILY [facility] Last Admin: 11/10/16 10:45 Dose: 150 mg Vancomycin HCl (Vancomycin Oral Solution) 125 mg PO Q6HPO [facility] Last Admin: 11/10/16 05:51 Dose: 125 mg - Objective Vital Signs: Vital Signs Temperature 98.7 F 11/10/16 10:00 Pulse Rate 108 H 11/10/16 10:00 Respiratory Rate 18 11/10/16 10:00 Blood Pressure 125/81 11/10/16 10:00 O2 Sat by Pulse Oximetry (%) 98 11/09/16 22:30 Constitutional: Yes: Calm Eyes: Yes: Conjunctiva Clear HENT: Yes: Atraumatic Neck: Yes: Supple Cardiovascular: Yes: S1, S2 Respiratory: Yes: CTA Bilaterally Gastrointestinal: Yes: Soft Genitourinary: Yes: Incontinence Musculoskeletal: Yes: WNL Edema: No Neurological: Yes: Confusion Labs: CBC, BMP 11/10/16 06:30 11/10/16 06:30 INR, PTT INR 1.12 (0.82-1.09) 10/26/16 21:00 Problem List - Problems (1) Acute hyperkalemia Code(s): E87.5 - HYPERKALEMIA (2) Acute renal failure Code(s): N17.9 - ACUTE KIDNEY FAILURE, UNSPECIFIED Qualifiers: Acute renal failure type: unspecified Qualified Code(s): N17.9 - Acute kidney failure, unspecified (3) UTI (urinary tract infection) Code(s): N39.0 - URINARY TRACT INFECTION, SITE NOT SPECIFIED Qualifiers: Urinary tract infection type: site unspecified Hematuria presence: without hematuria Qualified Code(s): N39.0 - Urinary tract infection, site not specified (4) Alzheimer's dementia Code(s): G30.9 - ALZHEIMER'S DISEASE, UNSPECIFIED Qualifiers: Alzheimer's disease onset: unspecified onset Dementia behavioral disturbance: without behavioral disturbance Qualified Code(s): G30.9 - Alzheimer's disease, unspecified; F02.80 - Dementia in other diseases classified elsewhere without behavioral disturbance Assessment/Plan Current Medications Generic Name Dose Route Start Last Admin Trade Name Freq PRN Reason Stop Dose Admin Acetaminophen 650 mg 11/07/16 13:45 11/08/16 13:37 Tylenol Oral Solution - PO 650 mg Q6H PRN Administration FEVER OR PAIN Dextrose/Sodium Chloride 1,000 mls @ 42 mls/hr 11/07/16 12:30 11/09/16 18:23 D5-1/2ns - IV 42 mls/hr ASDIR [facility]E Administration Levothyroxine Sodium 88 mcg 11/04/16 07:00 11/10/16 06:00 Synthroid - PO 88 mcg DAILY@0700 [facility]E Administration Memantine 10 mg 11/04/16 10:00 11/10/16 10:45 Namenda - PO 10 mg DAILY [facility]E Administration Multivitamins/Minerals/Vitamin C 1 tab 11/04/16 10:00 11/10/16 10:55 Tab-A-Vit - PO 1 tab DAILY [facility]E Administration Ranitidine HCl 150 mg 11/05/16 10:00 11/10/16 10:45 Zantac Oral Solution - PO 150 mg DAILY [facility]E Administration Vancomycin HCl 125 mg 11/04/16 00:00 11/10/16 05:51 Vancomycin Oral Solution PO 125 mg Q6HPO TAYE Administration Impression 1. DALJIT 2. hx CKD 3. metabolic acidosis 4. hyperkalemia 5. dementia 6. sepsis 7. UTI 8. hypernatremia Plan - renal function has been improving - lily keep on fluids while in hospital - d/c toribio catheter - monitor bmp - encourage PO intake - encourage free water intake - will follow Dr Greene
[2016-11-10] MEDS ORDERED: SODIUM CHLORIDE 0.45% 1,000 ML IV SCH (14:15)
[2016-11-10] MEDS: DEXTROSE 5%-0.45% SALINE 1,000 ML IV SCH (15:15)
[2016-11-10] MEDS: ACETAMINOPHEN 650 MG/20.3 ML ORAL SOLUTION (CUPS) PO PRN (16:07)
[2016-11-11] MEDS: BANATROL PLUS POWDER PACKET PO SCH ×3 (06:01→23:02)
[2016-11-11] MEDS: LEVOTHYROXINE NA 88 MCG TABLET (FP) PO SCH (06:01)
--- NOTE | 2016-11-11 06:51 | DS ---
Physical Examination Vital Signs: Vital Signs Temperature 97.5 F L 11/11/16 06:00 Pulse Rate 81 11/11/16 06:00 Respiratory Rate 18 11/11/16 06:00 Blood Pressure 113/55 11/11/16 06:00 O2 Sat by Pulse Oximetry (%) 99 11/10/16 22:00 Constitutional: Yes: Calm Eyes: Yes: EOM Intact HENT: Yes: Normocephalic Neck: Yes: Trachea Midline Cardiovascular: Yes: Regular Rate and Rhythm Respiratory: Yes: CTA Bilaterally Gastrointestinal: Yes: Normal Bowel Sounds, Soft Edema: LLE: Trace, RLE: Trace Peripheral Pulses WNL: Yes Neurological: Yes: Other (contracted limbs, minimally verbal, does not follow commands) Labs: CBC, BMP 11/10/16 06:30 11/10/16 06:30 Discharge Summary Reason For Visit: SEPSIS SYNDROME UTI RENAL FAILURE Current Active Problems Acute hyperkalemia (Acute) Acute renal failure (Acute) Clostridium difficile diarrhea (Acute) Diarrhea (Acute) Hyponatremia (Acute) Hypotension (Acute) Sepsis syndrome (Acute) Stage 4 skin ulcer of sacral region (Acute) UTI (urinary tract infection) (Acute) Hospital Course: Admitted for lethargy. Acute renal failure with dehydration, sepsis with hypotension requiring pressors for several days. Abx given for UTI and c.diff diarrhea, now both resolved. Received blood transfusion for anemia. Has stage 4 non-infected sacral decubitus, has been seen by wound care. Now eating well, on very low dose fluids while in hospital. Mccrary still in place due to urinary retention-pt failed trials twice and also to help improve on sacral decubitus. Daughters goal is maximum comfort, however pt is not DNR as per daughter's wishes. Medically stable for SNF. Condition: Guarded - Instructions Diet, Activity, Other Instructions: weekly basic metabolic panel for renal functions and electrolytes Referrals: Marion Reich MD [Primary Care Provider] - Disposition: ALF FACILITY - Home Medications Comprehensive Discharge Medication List: Ambulatory Orders Memantine HCl [Namenda -] 10 mg PO DAILY 10/01/13 Levothyroxine [Synthroid -] 88 mcg PO DAILY 04/08/16 Multivitamins [Multivit ([facility] Formulary)] 1 tab PO DAILY tab 11/11/16 Ranitidine Oral Solution [Zantac Oral Solution -] 150 mg PO DAILY 11/11/16
[2016-11-11 08:28] LABS: CALCIUM 7.6 mg/dL (8.5-10.1); CREATININE 2.6 mg/dL (0.55-1.02)
[2016-11-11] MEDS: RANITIDINE HCL 150 MG/10 ML UNIT-DOSE CUP PO SCH (09:56)
[2016-11-11] MEDS: MULTIVITAMINS (DAILY MVI) TABLET (FP) PO SCH (09:56)
[2016-11-11] MEDS: MEMANTINE HCL 10 MG TABLET (FP) PO SCH (09:56)
[2016-11-11] MEDS: ACETAMINOPHEN 650 MG/20.3 ML ORAL SOLUTION (CUPS) PO PRN (13:16)
--- NOTE | 2016-11-11 14:09 | PN ---
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, Physician History of Present Illness: continues to remain stable no new issues mental status at base line - Current Medication List Current Medications: Active Medications Acetaminophen (Tylenol Oral Solution -) 650 mg PO Q6H PRN PRN Reason: FEVER OR PAIN Last Admin: 11/11/16 13:16 Dose: 650 mg Sodium Chloride (1/2 Normal Saline) 1,000 mls @ 42 mls/hr IV ASDIR [facility] Last Admin: 11/10/16 14:18 Dose: 42 mls/hr Levothyroxine Sodium (Synthroid -) 88 mcg PO DAILY@0700 [facility] Last Admin: 11/11/16 06:01 Dose: 88 mcg Memantine (Namenda -) 10 mg PO DAILY [facility] Last Admin: 11/11/16 09:56 Dose: 10 mg Multivitamins/Minerals/Vitamin C (Tab-A-Vit -) 1 tab PO DAILY [facility] Last Admin: 11/11/16 09:56 Dose: 1 tab Ranitidine HCl (Zantac Oral Solution -) 150 mg PO DAILY [facility] Last Admin: 11/11/16 09:56 Dose: 150 mg - Objective Vital Signs: Vital Signs Temperature 97.4 F L 11/11/16 10:00 Pulse Rate 104 H 11/11/16 10:00 Respiratory Rate 18 11/11/16 10:00 Blood Pressure 131/65 11/11/16 10:00 O2 Sat by Pulse Oximetry (%) 97 11/11/16 09:00 Constitutional: Yes: No Distress, Calm Cardiovascular: Yes: Regular Rate and Rhythm Respiratory: Yes: Regular, CTA Bilaterally Gastrointestinal: Yes: Normal Bowel Sounds, Soft Genitourinary: Yes: Mccrary Present Musculoskeletal: Yes: Other Extremities: Yes: Other Integumentary: Yes: Other Wound/Incision: Yes: Other (decubitus ulcer stage 4) Neurological: Yes: Alert, Other Psychiatric: Yes: Alert, Other Labs: CBC, BMP 11/10/16 06:30 11/11/16 06:00 INR, PTT INR 1.12 (0.82-1.09) 10/26/16 21:00 Assessment/Plan Problem List - Problems (1) Acute hyperkalemia Code(s): E87.5 - HYPERKALEMIA (2) Acute renal failure Code(s): N17.9 - ACUTE KIDNEY FAILURE, UNSPECIFIED Qualifiers: Acute renal failure type: unspecified Qualified Code(s): N17.9 - Acute kidney failure, unspecified (3) UTI (urinary tract infection) Code(s): N39.0 - URINARY TRACT INFECTION, SITE NOT SPECIFIED Qualifiers: Urinary tract infection type: site unspecified Hematuria presence: without hematuria Qualified Code(s): N39.0 - Urinary tract infection, site not specified (4) Alzheimer's dementia Code(s): G30.9 - ALZHEIMER'S DISEASE, UNSPECIFIED Qualifiers: Alzheimer's disease onset: unspecified onset Dementia behavioral disturbance: without behavioral disturbance Qualified Code(s): G30.9 - Alzheimer's disease, unspecified; F02.80 - Dementia in other diseases classified elsewhere without behavioral disturbance leukocytosis colitis lactic acidosis sepsis cdiff sacral decubitus plan stable no new events continue wound care
--- NOTE | 2016-11-11 14:12 | PN ---
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, Physician History of Present Illness: Pt seen and examined at bedside. She appears comfortable. - Current Medication List Current Medications: Active Medications Acetaminophen (Tylenol Oral Solution -) 650 mg PO Q6H PRN PRN Reason: FEVER OR PAIN Last Admin: 11/11/16 13:16 Dose: 650 mg Sodium Chloride (1/2 Normal Saline) 1,000 mls @ 42 mls/hr IV ASDIR [facility] Last Admin: 11/10/16 14:18 Dose: 42 mls/hr Levothyroxine Sodium (Synthroid -) 88 mcg PO DAILY@0700 [facility] Last Admin: 11/11/16 06:01 Dose: 88 mcg Memantine (Namenda -) 10 mg PO DAILY [facility] Last Admin: 11/11/16 09:56 Dose: 10 mg Multivitamins/Minerals/Vitamin C (Tab-A-Vit -) 1 tab PO DAILY [facility] Last Admin: 11/11/16 09:56 Dose: 1 tab Ranitidine HCl (Zantac Oral Solution -) 150 mg PO DAILY [facility] Last Admin: 11/11/16 09:56 Dose: 150 mg - Objective Vital Signs: Vital Signs Temperature 97.4 F L 11/11/16 10:00 Pulse Rate 104 H 11/11/16 10:00 Respiratory Rate 18 11/11/16 10:00 Blood Pressure 131/65 11/11/16 10:00 O2 Sat by Pulse Oximetry (%) 97 11/11/16 09:00 Constitutional: Yes: Calm Eyes: Yes: Conjunctiva Clear HENT: Yes: Atraumatic Cardiovascular: Yes: S1, S2 Respiratory: Yes: CTA Bilaterally Gastrointestinal: Yes: Soft Genitourinary: Yes: Toribio Present Edema: No Neurological: Yes: Confusion Labs: CBC, BMP 11/10/16 06:30 11/11/16 06:00 INR, PTT INR 1.12 (0.82-1.09) 10/26/16 21:00 Problem List - Problems (1) Acute hyperkalemia Code(s): E87.5 - HYPERKALEMIA (2) Acute renal failure Code(s): N17.9 - ACUTE KIDNEY FAILURE, UNSPECIFIED Qualifiers: Acute renal failure type: unspecified Qualified Code(s): N17.9 - Acute kidney failure, unspecified (3) UTI (urinary tract infection) Code(s): N39.0 - URINARY TRACT INFECTION, SITE NOT SPECIFIED Qualifiers: Urinary tract infection type: site unspecified Hematuria presence: without hematuria Qualified Code(s): N39.0 - Urinary tract infection, site not specified (4) Alzheimer's dementia Code(s): G30.9 - ALZHEIMER'S DISEASE, UNSPECIFIED Qualifiers: Alzheimer's disease onset: unspecified onset Dementia behavioral disturbance: without behavioral disturbance Qualified Code(s): G30.9 - Alzheimer's disease, unspecified; F02.80 - Dementia in other diseases classified elsewhere without behavioral disturbance Assessment/Plan Current Medications Generic Name Dose Route Start Last Admin Trade Name Freq PRN Reason Stop Dose Admin Acetaminophen 650 mg 11/07/16 13:45 11/11/16 13:16 Tylenol Oral Solution - PO 650 mg Q6H PRN Administration FEVER OR PAIN Sodium Chloride 1,000 mls @ 42 mls/hr 11/10/16 14:15 11/10/16 14:18 1/2 Normal Saline IV 42 mls/hr ASDIR [facility]AYE Administration Levothyroxine Sodium 88 mcg 11/04/16 07:00 11/11/16 06:01 Synthroid - PO 88 mcg DAILY@0700 [facility]AYE Administration Memantine 10 mg 11/04/16 10:00 11/11/16 09:56 Namenda - PO 10 mg DAILY [facility]AYE Administration Multivitamins/Minerals/Vitamin C 1 tab 11/04/16 10:00 11/11/16 09:56 Tab-A-Vit - PO 1 tab DAILY [facility]AYE Administration Ranitidine HCl 150 mg 11/05/16 10:00 11/11/16 09:56 Zantac Oral Solution - PO 150 mg DAILY [facility]AYE Administration Impression 1. DALJIT 2. hx CKD 3. metabolic acidosis 4. hyperkalemia 5. dementia 6. sepsis 7. UTI 8. hypernatremia Plan - renal function improving - encourage PO intake - urology follow up for retention - toribio care - will keep on fluids for now - encourage free water intake - will follow Dr Greene
[2016-11-11] MEDS ORDERED: PT OWN MED DRAWER 7, Y5N ONE ×2 (14:13→21:12)
[2016-11-12] MEDS ORDERED: PT OWN MED DRAWER 7, Y5N ONE ×3 (04:59→22:30)
[2016-11-12] MEDS: BANATROL PLUS POWDER PACKET PO SCH ×3 (06:41→22:34)
[2016-11-12] MEDS: LEVOTHYROXINE NA 88 MCG TABLET (FP) PO SCH (06:41)
--- NOTE | 2016-11-12 09:00 | PN ---
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 (short form) - Note 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: Vital Signs Period Temp Pulse Resp BP Sys/Correia Pulse Ox Last 24 Hr 97 F-98.3 F 82-104 16-18 95-131/50-67 97-97 S1S2 RRR lungs cta ant abd soft NT awake, stiff, appears contracted eating well with aid IMP sepsis/hypotension resolved UTI C.diff stage 4 sacral decubitus acute renal failure due to dehydration slowly resolving chronic anemia advanced dementia urinary retention Plan dc fluids-iv was removed yesterday dc toribio, start flomax completed oral vanco supportive care oral nutrition PT dc planning Problem List - Problems (1) Acute hyperkalemia Code(s): E87.5 - HYPERKALEMIA (2) Acute renal failure Code(s): N17.9 - ACUTE KIDNEY FAILURE, UNSPECIFIED Qualifiers: Acute renal failure type: unspecified Qualified Code(s): N17.9 - Acute kidney failure, unspecified (3) Diarrhea Code(s): R19.7 - DIARRHEA, UNSPECIFIED Qualifiers: Diarrhea type: unspecified type Qualified Code(s): R19.7 - Diarrhea , unspecified (4) Sepsis syndrome Code(s): [id number] - (5) UTI (urinary tract infection) Code(s): N39.0 - URINARY TRACT INFECTION, SITE NOT SPECIFIED Qualifiers: Urinary tract infection type: site unspecified Hematuria presence: without hematuria Qualified Code(s): N39.0 - Urinary tract infection, site not specified (6) Alzheimer's dementia Code(s): G30.9 - ALZHEIMER'S DISEASE, UNSPECIFIED Qualifiers: Alzheimer's disease onset: unspecified onset Dementia behavioral disturbance: without behavioral disturbance Qualified Code(s): G30.9 - Alzheimer's disease, unspecified; F02.80 - Dementia in other diseases classified elsewhere without behavioral disturbance (7) Hypotension Code(s): I95.9 - HYPOTENSION, UNSPECIFIED Qualifiers: Hypotension type: other hypotension type Qualified Code(s): I95.89 - Other hypotension
--- NOTE | 2016-11-12 10:41 | PN ---
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, BACK END ENGINEER - Note 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: Selected Entries 11/11/16 11/11/16 11/11/16 10:13 15:07 18:30 Breakfast 25% Lunch 25% Supper 0 Temperature 11/12/16 11/12/16 02:00 06:00 Breakfast Lunch Supper Temperature 97.6 F 98 F Pt receiving thin liquid and pureed diet. No overt cough or signs of aspiration demonstrated. Pt closes her mouth, with limited po intake sec to confusion. Reviewed with staff, to try mixing puree into liquid, to drink items if limited PO acceptance. Continue to encourage supplements. ensure b/n meals.
[2016-11-12] MEDS: MEMANTINE HCL 10 MG TABLET (FP) PO SCH (11:04)
[2016-11-12] MEDS: MULTIVITAMINS (DAILY MVI) TABLET (FP) PO SCH (11:04)
[2016-11-12] MEDS: RANITIDINE HCL 150 MG/10 ML UNIT-DOSE CUP PO SCH (11:04)
--- NOTE | 2016-11-12 15:31 | PN ---
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, Physician History of Present Illness: patient doing well no issues foleys removed - Current Medication List Current Medications: Active Medications Acetaminophen (Tylenol Oral Solution -) 650 mg PO Q6H PRN PRN Reason: FEVER OR PAIN Last Admin: 11/11/16 13:16 Dose: 650 mg Levothyroxine Sodium (Synthroid -) 88 mcg PO DAILY@0700 [facility] Last Admin: 11/12/16 06:41 Dose: 88 mcg Memantine (Namenda -) 10 mg PO DAILY [facility] Last Admin: 11/12/16 11:04 Dose: 10 mg Multivitamins/Minerals/Vitamin C (Tab-A-Vit -) 1 tab PO DAILY [facility] Last Admin: 11/12/16 11:04 Dose: 1 tab Ranitidine HCl (Zantac Oral Solution -) 150 mg PO DAILY [facility] Last Admin: 11/12/16 11:04 Dose: 150 mg Tamsulosin HCl (Flomax -) 0.4 mg PO DAILY@0830 [facility] - Objective Vital Signs: Vital Signs Temperature 97.8 F 11/12/16 10:00 Pulse Rate 124 H 11/12/16 10:30 Respiratory Rate 18 11/12/16 10:00 Blood Pressure 129/63 11/12/16 10:00 O2 Sat by Pulse Oximetry (%) 98 11/12/16 10:30 Constitutional: Yes: No Distress, Calm Cardiovascular: Yes: Regular Rate and Rhythm Respiratory: Yes: Regular, CTA Bilaterally Gastrointestinal: Yes: Normal Bowel Sounds, Soft Musculoskeletal: Yes: Other Extremities: Yes: Other Neurological: Yes: Alert, Other Psychiatric: Yes: Alert Labs: CBC, BMP 11/10/16 06:30 11/11/16 06:00 INR, PTT INR 1.12 (0.82-1.09) 10/26/16 21:00 Assessment/Plan Problem List - Problems (1) Acute hyperkalemia Code(s): E87.5 - HYPERKALEMIA (2) Acute renal failure Code(s): N17.9 - ACUTE KIDNEY FAILURE, UNSPECIFIED Qualifiers: Acute renal failure type: unspecified Qualified Code(s): N17.9 - Acute kidney failure, unspecified (3) UTI (urinary tract infection) Code(s): N39.0 - URINARY TRACT INFECTION, SITE NOT SPECIFIED Qualifiers: Urinary tract infection type: site unspecified Hematuria presence: without hematuria Qualified Code(s): N39.0 - Urinary tract infection, site not specified (4) Alzheimer's dementia Code(s): G30.9 - ALZHEIMER'S DISEASE, UNSPECIFIED Qualifiers: Alzheimer's disease onset: unspecified onset Dementia behavioral disturbance: without behavioral disturbance Qualified Code(s): G30.9 - Alzheimer's disease, unspecified; F02.80 - Dementia in other diseases classified elsewhere without behavioral disturbance leukocytosis colitis lactic acidosis sepsis cdiff sacral decubitus plan stable no new events continue wound care foleys removed watch for urinary output
[2016-11-13] MEDS: LEVOTHYROXINE NA 88 MCG TABLET (FP) PO SCH (06:20)
[2016-11-13] MEDS: BANATROL PLUS POWDER PACKET PO SCH (06:20)
[2016-11-13] MEDS ORDERED: TAMSULOSIN HCL 0.4 MG CAP.ER.24H (FP) PO SCH (08:30)
--- NOTE | 2016-11-13 08:54 | PN ---
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 (short form) - Note 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: S1S2 RRR lungs cta ant abd soft bladder palpable over umbilicus, bladder scan shows over 900cc urine awake, stiff IMP recurrent urinary retention sepsis/hypotension resolved UTI C.diff stage 4 sacral decubitus acute renal failure due to dehydration slowly resolving chronic anemia advanced dementia Plan continue flomax Mccrary d/w supervising physician at insurance [employer] two days ago, does not qualify for STR, they suugested watermelon inspector placment. however daughter does not want watermelon inspector placement for her mom, wants to take her home, dc planning home with Mccrary Problem List - Problems (1) Acute hyperkalemia Code(s): E87.5 - HYPERKALEMIA (2) Acute renal failure Code(s): N17.9 - ACUTE KIDNEY FAILURE, UNSPECIFIED Qualifiers: Acute renal failure type: unspecified Qualified Code(s): N17.9 - Acute kidney failure, unspecified (3) Diarrhea Code(s): R19.7 - DIARRHEA, UNSPECIFIED Qualifiers: Diarrhea type: unspecified type Qualified Code(s): R19.7 - Diarrhea , unspecified (4) Sepsis syndrome Code(s): [id number] - (5) UTI (urinary tract infection) Code(s): N39.0 - URINARY TRACT INFECTION, SITE NOT SPECIFIED Qualifiers: Urinary tract infection type: site unspecified Hematuria presence: without hematuria Qualified Code(s): N39.0 - Urinary tract infection, site not specified (6) Alzheimer's dementia Code(s): G30.9 - ALZHEIMER'S DISEASE, UNSPECIFIED Qualifiers: Alzheimer's disease onset: unspecified onset Dementia behavioral disturbance: without behavioral disturbance Qualified Code(s): G30.9 - Alzheimer's disease, unspecified; F02.80 - Dementia in other diseases classified elsewhere without behavioral disturbance (7) Hypotension Code(s): I95.9 - HYPOTENSION, UNSPECIFIED Qualifiers: Hypotension type: other hypotension type Qualified Code(s): I95.89 - Other hypotension
--- NOTE | 2016-11-13 09:32 | PN ---
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 (short form) - Note 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: NAD No acute events overnight. Afebrile off ABX. Intake & Output 11/10/16 11/11/16 11/12/16 11/13/16 23:59 23:59 23:59 23:59 Intake Total 170 Output Total 1050 900 250 Balance -1050 -900 -80 Weight 118 lb 3.2 oz 118 lb 2 oz 118 lb 3.2 oz 118 lb Last Vital Signs Temp Pulse Resp BP Pulse Ox 97.8 F 85 18 95/47 99 11/13/16 05:43 11/13/16 05:43 11/13/16 05:43 11/13/16 05:43 11/12/16 20:55 Active Medications Acetaminophen (Tylenol Oral Solution -) 650 mg PO Q6H PRN PRN Reason: FEVER OR PAIN Last Admin: 11/11/16 13:16 Dose: 650 mg Levothyroxine Sodium (Synthroid -) 88 mcg PO DAILY@0700 [facility] Last Admin: 11/13/16 06:20 Dose: 88 mcg Memantine (Namenda -) 10 mg PO DAILY [facility] Last Admin: 11/12/16 11:04 Dose: 10 mg Multivitamins/Minerals/Vitamin C (Tab-A-Vit -) 1 tab PO DAILY [facility] Last Admin: 11/12/16 11:04 Dose: 1 tab Ranitidine HCl (Zantac Oral Solution -) 150 mg PO DAILY [facility] Last Admin: 11/12/16 11:04 Dose: 150 mg Tamsulosin HCl (Flomax -) 0.4 mg PO DAILY@0830 [facility] Gen: breathing nonlabored Heart: RRR Lung: decreased breath sounds at the bases Abd: soft, nontender Ext: no edema IMP: UTI +C diff Ag Resolved Septic Shock Hypernatremia/Dehydration Acute on Chronic Renal Failure Hyperkalemia improved Lactic Acidosis resolved Hypothyroidism - Off ABX - O2 as needed - Aspiration precautions - PO as tolerated - DVT/GI prophylaxis - D/C planning Dr Kimball
[2016-11-13] MEDS: MEMANTINE HCL 10 MG TABLET (FP) PO SCH (11:16)
[2016-11-13] MEDS: MULTIVITAMINS (DAILY MVI) TABLET (FP) PO SCH (11:16)
[2016-11-13] MEDS: RANITIDINE HCL 150 MG/10 ML UNIT-DOSE CUP PO SCH (11:16)
[2016-11-13] MEDS: ACETAMINOPHEN 650 MG/20.3 ML ORAL SOLUTION (CUPS) PO PRN (11:19)
[2016-11-13 16:45] VITALS: BP 114/56; PULSE 80; TEMP 98
--- NOTE | 2016-11-14 13:35 | PN ---
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, Physician History of Present Illness: patient doing well no issues - Objective Vital Signs: Vital Signs Temperature 98 F 11/13/16 10:00 Pulse Rate 80 11/13/16 10:00 Respiratory Rate 20 11/13/16 10:00 Blood Pressure 114/56 11/13/16 10:00 O2 Sat by Pulse Oximetry (%) 99 11/13/16 09:00 Constitutional: Yes: No Distress, Calm Cardiovascular: Yes: Regular Rate and Rhythm Respiratory: Yes: Regular, CTA Bilaterally Gastrointestinal: Yes: Normal Bowel Sounds, Soft Extremities: Yes: Other Neurological: Yes: Alert Psychiatric: Yes: Alert Labs: CBC, BMP 11/10/16 06:30 11/11/16 06:00 INR, PTT INR 1.12 (0.82-1.09) 10/26/16 21:00 Assessment/Plan Problem List - Problems (1) Acute hyperkalemia Code(s): E87.5 - HYPERKALEMIA (2) Acute renal failure Code(s): N17.9 - ACUTE KIDNEY FAILURE, UNSPECIFIED Qualifiers: Acute renal failure type: unspecified Qualified Code(s): N17.9 - Acute kidney failure, unspecified (3) UTI (urinary tract infection) Code(s): N39.0 - URINARY TRACT INFECTION, SITE NOT SPECIFIED Qualifiers: Urinary tract infection type: site unspecified Hematuria presence: without hematuria Qualified Code(s): N39.0 - Urinary tract infection, site not specified (4) Alzheimer's dementia Code(s): G30.9 - ALZHEIMER'S DISEASE, UNSPECIFIED Qualifiers: Alzheimer's disease onset: unspecified onset Dementia behavioral disturbance: without behavioral disturbance Qualified Code(s): G30.9 - Alzheimer's disease, unspecified; F02.80 - Dementia in other diseases classified elsewhere without behavioral disturbance leukocytosis colitis lactic acidosis sepsis cdiff sacral decubitus plan stable daughter planning to take the patient home
== END 2016-11-13 13:14 | disposition home or self-care (01) | DRG 871 ==
LOC: JER 09:41 → JERBED 13:31 → JICU 17:25 → J7W 11-04 20:50
PROVIDERS: ADMIT Internal Medicine; ATTEND Internal Medicine
PROC: 30233N1 Transfusion of Nonautologous Red Blood Cells into Peripheral Vein, Percutaneous Approach (ICD-10-PCS; principal; 2016-10-27)
DX: A41.9 Sepsis, unspecified organism (principal); L89.154 Pressure ulcer of sacral region, stage 4; R65.21 Severe sepsis with septic shock; N39.0 Urinary tract infection, site not specified; N17.9 Acute kidney failure, unspecified; E87.2 Acidosis; A04.7 Enterocolitis due to Clostridium difficile; E87.0 Hyperosmolality and hypernatremia; N18.5 Chronic kidney disease, stage 5; E78.00 Pure hypercholesterolemia, unspecified; E86.0 Dehydration; E87.5 Hyperkalemia; G30.9 Alzheimer's disease, unspecified; F02.80 Dementia in other diseases classified elsewhere, unspecified severity, without behavioral disturbance, psychotic disturbance, mood disturbance, and anxiety; E03.9 Hypothyroidism, unspecified; R33.9 Retention of urine, unspecified; E11.22 Type 2 diabetes mellitus with diabetic chronic kidney disease; R68.0 Hypothermia, not associated with low environmental temperature; L89.221 Pressure ulcer of left hip, stage 1; D63.1 Anemia in chronic kidney disease; I95.89 Other hypotension; M24.50 Contracture, unspecified joint
CPT/HCPCS: 36415; 36430; 36600; 70450-TC; 71010-TC; 73523-TC; 74176-TC; 80048; 80053; 81003; 81015; 82150; 82550; 82570; 82803; 83605; 83690; 83735; 83880; 84100; 84484; 85025; 85027; 85610; 85651; 85730; 86850; 86900; 86901; 86922; 87040; 87086; 87186; 87254; 87324; 87449; 87804; 93005; 93010; 97161-GP; 99284-25; G0480; J1644; J3480; P9038; P9058